=== PATIENT | male | born 1980 | race Hispanic/Latino ===

== ENCOUNTER 2017-08-21 13:56 | Emergency (ER) | payer MEDICARE, OTHER ==
[~2017-08-21] VITALS: Ht 182.9 cm; Wt 156.5 kg
[2017-08-21] MEDS ORDERED: ONDANSETRON HCL INJ 2 MG/ML VIAL IV STA ×2 (14:13→16:08)
[2017-08-21] MEDS ORDERED: SODIUM CHLORIDE FLUSH 10 ML SYR INJ PRN (14:15)
[2017-08-21] MEDS ORDERED: MORPHINE SULFATE 5 MG/ML VIAL IV ONE (14:15)
[2017-08-21] MEDS ORDERED: TRAMADOL HCL 50 MG TAB PO ONE (16:15)
[2017-08-21] MEDS ORDERED: MORPHINE SULFATE 4 MG/ML SYR IV ONE (16:15)
[2017-08-21] MEDS ORDERED: MORPHINE SULFATE 2 MG/ML SYR IV SCH (16:15)
[2017-08-21 16:23] VITALS: BP 119/55
[2017-08-21] MEDS ORDERED: IOPAMIDOL 370 MG/ML 50ML INFUS..BTL INJ ONE (16:45)
== END 2017-08-21 16:29 | disposition home or self-care (01) ==
LOC: FSED 13:56
DX: R07.89 Other chest pain (principal); R09.1 Pleurisy; R05 Cough; R11.0 Nausea; J20.9 Acute bronchitis, unspecified; K21.9 Gastro-esophageal reflux disease without esophagitis; K70.30 Alcoholic cirrhosis of liver without ascites; E66.01 Morbid (severe) obesity due to excess calories
CPT/HCPCS: 71275; 80053; 80076; 81003; 82553; 84484; 85025; 85379; 85610; 93005; 99284; J2270; J2405; Q9967

== ENCOUNTER 2018-03-04 05:37 | Inpatient (IN) | payer MEDICARE, OTHER ==
[~2018-03-04] VITALS: Ht 180.3 cm; Wt 146.1 kg
--- OUTSIDE RECORDS SUMMARY | 2018-03-04 05:43 | XMS REPORT | Summary of Care ---
Author Author [facility] Organization [facility] Address Unknown Phone Unavailable Encounter ATUL Gomez(JULITO) [phone] Date(s): 03/01/16 - 03/01/16 [facility] [address] [facility] [phone] [facility] [phone] Discharge Disposition: Home or Self Care Attending Physician: Ari Petit MD Referring Physician: Ari Petit MD Vital Signs Most recent to 1 oldest [Reference Range]: Height 182.88 cm (03/01/16 12:45 PM) Temperature Oral 99.3 DegF [96.4-99.1 DegF] *HI* (03/01/16 12:45 PM) Blood Pressure 155/70 mmHg [90-140/60-90 mmHg] *HI* (03/01/16 12:45 PM) Peripheral Pulse 82 bpm Rate [60-100 bpm] (03/01/16 12:45 PM) Weight 158.239 kg (03/01/16 12:45 PM) Body Mass Index 47.31 m2 (03/01/16 12:45 PM) Problem List Condition Effective Dates Status Health Status Informant 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) Morbid Active obesity(Confirmed) Allergies, Adverse Reactions, Alerts Substance Reaction Severity Status NKDA Active Medications gabapentin 300 mg oral capsule 300 mg=1 cap, PO, TID, 0 Refill(s) Start Date: 03/01/16 Status: Ordered ICaps Plus oral tablet 1 tab, PO, Daily, 0 Refill(s) Start Date: 03/01/16 Status: Ordered lactulose 10 g/15 mL oral syrup 10 gm=15 mL, PO, BID, X 30 day, # 900 mL, 6 Refill(s), Pharmacy: [id number] Start Date: 03/01/16 Stop Date: 09/27/16 Status: Ordered non-formulary Refill(s) 0 Start Date: 03/01/16 Status: Ordered non-formulary Refill(s) 0 Start Date: 03/01/16 Status: Ordered pantoprazole 40 mg oral granule =1 Pack, PO, Daily, # 30 ea, 0 Refill(s) Start Date: 03/01/16 Status: Ordered Ultracet oral tablet 1 tab, PO, Q4H, 0 Refill(s) Start Date: 03/01/16 Status: Ordered Results No data available for this section Immunizations No data available for this section Procedures Procedure Date Related Diagnosis Body Site Back care Social History Social History Type Response Smoking Status Never smoker; Exposure to Tobacco Smoke None; Cigarette Smoking Last 365 Days No; Reg Smoking Cessation Counseling No Assessment and Plan No data available for this section
--- OUTSIDE RECORDS SUMMARY | 2018-03-04 05:43 | XMS REPORT | Summary of Care ---
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
--- OUTSIDE RECORDS SUMMARY | 2018-03-04 05:43 | XMS REPORT | Continuity of Care Document ---
Author Author Dave alford Organization Interface Address Unknown Phone Unavailable Problems Problem Status Onset Date Classification Date Reported Comments Source LAB WORK ONLY Active 01/12/2018 [facility] Encounter for follow-up examination after completed treatment for conditions other than malignant neoplasm 05/29/2017 08/29/2017 [facility] F/U Active 05/23/2017 [facility] Unspecified cirrhosis of liver 05/04/2017 08/06/2017 [facility] C22.0 - LIVER CELL CARCINOMA Active 05/02/2017 LORENE Alford ESLD Active 02/13/2017 [facility] GI BLEED Active 02/11/2017 [facility] RECTAL BLEEDING Active 02/11/2017 [facility] K76.6 - PORTAL HYPERTENSION C22.0 - LIVE Active 12/27/2016 LORENE Alford OUTPATIENT/IMAGE GUIDED ANGIOGRAM Active 12/26/2016 [facility] FOLLOW UP Active 10/23/2016 [facility] NEW PRE LIVER TRANSPLANT EVAL CLINIC VIS Active 04/30/2016 [facility] NEW PRE LIVER TRANSPLANT EVAL LABS AND E Active 03/23/2016 [facility] DSU-Z00.00 ENCOUNTER FOR GENERAL ADULT M Active 03/06/2016 [facility] CONSULT Active 02/06/2016 [facility] K74.60 - UNSPECIFIED CIRRHOSIS OF LIVER Active 01/16/2016 LORENE Perry Acanthosis nigricans Active Problem [facility]/28[facility] Alcohol abuse Resolved [facility]/28[facility] Alcoholic cirrhosis of liver Active Problem [facility]/28[facility] Autosomal Recessive Retinitis Pigmentosa Active Problem [facility]/28[facility] Morbid obesity with BMI of 45.0-49.9, adult<sup>1</sup> Active Problem 10/28/2017 [facility]- 45.4 [facility] EV (<span ID="[id number]">Confirmed</span>) Active Problem 10/28/2017 LORENE Alford,[facility] Hepatic encephalopathy Active Problem 10/28/2017 LORENE Alford,[facility] Depression Resolved Problem 10/28/2017 LORENE Alford,[facility] Thrombocytopenia Active Problem [facility]/28[facility] HCC (<span ID="[id number]">Confirmed</span>) Active Problem 02/16/2017 LORENE Alford,[facility] 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 Active Problem 03/30/2016 LORENE Alford,[facility] Morbid obesity Active Problem 03/30/2016 LORENE Alford,[facility] Portal hypertension Active Problem 10/28/2017 [facility], LORENE Alford Secondary esophageal varices without bleeding 08/06/2017 [facility] Fluid overload, unspecified 08/06/2017 [facility] Anxiety Resolved Problem 10/28/2017 [facility], LORENE Alford Lesion of liver Active Problem 10/28/2017 [facility], LORENE Alford Bloating Active Problem 10/28/2017 [facility], LORENE Alford Body mass index 40.0-44.9, adult 08/29/2017 [facility] FOR GENERAL ADULT MEDICAL EXAM W/ Active [facility] GASTROINTESTINAL HEMORRHAGE, UNSPECIFIED Active [facility] Medications Medication Details Route Status Patient Instructions Ordering Provider Order Date Source pantoprazole 40 mg oral enteric coated tablet 40 mg=1 tab, PO, Daily, # 30 tab, 11 Refill(s), Pharmacy: [facility]/pharmacy #[id number] Active 05/23/2017 [facility] propranolol 10 mg oral tablet 10 mg=1 tab, PO, BID, # 60 tab, 5 Refill(s), Pharmacy: [facility]/pharmacy #[id number] Active 05/23/2017 [facility] propranolol 10 mg oral tablet 10 mg=1 tab, PO, BID, 0 Refill(s) Active 04/01/2017 [facility] pantoprazole 40 mg, 1 tab, Route: PO, Drug form: ECTAB, Daily, Dosing Weight 147.727, kg, Start date: 02/14/17 9:00:00 CDT, Duration: 30 day, Stop date: 03/15/17 9:00:00 CSTNotes: Tablet should not be chewed or c rushed. (Same as: Protonix) No Longer Active 02/14/2017 [facility] Anusol-HC 25 mg rectal suppository 25 mg, 1 supp, Route: WA, BID, Drug form: SUPP, Start date: 02/13/17 17:00:00 CDT, Duration: 7 day, Stop date: 02/20/17 9:00:00 CSTNotes: (Same as: Anusol-HC, Hemorrhoidal HC) Inactive 02/13/2017 [facility] ciprofloxacin 500 mg oral tablet 500 mg, PO, [id number], X 5 day, # 10 tab, 0 Refill(s) Active 02/13/2017 [facility] ciprofloxacin 500 mg, 1 tab, Route: PO, Drug form: TAB, [id number], Dosing Weight 147.727, kg, Start date: 02/13/17 15:00:00 CDT, Duration: 7 day, Stop date: 02/20/17 3:00:00 MANAGER FRENCH, ABX Indication: Intra- abdominal InfectionNotes: May interfere w/enteral feedings - Take 1 hr before or 2 hrs after antacids, dairy pdt & minerals. On empty stomach. Inactive 02/13/2017 [facility] Anusol-HC 25 mg rectal suppository 25 mg=1 supp, WA, BID, X 7 day, # 14 supp, 0 Refill(s) Active 02/13/2017 [facility] tramadol 50 mg, 1 tab, Route: PO, Drug form: TAB, Q8H, Dosing Weight 147.727, kg, PRN Pain Score 1-3, Start date: 02/13/17 11:49:00 CDT, Duration: 30 day, Stop date: 03/15/17 11:48:00 CSTNotes: Not to exceed 400mg/day. (Same As: Ultram) Inactive 02/13/2017 [facility] lactulose 10 g/15 mL oral syrup 20 gm, 30 ml, Route: PO, Drug form: SYRP, TID, Dosing Weight 147.727, kg, Start date: 02/13/17 9:00:00 CDT, Duration: 30 day, Stop date: 03/14/17 17:00:00 CSTNotes: (Same as:Chronulac) Inactive 02/13/2017 [facility] riFAXimin 550 mg, Route: PO, Drug form: TAB, Q12H, Dosing Weight 147.727, kg, Start date: 02/13/17 9:00:00 CDT, Duration: 30 day, Stop date: 03/14/17 21:00:00 MANAGER FRENCH Inactive 02/13/2017 [facility] Rocephin 1 gm, Route: IVPB, Drug form: PDR/INJ, [id number], Dosing Weight 145.455, kg, Start date: 02/12/17 22:00:00 CDT, Duration: 7 day, Stop date: 02/18/17 22:00:00 MANAGER FRENCH, ABX Indication: Intra-abdominal Infection Notes: (Same As: Rocephin). MEDICATION WASTE Product Size: 1000 mg Product Wasted: ___ mg No Longer Active 02/13/2017 [facility] Omnipaque 350mg/ml 100 mL, Route: IVP, Drug Form: SOLN, Dosing Weight 147.727, kg, ONCALL, STAT, Start date: 02/12/17 14:56:00 CDT, Duration: 1 doses or times, Stop date: 02/13/17 0:00:00 CDT, Dose=2.2ml/kg, Max [id number] -- "To be infused by Radiology Staff ONLY"Notes: (same as:Omnipaque 350). WASTE: F/P - Black; E - Municipal Trash Bin Inactive 02/12/2017 [facility] GoLYTELY 4,000 ml, Route: PO, Drug Form: PDR/REC, Dosing Weight 147.727, kg, ONCE, Start date: 02/12/17 11:20:00 CDT, Duration: 1 doses or times, Stop date: 02/12/17 11:20:00 CDTNotes: (polyethylene glycol elect rolyte solution 4 Liter bottle) (Same as: Nigel Colyte) Inactive 02/12/2017 [facility] propranolol 10 mg, 1 tab, Route: PO, Drug form: TAB, BID, Dosing Weight 147.727, kg, Start date: 02/12/17 9:00:00 CDT, Duration: 30 day, Stop date: 03/13/17 17:00:00 CSTNotes: Give with food. (Same as: Inderal) No Longer Active 02/12/2017 [facility] calcium-vitamin D 500 mg-400 intl units oral tablet, chewable 1 tab, Route: PO, Drug Form: CHEWTAB, Dosing Weight 147.727, kg, Daily, Start date: 02/12/17 9:00:00 CDT, Duration: 30 day, Stop date: 03/13/17 9:00:00 CSTNotes: (calcium carbonate-vit D 500mg-400unit chew TAB) Same as: Oscal 500+D Inactive 02/12/2017 [facility] gabapentin 300 mg oral capsule 300 mg, 1 cap, Route: PO, Drug form: CAP, BID, Dosing Weight 147.727, kg, Start date: 02/12/17 9:00:00 CDT, Duration: 30 day, Stop date: 03/13/17 17:00:00 CSTNotes: (Same as: Neurontin) No Longer Active 02/12/2017 [facility] calcium gluconate + sodium chloride 0.9% INJ 80 mL 2,000 mg, 20 mL, Route: IVPB, ONCE, Dosing Weight 147.727, kg, Priority: STAT, Start date: 02/12/17 1:37:00 CDT, Stop date: 02/12/17 1:37:00 CDTNotes: WASTE: F/P - Sink; E - Municipal Trash Bin Inactive 02/12/2017 [facility] albumin human 25% intravenous solution 25 gm, 100 mL, Route: IVPB, Drug form: INJ, Q6H, Dosing Weight 145.455, kg, Start date: 02/12/17 0:00:00 CDT, Duration: 6 doses or times, Stop date: 02/13/17 6:00:00 CDT Inactive 02/12/2017 [facility] octreotide 1,250 microgram + sodium chloride 0.9% INJ 250 mL 250 mL, Rate: 50 microgram/hr, Route: IV, Dosing Weight 145.455 kg, Total Volume: 252.5, Priority: STAT, Start date: 02/11/17 23:41:00 CDT, Duration: 30 day, Stop date: 03/13/17 23:40:00 MANAGER FRENCH No Longer Active 02/12/2017 [facility] Sodium Chloride 0.9% IV 100 mL + pantoprazole 80 mg 100 mL, Rate: 10 ml/hr, Infuse over: 10 hr, Route: IVPB, Dosing Weight 145.455 kg, Total Volume: 100, Infuse at 8 mg / hr for 72 hours for GI bleeding, Priority: STAT, Start date: 02/11/17 23:41:00 CDT, Duration: 72 hr, Stop date: 02/14/17 23:40:00 CDT Inactive 02/12/2017 [facility] pantoprazole 80 mg + sodium chloride 0.9% INJ 100 mL 100 mL, Rate: 10 ml/hr, Infuse over: 10 hr, Route: IVPB, Dosing Weight 145.455 kg, Total Volume: 100, Infuse at 8 mg / hr for 72 hours for GI bleeding, Start date: 02/11/17 22:14:00 CDT, Duration: 72 hr, Stop date: 02/14/17 22:13:00 CDT No Longer Active 02/12/2017 [facility] Rocephin 1 gm, Route: IVPB, Drug form: PDR/INJ, ONCE, Dosing Weight 145.455, kg, Priority: STAT, Start date: 02/11/17 22:13:00 CDT, Duration: 1 doses or times, Stop date: 02/11/17 22:13:00 CDT, ABX Indication: O ther (specify in Comments)Notes: (Same As: Rocephin). MEDICATION WASTE Product Size: 1000 mg Product Wasted: ___ mg Inactive 02/12/2017 [facility] Octreotide (bolus) 50 microgram, 1 mL, Route: IV, Drug form: INJ, ONCE, Dosing Weight 145.455, kg, Start date: 02/11/17 22:12:00 CDT, Stop date: 02/11/17 22:12:00 CDTNotes: (Same As: SandoSTATIN). Refrigerate MEDICATION WASTE Product Size: 50 microgram Product Wasted: ___ microgram No Longer Active 02/12/2017 [facility] Protonix 80 mg, Route: IVP, Drug form: INJ, ONCE, Dosing Weight 145.455, kg, Priority: STAT, Start date: 02/11/17 22:12:00 CDT, Stop date: 02/11/17 22:12:00 CDTNotes: For IV push reconstitute with 10 ml 0.9% sod ium chloride and push over 2 minutes. (Same as: Protonix) Inactive 02/12/2017 [facility] multivitamin with minerals 1 tab, Route: PO, Drug Form: TAB, Dosing Weight 145.455, kg, Daily, Start date: 01/17/17 9:00:00 CDT, Duration: 30 day, Stop date: 02/15/17 9:00:00 CDTNotes: (Same as:Thera-M, Theragran-M) WASTE: F/P - Black; E - Municipal Trash Bin Give with food. Inactive 01/17/2017 [facility] Docusate 100 mg, 1 cap, Route: PO, Drug form: CAP, BID, Dosing Weight 145.455, kg, Start date: 01/17/17 9:00:00 CDT, Duration: 30 day, Stop date: 02/15/17 17:00:00 CDTNotes: (Same as: Colace) (Do Not Crush) Inactive 01/17/2017 [facility] gabapentin 300 MG Oral Capsule 300 mg, 1 cap, Route: PO, Drug form: CAP, BID, Dosing Weight 145.455, kg, Start date: 01/17/17 9:00:00 CDT, Duration: 30 day, Stop date: 02/15/17 17:00:00 CDTNotes: (Same as: Neurontin) Inactive 01/17/2017 [facility] Calcium Carbonate 1500 MG / Cholecalciferol 400 UNT Oral Tablet 1 tab, Route: PO, Drug Form: CHEWTAB, Dosing Weight 145.455, kg, Daily, Start date: 01/17/17 9:00:00 CDT, Duration: 30 day, Stop date: 02/15/17 9:00:00 CDTNotes: (calcium carbonate-vit D 500mg-400unit chew TAB) Same as: Oscal 500+D Inactive 01/17/2017 [facility] Propranolol 10 mg, 1 tab, Route: PO, Drug form: TAB, BID, Dosing Weight 145.455, kg, Start date: 01/17/17 9:00:00 CDT, Duration: 30 day, Stop date: 02/15/17 17:00:00 CDTNotes: Give with food. (Same as: Inderal) Inactive 01/17/2017 [facility] pantoprazole 40 mg, 1 tab, Route: PO, Drug form: ECTAB, Before Breakfast, Dosing Weight 145.455, kg, Start date: 01/17/17 7:30:00 CDT, Duration: 30 day, Stop date: 02/15/17 7:30:00 CDTNotes: Tablet should not be chewed or crushed. (Same as: Protonix) Inactive 01/17/2017 [facility] Lactulose 667 MG/ML Oral Solution 10 gm, 15 mL, Route: PO, Drug form: SYRP, Daily, Dosing Weight 145.455, kg, PRN Constipation, Start date: 01/16/17 22:47:00 CDT, Duration: 30 day, Stop date: 02/15/17 22:46:00 CDTNotes: (Same as:Chronulac) No Longer Active 01/17/2017 [facility] Lactulose 667 MG/ML Oral Solution 10 gm=15 mL, PO, Daily, PRN as needed for constipation, # 480 mL, 0 Refill(s) Active 01/17/2017 [facility] pantoprazole 40 MG Enteric Coated Tablet [Protonix] 40 mg=1 tab, PO, Daily, # 30 tab, 0 Refill(s) Active 01/17/2017 [facility] tramadol hydrochloride 50 MG Oral Tablet 50 mg, 1 tab, Route: PO, Drug form: TAB, Q6H, Dosing Weight 145.455, kg, PRN Pain Score 4-6, Start date: 01/16/17 22:45:00 CDT, Duration: 30 day, Stop date: 02/15/17 22:44:00 CDTNotes: Not to exceed 400mg/day. (Same As: Ultram) No Longer Active 01/17/2017 [facility] Ondansetron 4 mg, 2 mL, Route: IVP, Drug form: INJ, Q6H, Dosing Weight 145.455, kg, PRN Nausea & Vomiting, Start date: 01/16/17 21:44:00 CDT, Duration: 30 day, Stop date: 02/15/17 21:43:00 CDTNotes: (Same as: Vinay) MEDICATION WASTE Product Size: 4 mg Product Wasted: ___ mg No Longer Active 01/17/2017 [facility] Hydromorphone 1 mg, 0.5 mL, Route: IVP, Drug form: INJ, Q4H, Dosing Weight 145.455, kg, PRN Pain Score 7-10, Start date: 01/16/17 12:59:00 CDT, Duration: 1 day, Stop date: 01/17/17 12:58:00 CDTNotes: Same as: Dilaudid No Longer Active 01/16/2017 [facility] Acetaminophen 325 MG / Hydrocodone Bitartrate 10 MG Oral Tablet 1 tab, Route: PO, Drug Form: TAB, Dosing Weight 145.455, kg, Q4H, PRN Pain Score 4-6, Start date: 01/16/17 12:59:00 CDT, Duration: 1 day, Stop date: 01/17/17 12:58:00 CDTNotes: Do not exceed 4gm/day of acetaminophen. (Same as: Melvin 325/10) No Longer Active 01/16/2017 [facility] Fentanyl 50 microgram, Route: IV, ONCE, Dosing Weight 145.455, kg, Start date: 01/16/17 12:13:00 CDT, Stop date: 01/16/17 12:13:00 CDT, Inactive 01/16/2017 [facility] Midazolam 1 mg, Route: IV, ONCE, Dosing Weight 145.455, kg, Start date: 01/16/17 12:13:00 CDT, Stop date: 01/16/17 12:13:00 CDT Inactive 01/16/2017 [facility] Midazolam 1 mg, Route: IV, ONCE, Dosing Weight 145.455, kg, Start date: 01/16/17 11:22:00 CDT, Stop date: 01/16/17 11:22:00 CDT Inactive 01/16/2017 [facility] Fentanyl 50 microgram, Route: IV, ONCE, Dosing Weight 145.455, kg, Start date: 01/16/17 11:22:00 CDT, Stop date: 01/16/17 11:22:00 CDT, Inactive 01/16/2017 [facility] Midazolam 1 mg, Route: IV, ONCE, Dosing Weight 145.455, kg, Start date: 01/16/17 10:15:00 CDT, Stop date: 01/16/17 10:15:00 CDT Inactive 01/16/2017 [facility] Fentanyl 50 microgram, Route: IV, ONCE, Dosing Weight 145.455, kg, Start date: 01/16/17 10:15:00 CDT, Stop date: 01/16/17 10:15:00 CDT, Inactive 01/16/2017 [facility] Ancef 1 gm, Route: IV, ONCE, Dosing Weight 145.455, kg, Start date: 01/16/17 9:57:00 CDT, Stop date: 01/16/17 9:57:00 CDT, ABX Indication: Surgical Prophylaxis Inactive 01/16/2017 [facility] Flagyl 500 mg, Route: IV, ONCE, Dosing Weight 145.455, kg, Start date: 01/16/17 8:44:00 CDT, Stop date: 01/16/17 8:44:00 CDT, ABX Indication: Surgical Prophylaxis Inactive 01/16/2017 [facility] ondansetron 16 mg, 50 mL, Route: IVPB, Drug form: SOLN, On Adm, Start date: 01/16/17 8:00:00 CDT, Duration: 1 doses or times, Stop date: 01/16/17 23:00:00 CDTNotes: Same as: Zofran Inactive 01/16/2017 [facility] Sodium Chloride 0.9% IV IV, 100 ml/hr, On Adm, Start date: 01/16/17 8:00:00 CDT, Duration: 1, 1,000 ml Inactive 01/16/2017 [facility] DOXOrubicin 100 mg + sterile water 4 mL + empty container 1 ea Route: INTRAARTERIAL, On Adm, Start date: 01/16/17 8:00:00 CDT, Duration: 1 doses or times, Stop date: 01/16/17 23:00:00 CDTNotes: (Same as: Adriamycin) CHEMOTHERAPY; Infuse entire contents for full dose WASTE: F/P - Black; E - Yellow MEDICATION WASTE Product Size: 50 mg Product Wasted: _0__ mg Inactive 01/16/2017 [facility] dexamethasone + sodium chloride 0.9% INJ 50 mL 10 mg, 1 mL, Route: IVPB, On Adm, Start date: 01/16/17 8:00:00 CDT, Duration: 1 doses or times, Stop date: 01/16/17 23:00:00 CDT Inactive 01/16/2017 [facility] clarithromycin 500 mg oral tablet 500 mg=1 tab, PO, Q12H, # 28 tab, 0 Refill(s) Active 04/30/2016 [facility] ICaps MV oral tablet 1 tab, PO, Daily, # 30 tab, 0 Refill(s) Active 04/30/2016 [facility] Calcium Carbonate 1500 MG / Cholecalciferol 400 UNT Oral Tablet 1 tab, PO, Daily, # 60 tab, 0 Refill(s) Active 04/30/2016 [facility] Vitamin K1 100 mcg oral tablet 100 microgram=1 tab, PO, Daily, 0 Refill(s) Inactive 04/30/2016 [facility] propranolol 10 mg oral tablet 10 mg=1 tab, PO, BID, # 60 tab, 6 Refill(s), Pharmacy: [facility]/pharmacy #[id number] Active 03/28/2016 [facility] Propranolol 10 mg=1 tab, PO, QID, # 100 tab, 0 Refill(s) Active 03/27/2016 [facility] tramadol hydrochloride 50 MG Oral Tablet 50 mg=1 tab, PO, Q6H, PRN Pain, # 40 tab, 0 Refill(s) Active 03/23/2016 [facility] lactulose 10 g oral powder 10 gm=1 ea, PO, BID, # 20 ea, 0 Refill(s) No Longer Active 03/23/2016 [facility] Lactulose 667 MG/ML Oral Solution 10 gm=15 mL, PO, BID, X 30 day, # 900 mL, 6 Refill(s), Pharmacy: [facility]/pharmacy #[id number] Active 03/01/2016 [facility] non-formulary Refill(s) 0 Active 03/01/2016 [facility] Acetaminophen 325 MG / tramadol hydrochloride 37.5 MG Oral Tablet [Ultracet] 1 tab, PO, Q4H, 0 Refill(s) Active 03/01/2016 [facility] pantoprazole 40 mg oral granule =1 Pack, PO, Daily, # 30 ea, 0 Refill(s) Active 03/01/2016 [facility] ICaps Plus oral tablet 1 tab, PO, Daily, 0 Refill(s) Active 03/01/2016 [facility] gabapentin 300 MG Oral Capsule 300 mg=1 cap, PO, TID, 0 Refill(s) Active 03/01/2016 [facility] Allergies, Adverse Reactions, Alerts Substance Category Reaction Severity Reaction type Status Date Reported Comments Source Immunizations Immunization Date Given Site Status Last Updated Comments Source Results Order Name Results Value Reference Range Date Interpretation Comments Source Abd Liver Protocol w/wo IV contrast CT Abd Liver Protocol w/wo IV contrast CT EXAM: CT ABDOMEN WITH AND WITHOUT CONTRAST DATE: 10/25/2017 11:53 AM CDT INDICATION: - K70.30 Alcoholic cirrhosis of liver without ascites COMPARISON: 05/10/2017 TECHNIQUE: Volumetric CT acquisition of the abdomen both prior to and following intravenous contrast, in precontrast, arterial, portal venous and delayed phases of enhancement, per the dynamic liver protocol. Axial, sagittal and coronal reconstructions. IV contrast: 1 50 mL of Omnipaque 350 Oral contrast: None. DLP: 3997 mGy*cm FINDINGS: Lower thorax: Small left pleural effusion. Liver Craniocaudal length: 11.1 cm. Shrunken. Density: Heterogeneous attenuation secondary to underlying fibrosis and the previously described 1.7 x 1.3 cm lesion at the hepatic dome medially, faintly appreciated and measures 1.5 x 1.1 cm (4, 23) and is a pseudolesion secondary to underlying cirrhosis. No definite arterial hyperenhancement or washout noted. Surface nodularity: Nodular. Enhancing hepatic masses > 2cm: None. Enhancing hepatic masses < 2cm: None. Non-enhancing/cystic hepatic lesions: None. Hepatic vessels: Hepatic arterial anatomy: Conventional. Arterial stenoses: None. Portal vein: Patent. Caliber: 16 mm. Portosystemic collaterals: Extensive periesophageal collaterals in the perigastric collaterals and perisplenic collaterals noted. Hepatic, splenic and superior mesenteric veins, and IVC: Patent. Regional lymph nodes: Reactive dinora hepatis and celiac axis lymph nodes are noted for example a celiac axis lymph node measures 14 mm in short axis (5, 58). Biliary tree: No intra- or extrahepatic biliary ductal dilation. Gallbladder: Contracted and and contains multiple stones. Pancreas: Normal. Spleen: Enlarged measuring 21.7 cm in craniocaudal axis. Adrenals: Normal. Kidneys: Normal. Gastrointestinal tract: Normal caliber. Peritoneum and retroperitoneum: Small volume abdominal ascites noted. Subcentimeter retroperitoneal lymph nodes, likely reactive and not enlarged by CT criteria. Vasculature: Normal. Bones: Degenerative disc disease involving the lower lumbar spine. Soft tissues: Normal. IMPRESSION: 1. Morphological changes of liver cirrhosis, massive splenomegaly and portal hypertension. 2. No discrete hypervascular liver lesion seen. 3. The previously described subtle enhancing focus is faintly appreciated and measures 1.5 x 1.1 cm and is likely a pseudolesion secondary to underlying cirrhosis (? LR-3). RECOMMENDATIONS: Follow-up imaging recommended with liver magnetic resonance imaging. 10/25/2017 - - Read by: Leonidas Berry MD Dictated Date/time: 10/25/17 13:46 Electronically Signed by: Leonidas Berry MD 10/25/17 13:55 FINAL REPORT MH OPID Prashanth Chest wo contrast CT Chest wo contrast CT EXAM: CT CHEST WITHOUT CONTRAST DATE: 05/10/2017 5:18 PM MANAGER FRENCH INDICATION: - C22.0 Liver cell carcinoma TECHNIQUE: Volumetric CT acquisition of the chest was obtained without contrast. Sagittal, coronal and axial MIP reformatted images were reconstructed and obtained at the workstation. COMPARISON: Comparison is made with the prior chest CT dated 10/22/2016. FINDINGS: The cardiothoracic ratio measures 14.4/28.2 cm. The ascending aorta and pulmonary trunk do not measure enlarged. Mild distal right coronary artery calcification. There are no pleural effusions. No pericardial effusion. No enlarged mediastinal lymph nodes. Evaluation of the octaviano for lymph nodes is limited by the absence of intravenous contrast. No axillary, internal mammary, paracardiac or anterior diaphragmatic adenopathy. There is abundant soft tissue density surrounding the lower half of the intrathoracic esophagus extending from the subcarinal region down to the GE junction. This presumably represents the patient's known esophageal varices. It would be difficult to exclude underlying esophageal abnormality, mass or adenopathy. The appearance is similar to 10/22/2016. Again noted is a prominent subcutaneous cyst in the presternal chest wall anterior to the upper sternum measuring 49 x 36 mm. For a description of findings below the diaphragm, please reference the concomitant abdomen and pelvis CT report from the same day. There is dependent atelectasis in the bilateral lower lobes, mostly on the right. A 3 mm nodule in the right upper lobe on axial image 73 has not significantly changed dating back to 04/24/2016. No suspicious new pulmonary nodules or masses identified. Mild scattered degenerative changes of the thoracic spine with osteophytes noted. Sclerotic foci within both glenoids and left 3rd rib laterally have not significantly changed. IMPRESSION: No significant change when compared to 10/22/2016. 1. Tiny 3 mm nodule right upper lobe image 73, unchanged dating back to 04/24/2016. 2. Mild dependent atelectasis in the lower lobes, mostly on the left. 3. Abundant soft tissue density surrounding the lower half of the esophagus from the subcarinal region down to the GE junction. This presumably represents esophageal varices, not well evaluated in the absence of intravenous contrast. 4. Mild right coronary artery calcification. 05/10/2017 - - Read by: Roseline Mac MD Dictated Date/time: 05/11/17 12:13 Electronically Signed by: Roseline Mac MD 05/11/17 12:24 FINAL REPORT [facility] Abd/Pelvis Liver Protocol w IV/Abd wo CT Abd/Pelvis Liver Protocol w IV/Abd wo CT EXAM: CT ABDOMEN AND PELVIS WITHOUT AND WITH CONTRAST DATE: 05/10/2017 5:18 PM MANAGER [place] INDICATION: - C22.0 Liver cell carcinoma ADDITIONAL INFORMATION: None. COMPARISON: 02/12/2017; 03/14/2016. TECHNIQUE: Volumetric CT acquisition of the abdomen both prior to and following intravenous contrast, in precontrast, arterial, portal venous and delayed phases of enhancement, per the dynamic liver protocol. Venous and delayed phase imaging of the pelvis. Axial, sagittal and coronal reconstructions. IV contrast: 150 cc Omnipaque 350 Enteric contrast: None. DLP: 5240.66 mGy-cm FINDINGS: Lines, tubes and hardware: None. Lower thorax: Clear. Liver: The liver is cirrhotic in morphology. No suspicious hepatic mass is seen. There is a subtle enhancing focus at the hepatic dome measuring 1.7 x 1.3 cm best seen on arterial phase image 21, series 7 with no evidence of washout. This area has been intermittently visualized on prior examinations and appears to be smaller in size since 2016 exam and appeared less conspicuous on 01/2017 exam. It is uncertain if this region has been treated. Otherwise no suspicious arterial enhancing lesions with washout are identified. Hepatic vessels: Hepatic arterial anatomy: Conventional. Arterial stenoses: None. Portal vein: Patent. Portosystemic collaterals: Reidentified extensive marked periesophageal, perigastric and left perisplenic portosystemic collaterals. Hepatic, splenic and superior mesenteric veins, and IVC: Patent. Biliary tree: No intra- or extrahepatic biliary ductal dilation. Gallbladder: Stable appearance of the contracted gallbladder containing multiple stones within the gallbladder lumen and cystic duct. Changes compatible with sequelae of chronic cholecystitis. Pancreas: Normal. Spleen: Normal. Adrenals: Normal. Kidneys and ureters: Normal. Bladder: Normal. Gastrointestinal tract: Stomach: Normal. Small bowel: Normal. Colon: Normal. Appendix: Normal. Peritoneum, mesentery and retroperitoneum: There is mild mesenteric fluid and stranding likely related to liver disease. Lymph nodes: Multiple, stable subcentimeter short axis retroperitoneal and mesenteric lymph nodes are seen likely related to chronic liver disease. Vasculature: Aorta is normal in size and caliber. Bones: No acute abnormality. Multilevel degenerative changes are present in the visualized spine. Soft tissues: Normal. IMPRESSION: 1. A 1.7 x 1.3 cm subtle enhancing focus on arterial phase at the hepatic dome with no evidence of washout (image 21, series 7). This region has been intermittently visualized on prior examinations (previously described as LR-4) and appears smaller since 2016 CT exam. It is uncertain if this region has been treated in the past. (LR-3 versus questionable LR-treated). Interval follow-up is recommended in 3 months to document interval changes/stability. 2. No new suspicious arterial enhancing hepatic mass evident. 3. Cirrhosis with sequelae of portal hypertension including massive paraesophageal varices. 05/10/2017 - - Read by: Angelica Briceno MD Dictated Date/time: 05/12/17 14:12 Electronically Signed by: Angelica Briceno MD 05/13/17 15:32 FINAL REPORT [facility] CHEM PANEL Magnesium Lvl 1.9 mg/dL 1.8 - 2.4 02/13/2017 [facility] CHEM PANEL Bili Indirect 2.6 mg/dL 0.0 - 1.0 02/13/2017 [facility] CHEM PANEL Globulin 3.1 g/dL 2.7 - 4.2 02/13/2017 [facility] CHEM PANEL A/G Ratio 0.8 0.7 - 1.6 02/13/2017 [facility] CHEM PANEL Total Protein 5.6 g/dL 6.4 - 8.4 02/13/2017 [facility] CHEM PANEL Bili Total 3.9 mg/dL 0.2 - 1.3 02/13/2017 [facility] CHEM PANEL Alk Phos 99 unit/L 39 - 136 02/13/2017 [facility] CHEM PANEL Bili Direct 1.3 mg/dL 0.0 - 0.3 02/13/2017 [facility] CHEM PANEL Albumin Lvl 2.5 g/dL 3.5 - 5.0 02/13/2017 [facility] CHEM PANEL AST 45 unit/L 0 - 37 02/13/2017 [facility] CHEM PANEL ALT 28 unit/L 0 - 65 02/13/2017 [facility] CHEM PANEL Phosphorus 4.0 mg/dL 2.5 - 4.5 02/13/2017 [facility] ELECTROLYTES AGAP 11.8 meq/L 10.0 - 20.0 02/13/2017 [facility] ELECTROLYTES eGFR 113 mL/min/1.73m2 02/13/2017 Result Comment: The eGFR is calculated using the CKD-EPI formula. In most young, healthy individuals the eGFR will be >90 mL/min/1.73m2. The eGFR declines with age. An eGFR of 60-89 may be normal in some populations, particularly the elderly, for whom the CKD-EPI formula has not been extensively validated. Use of the eGFR is not recommended in the following populations: Individuals with unstable creatinine concentrations, including patients and those with serious co-morbid conditions. Patients with extremes in muscle mass or diet. The data above are obtained from the National Kidney Disease Education Program (NKDEP) which additionally recommends that when the eGFR is used in patients with extremes of body mass index for purposes of drug dosing, the eGFR should be multiplied by the estimated BMI. [facility] ELECTROLYTES Calcium Lvl 7.8 mg/dL 8.5 - 10.5 02/13/2017 [facility] ELECTROLYTES BUN 11 mg/dL 7 - 22 02/13/2017 [facility] ELECTROLYTES Glucose Lvl 105 mg/dL 70 - 99 02/13/2017 [facility] ELECTROLYTES Creatinine Lvl 0.82 mg/dL 0.50 - 1.40 02/13/2017 [facility] ELECTROLYTES Sodium Lvl 140 meq/L 135 - 145 02/13/2017 [facility] ELECTROLYTES Chloride Lvl 106 meq/L 95 - 109 02/13/2017 [facility] ELECTROLYTES CO2 26 meq/L 24 - 32 02/13/2017 [facility] ELECTROLYTES Potassium Lvl 3.8 meq/L 3.5 - 5.1 02/13/2017 [facility] HEMATOLOGY Eosinophils # 0.1 K/CMM 0.0 - 0.5 02/13/2017 [facility] HEMATOLOGY Segs 50.1 % 45.0 - 75.0 02/13/2017 [facility] HEMATOLOGY Monocytes # 0.2 K/CMM 0.0 - 0.8 02/13/2017 [facility] HEMATOLOGY Segs-Bands # 0.9 K/CMM 1.5 - 8.1 02/13/2017 [facility] HEMATOLOGY Lymphocytes # 0.5 K/CMM 1.0 - 5.5 02/13/2017 [facility] HEMATOLOGY Eosinophils 6.1 % 0.0 - 4.0 02/13/2017 [facility] HEMATOLOGY Basophils 1.0 % 0.0 - 1.0 02/13/2017 [facility] HEMATOLOGY Lymphocytes 30.9 % 20.0 - 40.0 02/13/2017 [facility] HEMATOLOGY Monocytes 11.9 % 2.0 - 12.0 02/13/2017 [facility] HEMATOLOGY WBC 1.7 K/CMM 3.7 - 10.4 02/13/2017 [facility] HEMATOLOGY RBC 3.46 M/CMM 4.70 - 6.10 02/13/2017 [facility] HEMATOLOGY MPV 9.4 fL 7.4 - 10.4 02/13/2017 [facility] HEMATOLOGY RDW 16.7 % 11.5 - 14.5 02/13/2017 [facility] HEMATOLOGY Platelet 32 K/CMM 133 - 450 02/13/2017 [facility] HEMATOLOGY MCHC 35.2 g/dL 32.0 - 36.0 02/13/2017 [facility] HEMATOLOGY Hct 32.1 % 42.0 - 54.0 02/13/2017 [facility] HEMATOLOGY MCV 92.8 fL 80.0 - 94.0 02/13/2017 [facility] HEMATOLOGY Hgb 11.3 g/dL 14.0 - 18.0 02/13/2017 [facility] HEMATOLOGY MCH 32.7 pg 27.0 - 31.0 02/13/2017 [facility] HEMATOLOGY PT 21.0 s 12.0 - 14.7 02/13/2017 [facility] HEMATOLOGY INR 1.80 0.85 - 1.17 02/13/2017 [facility] HEMATOLOGY PTT 46.5 s 22.9 - 35.8 02/13/2017 [facility] HEMATOLOGY Hct 36.1 % 42.0 - 54.0 02/13/2017 [facility] HEMATOLOGY Hgb 12.4 g/dL 14.0 - 18.0 02/13/2017 [facility] Abd/Pelvis Liver Protocol w IV/Abd wo CT Abd/Pelvis Liver Protocol w IV/Abd wo CT EXAM: CT ABDOMEN AND PELVIS WITHOUT AND WITH CONTRAST DATE: 02/12/2017 11:20 AM CDT INDICATION: - liver protocol, rule out GI bleed ADDITIONAL INFORMATION: None. COMPARISON: CT abdomen liver 11/22/2016 TECHNIQUE: Volumetric CT acquisition of the abdomen both prior to and following intravenous contrast, in precontrast, arterial, portal venous and delayed phases of enhancement, per the dynamic liver protocol. Noncontrast, late arterial, venous, and three-minute delayed phase imaging of the pelvis. Axial, sagittal and coronal reconstructions. IV contrast: 150 mL Omnipaque 350 Enteric contrast: None. DLP: 5178 mGy-cm FINDINGS: Lines, tubes and hardware: None. Lower thorax: Trace left pleural effusion. Liver: Craniocaudal length: 7.9 cm. Density: Normal. Surface: Nodular. Hepatic masses: Suboptimal late arterial contrast timing limits evaluation for hepatic masses. Known segment 8 dome of mass is not clearly identified. Non-enhancing/cystic hepatic lesions: None. Hepatic vessels: Hepatic arterial anatomy: Conventional. Arterial stenoses: None. Portal vein: Patent. Caliber: 1.8 cm. Portosystemic collaterals: None. Hepatic, splenic and superior mesenteric veins, and IVC: Patent. Massively dilated portal-caval collateral esophageal vein with confluent esophageal varices appears unchanged. Large splenic varices remain present. Regional lymph nodes: Normal. Biliary tree: No intra- or extrahepatic biliary ductal dilation. Gallbladder: Contracted. Large gallstone within the body of the gallbladder is unchanged. Multiple stones are seen within the cystic duct. Pancreas: Normal. Spleen: Normal. Adrenals: Normal. Kidneys and ureters: Normal. Bladder: Normal. Reproductive organs: Normal. Gastrointestinal tract: Stomach: Normal. Small bowel: Normal. Colon: Collapsed. Normal wall thickness. Appendix: Normal. (Series 11 image 94) Peritoneum, mesentery and retroperitoneum: No free air, ascites or loculated fluid. Distant lymph nodes: Scattered mesenteric and retroperitoneal lymph nodes appear unchanged from 11/22/2016. No lymphadenopathy. Vasculature: Large splenic varices are present. Bones: No acute abnormality. Severe canal stenosis at L3-L4 is caused by posterior disc osteophyte complex and facet hypertrophy. Moderate degenerative changes are also seen at L4-5 and L5-S1, with possible neural foraminal stenosis. Soft tissues: Normal. IMPRESSION: 1. Cholelithiasis with calculi in the cystic duct.. Gallbladder is contracted around stones. Findings are consistent with chronic cholecystitis, without acute changes. These findings are stable compared to CT from 03/14/2016. 2. Cirrhotic liver morphology and sequelae, including unchanged esophageal varices. 3. Trace left pleural effusion. 4. Moderate to severe degenerative changes of the lower lumbar spine, including canal stenosis at L3-L4. 02/12/2017 - - This report was dictated by a [employer] Sales Counter Manager/Fellow. I have personally reviewed the images as well as the Resident's interpretation and agree with the findings. Read by: Sony Black MD Resident: Sony Black MD Dictated Date/time: 02/13/17 08:00 Electronically Signed by: Gabriel Nixon MD 02/13/17 13:52 FINAL REPORT [facility] Liver w Liver vessels Doppler US Liver w Liver vessels Doppler US EXAM: US ABDOMEN WITH DOPPLER DATE: 02/11/2017 1:40 PM CDT INDICATION: RUQ pain, s/p TACE, HCC, GI Bleed - RUQ pain ADDITIONAL INFORMATION: None. COMPARISON: Abdominal ultrasound 01/18/2016 and MRI abdomen 01/02/[address] abdomen 11/22/2016. TECHNIQUE: Multiplanar grayscale, color Doppler and spectral Doppler ultrasound of the abdomen. FINDINGS: Liver: Craniocaudal length: 15.0 cm. Echogenicity: Course. Surface: Nodular. Mass (size and location): No discrete hepatic lesions identified. Previous hepatic dome lesion described on CT of 11/2016, not well seen in current study. Hepatic and portal vasculature: Hepatic artery: Patent with antegrade pulsatile flow. Resistive index: 0.84. Portal veins: Patent with normal hepatopetal monophasic flow. MPV caliber: 1.1 cm. Hepatic veins: Patent with hepatofugal flow. Splenic artery: Patent with antegrade pulsatile flow. Splenic vein: Patent with normal flow. Collateral: Extensive gastroesophageal varices not well seen in the current study. Abdominal aorta: Visible portions are normal. Inferior vena cava: Visible portions are normal. Bile ducts: Common bile duct diameter: 0.42 cm. Intrahepatic ducts: Normal. Gallbladder: Contracted. Gallstones: Mobile gallstones are identified. Gallbladder sludge: None. Gallbladder wall: 0.29 cm. Pericholecystic fluid: None. Sonographic Saleem sign: Absent. Pancreas: The pancreas is not visualized due to overlying bowel gas. Spleen: Size: 26.1 x 6.6 x 7.5 cm which corresponds to splenic volume of 678.8 mL and is enlarged. Mass or focal lesion (size and location): None. Right kidney: Hydronephrosis: None. Echogenicity: Normal. Calculi: None. Cysts/Masses: None. Free fluid: None. Other: None. IMPRESSION: 1. Technically limited study due to patient body habitus and tender abdomen. 2. Cirrhotic liver with no focal lesions identified on this limited sonographic evaluation. Previous hepatic dome lesion seen on prior CT exam of 11/2016 are well seen. Consider CT/MR liver mass protocol for more sensitive evaluation. 3. Patent hepatic vasculature. Portosystemic collaterals better seen on prior cross- sectional imaging studies. 4. Splenomegaly, suggestive of portal hypertension. 5. Cholelithiasis without cholecystitis. 02/12/2017 - - This report was dictated by a [employer] Sales Counter Manager/Fellow. I have personally reviewed the images as well as the Resident's interpretation and agree with the findings. Read by: Joe Galeano MD Resident: Joe Galeano MD Dictated Date/time: 02/12/17 15:24 Electronically Signed by: Deven Alcazar MD 02/12/17 18:26 FINAL REPORT [facility] HEMATOLOGY Hct 33.8 % 42.0 - 54.0 02/12/2017 [facility] HEMATOLOGY Hgb 11.8 g/dL 14.0 - 18.0 02/12/2017 [facility] BACTERIAL - SEROLOGY MRSA by PCR Negative (02/12/17 12:08 AM) 02/12/2017 [facility] BLOOD BANK RESULTS Antibody Scrn Negative (02/12/17 12:08 AM) 02/12/2017 [facility] BLOOD BANK RESULTS ABO/Rh O POS 02/12/2017 [facility] CHEM PANEL Lactic Acid Lvl 1.1 mMol/L 0.5 - 2.2 02/12/2017 [facility] CHEM PANEL Phosphorus 3.5 mg/dL 2.5 - 4.5 02/12/2017 [facility] CHEM PANEL Ammonia 121.0 umol/L <=45.0 uMol/L 02/12/2017 [facility] CHEM PANEL Lipase Lvl 234 unit/L 73 - 393 02/12/2017 [facility] CHEM PANEL A/G Ratio 0.7 0.7 - 1.6 02/12/2017 [facility] CHEM PANEL Bili Indirect 1.7 mg/dL 0.0 - 1.0 02/12/2017 [facility] CHEM PANEL Globulin 3.5 g/dL 2.7 - 4.2 02/12/2017 [facility] CHEM PANEL Alk Phos 124 unit/L 39 - 136 02/12/2017 [facility] CHEM PANEL Bili Direct 1.2 mg/dL 0.0 - 0.3 02/12/2017 [facility] CHEM PANEL Bili Total 2.9 mg/dL 0.2 - 1.3 02/12/2017 [facility] CHEM PANEL ALT 32 unit/L 0 - 65 02/12/2017 [facility] CHEM PANEL AST 50 unit/L 0 - 37 02/12/2017 [facility] CHEM PANEL Total Protein 6.0 g/dL 6.4 - 8.4 02/12/2017 [facility] CHEM PANEL Albumin Lvl 2.5 g/dL 3.5 - 5.0 02/12/2017 [facility] CHEM PANEL Amylase Lvl 41 unit/L 25 - 115 02/12/2017 [facility] CHEM PANEL Magnesium Lvl 1.8 mg/dL 1.8 - 2.4 02/12/2017 [facility] ELECTROLYTES AGAP 10.3 meq/L 10.0 - 20.0 02/12/2017 [facility] ELECTROLYTES eGFR 118 mL/min/1.73m2 02/12/2017 Result Comment: The eGFR is calculated using the CKD-EPI formula. In most young, healthy individuals the eGFR will be >90 mL/min/1.73m2. The eGFR declines with age. An eGFR of 60-89 may be normal in some populations, particularly the elderly, for whom the CKD-EPI formula has not been extensively validated. Use of the eGFR is not recommended in the following populations: Individuals with unstable creatinine concentrations, including patients and those with serious co-morbid conditions. Patients with extremes in muscle mass or diet. The data above are obtained from the National Kidney Disease Education Program (NKDEP) which additionally recommends that when the eGFR is used in patients with extremes of body mass index for purposes of drug dosing, the eGFR should be multiplied by the estimated BMI. [facility] ELECTROLYTES Calcium Lvl 8.1 mg/dL 8.5 - 10.5 02/12/2017 [facility] ELECTROLYTES Glucose Lvl 83 mg/dL 70 - 99 02/12/2017 [facility] ELECTROLYTES BUN 10 mg/dL 7 - 22 02/12/2017 [facility] ELECTROLYTES Sodium Lvl 141 meq/L 135 - 145 02/12/2017 [facility] ELECTROLYTES Creatinine Lvl 0.74 mg/dL 0.50 - 1.40 02/12/2017 [facility] ELECTROLYTES Potassium Lvl 4.3 meq/L 3.5 - 5.1 02/12/2017 [facility] ELECTROLYTES Chloride Lvl 108 meq/L 95 - 109 02/12/2017 [facility] ELECTROLYTES CO2 27 meq/L 24 - 32 02/12/2017 [facility] HEMATOLOGY Monocytes 12.3 % 2.0 - 12.0 02/12/2017 [facility] HEMATOLOGY Eosinophils 5.5 % 0.0 - 4.0 02/12/2017 [facility] HEMATOLOGY Basophils 1.0 % 0.0 - 1.0 02/12/2017 [facility] HEMATOLOGY Segs 53.9 % 45.0 - 75.0 02/12/2017 [facility] HEMATOLOGY Lymphocytes 27.3 % 20.0 - 40.0 02/12/2017 [facility] HEMATOLOGY Eosinophils # 0.1 K/CMM 0.0 - 0.5 02/12/2017 [facility] HEMATOLOGY Anisocyte 1+ *ABN* (02/12/17 12:08 AM) None Seen 02/12/2017 [facility] HEMATOLOGY Segs-Bands # 1.4 K/CMM 1.5 - 8.1 02/12/2017 [facility] HEMATOLOGY Monocytes # 0.3 K/CMM 0.0 - 0.8 02/12/2017 [facility] HEMATOLOGY Lymphocytes # 0.7 K/CMM 1.0 - 5.5 02/12/2017 [facility] HEMATOLOGY RDW 16.7 % 11.5 - 14.5 02/12/2017 [facility] HEMATOLOGY Platelet 34 K/CMM 133 - 450 02/12/2017 [facility] HEMATOLOGY MPV 9.6 fL 7.4 - 10.4 02/12/2017 [facility] HEMATOLOGY MCHC 33.7 g/dL 32.0 - 36.0 02/12/2017 [facility] HEMATOLOGY WBC 2.6 K/CMM 3.7 - 10.4 02/12/2017 [facility] HEMATOLOGY MCH 31.7 pg 27.0 - 31.0 02/12/2017 [facility] HEMATOLOGY RBC 3.72 M/CMM 4.70 - 6.10 02/12/2017 [facility] HEMATOLOGY MCV 94.2 fL 80.0 - 94.0 02/12/2017 [facility] HEMATOLOGY INR 1.68 0.85 - 1.17 02/12/2017 [facility] HEMATOLOGY PT 19.9 s 12.0 - 14.7 02/12/2017 [facility] HEMATOLOGY PTT 43.0 s 22.9 - 35.8 02/12/2017 [facility] PARATHYROID PROFILE Ca Norm WB 1.06 mMol/L 1.05 - 1.25 02/12/2017 [facility] PARATHYROID PROFILE Ca Ion WB 1.04 mMol/L 1.05 - 1.25 02/12/2017 [facility] CHEM PANEL Lipase Lvl 238 unit/L 73 - 393 02/12/2017 [facility] CHEM PANEL Globulin 3.7 g/dL 2.7 - 4.2 02/12/2017 [facility] CHEM PANEL A/G Ratio 0.7 0.7 - 1.6 02/12/2017 [facility] CHEM PANEL Bili Indirect 2.0 mg/dL 0.0 - 1.0 02/12/2017 [facility] CHEM PANEL AST 41 unit/L 0 - 37 02/12/2017 [facility] CHEM PANEL Alk Phos 123 unit/L 39 - 136 02/12/2017 [facility] CHEM PANEL ALT 27 unit/L 0 - 65 02/12/2017 [facility] CHEM PANEL Bili Total 3.2 mg/dL 0.2 - 1.3 02/12/2017 [facility] CHEM PANEL Bili Direct 1.2 mg/dL 0.0 - 0.3 02/12/2017 [facility] CHEM PANEL Total Protein 6.3 g/dL 6.4 - 8.4 02/12/2017 [facility] CHEM PANEL Albumin Lvl 2.6 g/dL 3.5 - 5.0 02/12/2017 [facility] HEMATOLOGY PT 18.3 s 12.0 - 14.7 02/12/2017 [facility] HEMATOLOGY INR 1.51 0.85 - 1.17 02/12/2017 [facility] HEMATOLOGY PTT 44.8 s 22.9 - 35.8 02/12/2017 [facility] CHEM PANEL eGFR 103 mL/min/1.73m2 02/11/2017 Result Comment: The eGFR is calculated using the CKD-EPI formula. In most young, healthy individuals the eGFR will be >90 mL/min/1.73m2. The eGFR declines with age. An eGFR of 60-89 may be normal in some populations, particularly the elderly, for whom the CKD-EPI formula has not been extensively validated. Use of the eGFR is not recommended in the following populations: Individuals with unstable creatinine concentrations, including patients and those with serious co-morbid conditions. Patients with extremes in muscle mass or diet. The data above are obtained from the National Kidney Disease Education Program (NKDEP) which additionally recommends that when the eGFR is used in patients with extremes of body mass index for purposes of drug dosing, the eGFR should be multiplied by the estimated BMI. [facility] CHEM PANEL Chloride Lvl 111 meq/L 95 - 109 02/11/2017 [facility] CHEM PANEL Calcium Lvl 8.2 mg/dL 8.5 - 10.5 02/11/2017 [facility] CHEM PANEL CO2 28 meq/L 24 - 32 02/11/2017 [facility] CHEM PANEL BUN 9 mg/dL 7 - 22 02/11/2017 [facility] CHEM PANEL Creatinine Lvl 0.94 mg/dL 0.50 - 1.40 02/11/2017 [facility] CHEM PANEL Potassium Lvl 4.9 meq/L 3.5 - 5.1 02/11/2017 [facility] CHEM PANEL Sodium Lvl 144 meq/L 135 - 145 02/11/2017 [facility] CHEM PANEL Glucose Lvl 93 mg/dL 70 - 99 02/11/2017 [facility] CHEM PANEL AGAP 9.9 meq/L 10.0 - 20.0 02/11/2017 [facility] HEMATOLOGY Platelet 40 K/CMM 133 - 450 02/11/2017 [facility] HEMATOLOGY MPV 9.0 fL 7.4 - 10.4 02/11/2017 [facility] HEMATOLOGY MCHC 33.3 g/dL 32.0 - 36.0 02/11/2017 [facility] HEMATOLOGY RDW 16.7 % 11.5 - 14.5 02/11/2017 [facility] HEMATOLOGY MCH 31.0 pg 27.0 - 31.0 02/11/2017 [facility] HEMATOLOGY MCV 93.0 fL 80.0 - 94.0 02/11/2017 [facility] HEMATOLOGY RBC 3.95 M/CMM 4.70 - 6.10 02/11/2017 [facility] HEMATOLOGY WBC 3.2 K/CMM 3.7 - 10.4 02/11/2017 [facility] CHEM PANEL Bili Indirect 3.0 mg/dL 0.0 - 1.0 01/17/2017 [facility] CHEM PANEL A/G Ratio 0.6 0.7 - 1.6 01/17/2017 [facility] CHEM PANEL Globulin 4.1 g/dL 2.7 - 4.2 01/17/2017 [facility] CHEM PANEL Alk Phos 120 unit/L 39 - 136 01/17/2017 [facility] CHEM PANEL Bili Total 4.3 mg/dL 0.2 - 1.3 01/17/2017 [facility] CHEM PANEL Bili Direct 1.3 mg/dL 0.0 - 0.3 01/17/2017 [facility] CHEM PANEL Albumin Lvl 2.4 g/dL 3.5 - 5.0 01/17/2017 [facility] CHEM PANEL Total Protein 6.5 g/dL 6.4 - 8.4 01/17/2017 [facility] CHEM PANEL ALT 35 unit/L 0 - 65 01/17/2017 [facility] CHEM PANEL AST 45 unit/L 0 - 37 01/17/2017 [facility] HEMATOLOGY MPV 10.6 fL 7.4 - 10.4 01/17/2017 [facility] HEMATOLOGY MCHC 34.3 g/dL 32.0 - 36.0 01/17/2017 [facility] HEMATOLOGY Platelet 52 K/CMM 133 - 450 01/17/2017 [facility] HEMATOLOGY RDW 15.5 % 11.5 - 14.5 01/17/2017 [facility] HEMATOLOGY Hct 36.7 % 42.0 - 54.0 01/17/2017 [facility] HEMATOLOGY MCH 31.9 pg 27.0 - 31.0 01/17/2017 [facility] HEMATOLOGY MCV 93.0 fL 80.0 - 94.0 01/17/2017 [facility] HEMATOLOGY RBC 3.95 M/CMM 4.70 - 6.10 01/17/2017 [facility] HEMATOLOGY Hgb 12.6 g/dL 14.0 - 18.0 01/17/2017 [facility] HEMATOLOGY WBC 4.7 K/CMM 3.7 - 10.4 01/17/2017 [facility] HEMATOLOGY Monocytes # 0.4 K/CMM 0.0 - 0.8 01/17/2017 [facility] HEMATOLOGY Eosinophils 0.1 % 0.0 - 4.0 01/17/2017 [facility] HEMATOLOGY Monocytes 7.5 % 2.0 - 12.0 01/17/2017 [facility] HEMATOLOGY Lymphocytes 8.6 % 20.0 - 40.0 01/17/2017 [facility] HEMATOLOGY Segs 83.7 % 45.0 - 75.0 01/17/2017 [facility] HEMATOLOGY Lymphocytes # 0.4 K/CMM 1.0 - 5.5 01/17/2017 [facility] HEMATOLOGY Basophils 0.1 % 0.0 - 1.0 01/17/2017 [facility] HEMATOLOGY Segs-Bands # 3.9 K/CMM 1.5 - 8.1 01/17/2017 [facility] BLOOD BANK RESULTS Platelet product Product available (01/16/17 8:50 AM) 01/16/2017 [facility] CHEM PANEL Total Protein 6.6 g/dL 6.4 - 8.4 01/16/2017 [facility] CHEM PANEL Alk Phos 112 unit/L 39 - 136 01/16/2017 [facility] CHEM PANEL Bili Direct 1.7 mg/dL 0.0 - 0.3 01/16/2017 [facility] CHEM PANEL Bili Total 5.0 mg/dL 0.2 - 1.3 01/16/2017 [facility] CHEM PANEL ALT 35 unit/L 0 - 65 01/16/2017 [facility] CHEM PANEL Albumin Lvl 2.8 g/dL 3.5 - 5.0 01/16/2017 [facility] CHEM PANEL AST 64 unit/L 0 - 37 01/16/2017 [facility] CHEM PANEL A/G Ratio 0.7 0.7 - 1.6 01/16/2017 [facility] CHEM PANEL Globulin 3.8 g/dL 2.7 - 4.2 01/16/2017 [facility] CHEM PANEL Bili Indirect 3.3 mg/dL 0.0 - 1.0 01/16/2017 [facility] HEMATOLOGY MCV 92.8 fL 80.0 - 94.0 01/16/2017 [facility] HEMATOLOGY Hct 38.3 % 42.0 - 54.0 01/16/2017 [facility] HEMATOLOGY Platelet 37 K/CMM 133 - 450 01/16/2017 [facility] HEMATOLOGY RDW 16.2 % 11.5 - 14.5 01/16/2017 [facility] HEMATOLOGY MPV 9.5 fL 7.4 - 10.4 01/16/2017 [facility] HEMATOLOGY MCH 32.2 pg 27.0 - 31.0 01/16/2017 [facility] HEMATOLOGY MCHC 34.7 g/dL 32.0 - 36.0 01/16/2017 [facility] HEMATOLOGY Hgb 13.3 g/dL 14.0 - 18.0 01/16/2017 [facility] HEMATOLOGY WBC 3.6 K/CMM 3.7 - 10.4 01/16/2017 [facility] HEMATOLOGY RBC 4.13 M/CMM 4.70 - 6.10 01/16/2017 [facility] HEMATOLOGY PT 19.5 s 12.0 - 14.7 01/16/2017 [facility] HEMATOLOGY INR 1.62 0.85 - 1.17 01/16/2017 [facility] HEMATOLOGY Anisocyte 1+ *ABN* (01/16/17 8:03 AM) None Seen 01/16/2017 [facility] HEMATOLOGY Eosinophils # 0.2 K/CMM 0.0 - 0.5 01/16/2017 [facility] HEMATOLOGY Lymphocytes 28.0 % 20.0 - 40.0 01/16/2017 [facility] HEMATOLOGY Eosinophils 5.0 % 0.0 - 4.0 01/16/2017 [facility] HEMATOLOGY Basophils 1.0 % 0.0 - 1.0 01/16/2017 [facility] HEMATOLOGY Lymphocytes # 1.0 K/CMM 1.0 - 5.5 01/16/2017 [facility] HEMATOLOGY Segs-Bands # 1.9 K/CMM 1.5 - 8.1 01/16/2017 [facility] HEMATOLOGY Monocytes # 0.4 K/CMM 0.0 - 0.8 01/16/2017 [facility] HEMATOLOGY Monocytes 12.3 % 2.0 - 12.0 01/16/2017 [facility] HEMATOLOGY Segs 53.7 % 45.0 - 75.0 01/16/2017 [facility] BLOOD BANK RESULTS Antibody Scrn Negative (01/16/17 7:55 AM) 01/16/2017 [facility] BLOOD BANK RESULTS ABO/Rh O POS 01/16/2017 [facility] Angiogram visceral artery initial VR Angiogram visceral artery initial VR EXAM: VIR TRANS- ARTERIAL CHEMO EMBOLIZATION (TACE) OF THE right HEPATIC MASS. DATE: 01/16/2017 7:48 AM CDT PROCEDURE(S) PERFORMED: INDICATION: 36 years old Male with liver cirrhosis and hepatocellular carcinoma. FACULTY: Jarred Cai RESIDENT/FELLOW/VOICE AND DATA TECHNICIAN: Alberto Dahl; Alberto Zamora SUPERVISION: Level 1 Direct supervision: The supervising provider is physically present with the patient during the procedure. ANESTHESIA/SEDATION: Moderate sedation PHYSICIAN SUPERVISED ANESTHESIA TIME: 30 min SPECIMEN: None DRAINS: None ESTIMATED BLOOD LOSS: Less than 10 cc COMPLICATIONS: None immediate FLUOROSCOPY TIME: 16.9 min RADIATION DOSE: 4096 mGy PROCEDURE: After the risks, benefits, and alternatives of the procedure were explained to the patient, verbal and written consent was obtained and a copy was placed on the chart. Patient was brought to the angiography suite and a time-out was performed. IV Versed and Fentanyl were titrated for moderate sedation by a trained observer. A micropuncture set was used to access into the right common femoral artery. A 5 Maltese sheath was placed. A Omni flush catheter was advanced into the aorta, and an aortogram was performed, showing no extrahepatic circulation and type I celiac anatomy. The celiac axis was then selected with a Sos catheter and an angiogram was performed which showed no tumoral blush. The Sos catheter was exchanged for a 5-Maltese C2 that was advanced into the proper hepatic artery and an angiogram was performed, again showing no tumoral blush at the expected topography. A microcatheter system was used to selectively catheterize the vessels going to the known tumor topography and several angiograms were performed. This allowed for identification of a small area of increased enhancement, corresponding to the known hepatocellular carcinoma. 2 vials of drug eluting beads (LC beads) loaded with 100 mg doxorubicin were were diluted with 16 cc of contrast. Total 8 cc of LC beads with Doxorubicin mixture was infused via the microcatheter with distal tip lying within the subsegmental right hepatic artery. A total of 50 ml of chemoembolic agent was administered. Postembolization angiogram was performed to document continued antegrade f low in the hepatic arterial system. All catheters were removed. A Mynx closure device was used to achieve hemostasis at the access site. The patient tolerated the procedure without immediate complications and was transferred to the recovery room is stable condition. FINDINGS: Superior mesenteric artery angiogram with delayed portal venous images demonstrate a patent portal vein. Expected tumor blush noted in the right lobe, successfully treated with drug eluting beads Patient is to be admitted overnight for observation and pain management. IMPRESSION: 1. Successful chemoembolization of a supraselective right hepatic branch supply to right lobe dome lesion. Dr. Jarred Cai was present for the procedure. 01/16/2017 - - This report was dictated by a [employer] Sales Counter Manager/Fellow. I have personally reviewed the images as well as the Resident's interpretation and agree with the findings. Read by: Delfino Messina Resident: Delfino Messina Dictated Date/time: 01/16/17 17:02 Electronically Signed by: Jarred Cai MD 01/17/17 08:37 FINAL REPORT [facility] Abdomen/Pelvis w/wo contrast MRI Abdomen/Pelvis w/wo contrast MRI EXAM: MR ABDOMEN WITH AND WITHOUT CONTRAST DATE: 01/02/2017 5:18 PM CDT INDICATION: - HCC portal hypertension, pre TACE ADDITIONAL INFORMATION: None. COMPARISON: CT abdomen and pelvis dated 11/22/2016; magnetic resonance imaging abdomen dated 10/22/2016. TECHNIQUE: Multiplanar, multisequence acquisition of the abdomen both prior to and following intravenous contrast, in precontrast, arterial, portal venous and delayed phases of enhancement, per the dynamic liver protocol. Multiplanar, multisequence acquisition through the pelvis were additionally obtained. IV contrast: 20 cc multihance Enteric contrast: None. FINDINGS: Examination is limited due to patient motion artifact which degrades quality of the images. Lines, tubes and hardware: None. Lower thorax: Clear. Liver: The liver is cirrhotic in morphology and nodular in contour. Hepatic masses: The previously described 2.2 x 1.3 cm arterial enhancing lesion in the hepatic dome is not visualized on any of the sequences on this exam. Unchanged 1.5 cm arterial enhancing, mildly restricting lesion in posterior right hepatic lobe (series 2401, image 78) with no definite washout. Numerous intrinsic T1 hyperintense, nonenhancing nodules are seen throughout the liver compatible with regenerative nodules. Non-enhancing/cystic hepatic lesions: None. Hepatic vessels: Hepatic arterial anatomy: Conventional. Arterial stenoses: None. Portal vein: Patent. Caliber: 1.7 cm Portosystemic collaterals: Paraesophageal, perisplenic and perigastric varices are noted, with severe collaterals identified in the paraesophageal region. Hepatic, splenic and superior mesenteric veins, and IVC: Patent. Regional lymph nodes: Normal. Biliary tree: No intra- or extrahepatic biliary ductal dilation. Gallbladder: Decompressed containing multiple gallstones. Pancreas: Normal. Spleen: Enlarged spleen measuring up to 22 cm. Adrenals: Normal. Kidneys and ureters: Normal. Gastrointestinal tract: Stomach: Normal. Small bowel: Normal. Colon: Normal. Peritoneum, mesentery and retroperitoneum: No free air, ascites or loculated fluid. Distant lymph nodes: Normal. Vasculature: The aorta is normal in size and caliber. See hepatic vessels section. Bones: There are L4-L5 and L5-S1 disc bulges. No acute osseous abnormalities. Soft tissues: Normal. IMPRESSION: Significantly limited exam secondary to breathing artifact. 1. Previously described LI-RADS 5 lesion in the hepatic dome is not visualized on this exam. Recommend continued interval surveillance in 3-6 months. 2. A 1.5 cm arterial enhancing lesion with no washout in the posterior right hepatic lobe (series 2401, image 78) compatible with a dysplastic nodule (LI-RADS 3). 3. Cirrhosis with sequelae of portal hypertension including severe periesophageal varices. 01/02/2017 - - This report was dictated by a [employer] Sales Counter Manager/Fellow. I have personally reviewed the images as well as the Resident's interpretation and agree with the findings. Read by: Angelica Briceno (fellow) Resident: Angelica Briceno (fellow) Dictated Date/time: 01/03/17 07:35 Electronically Signed by: Gabriel Nixon MD 01/03/17 21:03 FINAL REPORT [facility] Abd/Pelvis Liver Protocol w IV/Abd wo CT Abd/Pelvis Liver Protocol w IV/Abd wo CT Please note that the arterial enhancing lesion in the hepatic dome measures approximately 2.3 cm (series 4, image 15) with no definite washout on this CT exam. However, in retrospect, the comparison MR performed on 10/22/2016 demonstrates this lesion to have notable washout on delayed images (series 2301, axial image 101 and series 2201, axial image 100), which makes this lesion a LI-RADS 5 category. These updated findings were communicated to the physicians involved with the patient's care at [facility] on 11/28/2016 at 4:30 pm. EXAM: CT ABDOMEN AND PELVIS WITH AND WITHOUT CONTRAST DATE: 11/22/2016 3:55 PM CDT INDICATION: - C22.0 Liver cell carcinoma COMPARISON: 08/08/2016 TECHNIQUE: Volumetric CT acquisition of the abdomen both prior to and following intravenous contrast, in precontrast, arterial, portal venous and delayed phases of enhancement, per the dynamic liver protocol. Venous and delayed phase imaging of the pelvis. Axial, sagittal and coronal reconstructions. IV contrast: 1 50 mL of Omnipaque 350 Oral contrast: None. DLP: 4093 mGy-cm FINDINGS: Limitations: The arterial phase is compromised by delayed scanning secondary to the placement of the SINDY tracker 4 bolus tracking in the esophageal varices than in the aorta. Lower thorax: Dependent atelectasis in the lung bases. Liver Craniocaudal length: 13 cm. Normal. Density: Heterogeneous Surface nodularity: Nodular. Enhancing hepatic masses > 2cm: 1 Again seen 2.3 x 1.6 cm enhancing focus in the hepatic dome (4, 15) with no washout in the portal venous and delayed phase and is isointense. Enhancing hepatic masses < 2cm: None. Non-enhancing/cystic hepatic lesions: None. Hepatic vessels: Hepatic arterial anatomy: Conventional. Arterial stenoses: None. Portal vein: Patent. Caliber: 1.4 Portosystemic collaterals: Again seen massive periesophageal and perigastric, massively dilated coronary vein and extensive perisplenic collaterals unchanged. Hepatic, splenic and superior mesenteric veins, and IVC: Patent. Regional lymph nodes: Shotty reactive dinora hepatis and gastrohepatic ligament lymph nodes are seen. Biliary tree: No intra- or extrahepatic biliary ductal dilation. Gallbladder: Cholelithiasis without acute cholecystitis. Pancreas: Normal. Spleen: Enlarged measuring 22.5 cm in craniocaudal axis. Adrenals: Normal. Kidneys and ureters: Normal. Gastrointestinal tract: Normal caliber. Appendix: Unremarkable. Peritoneum and retroperitoneum: Subcentimeter retroperitoneal not enlarged by CT criteria. No abdominal ascites.. Vasculature: Normal. Bones: Lower lumbar spine degenerative changes. Soft tissues: Normal. IMPRESSION: 1. Unchanged LIRADS 4, 2.3 cm enhancing lesion at the hepatic dome with no washout. 2. Morphological changes of cirrhosis with portal hypertension and splenomegaly. No abdominal ascites. RECOMMENDATIONS: None. 11/22/2016 - - This report was dictated by a [employer] Sales Counter Manager/Fellow. I have personally reviewed the images as well as the Resident's interpretation and agree with the findings. Read by: Angelica Briceno (fellow) Resident: Angelica Briceno (fellow) Dictated Date/time: 11/29/16 08:29 Electronically Signed by: Gabriel Nixon MD 12/04/16 13:39 FINAL REPORT - - Read by: Leonidas Berry MD Dictated Date/time: 11/22/16 16:29 Electronically Signed by: Leonidas Berry MD 11/22/16 16:36 FINAL REPORT [facility] Abdomen w/wo contrast MRI Abdomen w/wo contrast MRI EXAM: MR ABDOMEN WITH AND WITHOUT CONTRAST DATE: 10/22/2016 10:44 AM CDT INDICATION: ADDITIONAL INFORMATION: None. COMPARISON: CT abdomen 08/08/2016 and MRI abdomen 07/18/2016. TECHNIQUE: Multiplanar, multisequence acquisition of the abdomen both prior to and following intravenous contrast, in precontrast, arterial, portal venous and delayed phases of enhancement, per the dynamic liver protocol. IV contrast: 20 mL Multihance Enteric contrast: None. FINDINGS: Lines, tubes and hardware: None. Lower thorax: Clear. Liver: Craniocaudal length: 11.6 cm. Density: Normal. Surface: Diffuse nodular surface consistent with cirrhosis. As in the previous MRI, this study is suboptimal due to breathing artifacts and suboptimal bolus timing. Hence good late arterial phase is absent. Previously detected arterially enhancing masses in the hepatic dome are not appreciated on the arterial phase, however the larger lesion measuring 1.7cm washes out more than the background on delayed images(series 2201, image 101). Non-enhancing/cystic hepatic lesions: None. Hepatic vessels: Hepatic arterial anatomy: Conventional. Arterial stenoses: None. Portal vein: Patent. Caliber: 1.6 cm Portosystemic collaterals: Large collaterals noted in the spleen ovary measures penicillin V, and para-articular lesion extending retrocrurally into the periesophageal region. Hepatic, splenic and superior mesenteric veins, and IVC: Patent. Regional lymph nodes: Normal. Biliary tree: No intra- or extrahepatic biliary ductal dilation. Gallbladder: Contracted with calculi in the lumen. Pancreas: Normal. Spleen: Enlarged, measuring 21.6 cm craniocaudally. Adrenals: Normal. Kidneys and ureters: Normal. Gastrointestinal tract: Stomach: Normal. Small bowel: Normal. Colon: Normal. Peritoneum, mesentery and retroperitoneum: No free air, ascites or loculated fluid. Distant lymph nodes: Normal. Vasculature: Normal. Bones: Normal. Soft tissues: Normal. IMPRESSION: 1. Right hepatic dome lesions detected on previous CT scan are suboptimally evaluated due to lack of optimal arterial phase images and breathing motion artifacts. The larger lesion measuring 1.7cm is seen only on delayed images. Therefore the previously seen lesions in the right hepatic dome can be categorized as LI-RADS NC category lesions. 2. Cirrhosis, splenomegaly, portal hypertension with extensive portosystemic collaterals. 3. Cholelithiasis. RECOMMENDATIONS: Liver protocol CT would be better than MRI for this patient for follow up. 10/22/2016 - - This report was dictated by a [employer] Sales Counter Manager/Fellow. I have personally reviewed the images as well as the Resident's interpretation and agree with the findings. Read by: Panchito Eid MD Resident: Panchito Eid MD Dictated Date/time: 10/22/16 15:08 Electronically Signed by: Leonidas Berry MD 10/23/16 14:08 FINAL REPORT [facility] Chest wo contrast CT Chest wo contrast CT EXAM: CT CHEST WITHOUT CONTRAST DATE: 10/22/2016 10:26 AM CDT INDICATION: 36-year-old man with history of cirrhosis, esophageal varices and history of liver mass. TECHNIQUE: Volumetric CT acquisition of the chest was obtained without contrast. Sagittal, coronal and axial MIP reformatted images were reconstructed and obtained at the workstation. COMPARISON: Comparison is made to the prior chest CT dated 07/18/2016. FINDINGS: The cardiothoracic ratio measures 14.5/28 cm. No pericardial effusion is present. The ascending aorta and pulmonary trunk do not measure enlarged. There is abundant soft tissue density surrounding the lower half of the intrathoracic esophagus down to the GE junction. This presumably represents the patient's known esophageal varices. It would be difficult to exclude underlying esophageal abnormality. Since the subcarinal region is obscured, subcarinal adenopathy cannot be excluded. Otherwise, no other mediastinal adenopathy is identified. Evaluation of the octaviano for lymph nodes is limited on this noncontrast exam. There is a prominent subcutaneous or sebaceous cyst in the presternal chest wall measuring 44 x 35 mm. For a description of findings below the diaphragm, please reference the concomitant abdominal MR report from the same day October 22. Limited imaging through the upper abdomen shows cirrhosis, splenomegaly, varices and collateral vessels. Again seen is cholelithiasis. The adrenal glands are unremarkable. There are mild groundglass opacities in the lungs with a dependent and lower lobe predilection. No pleural effusions are identified. There are degenerative changes of the thoracic spine with osteophytes. Sclerotic foci within both glenoids and the left 3rd rib laterally are stable. IMPRESSION: 1. Mild groundglass opacities in the lungs with a dependent and lower lobe predilection may be due to mild dependent edema or atelectasis. 2. Abundant soft tissue density surrounding the lower half of the intrathoracic esophagus down to the GE junction presumably represents the patient's known large esophageal varices. They are not well evaluated in the absence of intravenous contrast administration. 3. Cirrhosis, splenomegaly, collateral vessels, varices. 4. Cholelithiasis. 10/22/2016 - - Read by: Roseline Mac MD Dictated Date/time: 10/22/16 11:36 Electronically Signed by: Roseline Mac MD 10/22/16 11:49 FINAL REPORT [facility] Abd Liver Protocol w/wo IV contrast CT Abd Liver Protocol w/wo IV contrast CT EXAM: CT ABDOMEN WITH AND WITHOUT CONTRAST DATE: 08/08/2016 7:17 AM CDT INDICATION: C22.0 Liver cell carcinoma ADDITIONAL INFORMATION: None. COMPARISON: MRI from 07/18/[address] from 04/24/2016 TECHNIQUE: Volumetric CT acquisition of the abdomen both prior to and following intravenous contrast, in precontrast, arterial, portal venous and delayed phases of enhancement, per the dynamic liver protocol. Axial, sagittal and coronal reconstructions. IV contrast: 150 mL of Omnipaque 350 Oral contrast: None. DLP: 3708.57 mGy FINDINGS: Lines and tubes: None Lower thorax: Clear Liver: The right lobe is 12.9 cm in span. The liver has a disorderly nodular configuration. The density is normal. Enhancing hepatic masses > 2cm: 1 A 2.2 x 1 cm focus of arterial enhancement is present in the dome of the liver on image 20 of series 4. This may be slightly larger than the most recent comparison study. This lesion becomes isointense on the portal venous and delayed phase images. Enhancing hepatic masses < 2cm: None Non-enhancing/cystic hepatic lesions: None Hepatic vessels: Hepatic arterial anatomy: Conventional Portal vein: Patent. Caliber: 15.4 mm Portosystemic collaterals are there are extensive collateral vessels around the spleen and splenic vein. Extensive collateral vessels extend superiorly in the retrocrural region and into the periesophageal region. These appear grossly unchanged. Hepatic, splenic and superior mesenteric veins, and IVC: Patent. Regional lymph nodes: Scattered normal sized lymph nodes are present in the dinora hepatis and retroperitoneal region. No lymphadenopathy is present. Biliary tree: No intra- or extrahepatic biliary ductal dilation. Gallbladder: The gallbladder is contracted around a large stone or multiple stones completely filling its lumen. Pancreas: Normal. Spleen: Splenomegaly with span of 20.9 cm. No focal splenic lesion is present. Adrenals: Normal. Kidneys: No focal renal lesions. Normal excretion. The proximal ureters are normal. Gastrointestinal tract: The stomach, duodenal C-loop and visualized loops of large and small bowel are unremarkable except for scattered diverticula. The appendix is normal. Peritoneum and retroperitoneum: No ascites or free air. Vasculature: Normal. Bones: Moderate degenerative changes are present at L4-L5 and L5-S1. These are stable. No suspicious lytic or blastic lesions are present. Soft tissues: Normal. IMPRESSION: 1. No significant change in a LI RADS category 4 2. Cirrhosis. 3. Unchanged appearance of portal venous hypertension with splenomegaly and extensive portosystemic collateral vessels. 4. Cholelithiasis. 08/08/2016 - - Read by: Mohan Dobson MD Dictated Date/time: 08/08/16 08:48 Electronically Signed by: Mohan Dobson MD 08/08/16 09:30 [facility] wo contrast CT Chest wo contrast CT EXAM: CT CHEST WITHOUT CONTRAST DATE: 07/18/2016 2:16 PM CDT INDICATION: E66.01 Morbid (severe) obesity due to excess calories TECHNIQUE: Volumetric CT acquisition of the chest without contrast. Axial, sagittal and coronal reconstructions. IV contrast: None. DLP: 708.15 mGy-cm COMPARISON: Chest CT dated 05/04/2016. MR abdomen dated 07/18/2016. DISCUSSION: Lines and Tubes: None. Lower Neck: The visible portions or the lower neck and thyroid are unremarkable. Heart and Great Vessels: Heart size is normal. No pericardial effusion. Prominent azygos vessels. Mediastinum: Numerous large varices are seen in the lower mediastinum. Lymph Nodes: No hilar, mediastinal, axillary or internal mammary lymphadenopathy. Lungs: A couple of subcentimeter pulmonary nodules, axial images 50, 61, 65, 113 are unchanged since 04/24/2016. No new pulmonary nodules. No new consolidation. Pleura: No pleural effusion or pneumothorax. Upper abdomen: Moderate-sized hiatal hernia. Markedly nodular cirrhotic liver. Cholelithiasis without cholecystitis. Splenomegaly with varices extending into the hiatal region. Please refer to MR abdomen for further detail. Bones and Soft Tissues: No acute osseous findings. Presumed epidermal inclusion cyst 3.1 x 4.1 x 4.6 cm anterior subcutaneous tissues. Correlation with physical exam is suggested. Gynecomastia. IMPRESSION: 1. Stable subcentimeter pulmonary nodules since 04/24/2016 without new pulmonary nodules. 2. Large varices in the lower chest, upper abdomen, splenomegaly, which are considered sequela of portal hypertension. 3. Cirrhosis. 4. Cholelithiasis without CT evidence of cholecystitis. 07/18/2016 - - Read by: Patrick Wells MD Dictated Date/time: 07/18/16 22:38 Electronically Signed by: Patrick Wells MD 07/18/16 23:00 FINAL REPORT SHAD LORENE Bowman Abdomen w/wo contrast MRI Abdomen w/wo contrast MRI EXAM: MR ABDOMEN WITH AND WITHOUT CONTRAST DATE: 07/18/2016 at 1439 hours INDICATION: K76.89 Other specified diseases of liver ADDITIONAL INFORMATION: Cirrhosis, preliver transplant workup, ESLD, liver mass followed by CT. COMPARISON: CT abdomen liver protocol 04/24/[address] 03/14/2016 TECHNIQUE: Multiplanar, multisequence acquisition of the abdomen both prior to and following intravenous contrast, in precontrast, arterial, portal venous and delayed phases of enhancement, per the dynamic liver protocol. IV contrast: 15 mL MultiHance Oral contrast: None. FINDINGS: Lines and tubes: None. Lower thorax: Clear. Liver Craniocaudal length: 14.0 cm. Normal. Parenchyma: Normal. Surface nodularity: Severe.. Of note, this study is limited by breathing artifacts and suboptimal bolus timing, resulting in no true late arterial phase series. Previously identified right hepatic dome lesions could not be visualized, likely secondary to suboptimal bolus timing and therefore lack of late arterial phase imaging and also breathing related motion artifacts. Hepatic vessels: Hepatic arterial anatomy: Conventional. Arterial stenoses: None. Portal vein: Patent. Caliber: Portosystemic collaterals are seen in the perisplenic, perigastric, and periesophageal regions. Hepatic, splenic and superior mesenteric veins, and IVC: Patent. Regional lymph nodes: Normal. Biliary tree: No intra- or extrahepatic biliary ductal dilation. Gallbladder: Layering gallstones are seen. Pancreas: Normal. Spleen: The spleen measures 21.5 cm in craniocaudal dimension, enlarged. Adrenals: Normal. Kidneys: Normal. Gastrointestinal tract: Normal caliber. Peritoneum and retroperitoneum: No ascites or free air. No other fluid collection. Distant lymph nodes: Pericaval lymph nodes are seen, the largest measures 1.0 cm (series 7 image 33). Vasculature: Normal apart from varices as described above. Bones: Normal. Soft tissues: Normal. IMPRESSION: 1. Previously identified right hepatic dome lesions could not be visualized, likely secondary to suboptimal bolus timing and therefore lack of late arterial phase imaging and also breathing related motion artifacts. Therefore the previously seen lesions in the right hepatic dome can be categorized as LI-RADS X category lesions. Short-term follow-up imaging in one month or immediate repeat imaging w ith CT can be considered. 2. Changes of end-stage liver disease including cirrhosis, splenomegaly, and varices at multiple locations. 3. Cholelithiasis without cholecystitis. 07/18/2016 - - This report was dictated by a [employer] Sales Counter Manager/Fellow. I have personally reviewed the images as well as the Resident's interpretation and agree with the findings. Read by: Ousmane Gaona MD Resident: Ousmane Gaona MD Dictated Date/time: 07/18/16 16:56 Electronically Signed by: Pedro Pablo Lara 07/18/16 17:50 FINAL REPORT LORENE Cooperann Chest wo contrast CT Chest wo contrast CT EXAM: CT CHEST WITHOUT CONTRAST DATE: 04/24/2016 10:40 AM MANAGER [facility] INDICATION: PRE-LIVER TRANSPLANT WORK-UP; ESLD; LIVER MASS; ETOH CIRRHOSIS; ANDREW COMPARISON: None TECHNIQUE: Volumetric CT acquisition of the chest was performed without intravenous contrast. Axial, sagittal and coronal reconstructions. Reformatted MIP images were performed. IV Contrast: None. DLP: 779 mGy-cm FINDINGS: Lines and Tubes: None. Heart and Great Vessels: The aorta and main pulmonary artery measure 3.2 and 2.8 cm. respectively. The cardiothoracic radio measures 14/27. No pericardial effusion is present. Trace vascular calcifications only noted in the left anterior descending. Normal aortic branching pattern present. Lymph Nodes: Within limitations of nonenhanced exam, no significant mediastinal or hilar adenopathy identified. Lungs: No significant pleural effusion is present. Trachea and central bronchi are unremarkable. There is no pneumothorax. 2 mm nodule left lower lobe axial image 57 and sagittal image 165. 2 mm nodule left upper lobe axial image 46. 2mm nodule right upper lobe axial image 59. 2mm nodule right lower lobe axial image 119. Minimal dependent opacities in the lung bases have the appearance of atelectasis. Upper abdomen: Please see CT of the abdomen and pelvis performed concurrently for findings below the diaphragm. Bones and Soft Tissues: Mild bilateral gynecomastia. There is a 3.9 cm simple appearing cyst in the subcutaneous tissues of the central anterior chest at the level of the upper sternum. Mild to moderate degenerative changes in the spine with several scattered small Schmorl's nodes. IMPRESSION: 1. Scattered bilateral 2 mm pulmonary nodules. No comparisons are available. One- year CT follow-up recommended. 2. 3.9 cm simple cyst subcutaneous tissues of the upper central chest wall statistically represents a large sebaceous cyst. Correlation recommended, however. 3. Please see concomitant CT abdomen. 04/24/2016 - - Read by: Leobardo Spencer MD Dictated Date/time: 04/24/16 11:31 Electronically Signed by: Leobardo Spencer MD 04/24/16 11:41 FINAL REPORT [facility] Abdomen w/wo IV contrast CT Abdomen w/wo IV contrast CT EXAM: CT ABDOMEN WITH AND WITHOUT CONTRAST DATE: 04/24/2016 at 1059 hours INDICATION: PRE-LIVER TRANSPLANT WORK-UP; ESLD; LIVER MASS; ETOH CIRRHOSIS; ANDREW COMPARISON: CT abdomen on 03/14/2016. TECHNIQUE: Volumetric CT acquisition of the abdomen both prior to and following intravenous contrast, in precontrast, arterial, portal venous and delayed phases of enhancement, per the dynamic liver protocol. Axial, sagittal and coronal reconstructions. IV contrast: 145 mL of Visipaque 320 Enteric contrast: None. DLP: 5651 mGy-cm for CT chest and abdomen FINDINGS: Lines, tubes and hardware: None. Lower thorax: Please see concurrent CT chest for details above the diaphragm. Liver: Craniocaudal length: 10.1 cm along the midclavicular line Density: Decreased, likely representing fatty infiltration of the liver. Surface nodularity: Significant nodularity of the surface contour is again seen. Hepatic masses: A 2.4 x 1.8 x 0.9 cm arterially enhancing focus (previously 2.8 x 1.8 x 1.4 cm) within the dome of the liver (series 12, image 19) is smaller compared to the prior exam. This becomes isodense to the liver parenchyma on portal venous and delayed phase. The previously seen 1.0 cm arterially enhancing focus within the dome of the liver is not well-visualized on this exam. Non-enhancing/cystic hepatic lesions: None. Hepatic vessels: Hepatic arterial anatomy: Conventional. Arterial stenoses: None. Portal vein: Patent. Caliber: 1.8 cm (previously 1.9 cm) Portosystemic collaterals are None. Hepatic, splenic and superior mesenteric veins, and IVC: Extensive perisplenic varices are again seen. Regional lymph nodes: The previously seen 1.6 cm mesenteric lymph node now measures 1.3 cm. Subcentimeter mesenteric and portal lymph nodes are present. Biliary tree: No intra- or extrahepatic biliary ductal dilation. Gallbladder: Multiple radiopaque gallstones within a minimally distended gallbladder are again seen. The gallbladder wall measures 4 mm in thickness, previously 5 mm. Pancreas: Normal. Spleen: Splenomegaly is again seen, with a span of 21.3 cm. The previously seen 9 mm focus of arterial enhancement in the upper portion of the spleen now measures 7 x 6 x 5 mm. This becomes isodense on portal venous and delayed images. A separate punctate hyperdensity in the upper portion of the spleen is present on portal venous phase. Adrenals: Normal. Kidneys and ureters: Normal. Gastrointestinal tract: Paraesophageal varices are again seen. The small and large bowel are normal in caliber. No bowel wall thickening or mesenteric fat stranding is seen. Peritoneum, mesentery and retroperitoneum: Normal. No free air, ascites or loculated fluid. Distant lymph nodes: No enlarged extra-abdominal lymph nodes are seen. Vasculature: Extensive varices as described above. Bones: Degenerative changes in the thoracic and lumbar spine are again present, with anterior osteophyte formation and intervertebral disc space vacuum phenomena. No suspicious osseous lesions are identified. Soft tissues: Normal. IMPRESSION: 1. Slight decrease in size of the hepatic dome arterially hyperenhancing lesion, now measuring up to 2.4 cm (previously up to 2.8 cm), with portal venous and delayed phase isoattenuation (LI-RADS category 4B). 2. Previously seen 1.0 cm arterially enhancing focus in the hepatic dome is not visualized. 3. Stable prominent mesenteric lymph node measuring up to 1.3 cm in short axis (previously 1.6 cm) with several other prominent dinora hepatis and mesenteric lymph nodes. 4. Unchanged appearance of the subcentimeter arterially hyperenhancing lesion in the upper pole of the spleen is nonspecific, likely a tiny hemangioma. 5. Sequelae of portal hypertension, including perisplenic and paraesophageal varices and splenomegaly. 6. Unchanged cholelithiasis. RECOMMENDATIONS: None. 04/24/2016 - - This report was dictated by a [employer] Sales Counter Manager/Fellow. I have personally reviewed the images as well as the Resident's interpretation and agree with the findings. Read by: Gomez Lu MD Resident: Gomez Lu MD Dictated Date/time: 04/24/16 13:25 Electronically Signed by: Leonidas Berry MD 04/24/16 15:22 FINAL REPORT [facility] ELECTROLYTES AGAP 11.3 meq/L 10.0 - 20.0 03/23/2016 [facility] ELECTROLYTES Chloride Lvl 109 meq/L 95 - 109 03/23/2016 [facility] ELECTROLYTES Calcium Lvl 8.3 mg/dL 8.5 - 10.5 03/23/2016 [facility] ELECTROLYTES CO2 28 meq/L 24 - 32 03/23/2016 [facility] ELECTROLYTES Potassium Lvl 4.3 meq/L 3.5 - 5.1 03/23/2016 [facility] ELECTROLYTES Sodium Lvl 144 meq/L 135 - 145 03/23/2016 [facility] ELECTROLYTES Creatinine Lvl 0.78 mg/dL 0.50 - 1.40 03/23/2016 [facility] ELECTROLYTES BUN 11 mg/dL 7 - 22 03/23/2016 [facility] ELECTROLYTES Glucose Lvl 73 mg/dL 70 - 99 03/23/2016 [facility] ELECTROLYTES eGFR 116 mL/min/1.73m2 03/23/2016 Result Comment: The eGFR is calculated using the CKD-EPI formula. In most young, healthy individuals the eGFR will be >90 mL/min/1.73m2. The eGFR declines with age. An eGFR of 60-89 may be normal in some populations, particularly the elderly, for whom the CKD-EPI formula has not been extensively validated. Use of the eGFR is not recommended in the following populations: Individuals with unstable creatinine concentrations, including patients and those with serious co-morbid conditions. Patients with extremes in muscle mass or diet. The data above are obtained from the National Kidney Disease Education Program (NKDEP) which additionally recommends that when the eGFR is used in patients with extremes of body mass index for purposes of drug dosing, the eGFR should be multiplied by the estimated BMI. [facility] HEMATOLOGY Segs-Bands # 1.3 K/CMM 1.5 - 8.1 03/23/2016 [facility] HEMATOLOGY Lymphocytes # 0.7 K/CMM 1.0 - 5.5 03/23/2016 [facility] HEMATOLOGY Basophils 0.8 % 0.0 - 1.0 03/23/2016 [facility] HEMATOLOGY Eosinophils 3.3 % 0.0 - 4.0 03/23/2016 [facility] HEMATOLOGY Eosinophils # 0.1 K/CMM 0.0 - 0.5 03/23/2016 [facility] HEMATOLOGY Monocytes # 0.2 K/CMM 0.0 - 0.8 03/23/2016 [facility] HEMATOLOGY Monocytes 9.4 % 2.0 - 12.0 03/23/2016 [facility] HEMATOLOGY Lymphocytes 29.4 % 20.0 - 40.0 03/23/2016 [facility] HEMATOLOGY Segs 57.1 % 45.0 - 75.0 03/23/2016 [facility] HEMATOLOGY MPV 9.6 fL 7.4 - 10.4 03/23/2016 [facility] HEMATOLOGY Platelet 41 K/CMM 133 - 450 03/23/2016 [facility] HEMATOLOGY MCV 92.9 fL 80.0 - 94.0 03/23/2016 [facility] HEMATOLOGY Hct 38.4 % 42.0 - 54.0 03/23/2016 [facility] HEMATOLOGY Hgb 12.9 g/dL 14.0 - 18.0 03/23/2016 [facility] HEMATOLOGY RDW 15.5 % 11.5 - 14.5 03/23/2016 [facility] HEMATOLOGY MCHC 33.6 g/dL 32.0 - 36.0 03/23/2016 [facility] HEMATOLOGY RBC 4.14 M/CMM 4.70 - 6.10 03/23/2016 [facility] HEMATOLOGY WBC 2.3 K/CMM 3.7 - 10.4 03/23/2016 [facility] HEMATOLOGY MCH 31.3 pg 27.0 - 31.0 03/23/2016 [facility] Abd Liver Protocol w/wo IV contrast CT Abd Liver Protocol w/wo IV contrast CT EXAM: CT ABDOMEN WITH AND WITHOUT CONTRAST DATE: 03/14/2016 11:14 AM MANAGER [facility] INDICATION: K70.30 Alcoholic cirrhosis of liver without ascites ADDITIONAL INFORMATION: None. COMPARISON: None. TECHNIQUE: Volumetric CT acquisition of the abdomen both prior to and following intravenous contrast, in precontrast, arterial, portal venous and delayed phases of enhancement, per the dynamic liver protocol. Axial, sagittal and coronal reconstructions. IV contrast: 150 mL Omnipaque 300 Oral contrast: 450 mL of Volumen DLP: 2487 mGy FINDINGS: Lines and tubes: None. Lower thorax: Clear. Liver: The liver is 15.6 cm in span. The liver has normal density relative to the spleen. It has an extremely nodular contour with mild heterogeneity on the noncontrast sequence. Enhancing hepatic masses > 2cm: A 2.8 cm focus of arterially enhancing parenchyma is present in the dome of the liver on segment 8 on image 19 of series 4. This becomes isointense on the later phases of enhancement. Enhancing hepatic masses < 2cm: A 10.1 mm focus of arterial enhancement is present in the dome of the liver in segment 8 on image 17 of series 4. This becomes isodense on the remaining images. Non-enhancing/cystic hepatic lesions: None. Hepatic vessels: Hepatic arterial anatomy: Conventional. Portal vein: Patent. Caliber: 19.3 mm. Portosystemic collaterals are There are extensive perisplenic collateral veins. At least some collaterals extending to the left renal vein. There are huge paraesophageal varices.. Hepatic, splenic and superior mesenteric veins, and IVC: Patent. Regional lymph nodes: A 3.9 x 1.6 cm lymph node is present adjacent to the proximal segment of the common hepatic artery on image 62 of series 4. Multiple portal lymph nodes are present with short axis dimensions of at least 1 cm and are located between the portal vein and the IVC. Biliary tree: No intra- or extrahepatic biliary ductal dilation. Gallbladder: Multiple gallstones fill the gallbladder lumen. The gallbladder is only minimally distended, and the wall is at least at the upper limits of normal. Pancreas: Normal. Spleen: Splenomegaly with span of 23.4 cm. A 9 mm focus of arterial enhancement (image 48 of series 601) is present in the upper portion of the spleen. This becomes isodense on the remaining images. Adrenals: Normal. Kidneys: Normal. Gastrointestinal tract: Normal caliber. Peritoneum and retroperitoneum: No ascites or free air. Vasculature: Normal. Bones: Degenerative changes are present at L4-L5. No suspicious lytic or blastic lesions. Soft tissues: Normal. IMPRESSION: 1. A LI-RADS category 4 lesion is present in the dome of the liver. 2.A LI-RADS category 3 lesion is present in the dome of the liver. 3. There is extensive portal venous hypertension with extensive perisplenic and periesophageal varices. There is massive splenomegaly. 4. There is prominent lymphadenopathy in the retroperitoneum around the dinora hepatis and the celiac axis 5. An arterially enhancing lesion is present in the upper pole of the spleen. This becomes isointense on later sequences and is of uncertain significance. 6. Cholelithiasis 03/14/2016 - - Read by: Mohan Dobson MD Dictated Date/time: 03/14/16 14:38 Electronically Signed by: Mohan Dobson MD 03/14/16 15:05 FINAL REPORT LOR[facility] Alford Abdomen complete US Abdomen complete US Exam: Abdominal Ultrasound Reason for Exam: K74.60 Unspecified cirrhosis of liver Comparison Exam: Ultrasound 03/17/2009 Discussion: Multiple axial and sagittal images were obtained of the abdomen. The liver is unremarkable in size and echogenicity. No focal hepatic masses identified. The contour of the liver is nodular, suggestive of cirrhotic changes. No intrahepatic or extrahepatic biliary duct dilation, with the common bile duct measuring 0.4 cm. Cholelithiasis is noted. No gallbladder wall thickening or pericholecystic fluid. Sonographic Saleem's sign is negative. The visualized portions of the pancreatic head and proximal body are within normal limits. Spleen is enlarged measuring 21.2 cm in length. The visualized portions of the upper abdominal aorta and IVC are unremarkable. No evidence seen for ascites. The right and left kidneys measure 12.6 cm and 15.6 cm respectively. They are of normal echogenicity without focal masses, hydronephrosis, or shadowing renal calculi. Impression: 1. Findings suggestive of cirrhotic changes involving the liver, associated with splenomegaly. 2. Cholelithiasis without sonographic evidence to suggest cholecystitis. 01/18/2016 - - Read by: Raudel Payan MD Dictated Date/time: 01/18/16 09:17 Electronically Signed by: Raudel Payan MD 01/18/16 09:20 FINAL REPORT SHAD [facility] Vital Signs Vital Sign Value Date Comments Source Height 180.34 cm 08/29/2017 [facility] BMI Calculated 47.66 08/29/2017 [facility] Weight 155 08/29/2017 [facility] Systolic (mm Hg) 114 08/29/2017 [facility] Diastolic (mm Hg) 62 08/29/2017 [facility] Respitory Rate 16 08/29/2017 [facility] Heart Rate 53 08/29/2017 [facility] Height 182.88 cm 05/23/2017 [facility] Weight 149.727 05/23/2017 [facility] BMI Calculated 44.77 05/23/2017 [facility] Heart Rate 68 05/23/2017 [facility] Respitory Rate 20 05/23/2017 [facility] Systolic (mm Hg) 116 05/23/2017 [facility] Diastolic (mm Hg) 63 05/23/2017 [facility] Systolic (mm Hg) 135 04/01/2017 [facility] Diastolic (mm Hg) 75 04/01/2017 [facility] Heart Rate 72 04/01/2017 [facility] Weight 153.955 04/01/2017 [facility] BMI Calculated 46.03 04/01/2017 [facility] Height 182.88 cm 04/01/2017 [facility] Systolic (mm Hg) 124 02/13/2017 [facility] Diastolic (mm Hg) 70 02/13/2017 [facility] Respitory Rate 18 02/13/2017 [facility] Respitory Rate 17 02/13/2017 [facility] Respitory Rate 22 02/13/2017 [facility] Systolic (mm Hg) 108 02/13/2017 [facility] Diastolic (mm Hg) 57 02/13/2017 [facility] Systolic (mm Hg) 109 02/13/2017 [facility] Diastolic (mm Hg) 56 02/13/2017 [facility] BMI Calculated 44.17 02/12/2017 [facility] Height 182.88 cm 02/12/2017 [facility] Weight 147.727 02/12/2017 [facility] Heart Rate 70 02/12/2017 [facility] Temperature Oral (F) 98.7 F 02/12/2017 [facility] Heart Rate 66 02/12/2017 [facility] Temperature Oral (F) 97.7 F 02/12/2017 [facility] Weight 145.455 02/11/2017 [facility] BMI Calculated 43.49 02/11/2017 [facility] Height 182.88 cm 02/11/2017 [facility] Temperature Oral (F) 98.9 F 02/11/2017 [facility] Heart Rate 62 02/11/2017 [facility] Systolic (mm Hg) 152 01/17/2017 [facility] Diastolic (mm Hg) 75 01/17/2017 [facility] Temperature Oral (F) 98 F 01/17/2017 [facility] Heart Rate 74 01/17/2017 [facility] Respitory Rate 18 01/17/2017 [facility] Respitory Rate 18 01/17/2017 [facility] Systolic (mm Hg) 132 01/17/2017 [facility] Diastolic (mm Hg) 70 01/17/2017 [facility] Temperature Oral (F) 97.8 F 01/17/2017 [facility] Heart Rate 71 01/17/2017 [facility] Heart Rate 81 01/17/2017 [facility] Temperature Oral (F) 98.7 F 01/17/2017 [facility] Respitory Rate 20 01/17/2017 [facility] Systolic (mm Hg) 148 01/17/2017 [facility] Diastolic (mm Hg) 70 01/17/2017 [facility] Weight 145.455 01/16/2017 [facility] BMI Calculated 43.49 01/16/2017 [facility] Height 182.88 cm 01/16/2017 [facility] Height 182.88 cm 10/29/2016 [facility] BMI Calculated 43.74 10/29/2016 [facility] Weight 146.273 10/29/2016 [facility] Systolic (mm Hg) 131 10/29/2016 [facility] Diastolic (mm Hg) 71 10/29/2016 [facility] Weight 147.682 08/06/2016 [facility] BMI Calculated 44.16 08/06/2016 [facility] Height 182.88 cm 08/06/2016 [facility] Center Systolic (mm Hg) 114 08/06/2016 [facility] Center Diastolic (mm Hg) 63 08/06/2016 [facility] Center Systolic (mm Hg) 121 06/06/2016 [facility] Center Diastolic (mm Hg) 69 06/06/2016 [facility] Weight 143.045 06/06/2016 [facility] BMI Calculated 42.76 06/06/2016 [facility] Height 182.9 cm 06/06/2016 [facility] BMI Calculated 44.4 04/30/2016 [facility] Height 182.88 cm 04/30/2016 [facility] Weight 148.5 04/30/2016 [facility] Center Systolic (mm Hg) 115 04/30/2016 [facility] Center Diastolic (mm Hg) 68 04/30/2016 [facility] Height 182.88 cm 04/24/2016 [facility] Weight 150.455 04/24/2016 [facility] BMI Calculated 44.99 04/24/2016 [facility] Respitory Rate 18 03/27/2016 [facility] Systolic (mm Hg) 116 03/27/2016 [facility] Center Diastolic (mm Hg) 56 03/27/2016 [facility] Heart Rate 75 03/27/2016 [facility] Center Respitory Rate 12 03/27/2016 [facility] Systolic (mm Hg) 105 03/27/2016 [facility] Center Diastolic (mm Hg) 53 03/27/2016 [facility] Respitory Rate 14 03/27/2016 [facility] Systolic (mm Hg) 107 03/27/2016 [facility] Diastolic (mm Hg) 54 03/27/2016 [facility] [facility] Heart Rate 81 03/27/2016 [facility] Weight 152.273 03/23/2016 [facility] Height 182.88 cm 03/23/2016 [facility] BMI Calculated 45.53 03/23/2016 [facility] Systolic (mm Hg) 155 03/01/2016 [facility] Diastolic (mm Hg) 70 03/01/2016 [facility] Temperature Oral (F) 99.3 F 03/01/2016 [facility] Heart Rate 82 03/01/2016 [facility] Height 182.88 cm 03/01/2016 [facility] BMI Calculated 47.31 03/01/2016 [facility] Weight 158.239 03/01/2016 [facility] Encounters Location Location Details Encounter Type Encounter Number Reason For Visit Attending Provider ADM Date DC Date Status Source [facility] [place] Out[facility] Diag Services [id number] Gm Rivera 01/18/2016 01/19/[address] [facility] Outpatient [id number] Ari Ryees 03/01/2016 03/02/2016 [facility] [place] [facility] [id number] [facility] Reyes 03/14/2016 03/15/2016 [facility] Day Surgery [id number] [facility] Reyes 03/27/2016 03/28/2016 [facility] OP Transplant Clinic - Pre [id number] Susan Luevano 04/23/2016 05/23/2016 [facility] OP Transplant Clinic - Pre [id number] Hu Medina 04/30/2016 05/30/2016 [facility] Transplant [facility] OP Transplant Clinic - Pre [id number] Hu Medina 06/06/2016 07/06/2016 [facility] Outpatient [facility] Out[facility] Diag Services [id number] Ari Nevfreddy Reyes 07/18/2016 07/19/2016 [facility] Transplant [facility] OP Transplant Clinic - Pre [id number] Hu Medina 08/06/2016 09/05/2016 [facility] Outpatient [facility] Outpt Diag Services [id number] Ari Nevfreddy Reyes 08/08/2016 08/09/2016 [facility] Outpatient [facility] [place] [facility] [id number] Ari Nevfreddy Reyes 10/22/2016 10/23/2016 [facility] Transplant [facility] OP Transplant Clinic - Pre [id number] Hu Medina 10/29/2016 11/28/2016 [facility] Outpatient [facility] Outpt Diag Services [id number] Ari Nevah Reyes 11/22/2016 11/23/2016 [facility] Outpatient Imaging [facility] Institution Patient [id number] Ari Nevfreddy Reyes 01/02/2017 01/03/2017 [facility] Outpatient [id number] Ari Nevah Reyes 01/16/2017 01/17/2017 [facility] Inpatient [id number] Navneet Cardenas 02/11/2017 02/13/2017 [facility] Transplant Ctr OP Transplant Clinic - Pre [id number] Hu Medina 04/01/2017 05/01/2017 [facility] [place] [facility] Patient [id number] Ari Reyes 05/10/2017 [facility]/11/[facility] Outpatient [id number] Ari Reyes 05/23/2017 05/24/2017 [facility] Outpatient [id number] Ari Reyes 08/29/2017 08/30/2017 [facility] Outpatient [facility] [place] [facility] [id number] Ari Reyes 10/25/2017 10/26/2017 LORENE [place] Procedures Procedure Code Date Perfomer Comments Source Vascular embolization or occlusion, inclusive of all radiological supervision and interpretation, intraprocedural roadmapping, and imaging guidance necessary to complete the intervention; for tumors, organ ischemia, or infarction [id number] 01/16/2017 [facility] Back care [id number] [facility] Elbow joint operations [id number] [facility] Hernia repair<sup>1</sup> [id number] X'3 [facility] Back care [id number] [facility] Elbow joint operations [id number] [facility] Hernia repair<sup>1</sup> [id number] X'3 [facility] Chemoembolization of liver metastases [id number] [facility] Chemoembolization of liver metastases [id number] [facility]
--- OUTSIDE RECORDS SUMMARY | 2018-03-04 05:43 | XMS REPORT | Summary of Care ---
Author Author [facility] [place] Organization [facility] [place] Address Unknown Phone Unavailable Encounter HQ Encntr_alias(FIN) [id number] Date(s): 01/18/16 - 01/18/16 [facility] Outpatient [facility] - [place] [address] [place] [phone] Discharge Disposition: Home or Self Care Attending Physician: Gm Rivera MD Vital Signs No data available for this section Problem List No data available for this section Allergies, Adverse Reactions, Alerts Substance Reaction Severity Status NKDA Active Medications No data available for this section Results No data available for this section Immunizations No data available for this section Procedures No data available for this section Social History No data available for this section Assessment and Plan No data available for this section
--- OUTSIDE RECORDS SUMMARY | 2018-03-04 05:44 | XMS REPORT | Summary of Care ---
Author Author [facility] Outpatient Imaging [place] Organization [facility] Outpatient Imaging [place] Address Unknown Phone Unavailable Encounter HQ Patricia(FIN) [id number] Date(s): 11/22/16 - 11/22/16 [facility] Outpatient Imaging [place] [address] [place] [phone] Discharge Disposition: Home or Self Care Attending Physician: Ari Petit MD Vital Signs No data available for this section Problem List Condition Effective Dates Status Health Status Informant Acanthosis Active nigricans(Confirmed) Alcohol Resolved abuse(Confirmed) Alcoholic cirrhosis Active of liver(Confirmed) Autosomal Recessive Active Retinitis Pigmentosa(Confirmed ) Morbid obesity with Active BMI of 45.0-49.9, adult(Confirmed)1 EV (esophageal Active varices)(Confirmed) Hepatic Active encephalopathy(Confi rmed) HCC (hepatocellular Active carcinoma)(Confirmed ) Depression(Confirmed Resolved ) Portal Active hypertension(Confirm ed) Thrombocytopenia(Con Active firmed) 1BMI- 45.4 Allergies, Adverse Reactions, Alerts Substance Reaction Severity Status NKDA Active Medications No data available for this section Results No data available for this section Immunizations No data available for this section Procedures Procedure Date Related Diagnosis Body Site Back care Elbow joint operations Hernia repair1 1X'3 Social History Social History Type Response Sexual Sexually active: No. Partner with STD? No. Uses condoms: No. Change in Libido: No. Testicular Self Exam No. Menstrual Period Started: No. Exercise Self assessment: Fair condition. Employment/School Status: Unemployed. Alcohol Past Smoking Status Type: Cigarettes; Exposure to Tobacco Smoke None; Other Tobacco Frequency quit 5 years ago; Cigarette Smoking Last 365 Days No; Reg Smoking Cessation Counseling No; Former smoker Assessment and Plan No data available for this section
--- OUTSIDE RECORDS SUMMARY | 2018-03-04 05:44 | XMS REPORT | Summary of Care ---
Author Author [facility] Organization [facility] Address Unknown Phone Unavailable Encounter ATUL Gomez(JULITO) [id number] Date(s): 04/23/16 - 05/22/16 [place] [address]- Discharge Disposition: Home or Self Care Attending Physician: Susan Luevano MD Referring Physician: Hu Medina MD Vital Signs Most recent to 1 oldest [Reference Range]: Height 182.88 cm (04/24/16 8:42 AM) Weight 150.455 kg (04/24/16 8:42 AM) Body Mass Index 44.99 m2 (04/24/16 8:42 AM) Problem List Condition Effective Dates Status Health Status Informant Acanthosis Active nigricans(Confirmed) Alcohol Resolved abuse(Confirmed) Alcoholic cirrhosis Active of liver(Confirmed) Autosomal Recessive Active Retinitis Pigmentosa(Confirmed ) Morbid obesity with Active BMI of 45.0-49.9, adult(Confirmed)1 EV (esophageal Active varices)(Confirmed) Hepatic Active encephalopathy(Confi rmed) HCC (hepatocellular Active carcinoma)(Confirmed ) Depression(Confirmed Resolved ) Thrombocytopenia(Con Active firmed) 1BMI- 45.4 Allergies, Adverse Reactions, Alerts Substance Reaction Severity Status NKDA Active Medications lactulose 10 g oral powder 10 gm=1 ea, PO, BID, # 20 ea, 0 Refill(s) Start Date: 03/23/16 Stop Date: 04/30/16 Status: Completed propranolol 10 mg oral tablet 10 mg=1 tab, PO, BID, # 60 tab, 6 Refill(s), Pharmacy: [facility]/pharmacy #[id number] Start Date: 03/28/16 Status: Ordered tramadol 50 mg oral tablet 50 mg=1 tab, PO, Q6H, PRN Pain, # 40 tab, 0 Refill(s) Start Date: 03/23/16 Stop Date: 04/02/16 Status: Ordered Results No data available for this section Immunizations No data available for this section Procedures Procedure Date Related Diagnosis Body Site Back care Elbow joint operations Hernia repair1 1X'3 Social History Social History Type Response Alcohol Past Smoking Status Former smoker; Type: Cigarettes; Exposure to Tobacco Smoke None; Other Tobacco Frequency quit 5 years ago; Cigarette Smoking Last 365 Days No; Reg Smoking Cessation Counseling No Assessment and Plan No data available for this section
--- OUTSIDE RECORDS SUMMARY | 2018-03-04 05:44 | XMS REPORT | Summary of Care ---
Author Author [facility] Organization [facility] Address Unknown Phone Unavailable Encounter ATUL Gomez(JULITO) [id number] Date(s): 06/06/16 - 07/05/16 [facility] [address] [facility] [address] [place] [address] Discharge Disposition: Home or Self Care Attending Physician: Hu Medina MD Referring Physician: Hu Medina MD Vital Signs Most recent to 1 oldest [Reference Range]: Height 182.9 cm (06/06/16 2:22 PM) Blood Pressure 121/69 mmHg [90-140/60-90 mmHg] (06/06/16 2:22 PM) Weight 143.045 kg (06/06/16 2:22 PM) Body Mass Index 42.76 m2 (06/06/16 2:22 PM) Problem List Condition Effective Dates Status [...] Reaction Severity Status NKDA Active Medications No Known Medications Results No data available for this section [...]
--- OUTSIDE RECORDS SUMMARY | 2018-03-04 05:44 | XMS REPORT | Summary of Care ---
Author Author [facility] Organization [facility] Address Unknown Phone Unavailable Encounter ATUL Gomez(JULITO) [id number] Date(s): 04/01/17 - 04/30/17 [facility] [address] [facility] [address] [phone] Encounter Diagnosis Unspecified cirrhosis of liver (Final) - 05/03/17 Secondary esophageal varices without bleeding (Final) - Fluid overload, unspecified (Final) - Discharge Disposition: Home or Self Care Attending Physician: Hu Medina MD Referring Physician: Hu Medina MD Vital Signs Most recent to 1 oldest [Reference Range]: Height 182.88 cm (04/01/17 2:54 PM) Blood Pressure 135/75 mmHg [90-140/60-90 mmHg] (04/01/17 2:54 PM) Peripheral Pulse 72 bpm Rate [60-100 bpm] (04/01/17 2:54 PM) Weight 153.955 kg (04/01/17 2:54 PM) Body Mass Index 46.03 m2 (04/01/17 2:54 PM) Problem List Condition Effective Dates Status Health Status Informant Acanthosis Active nigricans(Confirmed) Alcohol Resolved abuse(Confirmed) Alcoholic cirrhosis Active of liver(Confirmed) Anxiety(Confirmed) Resolved Autosomal Recessive Active Retinitis Pigmentosa(Confirmed ) Morbid obesity with Active BMI of 45.0-49.9, adult(Confirmed)1 EV (esophageal Active varices)(Confirmed) Hepatic Active encephalopathy(Confi rmed) Lesion of Active liver(Confirmed) Depression(Confirmed Resolved ) Portal Active hypertension(Confirm ed) Thrombocytopenia(Con Active firmed) 1BMI- 45.4 Allergies, Adverse Reactions, Alerts Substance Reaction Severity Status NKDA Active Medications propranolol 10 mg oral tablet 10 mg=1 tab, PO, BID, 0 Refill(s) Start Date: 04/01/17 Status: Ordered Results No data available for this section Immunizations No data available for this section Procedures Procedure Date Related Diagnosis Body Site Status Back care Completed Chemoembolization of liver metastases Completed Elbow joint operations Completed Hernia repair1 Completed 1X'3 Social History Social History Type Response Substance Abuse Use: Past. Type: Marijuana. Stopped age 32 Years. Sexual Sexually active: No. Partner with STD? No. Uses condoms: No. Change in Libido: No. Testicular Self Exam No. Menstrual Period Started: No. Exercise Self assessment: Fair condition. Employment/School Status: Unemployed. Alcohol Past, Last use: Over 2-years ago. Started age 15 Years. Stopped age 34 Years.1 Smoking Status Former smoker; Type: Cigarettes; Exposure to Tobacco Smoke None; Cigarette Smoking Last 365 Days No; Reg Smoking Cessation Counseling No; Other Tobacco Frequency quit 5 years ago; entered on: 05/23/17 1patient states they are former alcoholic Assessment and Plan Extracted from: Title: Clinical Document Author: Roselia Grier Date: 02/14/17 Admission Date: 02/11/2017 Discharge to Home: 02/14/2017 Admitting Diagnosis: - Hematochezia - RUQ Pain - R hepatic dome mass concerning for HCC, s/p TACE 01/16 - ETOH/ANDREW Cirrhosis - Autosomal Recessive Retinitis Pigmentosa - EV - h/o HE - Morbidly Obese - Depression Discharge Diagnosis: - LGIB 2/2 s/p endoscopy/colonoscopy 02/13 revealing internal hemorrhoids and external hemorrhoids - RUQ pain 2/2 chronic cholecystitis - decompensated etoh/ANDREW cirrhosis - R hepatic dome mass concerning for HCC, s/p TACE 01/16 - portal hypertnsion - pancytopenia - possible depression/anxiety - morbid obesity Discharge Condition: well [facility] Procedure: endoscopy 02/13 HPI: Mr. Bill is a 36 yo male with pmhx of decompensated etoh/ANDREW cirrhosis with portal hypertension, questionable HCC (s/p TACE 01/16/17), depression, and anxiety who presents to [facility] 02/11 for hematochezia x 4 days. Patient reports previous rectal bleeding at home in the past which would resolve without intervention. He underwent EGD/colonoscopy in 03/2016 revealing esophageal varices, sessile polyps, and internal hemorrhoids which were not bleeding at the time. Since admission, hgb remains stable however continues to have BRBPR. This morning patient underwent EGD and colonoscopy with hepatology this morning revealing nonbleed esophageal varix and internal/external hemorrhoids with concern for recent bleed. Patient continued to have RUQ pain and CT A/P reveals choledocholithiasis and cholelithiasis suggesting chronic cholecystitis. Patient to follow up outpatient with transplant surgery in 2 weeks for evaluation and possible ERCP. Patient being discharged on ciprofloxacin 500mg po x7 day and Anusol suppositories x 7 days. Medications: Resume home medications, see med reconciliation list Activity: As tolerated
--- OUTSIDE RECORDS SUMMARY | 2018-03-04 05:44 | XMS REPORT | Summary of Care ---
Author Author [facility] Outpatient [facility] Organization [facility] Outpatient Imaging [place] Address Unknown Phone Unavailable Encounter HQ Patricia(FIN) [id number] Date(s): 10/22/16 - 10/22/16 [facility]patient [facility] [place] [address] [place] [phone] Discharge Disposition: Home or Self Care Attending [...] Employment/School Status: Unemployed. Alcohol Past Smoking Status Former smoker; Type: Cigarettes; Exposure to Tobacco Smoke None; Other Tobacco Frequency quit 5 years ago; Cigarette Smoking Last 365 Days No; Reg Smoking Cessation Counseling No Assessment and Plan No data available for this section
--- OUTSIDE RECORDS SUMMARY | 2018-03-04 05:44 | XMS REPORT | Summary of Care ---
Author Author [facility] Organization [facility] Address Unknown Phone Unavailable Encounter ATUL Gomez(JULITO) [id number] Date(s): 04/30/16 - 05/29/16 [facility] [address] [place] [address] [place] [address] [phone] Discharge Disposition: Home or Self Care Attending Physician: Hu Medina MD Referring Physician: Hu Medina MD Vital Signs Most recent to 1 oldest [Reference Range]: Height 182.88 cm (04/30/16 1:27 PM) Blood Pressure 115/68 mmHg [90-140/60-90 mmHg] (04/30/16 1:27 PM) Weight 148.5 kg (04/30/16 1:27 PM) Body Mass Index 44.4 m2 (04/30/16 1:27 PM) Problem List Condition Effective Dates Status [...] Substance Reaction Severity Status NKDA Active Medications calcium-vitamin D 600 mg-400 intl units oral tablet 1 tab, PO, Daily, # 60 tab, 0 Refill(s) Start Date: 04/30/16 Status: Ordered clarithromycin 500 mg oral tablet 500 mg=1 tab, PO, Q12H, # 28 tab, 0 Refill(s) Start Date: 04/30/16 Stop Date: 05/14/16 Status: Ordered ICaps MV oral tablet 1 tab, PO, Daily, # 30 tab, 0 Refill(s) Start Date: 04/30/16 Status: Ordered Vitamin K1 100 mcg oral tablet 100 microgram=1 tab, PO, Daily, 0 Refill(s) Start Date: 04/30/16 Stop Date: 04/30/16 Status: Discontinued Results No data available for this section [...]
--- OUTSIDE RECORDS SUMMARY | 2018-03-04 05:44 | XMS REPORT | Summary of Care ---
Author Author [facility] Organization [facility] Address Unknown Phone Unavailable Encounter ATUL Gomez(JULITO) [id number] Date(s): 01/16/17 - 01/17/17 [facility] [address] Professional Services provided by [facility] [place] [address]- Discharge Disposition: Home or Self Care Attending Physician: Ari Petit MD Referring Physician: Ari Petit MD Vital Signs 1 2 3 Most recent to oldest [Reference Range]: 182.88 cm (01/16/17 7:45 AM) Height 152.682 kg (01/16/17 11:09 PM) Current Weight 98 DegF (01/17/17 11:40 AM) 97.8 DegF (01/17/17 8:01 AM) 98.7 DegF (01/17/17 4:59 AM) Temperature Oral [96.4-99.1 DegF] 152/75 mmHg *HI* (01/17/17 11:40 AM) 132/70 mmHg (01/17/17 8:01 AM) 148/70 mmHg *HI* (01/17/17 4:59 AM) Blood Pressure [90-140/60-90 mmHg] 18 BRMIN (01/17/17 11:40 AM) 18 BRMIN (01/17/17 8:01 AM) 20 BRMIN (01/17/17 4:59 AM) Respiratory Rate [14-20 BRMIN] 74 bpm (01/17/17 11:40 AM) 71 bpm (01/17/17 8:01 AM) 81 bpm (01/17/17 4:59 AM) Peripheral Pulse Rate [60-100 bpm] 145.455 kg (01/16/17 7:45 AM) Weight 43.49 m2 (01/16/17 7:45 AM) Body Mass Index Problem List Condition Effective Dates Status Health [...] Substance Reaction Severity Status NKDA Active Medications acetaminophen-hydrocodone 325 mg-10 mg oral tablet 1 tab, Route: PO, Drug Form: TAB, Dosing Weight 145.455, kg, Q4H, PRN Pain Score 4-6, Start date: 01/16/17 12:59:00 CDT, Duration: 1 day, Stop date: 01/17/17 12 :58:00 CDT Notes: Do not exceed 4gm/day of acetaminophen. (Same as: [place] 325/10) Start Date: 01/16/17 Stop Date: 01/17/17 Status: Completed Ancef 1 gm, Route: IV, ONCE, Dosing Weight 145.455, kg, Start date: 01/16/17 9:57:00 C DT, Stop date: 01/16/17 9:57:00 CDT, ABX Indication: Surgical Prophylaxis Start Date: 01/16/17 Stop Date: 01/16/17 Status: Completed calcium-vitamin D 600 mg-400 intl units oral tablet 1 tab, Route: PO, Drug Form: CHEWTAB, Dosing Weight 145.455, kg, Daily, Start da te: 01/17/17 9:00:00 CDT, Duration: 30 day, Stop date: 02/15/17 9:00:00 CDT Notes: (calcium carbonate-vit D 500mg-400unit chew TAB) Same as: Oscal 500+D Start Date: 01/17/17 Stop Date: 01/17/17 Status: Discontinued dexamethasone + sodium chloride 0.9% INJ 50 mL 10 mg, 1 mL, Route: IVPB, On Adm, Start date: 01/16/17 8:00:00 CDT, Duration: 1 doses or times, Stop date: 01/16/17 23:00:00 CDT Start Date: 01/16/17 Stop Date: 01/16/17 Status: Completed docusate 100 mg, 1 cap, Route: PO, Drug form: CAP, BID, Dosing Weight 145.455, kg, Start date: 01/17/17 9:00:00 CDT, Duration: 30 day, Stop date: 02/15/17 17:00:00 CDT Notes: (Same as: Colace) (Do Not Crush) Start Date: 01/17/17 Stop Date: 01/17/17 Status: Discontinued DOXOrubicin 100 mg + sterile water 4 mL + empty container 1 ea Route: INTRAARTERIAL, On Adm, Start date: 01/16/17 8:00:00 CDT, Duration: 1 dose s or times, Stop date: 01/16/17 23:00:00 CDT Notes: (Same as: Adriamycin)CHEMOTHERAPY; Infuse entire contents for full doseWA IZAIAH: F/P - Black; E - Yellow MEDICATION WASTE Product Size: 50 mgProduc t Wasted: _0__ mg Start Date: 01/16/17 Stop Date: 01/16/17 Status: Completed fentaNYL 50 microgram, Route: IV, ONCE, Dosing Weight 145.455, kg, Start date: 01/16/17 1 0:15:00 CDT, Stop date: 01/16/17 10:15:00 CDT, Start Date: 01/16/17 Stop Date: 01/16/17 Status: Completed fentaNYL 50 microgram, Route: IV, ONCE, Dosing Weight 145.455, kg, Start date: 01/16/17 1 1:22:00 CDT, Stop date: 01/16/17 11:22:00 CDT, Start Date: 01/16/17 Stop Date: 01/16/17 Status: Completed fentaNYL 50 microgram, Route: IV, ONCE, Dosing Weight 145.455, kg, Start date: 01/16/17 1 2:13:00 CDT, Stop date: 01/16/17 12:13:00 CDT, Start Date: 01/16/17 Stop Date: 01/16/17 Status: Completed Flagyl 500 mg, Route: IV, ONCE, Dosing Weight 145.455, kg, Start date: 01/16/17 8:44:00 CDT, Stop date: 01/16/17 8:44:00 CDT, ABX Indication: Surgical Prophylaxis Start Date: 01/16/17 Stop Date: 01/16/17 Status: Completed gabapentin 300 mg oral capsule 300 mg, 1 cap, Route: PO, Drug form: CAP, BID, Dosing Weight 145.455, kg, Start date: 01/17/17 9:00:00 CDT, Duration: 30 day, Stop date: 02/15/17 17:00:00 CDT Notes: (Same as: Neurontin) Start Date: 01/17/17 Stop Date: 01/17/17 Status: Discontinued hydromorphone 1 mg, 0.5 mL, Route: IVP, Drug form: INJ, Q4H, Dosing Weight 145.455, kg, PRN Pa in Score 7-10, Start date: 01/16/17 12:59:00 CDT, Duration: 1 day, Stop date: 12:58:00 CDT Notes: Same as: Dilaudid Start Date: 01/16/17 Stop Date: 01/17/17 Status: Completed lactulose 10 g/15 mL oral syrup 10 gm, 15 mL, Route: PO, Drug form: SYRP, Daily, Dosing Weight 145.455, kg, PRN Constipation, Start date: 01/16/17 22:47:00 CDT, Duration: 30 day, Stop date: 22:46:00 CDT Notes: (Same as:Chronulac) Start Date: 01/16/17 Stop Date: 01/17/17 Status: Discontinued lactulose 10 g/15 mL oral syrup 10 gm=15 mL, PO, Daily, PRN as needed for constipation, # 480 mL, 0 Refill(s) Start Date: 01/16/17 Stop Date: 02/17/17 Status: Ordered midazolam 1 mg, Route: IV, ONCE, Dosing Weight 145.455, kg, Start date: 01/16/17 10:15:00 CDT, Stop date: 01/16/17 10:15:00 CDT Start Date: 01/16/17 Stop Date: 01/16/17 Status: Completed midazolam 1 mg, Route: IV, ONCE, Dosing Weight 145.455, kg, Start date: 01/16/17 11:22:00 CDT, Stop date: 01/16/17 11:22:00 CDT Start Date: 01/16/17 Stop Date: 01/16/17 Status: Completed midazolam 1 mg, Route: IV, ONCE, Dosing Weight 145.455, kg, Start date: 01/16/17 12:13:00 CDT, Stop date: 01/16/17 12:13:00 CDT Start Date: 01/16/17 Stop Date: 01/16/17 Status: Completed multivitamin with minerals 1 tab, Route: PO, Drug Form: TAB, Dosing Weight 145.455, kg, Daily, Start date: 01/17/17 9:00:00 CDT, Duration: 30 day, Stop date: 02/15/17 9:00:00 CDT Notes: (Same as:Christi-Ronda Zavaleta-Waqar)WASTE: F/P - Black; E - Municipal Trash Bin Give with food. Start Date: 01/17/17 Stop Date: 01/17/17 Status: Discontinued ondansetron 16 mg, 50 mL, Route: IVPB, Drug form: SOLN, On Adm, Start date: 01/16/17 8:00:00 CDT, Duration: 1 doses or times, Stop date: 01/16/17 23:00:00 CDT Notes: Same as: Zofran Start Date: 01/16/17 Stop Date: 01/16/17 Status: Completed ondansetron 4 mg, 2 mL, Route: IVP, Drug form: INJ, Q6H, Dosing Weight 145.455, kg, PRN Naus ea & Vomiting, Start date: 01/16/17 21:44:00 CDT, Duration: 30 day, Stop date: 02/15/17 21:43:00 CDT Notes: (Same as: Zofran) MEDICATION WASTE Product Size: 4 mgProduct Was claus: ___ mg Start Date: 01/16/17 Stop Date: 01/17/17 Status: Discontinued pantoprazole 40 mg, 1 tab, Route: PO, Drug form: ECTAB, Before Breakfast, Dosing Weight 145.4 55, kg, Start date: 01/17/17 7:30:00 CDT, Duration: 30 day, Stop date: 02/15/17 7:30:00 CDT Notes: Tablet should not be chewed or crushed.(Same as: Protonix) Start Date: 01/17/17 Stop Date: 01/17/17 Status: Discontinued propranolol 10 mg, 1 tab, Route: PO, Drug form: TAB, BID, Dosing Weight 145.455, kg, Start d ate: 01/17/17 9:00:00 CDT, Duration: 30 day, Stop date: 02/15/17 17:00:00 CDT Notes: Give with food.(Same as: Inderal) Start Date: 01/17/17 Stop Date: 01/17/17 Status: Discontinued Protonix 40 mg oral enteric coated tablet 40 mg=1 tab, PO, Daily, # 30 tab, 0 Refill(s) Start Date: 01/16/17 Status: Ordered Sodium Chloride 0.9% IV IV, 100 ml/hr, On Adm, Start date: 01/16/17 8:00:00 CDT, Duration: 1, 1,000 ml Start Date: 01/16/17 Stop Date: 01/16/17 Status: Completed tramadol 50 mg oral tablet 50 mg, 1 tab, Route: PO, Drug form: TAB, Q6H, Dosing Weight 145.455, kg, PRN Arik n Score 4-6, Start date: 01/16/17 22:45:00 CDT, Duration: 30 day, Stop date: 06/29 22:44:00 CDT Notes: Not to exceed 400mg/day. (Same As: Ultram) Start Date: 01/16/17 Stop Date: 01/17/17 Status: Discontinued Results BLOOD BANK RESULTS Most recent to 1 2 oldest [Reference Range]: ABO/Rh O POS *Unknown* (01/16/17 7:55 AM) Antibody Scrn Negative (01/16/17 7:55 AM) Platelet product Product available (01/16/17 8:50 AM) CHEM PANEL Most recent to 1 2 oldest [Reference Range]: Total Protein 6.5 g/dL 6.6 g/dL [6.4-8.4 g/dL] (01/17/17 2:33 AM) (01/16/17 8:03 AM) Albumin Lvl [3.5-5.0 2.4 g/dL 2.8 g/dL g/dL] *LOW* *LOW* (01/17/17 2:33 AM) (01/16/17 8:03 AM) Globulin [2.7-4.2 4.1 g/dL 3.8 g/dL g/dL] (01/17/17 2:33 AM) (01/16/17 8:03 AM) A/G Ratio [0.7-1.6] 0.6 0.7 *LOW* (01/16/17 8:03 AM) (01/17/17 2:33 AM) ALT [0-65 unit/L] 35 unit/L 35 unit/L (01/17/17 2:33 AM) (01/16/17 8:03 AM) AST [0-37 unit/L] 45 unit/L 64 unit/L *HI* *HI* (01/17/17 2:33 AM) (01/16/17 8:03 AM) Alk Phos [39-136 120 unit/L 112 unit/L unit/L] (01/17/17 2:33 AM) (01/16/17 8:03 AM) Bili Total [0.2-1.3 4.3 mg/dL 5.0 mg/dL mg/dL] *HI* *HI* (01/17/17 2:33 AM) (01/16/17 8:03 AM) Bili Direct [0.0-0.3 1.3 mg/dL 1.7 mg/dL mg/dL] *HI* *HI* (01/17/17 2:33 AM) (01/16/17 8:03 AM) Bili Indirect 3.0 mg/dL 3.3 mg/dL [0.0-1.0 mg/dL] *HI* *HI* (01/17/17 2:33 AM) (01/16/17 8:03 AM) HEMATOLOGY Most recent to 1 2 oldest [Reference Range]: WBC [3.7-10.4 K/CMM] 4.7 K/CMM 3.6 K/CMM (01/17/17 2:33 AM) *LOW* (01/16/17 8:03 AM) RBC [4.70-6.10 3.95 M/CMM 4.13 M/CMM M/CMM] *LOW* *LOW* (01/17/17 2:33 AM) (01/16/17 8:03 AM) Hgb [14.0-18.0 g/dL] 12.6 g/dL 13.3 g/dL *LOW* *LOW* (01/17/17 2:33 AM) (01/16/17 8:03 AM) Hct [42.0-54.0 %] 36.7 % 38.3 % *LOW* *LOW* (01/17/17 2:33 AM) (01/16/17 8:03 AM) MCV [80.0-94.0 fL] 93.0 fL 92.8 fL (01/17/17 2:33 AM) (01/16/17 8:03 AM) MCH [27.0-31.0 pg] 31.9 pg 32.2 pg *HI* *HI* (01/17/17 2:33 AM) (01/16/17 8:03 AM) MCHC [32.0-36.0 34.3 g/dL 34.7 g/dL g/dL] (01/17/17 2:33 AM) (01/16/17 8:03 AM) RDW [11.5-14.5 %] 15.5 % 16.2 % *HI* *HI* (01/17/17 2:33 AM) (01/16/17 8:03 AM) Platelet [133-450 52 K/CMM 37 K/CMM K/CMM] *LOW* *LOW* (01/17/17 2:33 AM) (01/16/17 8:03 AM) MPV [7.4-10.4 fL] 10.6 fL 9.5 fL *HI* (01/16/17 8:03 AM) (01/17/17 2:33 AM) Segs [45.0-75.0 %] 83.7 % 53.7 % *HI* (01/16/17 8:03 AM) (01/17/17 2:33 AM) Lymphocytes 8.6 % 28.0 % [20.0-40.0 %] *LOW* (01/16/17 8:03 AM) (01/17/17 2:33 AM) Monocytes [2.0-12.0 7.5 % 12.3 % %] (01/17/17 2:33 AM) *HI* (01/16/17 8:03 AM) Eosinophils [0.0-4.0 0.1 % 5.0 % %] (01/17/17 2:33 AM) *HI* (01/16/17 8:03 AM) Basophils [0.0-1.0 0.1 % 1.0 % %] (01/17/17 2:33 AM) (01/16/17 8:03 AM) Segs-Bands # 3.9 K/CMM 1.9 K/CMM [1.5-8.1 K/CMM] (01/17/17 2:33 AM) (01/16/17 8:03 AM) Lymphocytes # 0.4 K/CMM 1.0 K/CMM [1.0-5.5 K/CMM] *LOW* (01/16/17 8:03 AM) (01/17/17 2:33 AM) Monocytes # [0.0-0.8 0.4 K/CMM 0.4 K/CMM K/CMM] (01/17/17 2:33 AM) (01/16/17 8:03 AM) Eosinophils # 0.2 K/CMM [0.0-0.5 K/CMM] (01/16/17 8:03 AM) Anisocyte [None 1+ Seen] *ABN* (01/16/17 8:03 AM) PT [12.0-14.7 19.5 seconds seconds] *HI* (01/16/17 8:03 AM) INR [0.85-1.17] 1.62 *HI* (01/16/17 8:03 AM) Immunizations No data available for this section Procedures Procedure Date Related Diagnosis Body Site Vascular embolization or occlusion, inclusive 01/16/17 of all radiological supervision and interpretation, intraprocedural roadmapping, and imaging guidance necessary to complete the intervention; for tumors, organ ischemia, or infarction Back care Elbow joint operations Hernia repair1 [...] Smoking Cessation Counseling No Assessment and Plan Extracted from: Title: Clinical Document Author: Delfino Messina Date: 01/17/17 Magno KHANNA Mr. Aguilera is feeling well this morning. No pain, no overnight events. Arteriotomy site is soft and nontender, dressing is CDI. From IR standpoint, ok to discharge home. We will see Mr. Aguilera in clinic in 30 days. Extracted from: Title: History and Physical Author: Delilah Tyler DO Date: 01/16/17 Assessment/Plan 1.Carcinoma of liver, hepatocellular s/p TACE by IR today, will monitor overnight Ordered: Admit/Condition, 01/16/17 18:00:00 CDT, Status: Bedded Outpatient, Acute, Location: [address] [place] [address], Expected LOS: 1 Midnight, Earlene Farrar MD, Admit Review/Approve Yes, Isolation: No Isolation Admit/Condition, 01/16/17 21:44:00 CDT, Status: Bedded Outpatient, Acute, Expected LOS: 1 Midnight, Earlene Farrar MD, Admit MD Review/Approve Yes, Isolation: No Isolation 2.Cirrhosis due to ANDREW and history of ETOH with portal hypertension resulting in esophageal varices also complicated by hepatic encephalopathy continue propranolol, lactulose PRN, protonix 3.Thrombocytopenia chronic suspect due to cirrhosis, will monitor transfuse if < 20 4.Hyperbilirubinemia suspect due to HCC, as pt underwent TACE today will need to follow up on LFTs in am, if stable or downtrending will plan to dx home to follow up withGI in clinic 5.Autosomal Recessive Retinitis Pigmentosa continue multivitamin with minerals Prophylaxis ambulation, no chemical DVT ppx in the setting of thrombocytopenia Disposition expect 1 MN.
--- OUTSIDE RECORDS SUMMARY | 2018-03-04 05:44 | XMS REPORT | Summary of Care ---
Author Author [facility] Organization [facility] Address Unknown Phone Unavailable Encounter ATUL Gomez(JULITO) [id number] Date(s): 10/29/16 - 11/27/16 [facility] [address] [facility] [address] [place] [address] Discharge Disposition: Home or Self Care Attending Physician: Hu Medina MD Referring Physician: Hu Medina MD Vital Signs Most recent to 1 oldest [Reference Range]: Height 182.88 cm (10/29/16 1:17 PM) Blood Pressure 131/71 mmHg [90-140/60-90 mmHg] (10/29/16 1:17 PM) Weight 146.273 kg (10/29/16 1:17 PM) Body Mass Index 43.74 m2 (10/29/16 1:17 PM) Problem List Condition Effective Dates Status [...]
--- OUTSIDE RECORDS SUMMARY | 2018-03-04 05:44 | XMS REPORT | Summary of Care ---
Author Author [facility] Organization [facility] [place] Address Unknown Phone Unavailable Encounter ATUL Gomez(JULITO) [id number] Date(s): 05/10/17 - 05/10/17 [facility] [place] [address] [place] [phone] Discharge Disposition: Home or Self Care Attending [...] they are former alcoholic Assessment and Plan No data available for this section
--- OUTSIDE RECORDS SUMMARY | 2018-03-04 05:44 | XMS REPORT | Summary of Care ---
Author Author [facility] Organization [facility] Address Unknown Phone Unavailable Encounter ATUL Gomez(JULITO) [id number] Date(s): 02/11/17 - 02/13/17 [facility] [address] [facility] provided by [employer] [facility] [employer] [place] [address]- Discharge Disposition: Home or Self Care Attending Physician: Treasure Ellington MD Admitting Physician: Navneet Cardenas MD Vital Signs 1 2 3 Most recent to oldest [Reference Range]: 182.88 cm (02/12/17 12:21 AM) 182.88 cm (02/11/17 4:34 PM) Height 147.002 kg (02/13/17 7:06 AM) 147.002 kg (02/13/17 7:06 AM) Current Weight 98.7 DegF (02/11/17 10:29 PM) 97.7 DegF (02/11/17 9:02 PM) 98.9 DegF (02/11/17 4:34 PM) Temperature Oral [96.4-99.1 DegF] 124/70 mmHg (02/13/17 3:00 PM) 108/57 mmHg (02/13/17 8:30 AM) 109/56 mmHg (02/13/17 8:15 AM) Blood Pressure [90-140/60-90 mmHg] 18 BRMIN (02/13/17 3:00 PM) 17 BRMIN (02/13/17 12:00 PM) 22 BRMIN *HI* (02/13/17 9:00 AM) Respiratory Rate [14-20 BRMIN] 70 bpm (02/11/17 10:29 PM) 66 bpm (02/11/17 9:02 PM) 62 bpm (02/11/17 4:34 PM) Peripheral Pulse Rate [60-100 bpm] 147.727 kg (02/12/17 12:21 AM) 145.455 kg (02/11/17 4:34 PM) Weight 44.17 m2 (02/12/17 12:21 AM) 43.49 m2 (02/11/17 4:34 PM) Body Mass Index Problem List Condition Effective [...] Substance Reaction Severity Status NKDA Active Medications albumin human 25% intravenous solution 25 gm, 100 mL, Route: IVPB, Drug form: INJ, Q6H, Dosing Weight 145.455, kg, Star t date: 02/12/17 0:00:00 CDT, Duration: 6 doses or times, Stop date: 02/13/17 6: 00:00 CDT Start Date: 02/12/17 Stop Date: 02/12/17 Status: Discontinued Anusol-HC 25 mg rectal suppository 25 mg, 1 supp, Route: IL, BID, Drug form: SUPP, Start date: 02/13/17 17:00:00 CD T, Duration: 7 day, Stop date: 02/20/17 9:00:00 CORRUGATED FASTENER DRIVER Notes: (Same as: Anusol-HC, Hemorrhoidal HC) Start Date: 02/13/17 Stop Date: 02/13/17 Status: Canceled Anusol-HC 25 mg rectal suppository 25 mg=1 supp, IL, BID, X 7 day, # 14 supp, 0 Refill(s) Start Date: 02/13/17 Stop Date: 02/20/17 Status: Ordered calcium gluconate + sodium chloride 0.9% INJ 80 mL 2,000 mg, 20 mL, Route: IVPB, ONCE, Dosing Weight 147.727, kg, Priority: STAT, S tart date: 02/12/17 1:37:00 CDT, Stop date: 02/12/17 1:37:00 CDT Notes: WASTE: F/P - Sink; E - Municipal Trash Bin Start Date: 02/12/17 Stop Date: 02/12/17 Status: Completed calcium-vitamin D 500 mg-400 intl units oral tablet, chewable 1 tab, Route: PO, Drug Form: CHEWTAB, Dosing Weight 147.727, kg, Daily, Start da te: 02/12/17 9:00:00 CDT, Duration: 30 day, Stop date: 03/13/17 9:00:00 CORRUGATED FASTENER DRIVER Notes: (calcium carbonate-vit D 500mg-400unit chew TAB) Same as: Oscal 500+D Start Date: 02/12/17 Stop Date: 02/12/17 Status: Canceled ciprofloxacin 500 mg, 1 tab, Route: PO, Drug form: TAB, [id number], Dosing Weight 147.727, kg, St art date: 02/13/17 15:00:00 CDT, Duration: 7 day, Stop date: 02/20/17 3:00:00 CS T, ABX Indication: Intra-abdominal Infection Notes: May interfere w/enteral feedings - Take 1 hr before or 2 hrs after anta cids, dairy pdt & minerals. On empty stomach. Start Date: 02/13/17 Stop Date: 02/13/17 Status: Discontinued ciprofloxacin 500 mg oral tablet 500 mg, PO, [id number], X 5 day, # 10 tab, 0 Refill(s) Start Date: 02/13/17 Stop Date: 02/18/17 Status: Ordered gabapentin 300 mg oral capsule 300 mg, 1 cap, Route: PO, Drug form: CAP, BID, Dosing Weight 147.727, kg, Start date: 02/12/17 9:00:00 CDT, Duration: 30 day, Stop date: 03/13/17 17:00:00 CORRUGATED FASTENER DRIVER Notes: (Same as: Neurontin) Start Date: 02/12/17 Stop Date: 02/13/17 Status: Discontinued GoLYTELY 4,000 ml, Route: PO, Drug Form: PDR/REC, Dosing Weight 147.727, kg, ONCE, Start date: 02/12/17 11:20:00 CDT, Duration: 1 doses or times, Stop date: 02/12/17 11: 20:00 CDT Notes: (polyethylene glycol electrolyte solution 4 Liter bottle) (Same as: Clyde bashir, Colyte) Start Date: 02/12/17 Stop Date: 02/12/17 Status: Discontinued lactulose 10 g/15 mL oral syrup 20 gm, 30 ml, Route: PO, Drug form: SYRP, TID, Dosing Weight 147.727, kg, Start date: 02/13/17 9:00:00 CDT, Duration: 30 day, Stop date: 03/14/17 17:00:00 CORRUGATED FASTENER DRIVER Notes: (Same as:Chronulac) Start Date: 02/13/17 Stop Date: 02/13/17 Status: Discontinued Octreotide (bolus) 50 microgram, 1 mL, Route: IV, Drug form: INJ, ONCE, Dosing Weight 145.455, kg, Start date: 02/11/17 22:12:00 CDT, Stop date: 02/11/17 22:12:00 CDT Notes: (Same As: SandoSTATIN). Refrigerate MEDICATION WASTE Product Si ze: 50 microgram Product Wasted: ___ microgram Start Date: 02/11/17 Stop Date: 02/12/17 Status: Completed octreotide 1,250 microgram + sodium chloride 0.9% INJ 250 mL 250 mL, Rate: 50 microgram/hr, Route: IV, Dosing Weight 145.455 kg, Total Volume : 252.5, Priority: STAT, Start date: 02/11/17 23:41:00 CDT, Duration: 30 day, St op date: 03/13/17 23:40:00 CORRUGATED FASTENER DRIVER Start Date: 02/11/17 Stop Date: 02/13/17 Status: Discontinued Omnipaque 350mg/ml 100 mL, Route: IVP, Drug Form: SOLN, Dosing Weight 147.727, kg, ONCALL, STAT, St art date: 02/12/17 14:56:00 CDT, Duration: 1 doses or times, Stop date: 02/13/17 0:00:00 CDT, Dose=2.2ml/kg, Max cmbl=953uo -- "To be infused by Radiology Staff ONLY" Notes: (same as:Omnipaque 350).WASTE: F/P - Black; E - Municipal Trash Bin Start Date: 02/12/17 Stop Date: 02/12/17 Status: Completed pantoprazole 40 mg, 1 tab, Route: PO, Drug form: ECTAB, Daily, Dosing Weight 147.727, kg, Sta rt date: 02/14/17 9:00:00 CDT, Duration: 30 day, Stop date: 03/15/17 9:00:00 CORRUGATED FASTENER DRIVER Notes: Tablet should not be chewed or crushed.(Same as: Protonix) Start Date: 02/14/17 Stop Date: 02/13/17 Status: Canceled pantoprazole 80 mg + sodium chloride 0.9% INJ 100 mL 100 mL, Rate: 10 ml/hr, Infuse over: 10 hr, Route: IVPB, Dosing Weight 145.455 k g, Total Volume: 100, Infuse at 8 mg / hr for 72 hours for GI bleeding, Start da te: 02/11/17 22:14:00 CDT, Duration: 72 hr, Stop date: 02/14/17 22:13:00 CDT Start Date: 02/11/17 Stop Date: 02/13/17 Status: Discontinued propranolol 10 mg, 1 tab, Route: PO, Drug form: TAB, BID, Dosing Weight 147.727, kg, Start d ate: 02/12/17 9:00:00 CDT, Duration: 30 day, Stop date: 03/13/17 17:00:00 CORRUGATED FASTENER DRIVER Notes: Give with food.(Same as: Inderal) Start Date: 02/12/17 Stop Date: 02/13/17 Status: Discontinued Protonix 80 mg, Route: IVP, Drug form: INJ, ONCE, Dosing Weight 145.455, kg, Priority: ST AT, Start date: 02/11/17 22:12:00 CDT, Stop date: 02/11/17 22:12:00 CDT Notes: For IV push reconstitute with 10 ml 0.9% sodium chloride and push over 2 minutes. (Same as: Protonix) Start Date: 02/11/17 Stop Date: 02/11/17 Status: Completed riFAXimin 550 mg, Route: PO, Drug form: TAB, Q12H, Dosing Weight 147.727, kg, Start date: 02/13/17 9:00:00 CDT, Duration: 30 day, Stop date: 03/14/17 21:00:00 CORRUGATED FASTENER DRIVER Start Date: 02/13/17 Stop Date: 02/13/17 Status: Canceled Rocephin 1 gm, Route: IVPB, Drug form: PDR/INJ, [id number], Dosing Weight 145.455, kg, Start date: 02/12/17 22:00:00 CDT, Duration: 7 day, Stop date: 02/18/17 22:00:00 CORRUGATED FASTENER DRIVER, ABX Indication: Intra-abdominal Infection Notes: (Same As: Rocephin). MEDICATION WASTE Product Size: 1000 mgProduct Wasted: ___ mg Start Date: 02/12/17 Stop Date: 02/13/17 Status: Discontinued Rocephin 1 gm, Route: IVPB, Drug form: PDR/INJ, ONCE, Dosing Weight 145.455, kg, Priority : STAT, Start date: 02/11/17 22:13:00 CDT, Duration: 1 doses or times, Stop date : 02/11/17 22:13:00 CDT, ABX Indication: Other (specify in Comments) Notes: (Same As: Rocephin). MEDICATION WASTE Product Size: 1000 mgProduct Wasted: ___ mg Start Date: 02/11/17 Stop Date: 02/11/17 Status: Completed Sodium Chloride 0.9% IV 100 mL + pantoprazole 80 mg 100 mL, Rate: 10 ml/hr, Infuse over: 10 hr, Route: IVPB, Dosing Weight 145.455 k g, Total Volume: 100, Infuse at 8 mg / hr for 72 hours for GI bleeding, Priority : STAT, Start date: 02/11/17 23:41:00 CDT, Duration: 72 hr, Stop date: 02/14/17 23:40:00 CDT Start Date: 02/11/17 Stop Date: 02/11/17 Status: Deleted tramadol 50 mg, 1 tab, Route: PO, Drug form: TAB, Q8H, Dosing Weight 147.727, kg, PRN Arik n Score 1-3, Start date: 02/13/17 11:49:00 CDT, Duration: 30 day, Stop date: 05/01 11:48:00 CORRUGATED FASTENER DRIVER Notes: Not to exceed 400mg/day. (Same As: Ultram) Start Date: 02/13/17 Stop Date: 02/13/17 Status: Discontinued Results BLOOD BANK RESULTS 1 2 3 Most recent to oldest [Reference Range]: O POS *Unknown* (02/12/17 12:08 AM) ABO/Rh Negative (02/12/17 12:08 AM) Antibody Scrn ELECTROLYTES 1 2 3 Most recent to oldest [Reference Range]: 140 mEq/L (02/13/17 3:12 AM) 141 mEq/L (02/12/17 12:08 AM) 144 mEq/L (02/11/17 4:42 PM) Sodium Lvl [135-145 mEq/L] 3.8 mEq/L (02/13/17 3:12 AM) 4.3 mEq/L (02/12/17 12:08 AM) 4.9 mEq/L (02/11/17 4:42 PM) Potassium Lvl [3.5-5.1 mEq/L] 106 mEq/L (02/13/17 3:12 AM) 108 mEq/L (02/12/17 12:08 AM) 111 mEq/L *HI* (02/11/17 4:42 PM) Chloride Lvl [95-109 mEq/L] 26 mEq/L (02/13/17 3:12 AM) 27 mEq/L (02/12/17 12:08 AM) 28 mEq/L (02/11/17 4:42 PM) CO2 [24-32 mEq/L] 11.8 mEq/L (02/13/17 3:12 AM) 10.3 mEq/L (02/12/17 12:08 AM) 9.9 mEq/L *LOW* (02/11/17 4:42 PM) AGAP [10.0-20.0 mEq/L] CHEM PANEL 1 2 3 Most recent to oldest [Reference Range]: 0.82 mg/dL (02/13/17 3:12 AM) 0.74 mg/dL (02/12/17 12:08 AM) 0.94 mg/dL (02/11/17 4:42 PM) Creatinine Lvl [0.50-1.40 mg/dL] 113 mL/min/1.73m2 1 *NA* (02/13/17 3:12 AM) 118 mL/min/1.73m2 2 *NA* (02/12/17 12:08 AM) 103 mL/min/1.73m2 3 *NA* (02/11/17 4:42 PM) eGFR 11 mg/dL (02/13/17 3:12 AM) 10 mg/dL (02/12/17 12:08 AM) 9 mg/dL (02/11/17 4:42 PM) BUN [7-22 mg/dL] 105 mg/dL *HI* (02/13/17 3:12 AM) 83 mg/dL (02/12/17 12:08 AM) 93 mg/dL (02/11/17 4:42 PM) Glucose Lvl [70-99 mg/dL] 5.6 g/dL *LOW* (02/13/17 3:12 AM) 6.0 g/dL *LOW* (02/12/17 12:08 AM) 6.3 g/dL *LOW* (02/11/17 9:50 PM) Total Protein [6.4-8.4 g/dL] 2.5 g/dL *LOW* (02/13/17 3:12 AM) 2.5 g/dL *LOW* (02/12/17 12:08 AM) 2.6 g/dL *LOW* (02/11/17 9:50 PM) Albumin Lvl [3.5-5.0 g/dL] 3.1 g/dL (02/13/17 3:12 AM) 3.5 g/dL (02/12/17 12:08 AM) 3.7 g/dL (02/11/17 9:50 PM) Globulin [2.7-4.2 g/dL] 0.8 (02/13/17 3:12 AM) 0.7 (02/12/17 12:08 AM) 0.7 (02/11/17 9:50 PM) A/G Ratio [0.7-1.6] 7.8 mg/dL *LOW* (02/13/17 3:12 AM) 8.1 mg/dL *LOW* (02/12/17 12:08 AM) 8.2 mg/dL *LOW* (02/11/17 4:42 PM) Calcium Lvl [8.5-10.5 mg/dL] 4.0 mg/dL (02/13/17 3:12 AM) 3.5 mg/dL (02/12/17 12:08 AM) Phosphorus [2.5-4.5 mg/dL] 1.9 mg/dL (02/13/17 3:12 AM) 1.8 mg/dL (02/12/17 12:08 AM) Magnesium Lvl [1.8-2.4 mg/dL] 28 unit/L (02/13/17 3:12 AM) 32 unit/L (02/12/17 12:08 AM) 27 unit/L (02/11/17 9:50 PM) ALT [0-65 unit/L] 45 unit/L *HI* (02/13/17 3:12 AM) 50 unit/L *HI* (02/12/17 12:08 AM) 41 unit/L *HI* (02/11/17 9:50 PM) AST [0-37 unit/L] 99 unit/L (02/13/17 3:12 AM) 124 unit/L (02/12/17 12:08 AM) 123 unit/L (02/11/17 9:50 PM) Alk Phos [39-136 unit/L] 3.9 mg/dL *HI* (02/13/17 3:12 AM) 2.9 mg/dL *HI* (02/12/17 12:08 AM) 3.2 mg/dL *HI* (02/11/17 9:50 PM) Bili Total [0.2-1.3 mg/dL] 1.3 mg/dL *HI* (02/13/17 3:12 AM) 1.2 mg/dL *HI* (02/12/17 12:08 AM) 1.2 mg/dL *HI* (02/11/17 9:50 PM) Bili Direct [0.0-0.3 mg/dL] 2.6 mg/dL *HI* (02/13/17 3:12 AM) 1.7 mg/dL *HI* (02/12/17 12:08 AM) 2.0 mg/dL *HI* (02/11/17 9:50 PM) Bili Indirect [0.0-1.0 mg/dL] 41 unit/L (02/12/17 12:08 AM) Amylase Lvl [25-115 unit/L] 234 unit/L (02/12/17 12:08 AM) 238 unit/L (02/11/17 9:50 PM) Lipase Lvl [73-393 unit/L] 121.0 uMol/L *HI* (02/12/17 12:08 AM) Ammonia [<=45.0 uMol/L] 1.1 mMol/L (02/12/17 12:08 AM) Lactic Acid Lvl [0.5-2.2 mMol/L] 1Result Comment: The eGFR is calculated using the [...] from the National Kidney Disease Education Program ( NKDEP) which additionally recommends that when the eGFR is used in patients with extremes of body mass index for purposes of drug dosing, the eGFR should be mul tiplied by the estimated BMI. 2Result Comment: The eGFR is calculated using the [...] from the National Kidney Disease Education Program ( NKDEP) which additionally recommends that when the eGFR is used in patients with extremes of body mass index for purposes of drug dosing, the eGFR should be mul tiplied by the estimated BMI. 3Result Comment: The eGFR is calculated using the [...] from the National Kidney Disease Education Program ( NKDEP) which additionally recommends that when the eGFR is used in patients with extremes of body mass index for purposes of drug dosing, the eGFR should be mul tiplied by the estimated BMI. PARATHYROID PROFILE 1 2 3 Most recent to oldest [Reference Range]: 1.04 mMol/L *LOW* (02/12/17 12:08 AM) Ca Ion WB [1.05-1.25 mMol/L] 1.06 mMol/L (02/12/17 12:08 AM) Ca Norm WB [1.05-1.25 mMol/L] HEMATOLOGY 1 2 3 Most recent to oldest [Reference Range]: 1.7 K/CMM *LOW* (02/13/17 3:12 AM) 2.6 K/CMM *LOW* (02/12/17 12:08 AM) 3.2 K/CMM *LOW* (02/11/17 4:42 PM) WBC [3.7-10.4 K/CMM] 3.46 M/CMM *LOW* (02/13/17 3:12 AM) 3.72 M/CMM *LOW* (02/12/17 12:08 AM) 3.95 M/CMM *LOW* (02/11/17 4:42 PM) RBC [4.70-6.10 M/CMM] 11.3 g/dL *LOW* (02/13/17 3:12 AM) 12.4 g/dL *LOW* (02/12/17 7:25 PM) 11.8 g/dL *LOW* (02/12/17 5:49 AM) Hgb [14.0-18.0 g/dL] 32.1 % *LOW* (02/13/17 3:12 AM) 36.1 % *LOW* (02/12/17 7:25 PM) 33.8 % *LOW* (02/12/17 5:49 AM) Hct [42.0-54.0 %] 92.8 fL (02/13/17 3:12 AM) 94.2 fL *HI* (02/12/17 12:08 AM) 93.0 fL (02/11/17 4:42 PM) MCV [80.0-94.0 fL] 32.7 pg *HI* (02/13/17 3:12 AM) 31.7 pg *HI* (02/12/17 12:08 AM) 31.0 pg (02/11/17 4:42 PM) MCH [27.0-31.0 pg] 35.2 g/dL (02/13/17 3:12 AM) 33.7 g/dL (02/12/17 12:08 AM) 33.3 g/dL (02/11/17 4:42 PM) MCHC [32.0-36.0 g/dL] 16.7 % *HI* (02/13/17 3:12 AM) 16.7 % *HI* (02/12/17 12:08 AM) 16.7 % *HI* (02/11/17 4:42 PM) RDW [11.5-14.5 %] 32 K/CMM *LOW* (02/13/17 3:12 AM) 34 K/CMM *LOW* (02/12/17 12:08 AM) 40 K/CMM *LOW* (02/11/17 4:42 PM) Platelet [133-450 K/CMM] 9.4 fL (02/13/17 3:12 AM) 9.6 fL (02/12/17 12:08 AM) 9.0 fL (02/11/17 4:42 PM) MPV [7.4-10.4 fL] 50.1 % (02/13/17 3:12 AM) 53.9 % (02/12/17 12:08 AM) Segs [45.0-75.0 %] 30.9 % (02/13/17 3:12 AM) 27.3 % (02/12/17 12:08 AM) Lymphocytes [20.0-40.0 %] 11.9 % (02/13/17 3:12 AM) 12.3 % *HI* (02/12/17 12:08 AM) Monocytes [2.0-12.0 %] 6.1 % *HI* (02/13/17 3:12 AM) 5.5 % *HI* (02/12/17 12:08 AM) Eosinophils [0.0-4.0 %] 1.0 % (02/13/17 3:12 AM) 1.0 % (02/12/17 12:08 AM) Basophils [0.0-1.0 %] 0.9 K/CMM *LOW* (02/13/17 3:12 AM) 1.4 K/CMM *LOW* (02/12/17 12:08 AM) Segs-Bands # [1.5-8.1 K/CMM] 0.5 K/CMM *LOW* (02/13/17 3:12 AM) 0.7 K/CMM *LOW* (02/12/17 12:08 AM) Lymphocytes # [1.0-5.5 K/CMM] 0.2 K/CMM (02/13/17 3:12 AM) 0.3 K/CMM (02/12/17 12:08 AM) Monocytes # [0.0-0.8 K/CMM] 0.1 K/CMM (02/13/17 3:12 AM) 0.1 K/CMM (02/12/17 12:08 AM) Eosinophils # [0.0-0.5 K/CMM] 1+ *ABN* (02/12/17 12:08 AM) Anisocyte [None Seen] 21.0 seconds *HI* (02/13/17 3:12 AM) 19.9 seconds *HI* (02/12/17 12:08 AM) 18.3 seconds *HI* (02/11/17 9:50 PM) PT [12.0-14.7 seconds] 1.80 *HI* (02/13/17 3:12 AM) 1.68 *HI* (02/12/17 12:08 AM) 1.51 *HI* (02/11/17 9:50 PM) INR [0.85-1.17] 46.5 seconds *HI* (02/13/17 3:12 AM) 43.0 seconds *HI* (02/12/17 12:08 AM) 44.8 seconds *HI* (02/11/17 9:50 PM) PTT [22.9-35.8 seconds] BACTERIAL - SEROLOGY 1 2 3 Most recent to oldest [Reference Range]: Negative (02/12/17 12:08 AM) MRSA by PCR Immunizations No data available for this section Procedures Procedure Date Related Diagnosis Body Site Back care Chemoembolization of liver metastases Elbow joint operations Hernia repair1 1X'3 Social History Social History Type Response Sexual Sexually active: No. Partner with STD? No. Uses condoms: No. Change in Libido: No. Testicular Self Exam No. Menstrual Period Started: No. Exercise Self assessment: Fair condition. Employment/School Status: Unemployed. Alcohol Past1 Smoking Status Former smoker; Type: Cigarettes; Exposure to Tobacco Smoke None; Other Tobacco Frequency quit 5 years ago; Cigarette Smoking Last 365 Days No; Reg Smoking Cessation Counseling No 1patient states they are former alcoholic Assessment and Plan Extracted from: Title: Progress Note * Author: Raul Mota MD Date: 02/13/17 Patient: ERIK MILES Age: 36 years Sex: Male : 1980 Associated Diagnoses: None Author: Raul Moat MD Subjective No acute events overnight, patient reporting bowel movements were no longer bloody early this morning. S/P colonoscopy and EGD. Patient still reporting RUQ abdominal pain. Health Status Problem list: All Problems Acanthosis nigricans / SNOMED CT 8943948358 / Confirmed Alcoholic cirrhosis of liver / SNOMED CT 6106529095 / Confirmed Autosomal Recessive Retinitis Pigmentosa / SNOMED CT 652541128 / Confirmed Morbid obesity with BMI of 45.0-49.9, adult / SNOMED CT 3383618213 / Confirmed BMI- 45.4 EV (esophageal varices) / SNOMED CT 72421316 / Confirmed Hepatic encephalopathy / SNOMED CT 61757088 / Confirmed HCC (hepatocellular carcinoma) / SNOMED CT 710145996 / Confirmed Portal hypertension / SNOMED CT 2278788688 / Confirmed Thrombocytopenia / SNOMED CT 6873573293 / Confirmed Objective VS/Measurements Vital Signs (last 24 hrs) Last Charted Temp Wnffztaj26.8 DegF (FEB 13 04:00) Heart Rate [id number] bpm (FEB 13 12:00) Resp Rate 17 BRMIN (FEB 13 12:) [id number] mmHg (FEB 13 08:30) DBPL 57mmHg (FEB 13 08:30) [id number] % (FEB 13 12:00) General: Alert and oriented, No acute distress. No asterixis. Eye: Pupils are equal, round and reactive to light, Normal conjunctiva. No icterus. HENT: Normocephalic, No pharyngeal erythema. Neck: Supple, Non-tender. Respiratory: Lungs are clear to auscultation, Respirations are non-labored. Cardiovascular: Normal rate, Regular rhythm. Gastrointestinal: Soft, Non-distended, bowel sounds active. No ascites. +tenderness to palpation in RUQ, flank Genitourinary: No costovertebral angle tenderness. Musculoskeletal: Normal strength, No tenderness. Integumentary: No rash. Neurologic: Alert, Oriented. Cognition and Speech: Speech clear and coherent. Review / Management Results review: Labs (Last four charted values) WBC L 1.7(FEB 13)L 2.6(FEB 12)L 3.2(FEB 11) Hgb L 11.3(FEB 13)L 12.4(FEB 12)L 11.8(FEB 12)L 11.8(FEB 12) Hct L 32.1(FEB 13)L 36.1(FEB 12)L 33.8(FEB 12)L 35.1(FEB 12) Plt L 32(FEB 13)L 34(FEB 12)L 40(FEB 11) Na 140(FEB 13)141(FEB 12)144(FEB 11) K 3.8(FEB 13)4.3(FEB 12)4.9(FEB 11) CO2 26(FEB 13)27(FEB 12)28(FEB 11) Cl 106(FEB 13)108(FEB 12)H 111(FEB 11) Cr 0.82(FEB 13)0.74(FEB 12)0.94(FEB 11) BUN 11(FEB 13)10(FEB 12)9(FEB 11) Glucose Random H 105(FEB 13)83(FEB 12)93(FEB 11) Mg 1.9(FEB 13)1.8(FEB 12) Phos 4.0(FEB 13)3.5(FEB 12) Ca L 7.8(FEB 13)L 8.1(FEB 12)L 8.2(FEB 11) PT H 21.0(FEB 13)H 19.9(FEB 12)H 18.3(FEB 11) INR H 1.80(FEB 13)H 1.68(FEB 12)H 1.51(FEB 11) PTT H 46.5(FEB 13)H 43.0(FEB 12)H 44.8(FEB 11). Impression and Plan Patient is a 36 year old man with a PMHx of alcoholic cirrhosis (decompensated by esophageal varices per Mar EGD) and a questionable dx of HCC (s/p TACE in 01/16/17) with a MELD score of 16 who presents to [facility] with a x4 day history of painless hematochezia. Currently patient is hemodynamically stable and CBC shows evidence of only mild anemia. BRB visualized in the toilet bowl. Following EGD and colonoscopy, hematochezia thought to be 2/2 to hemorrhoidal bleeding. Hematochezia EGD 02/13/17: mid esophageal varices (non-bleeding), no banding or interventions undertake; reccomend continuing propranolol 10mg PO BID Flex.Sig. 02/13/17: external and internal hemorrhoids, thought to be source of bleeding; recommend Anusol HC 25mg BID x7 days RUQ Abdominal Pain CT Liver protocol showing chronic evidence of cholelithiasis with stone in cystic duct; following discussion with Radiology, no evidence of stones in CBD or acute abnormalities including acute cholecystisis Recommend outpatient followup with Transplant surgery for elective cholecystectomy Subobtimal contrast timing unable to visualize previous segment 8 liver lesion Cirrhosis Hepatic encephalopathy ppx: Lactulose PO 20g TID SBP ppx: Ciprofloxacin 500mg BID x7days No evidence of ascites at this time Outpatient follow up established with Transplant clinic 02/27/17 at 1:30pm Case was discussed with , Hepatology attending on service. Ok for discharge per Hepatology standpoint. Raul Mota MD MPH [facility] [facility] [employer] [facility] Hepatology Service Addendum I have seen and examined the patient with the resident (Dr. Mota) and the GI fellow (Mary Lou Lewis). The case including lab findings and imaging were reviewed and discussed. I agree Valeri with the findings, assessment and plan documented. S/p colonoscopy this morning with Chelo KHANNA external and internal hemorrhoids with internal hemorrhoids likely source of bleed. on Overall, he remains hemodynamically stable with no significant anemia. Ok to discharge 02/13/2017 with follow up in Pre-transplant clinic. Imaging with cholelithiasis and cystic duct 16:55 stone without evidence of choledochocholelithiasis- will need to follow up with Dr. Baker in Transplant Surgery clinic for elective cholecystectomy. Valeri Jurado MD Transplant Hepatology Attending Extracted from: Title: Initial Hepatology Consult Author: Raul Mota MD Date: 02/12/17 Impression and Plan Patient is a 36 year old man with a PMHx of alcoholic cirrhosis (decompensated by esophageal varices per Mar EGD) and a questionable dx of HCC (s/p TACE in 01/16/17) with a MELD score of 16 who presents to [facility] with a x4 day history of painless hematochezia. Currently patient is hemodynamically stable and CBC shows evidence of only mild anemia. BRB visualized in the toilet bowl. Plan is made for an EGD and flex sigmoidoscopy in the morning 02/13/17 +/- EGD depending on colonoscopy findings. Plan was discussed with patient and consent was received. Hematochezia Clear liquid diet, NPO from midnight Bowel prep and enema tonight, 2 additional enemas in morning 02/13/17 > EGD and Flex. Sigmoidoscopy in the morning 02/13/17 Protonix gtt, octreotide gtt, propranolol 10mg PO BID (ppx for EV bleed) Ensure adequate IV acccess with 2 peripheral lines; consent patient for blood products; transfuse if Hgb <7.[address] Liver protocol to assess for any post-TACE complications and possible lower GI bleed Cirrhosis Hepatic encephalopathy ppx: PEG bowel prep, Rifaximi; please add lactulose tomorrow after completion of bowel prep (titrate to ensure 3-4 BMs/day) SBP ppx: Rocephin IV No evidence of ascites at this time Case was discussed with , Hepatology attending on service. Raul Mota MD MPH [employer] [facility] [employer] [facility] Hepatology Service I have seen and examined the patient with the resident (Dr. Mota) and the GI fellow (Dr. Odell). The case including lab findings and imaging were reviewed and discussed. I agree with the findings, assessment and plan documented. 36M with compensated ARNULFO/ANDREW cirrhosis complicated by portal hypertension with varices and hypersplenism with thrombocytopenia now presents with hematochezia and fatigue. Plan for flex sig/EGD tomorrow. Clear liquid diet, NPO after midnight, enema this evening and tomorrow, continue PPI and octreotide gtt, antibiotics. With recent TACE, recommend CT liver protocol to assess for post- procedural complications. Valeri Jurado MD Transplant Hepatology Attending Extracted from: Title: [facility] H&P Author: Yadi White HEALTH EDUCATOR Date: 02/11/17 History and Physical Patient Name: Erik Miles : 1980 Date of Admission: 02/11/2017 Attending: MD Yulisa Chief Complaint: " Im having bleeding from my bottom" History of Present Illness: Pt is a 36-year-old man with a past medical history of cirrhosis due to steatohepatitis as well as prior alcohol use, HCC, & depression who had a recent TACE on the . He presented to the ER today with c/o 4 days of hematochezia. Upon arrival to ER pt was HDS with Hgb 12.2 Pt is being admitted to [facility] for closer monitoring and possible EGD in am. Pt denies any N/V, but does endorse some RUQ pain. He has a h/o Hemmrhoidal bleeding but states this is a diffrent kind of bleeding than previous. Past Medical History: - Acanthosis nigricans Alcoholic cirrhosis of liver Autosomal Recessive Retinitis Pigmentosa EV (esophageal varices) HCC (hepatocellular carcinoma) Hepatic encephalopathy Morbid obesity with BMI of 45.0-49.9, Portal hypertension Thrombocytopenia Depression Past Surgical History: Back Surgeries x2 Hernia repair Elbow joint operations Family History: Cataract: Father. High blood pressure: Mother and Father. Type 2 diabetes mellitus: Father Social History: - Tobacco: Denies - EtOH: h/o Abuse - Illicit drugs: denies Allergies: NKDA Home Medications: - calcium-vitamin D 600 mg-400 intl units oral tablet, 1 tab, PO, Daily gabapentin 300 mg oral capsule, 300 mg, 1 cap, PO, BID ICaps MV oral tablet, 1 tab, PO, Daily lactulose 10 g/15 mL oral syrup, 10 gm, 15 mL, PO, Daily, PRN propranolol 10 mg oral tablet, 10 mg, 1 tab, PO, BID, 6 refills Protonix 40 mg oral enteric coated tablet, 40 mg, 1 tab, PO, Daily tramadol 50 mg oral tablet, 50 mg, 1 tab, PO, Q6H, PRN Review of Systems: Constit: Denies Fever Wt gain/loss Sick contacts HEENT: Denies GAINES Vision Head trauma Pulm: Denies Wheezing Dyspnea Cough CV: Denies CP Palpitations Orthopnea GI: Denies Abd pain Nausea Vomiting Diarrhea Constipation : Denies Incontinence Dysuria Hematuria MS: Denies Myalgias Arthralgias Back pain Neuro: Denies Ataxia Numbness/Tingling Syncope Skin: Denies Lesions Rashes Bruises Endo: Denies Heat / Cold intol Polydipsia Polyuria Hemo/Lymph: Denies Easy bruising/bleeding Jaundice Swelling Physical Exam: Gen: Obese AAOx3 Calm & Cooperative Neuro: Follows commands soda dispenser grossly intact No focal deficits appreciated HEENT: PERRL EOMI No scleral icterus Conjunct clear MMM CV/Pulses: RRR No M/R/G No JVDs 2+ peripheral pulses Pulm: CTAB No W/R/R GI: BS (+) Soft Disntended and + RUQ pain : Due to void MS: FROM passively/actively Strength intact Tone intact Skin/Ext: No Cyanosis/Edema No rashes/lesions Labs: 24hr Labs 02/11 1642 Glucose Lvl93 BUN9 Creatinine Lvl0.94 Sodium Cmh488 Potassium Lvl4.9 Chloride Jbg235 H CO228 AGAP9.9 L Calcium Lvl8.2 L hOJN835 WBC3.2 L RBC3.95 L Hgb12.2 L Hct36.7 L MCV93.0 MCH31.0 MCHC33.3 RDW16.7 H Fgvqlrpo34 L MPV9.0 Imaging/Studies: - Liver US pending Assessment and Plan: Pt is a 36-year-old man with a past medical history of cirrhosis due to steatohepatitis as well as prior alcohol use, HCC, & depression who had a recent TACE on the . He presented to the ER today with c/o 4 days of hematochezia. Upon arrival to ER pt was HDS with Hgb 12.2 Pt is being admitted to [facility] for closer monitoring and possible EGD in am.Pt denies any N/V, but doesn endorse some RUQ pain. 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 ID: - Rocephin started for prophylaxis Prophylaxis: - DVT ppx: SCD/TEDs - GI ppx: start Protonix Code status: Full Disposition: IMU Status GRACIE Chris- MSO # [id number]
--- OUTSIDE RECORDS SUMMARY | 2018-03-04 05:44 | XMS REPORT | Summary of Care ---
Author Author [facility] Organization [facility] Address Unknown Phone Unavailable Encounter ATUL Gomez(JULITO) [id number] Date(s): 03/27/16 - 03/27/16 [facility] [address] [place] [address] Discharge Disposition: Home or Self Care Attending Physician: Ari Petit MD Referring Physician: Ari Petit MD Vital Signs 1 2 3 Most recent to oldest [Reference Range]: 182.88 cm (03/23/16 3:14 PM) Height 116/56 mmHg (03/27/16 2:12 PM) 105/53 mmHg (03/27/16 1:15 PM) 107/54 mmHg (03/27/16 1:00 PM) Blood Pressure [90-140/60-90 mmHg] 18 BRMIN (03/27/16 2:12 PM) 12 BRMIN *LOW* (03/27/16 1:15 PM) 14 BRMIN (03/27/16 1:00 PM) Respiratory Rate [14-20 BRMIN] 75 bpm (03/27/16 2:12 PM) 81 bpm (03/27/16 10:26 AM) Peripheral Pulse Rate [60-100 bpm] 152.273 kg (03/23/16 3:14 PM) Weight 45.53 m2 (03/23/16 3:14 PM) Body Mass Index Problem List Condition Effective Dates Status Health Status Informant Autosomal Recessive Active Retinitis Pigmentosa(Confirmed ) Morbid obesity with Active BMI of 45.0-49.9, adult(Confirmed)1 Liver cirrhosis Active secondary to ANDREW(Confirmed) EV (esophageal Active varices)(Confirmed) Hepatic Active encephalopathy(Confi rmed) Morbid Active obesity(Confirmed) Thrombocytopenia(Con Active firmed) 1BMI- 45.4 Allergies, Adverse Reactions, Alerts Substance Reaction Severity Status NKDA Active Medications propranolol 10 mg=1 tab, PO, QID, # 100 tab, 0 Refill(s) Start Date: 03/27/16 Status: Ordered Results ELECTROLYTES Most recent to 1 oldest [Reference Range]: Sodium Lvl [135-145 144 mEq/L mEq/L] (03/23/16 4:54 PM) Potassium Lvl 4.3 mEq/L [3.5-5.1 mEq/L] (03/23/16 4:54 PM) Chloride Lvl [95-109 109 mEq/L mEq/L] (03/23/16 4:54 PM) CO2 [24-32 mEq/L] 28 mEq/L (03/23/16 4:54 PM) AGAP [10.0-20.0 11.3 mEq/L mEq/L] (03/23/16 4:54 PM) CHEM PANEL Most recent to 1 oldest [Reference Range]: Creatinine Lvl 0.78 mg/dL [0.50-1.40 mg/dL] (03/23/16 4:54 PM) eGFR 116 mL/min/1.73m2 1 *NA* (03/23/16 4:54 PM) BUN [7-22 mg/dL] 11 mg/dL (03/23/16 4:54 PM) Glucose Lvl [70-99 73 mg/dL mg/dL] (03/23/16 4:54 PM) Calcium Lvl 8.3 mg/dL [8.5-10.5 mg/dL] *LOW* (03/23/16 4:54 PM) 1Result Comment: The eGFR is calculated using [...] be mul tiplied by the estimated BMI. HEMATOLOGY Most recent to 1 oldest [Reference Range]: WBC [3.7-10.4 K/CMM] 2.3 K/CMM *LOW* (03/23/16 4:54 PM) RBC [4.70-6.10 4.14 M/CMM M/CMM] *LOW* (03/23/16 4:54 PM) Hgb [14.0-18.0 g/dL] 12.9 g/dL *LOW* (03/23/16 4:54 PM) Hct [42.0-54.0 %] 38.4 % *LOW* (03/23/16 4:54 PM) MCV [80.0-94.0 fL] 92.9 fL (03/23/16 4:54 PM) MCH [27.0-31.0 pg] 31.3 pg *HI* (03/23/16 4:54 PM) MCHC [32.0-36.0 33.6 g/dL g/dL] (03/23/16 4:54 PM) RDW [11.5-14.5 %] 15.5 % *HI* (03/23/16 4:54 PM) Platelet [133-450 41 K/CMM K/CMM] *LOW* (03/23/16 4:54 PM) MPV [7.4-10.4 fL] 9.6 fL (03/23/16 4:54 PM) Segs [45.0-75.0 %] 57.1 % (03/23/16 4:54 PM) Lymphocytes 29.4 % [20.0-40.0 %] (03/23/16 4:54 PM) Monocytes [2.0-12.0 9.4 % %] (03/23/16 4:54 PM) Eosinophils [0.0-4.0 3.3 % %] (03/23/16 4:54 PM) Basophils [0.0-1.0 0.8 % %] (03/23/16 4:54 PM) Segs-Bands # 1.3 K/CMM [1.5-8.1 K/CMM] *LOW* (03/23/16 4:54 PM) Lymphocytes # 0.7 K/CMM [1.0-5.5 K/CMM] *LOW* (03/23/16 4:54 PM) Monocytes # [0.0-0.8 0.2 K/CMM K/CMM] (03/23/16 4:54 PM) Eosinophils # 0.1 K/CMM [0.0-0.5 K/CMM] (03/23/16 4:54 PM) Immunizations No data available for this section [...]
--- OUTSIDE RECORDS SUMMARY | 2018-03-04 05:44 | XMS REPORT | Summary of Care ---
Author Author [facility] Organization [facility] Address Unknown Phone Unavailable Encounter ATUL Gomez(JULITO) [id number] Date(s): 04/01/17 - 04/30/17 [facility] [address] [facility] [address] [phone] Encounter Diagnosis Unspecified cirrhosis of liver (Final) [...] - morbid obesity Discharge Condition: well Consults: [facility] Hepatology Procedure: endoscopy 02/13 HPI: Mr. Bill is a 36 yo male with pmhx of decompensated etoh/ANDREW cirrhosis with portal hypertension, questionable HCC (s/p TACE 01/16/17), depression, and anxiety who presents to [facility] 02/11 for hematochezia x 4 days. Patient [...]
--- OUTSIDE RECORDS SUMMARY | 2018-03-04 05:44 | XMS REPORT | Summary of Care ---
Author Author [facility] [place] Address Unknown Phone Unavailable Encounter HQ Arnaud_tim(FIN) [id number] Date(s): 07/18/16 - 07/18/16 [facility] [address] [place] [address] [phone] Discharge Disposition: Home or Self Care Attending [...]
--- OUTSIDE RECORDS SUMMARY | 2018-03-04 05:44 | XMS REPORT | Summary of Care ---
Author Author [facility] Organization [facility] Outpatient [facility] [place] Address Unknown Phone Unavailable Encounter HQ Arnaud_tim(FIN) [id number] Date(s): 08/08/16 - 08/08/16 [facility] [place] [address] [place] [phone] Discharge Disposition: Home or Self Care Attending [...]
--- OUTSIDE RECORDS SUMMARY | 2018-03-04 05:44 | XMS REPORT | Summary of Care ---
Author Author [facility] Organization [facility] Address Unknown Phone Unavailable Encounter HQ Patricia(FIN) [id number] Date(s): 05/23/17 - 05/23/17 [facility] [address] [facility] [address] [place] [address]- [facility] [phone] Encounter Diagnosis Encounter for follow-up examination after completed treatment for conditions oth er than malignant neoplasm (Final) - 05/28/17 Body mass index (BMI) 40.0-44.9, adult (Final) - Discharge Disposition: Home or Self Care Attending Physician: Ari Petit MD Referring Physician: Ari Petit MD Vital Signs Most recent to 1 oldest [Reference Range]: Height 182.88 cm (05/23/17 2:46 PM) Blood Pressure 116/63 mmHg [90-140/60-90 mmHg] (05/23/17 2:46 PM) Respiratory Rate 20 BRMIN [14-20 BRMIN] (05/23/17 2:46 PM) Peripheral Pulse 68 bpm Rate [60-100 bpm] (05/23/17 2:46 PM) Weight 149.727 kg (05/23/17 2:46 PM) Body Mass Index 44.77 m2 (05/23/17 2:46 PM) Problem List Condition Effective Dates Status [...] Substance Reaction Severity Status NKDA Active Medications pantoprazole 40 mg oral enteric coated tablet 40 mg=1 tab, PO, Daily, # 30 tab, 11 Refill(s), Pharmacy: [facility]/pharmacy #[id number] Start Date: 05/23/17 Status: Ordered propranolol 10 mg oral tablet 10 mg=1 tab, PO, BID, # 60 tab, 5 Refill(s), [id number] Start Date: 05/23/17 Status: Ordered Results No data available for [...]
--- OUTSIDE RECORDS SUMMARY | 2018-03-04 05:44 | XMS REPORT | Summary of Care ---
Author Author [facility] Organization [facility] Address Unknown Phone Unavailable Encounter ATUL Gomez(JULITO) [id number] Date(s): 08/06/16 - 09/04/16 [facility] [address] [facility] [address] [place] [address] Discharge Disposition: Home or Self Care Attending Physician: Hu Medina MD Referring Physician: Hu Medina MD Vital Signs Most recent to 1 oldest [Reference Range]: Height 182.88 cm (08/06/16 1:46 PM) Blood Pressure 114/63 mmHg [90-140/60-90 mmHg] (08/06/16 1:46 PM) Weight 147.682 kg (08/06/16 1:46 PM) Body Mass Index 44.16 m2 (08/06/16 1:46 PM) Problem List Condition Effective Dates Status [...]
--- OUTSIDE RECORDS SUMMARY | 2018-03-04 05:44 | XMS REPORT | Summary of Care ---
Author Author [facility] Organization [facility] Outpatient [facility] [place] Address Unknown Phone Unavailable Encounter ATUL Gomez(FIN) [id number] Date(s): 01/02/17 - 01/02/17 [facility] Outpatient [facility] [place] [address] [place] [address] [phone] Discharge Disposition: Home or Self Care Attending [...]
--- OUTSIDE RECORDS SUMMARY | 2018-03-04 05:45 | XMS REPORT | Summary of Care ---
Author Author [facility] Organization [facility] Address Unknown Phone Unavailable Encounter ATUL Gomez(JULITO) [id number] Date(s): 08/29/17 - 08/29/17 [facility] [address] [facility] [address] [place] [address]- [facility] [phone] Discharge Disposition: Home or Self Care Attending Physician: Ari Petit MD Referring Physician: Ari Petit MD Vital Signs Most recent to 1 oldest [Reference Range]: Height 180.34 cm (08/29/17 3:06 PM) Blood Pressure 114/62 mmHg [90-140/60-90 mmHg] (08/29/17 3:06 PM) Respiratory Rate 16 BRMIN [14-20 BRMIN] (08/29/17 3:06 PM) Peripheral Pulse 53 bpm Rate [60-100 bpm] *LOW* (08/29/17 3:06 PM) Weight 155 kg (08/29/17 3:06 PM) Body Mass Index 47.66 m2 (08/29/17 3:06 PM) Problem List Condition Effective Dates Status Health Status Informant Bloating(Confirmed) Active Acanthosis Active nigricans(Confirmed) Alcohol Resolved abuse(Confirmed) Alcoholic [...] Frequency quit 5 years ago; entered on: 08/29/17 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
--- OUTSIDE RECORDS SUMMARY | 2018-03-04 05:45 | XMS REPORT | Summary of Care ---
Author Author [facility] Out[facility] Organization [facility] Outpatient [facility] [place] Address Unknown Phone Unavailable Encounter ATUL Gomez(JULITO) [id number] Date(s): 10/25/17 - 10/25/17 [facility] [place] [address] [place] [phone] Discharge Disposition: Home or Self Care Attending [...]
[2018-03-04] MEDS ORDERED: DIPHENHYDRAMINE HCL INJ 50 MG/ML VIAL IV PRN (06:45)
[2018-03-04] MEDS ORDERED: ONDANSETRON HCL INJ 2 MG/ML VIAL IV PRN (06:45)
[2018-03-04] MEDS ORDERED: MORPHINE SULFATE 2 MG/ML SYR IV PRN (06:45)
[2018-03-04] MEDS ORDERED: LACTULOSE SYRUP 20 GM/30 ML UDC PO PRN (06:45)
--- NOTE | 2018-03-04 07:01 | Diagnostic Imaging Report ---
PROCEDURE:HIP 2 VW RT - [facility] COMPARISON:None. INDICATIONS:RIGHT HIP PAIN FINDINGS:There is no fracture or dislocation. Bony mineralization is normal. Soft tissues are intact. The right pelvic calcification appears compatible with a phlebolith. CONCLUSION:No significant abnormality. Naga Thomas D.O. Dictated by: Naga Thomas D.O. on 03/04/2018 at 7:11 Electronically approved by: Naga Thomas D.O. on 03/04/2018 at 7:11
--- NOTE | 2018-03-04 07:03 | Diagnostic Imaging Report ---
PROCEDURE:L SPINE 2-3 [facility] COMPARISON:None. INDICATIONS:LOWER BACK PAIN FINDINGS:There is no fracture or dislocation. Mild degenerative spurring of the spine is present. There is disc space narrowing with vacuum phenomena present at L4-L5 and L5-S1. Facet arthrosis at these levels is also noted. CONCLUSION:Degenerative disc disease as described above. Naga Thomas D.O. Dictated by: Naga Thomas D.O. on 03/04/2018 at 7:13 Electronically approved by: Naga Thomas D.O. on 03/04/2018 at 7:13
[2018-03-04] MEDS ORDERED: LACTATED RINGER'S 1,000 ML IV SCH (07:30)
[2018-03-04] MEDS ORDERED: VANCOMYCIN 1GM/NS 250 ML 250 ML IV SCH ×2 (07:30→14:00)
--- NOTE | 2018-03-04 08:54 | Diagnostic Imaging Report ---
PROCEDURE:CXR 1 [facility] COMPARISON:None. INDICATIONS:DIZZINESS, BLURRED VISION, S/P FALL, HX OF LIVER FAILURE FINDINGS:Heart is prominent but likely secondary to the technique. Pulmonary vascularity is normal. No consolidation or edema. Costophrenic angles are clear. Prominent azygos vein. Regional osseous structures appear unremarkable for acute abnormality. CONCLUSION:No active disease. Naga Thomas D.O. Dictated by: Naga Thomas D.O. on 03/04/2018 at 9:03 Electronically approved by: Naga Thomas D.O. on 03/04/2018 at 9:03
[2018-03-04 11:00] VITALS: BP 123/58
--- NOTE | 2018-03-04 11:19 | Diagnostic Imaging Report ---
Exams: Head and cervical spine CTs without IV contrast History: Fall, dizziness, blurred vision Comparison studies: None Technique: Axial images were obtained from the brain and cervical spine. Coronal and sagittal images reconstructed from the axial data. Dose modulation, iterative reconstruction, and/or weight based adjustment of the mA/kV was utilized to reduce the radiation dose to as low as reasonably achievable. Intravenous contrast: None Findings: Head CT: Limitations: The anterior frontal convexities and temporal lobes and posterior fossa are somewhat limited by streak artifact. Scalp: No abnormalities. Bones: No fractures, blastic or lytic lesions. Extra-axial spaces: No masses. No fluid collections. Brain sulci: Appropriate for age. Ventricles: Normal in size and configuration. No hydrocephalus. Parenchyma: No abnormal densities. No masses, acute hemorrhage, acute or chronic vascular insults. Sellar/suprasellar region: No abnormalities. Craniocervical junction: The foramen magnum is patent. No Chiari one malformation. Cervical spine CT: Limitations: Attenuation artifact due to patient body habitus and overlying shoulders from C6 through the T3 levels somewhat limited evaluation. Fractures: None. Soft tissues: No gross abnormalities. Atlantoaxial articulation: Intact. Alignment: Normal lordosis. No scoliosis. Cervicomedullary junction: No abnormalities. The foramen magnum is patent. Vertebrae: No infection or neoplasm. Degenerative changes: Incidental small anterior C2-C3 disc osteophyte complex. Mildly degenerated T2-T3 disc with small anterior disc osteophyte complex. Incidental findings: Carious impression: Partially imaged circumscribed low-density lesion in the subcutaneous soft tissues superficial to the sternum measures up to 5.3 cm in diameter. IMPRESSION: Head CT: No acute abnormalities. Cervical spine CT: 1. No cervical spine fracture or subluxation. 2. Incidental circumscribed ~5.3 cm subcutaneous nodule or cyst anterior to the sternum. Recommend nonemergent targeted ultrasound to initially further evaluate. Please note, cannot adequately evaluate ligament, spinal cord and or vascular abnormalities on the basis of this examination. Signed by: Dr. Jose Angel Lim M.D. on 03/04/2018 11:15 AM
[2018-03-04 11:54] VITALS: BP 123/58
[2018-03-04] MEDS ORDERED: PIPER-TAZ 3.375 GM 50 ML IV SCH (12:00)
--- NOTE | 2018-03-04 13:05 | History and Physical ---
CLINICAL HISTORY: This is a 37-year-old white man with history of alcoholic cirrhosis, [facility] because of possible urinary tract infection with pancytopenia. This patient apparently is chronically debilitated because of previous back surgery x2. He has a chronic left foot drop. He is unsteady on his feet. Previously he used a walker but most recently he walks with a cane. He fell 2 days ago and fell also yesterday. His mother was concerned and sent him to the emergency room. He apparently came complaining of right hip pain. Apparently x-rays were done in the [facility], including lumbar x-ray showing only degenerative disk disease, hip x-ray showing no significant abnormalities, chest x-ray which was negative, and CT scan of the brain and cervical spine showing no significant fracture that was, however, circumscribed approximately a 5.3 subcutaneous nodule cyst anterior to the sternum. The emergency room physician, Dr. Cleveland, thought that patient may have urinary tract infection, but no urinalysis was available. Urine cultures are pending. Patient was given antibiotics and admitted. PAST MEDICAL HISTORY: Remarkable for the above-mentioned pathology. Additionally, the patient has history of retinitis pigmentosa. Apparently he is not able to see very well. FAMILY HISTORY: Noncontributory. PERSONAL AND SOCIAL HISTORY: He was a heavy alcohol user for approximately 21 years. Apparently he stopped drinking 3 years ago. He is disabled due to his back condition. REVIEW OF SYSTEMS: Noncontributory. PHYSICAL EXAMINATION GENERAL: He is obese, alert, coherent, appears to be comfortable. Eating his breakfast. CARDIOVASCULAR: Jugular veins are not distended. S1, S2 were regular. There were no appreciable murmurs. RESPIRATORY: Clear. ABDOMEN: Soft. Bowel sounds are present. EXTREMITIES: Showed no cyanosis, clubbing or edema. LABORATORY: The results are pending. IMPRESSIONS 1. Frequent falls, instability, apparently chronic, related to his lower back surgery and left foot drop. Patient has fallen twice in the last 3 days, walking with a cane. His instability is also exacerbated by his eyesight. 2. Retinitis pigmentosa with poor vision. 3. Cirrhosis of the liver. 4. Pancytopenia related to cirrhosis of the liver. 5. History of anxiety. 6. Chronic pain medication usage (tramadol). 7. Peripheral neuropathy. 8. Cystic mass 5 cm in the sternal area. RECOMMENDATIONS: Oncology/hematology consultation for the cystic mass as well as for pancytopenia. This patient may benefit from physical therapy and lessons on how to be stable. Recommend he would use a walker for walking. A lot of his conditions appear to be chronic and not able to be solved during this hospitalization. He may require careful outpatient followup. Infectious disease consultation has been obtained with Dr. Alin Whitman. Job#: [id number] TA cc:VINCE WOOD MD, ALIN WHITMAN MD
--- NOTE | 2018-03-04 13:41 | Consultation ---
DATE OF CONSULTATION: March 04, 2018 INFECTIOUS DISEASE CONSULTATION REFERRING PHYSICIAN: Dr. Efren Sequeira. REASON FOR CONSULTATION: Pancytopenia. Thank you, Dr. Sequeira, for asking me to see this patient. HISTORY OF PRESENT ILLNESS: The patient is a 37-year-old man referred for pancytopenia. He presented to the emergency department with right hip and lower back pain. He fell 2 days earlier after the knees gave way and he landed on the knees. The next day, he fell again on the back and right hip after he misjudged the location of his chair while getting out of bed. The patient also reports low-grade fever to 100 degrees Fahrenheit, chills and frequent dark urination. He denies nausea, vomiting, diarrhea, shortness of breath and cough. In the emergency department, he was noted to have temperature of 99.2 degrees Fahrenheit, pulse rate 73, respiratory rate 18, blood pressure 133/69 and oxygen saturation 97% on room air. Initial laboratory studies showed blood leukocyte count of 2600 with 68.7% neutrophils, AST 58, ALT 30, alk phos 89 and total bilirubin 5.8. The chest x-ray showed no acute finding. Hip x-ray also showed no acute finding. PAST MEDICAL HISTORY: Severe obesity, ? obstructive sleep apnea, alcoholic liver cirrhosis on transplant list at [facility], chronic low back pain, dropfoot post neck surgery and chronic blurring of vision. PAST SURGICAL HISTORY: Back surgery twice. ALLERGIES: NO KNOWN DRUG ALLERGIES. MEDICATIONS: See MAR. The current antibiotics are Zosyn 3.375 grams IV piggyback q.6 hours and vancomycin 1 gram IV piggyback q.12 hours. IMMUNIZATION: He received influenza vaccine in December 2017. FAMILY HISTORY: Significant for diabetes mellitus type 2 in the father. SOCIAL HISTORY: The patient quit drinking alcohol several years ago. He used to be a alcohol heavy consumer. He denies tobacco use. REVIEW OF SYSTEMS: As per history of present illness. PHYSICAL EXAMINATION: GENERAL: No acute distress but appears sleepy. VITALS: T-max 99.2 pulse 73, respiratory rate 18, blood pressure 133/69, weight 320 pounds. HEENT: Normocephalic. There is a tinge of icterus but no injection of the conjunctivae. There is no ear or nasal discharge. Moist oral mucosa. No pharyngeal erythema or exudate. NECK: Short but supple. No meningismus. LUNGS: Good air entry bilaterally. HEART: Normal S1 and S2. Regular. ABDOMEN: Soft. EXTREMITIES: There is no edema, clubbing or cyanosis. SKIN: There is no acute erythema. SHANK TURNER: Awake, alert and oriented. Nonfocal. LABORATORY AND DIAGNOSTICS: WBC 2600, hemoglobin 10.2, platelets 24,000, neutrophil 68.7, lymph 22.7. BUN 9, creatinine 0.8. Rapid influenza antigen test negative. Blood and urine cultures were collected and are pending. IMPRESSION: 1. ? Low-grade fever. 2. Pancytopenia, likely due to cirrhosis of the liver. 3. Right hip pain status post fall. 4. Cirrhosis of the liver. 5. ? Obstructive sleep apnea. PLAN: 1. Await serum ammonium level and the culture results. Check abdominal ultrasound looking for ascites. 2. Change antibiotics to cefepime 1 gram IV piggyback q.8 hours. Job#: [id number] EV [id number]
[2018-03-04] MEDS ORDERED: SODIUM CHLORIDE 0.9% 50ML 50 ML ONE (14:25)
[2018-03-04] MEDS: FAMOTIDINE 20 MG/2 ML VIAL IV SCH ×2 (14:35→15:47)
[2018-03-04] MEDS: CEFEPIME HCL 1 GM VIAL IV SCH ×2 (14:35→21:10)
[2018-03-04 15:59] VITALS: BP 118/55
--- NOTE | 2018-03-04 16:09 | Diagnostic Imaging Report ---
Abdominal ultrasound. History: Cirrhosis Comparison: <None available>. Discussion: Transverse and longitudinal images of the abdomen were performed demonstrating an irregular nodular liver measuring 13.6 cm with increased echogenicity. The portal vein is patent with hepatopetal flow and is within normal limits measuring 10 mm in diameter. The biliary tree is within normal limits with the common bile duct measuring 3 mm in diameter. Gallbladder is contracted with stones. Wall measures 3 mm. The sonographic Saleem's sign was negative. The kidneys are normal in size and echogenicity bilaterally without evidence of hydronephrosis, stones or mass. The right kidney measures 11.0 x 7.0 x 5.3 cm and the left kidney measures 14.7 x 7.6 x 5.9 cm. The spleen is enlarged measuring 15.7 x 8.6 x 8.0 cm. Pancreas, aorta and IVC are not well visualized. There is no free fluid. IMPRESSION: 1. Irregular nodular liver compatible with cirrhosis. 2. Contracted gallbladder with stones. 3. Enlarged spleen. Signed by: Dr. Naga Thomas DO on 03/04/2018 4:06 PM
[2018-03-04 20:00] VITALS: BP 136/61
[2018-03-04 20:23] VITALS: BP 136/61
[2018-03-05] VITALS (8 sets, daily range): BP systolic 116–143; BP diastolic 53–61
[2018-03-05] MEDS: LACTATED RINGER'S 1,000 ML IV SCH ×2 (03:24→03:45)
[2018-03-05 04:39] LABS: CLARITY,URINE CLOUDY (CLEAR); COLOR,URINE ORANGE (YELLOW); LEUKOCYTE ESTERASE ,URINE NEGATIVE (NEGATIVE); NITRITE,URINE NEGATIVE (NEGATIVE); PROTEIN,URINE DIPSTICK NEGATIVE (NEGATIVE)
[2018-03-05 04:40] LABS: BILIRUBIN,URINE 1+ (NEGATIVE); KETONES,URINE NEGATIVE (NEGATIVE); URINE UROBILINOGEN 4 mg/dL (0.2 - 1)
[2018-03-05 04:51] LABS: BACTERIA,URINE FEW /HPF; CALCIUM OXALATE CRYSTALS,UR MANY (FEW); EPITHELIAL CELLS,URINE FEW /LPF; RBC,URINE 0-5 /HPF (0-5); WBC,URINE (MAN) 0-5 /HPF (0-5)
[2018-03-05] MEDS: CEFEPIME HCL 1 GM VIAL IV SCH ×3 (05:13→21:19)
[2018-03-05 05:49] LABS: ALANINE AMINOTRANSFERASE 25 IU/L (0-55); ALBUMIN 2.5 g/dL (3.5-5.0); ALBUMIN/GLOBULIN RATIO 0.8 (0.8-2.0); ALKALINE PHOSPHATASE 94 IU/L (40-150); ANION GAP 7.8 mmol/L (8-16); BLOOD UREA NITROGEN 11 mg/dL (7-26); BUN/CREATININE RATIO 14 (6-25); CARBON DIOXIDE 24 mmol/L (22-29); CHLORIDE 106 mmol/L (98-107); CREATININE, SERUM 0.79 mg/dL (0.72-1.25); EST GLOMERULAR FILTRATION RATE > 60 ML/MIN (60-); GLUCOSE 87 mg/dL (74-118); INR 1.82; POTASSIUM 3.8 mmol/L (3.5-5.1); PROTHROMBIN TIME 22.5 seconds (11.9-14.5); SODIUM 134 mmol/L (136-145)
[2018-03-05 05:50] LABS: PARTIAL THROMBOPLASTIN TIME 47.8 seconds (23.8-35.5)
[2018-03-05 06:13] LABS: BASOPHILS % 0.5 % (0.0-1.0); EOSINOPHILS # (AUTO) 0.1 (0.0-0.4); EOSINOPHILS % 5.1 % (0.0-6.0); HEMATOCRIT 28.2 % (38.2-49.6); HEMOGLOBIN 9.2 g/dL (14.0-18.0); LYMPHOCYTES # (AUTO) 0.7 (1.0-3.2); LYMPHOCYTES % 33.2 % (18.0-39.1); MEAN CORPUSCULAR HEMOGLOBIN 28.7 pg (28-32); MEAN CORPUSCULAR HGB CONC 32.6 g/dL (31-35); MEAN CORPUSCULAR VOLUME 87.9 fL (81-99); MONOCYTES # (AUTO) 0.3 (0.2-0.8); MONOCYTES % 16.8 % (4.4-11.3); NEUTROPHILS # (AUTO) 0.9 (2.1-6.9); NEUTROPHILS % 44.4 % (38.7-80.0); RED BLOOD COUNT 3.21 x10e6/uL (4.3-5.7); RED CELL DISTRIBUTION WIDTH 17.2 % (11.7-14.4)
[2018-03-05 06:23] LABS: PLATELET COUNT 25 x10e3/uL (140-360)
[2018-03-05 08:33] LABS: ANISOCYTOSIS SLIGHT; BAND NEUTROPHILS % (MANUAL) 1 %; ELLIPTOCYTE, RBC SLIGHT; EOSINOPHILS % (MANUAL) 1 % (0-7); HYPOCHROMASIA SLIGHT; LYMPHOCYTES % (MANUAL) 26 % (19-48); MONOCYTES % (MANUAL) 12 % (3.4-9.0); NEUTROPHILS % (MANUAL) 57 % (40-74); RBC MORPHOLOGY COMMENT NORMAL
[2018-03-05 08:34] LABS: PLATELET ESTIMATE MARKEDLY DECREASED; PLATELET MORPHOLOGY COMMENT NORMAL
[2018-03-05] MEDS: FAMOTIDINE 20 MG/2 ML VIAL IV SCH ×2 (09:07→17:38)
[2018-03-05] MEDS ORDERED: LACTULOSE SYRUP 20 GM/30 ML UDC PO PRN (10:45)
--- NOTE | 2018-03-05 11:29 | Cardiology Report ---
DATE OF STUDY: March 04, 2018 ECHOCARDIOGRAM M-MODE: Suboptimal study. Normal chamber wall dimensions. Normal contractility. Normal mitral and aortic valves. No pericardial effusion. SECTOR SCAN: Suboptimal study with poor image quality. Normal chamber wall dimensions. Normal contractility. Normal mitral, aortic and tricuspid valves. No pericardial effusion. CARDIAC DOPPLER STUDY WITH COLOR: Trace mitral and tricuspid regurgitation. CONCLUSIONS 1. Left ventricular ejection fraction is approximately 65%. 2. No evidence of intracardiac thrombi or masses. 3. Trace mitral and tricuspid regurgitation. 4. Suboptimal study with poor image quality. Job#: [id number] cc:VINCE WOOD MD
[2018-03-05] MEDS: LACTULOSE SYRUP 20 GM/30 ML UDC PO SCH ×3 (14:20→21:19)
[2018-03-06] VITALS (8 sets, daily range): BP systolic 107–142; BP diastolic 50–76
[2018-03-06] MEDS: LACTULOSE SYRUP 20 GM/30 ML UDC PO SCH ×6 (02:00→21:11)
[2018-03-06] MEDS: CEFEPIME HCL 1 GM VIAL IV SCH ×3 (05:22→21:10)
[2018-03-06 05:34] LABS: BASOPHILS % 0.6 % (0.0-1.0); EOSINOPHILS # (AUTO) 0.1 (0.0-0.4); EOSINOPHILS % 3.8 % (0.0-6.0); HEMATOCRIT 29.3 % (38.2-49.6); HEMOGLOBIN 9.4 g/dL (14.0-18.0); LYMPHOCYTES # (AUTO) 0.5 (1.0-3.2); LYMPHOCYTES % 33.1 % (18.0-39.1); MEAN CORPUSCULAR HEMOGLOBIN 28.9 pg (28-32); MEAN CORPUSCULAR HGB CONC 32.1 g/dL (31-35); MEAN CORPUSCULAR VOLUME 90.2 fL (81-99); MONOCYTES # (AUTO) 0.3 (0.2-0.8); MONOCYTES % 15.9 % (4.4-11.3); NEUTROPHILS # (AUTO) 0.7 (2.1-6.9); NEUTROPHILS % 46.6 % (38.7-80.0); PLATELET COUNT 82 x10e3/uL (140-360); RED BLOOD COUNT 3.25 x10e6/uL (4.3-5.7); RED CELL DISTRIBUTION WIDTH 17.5 % (11.7-14.4)
[2018-03-06 06:42] LABS: ALANINE AMINOTRANSFERASE 29 IU/L (0-55); ALBUMIN 2.4 g/dL (3.5-5.0); ALBUMIN/GLOBULIN RATIO 0.6 (0.8-2.0); ALKALINE PHOSPHATASE 83 IU/L (40-150); ANION GAP 8.5 mmol/L (8-16); BLOOD UREA NITROGEN 12 mg/dL (7-26); BUN/CREATININE RATIO 15 (6-25); CALCIUM 7.7 mg/dL (8.4-10.2); CARBON DIOXIDE 24 mmol/L (22-29); CHLORIDE 110 mmol/L (98-107); CREATININE, SERUM 0.82 mg/dL (0.72-1.25); EST GLOMERULAR FILTRATION RATE > 60 ML/MIN (60-); GLUCOSE 83 mg/dL (74-118); POTASSIUM 4.5 mmol/L (3.5-5.1); SODIUM 138 mmol/L (136-145)
[2018-03-06 07:47] LABS: EOSINOPHILS % (MANUAL) 2 % (0-7); LYMPHOCYTES % (MANUAL) 20 % (19-48); MONOCYTES % (MANUAL) 6 % (3.4-9.0); NEUTROPHILS % (MANUAL) 66 % (40-74); PLATELET ESTIMATE MARKEDLY DECREASED; PLATELET MORPHOLOGY COMMENT NORMAL
[2018-03-06 07:49] LABS: RBC MORPHOLOGY COMMENT ABNORMAL
[2018-03-06 07:51] LABS: ANISOCYTOSIS SLIGHT; HYPOCHROMASIA MODERATE; POIKILOCYTOSIS SLIGHT
[2018-03-06 07:52] LABS: OVALOCYTES FEW
[2018-03-06] MEDS: FAMOTIDINE 20 MG/2 ML VIAL IV SCH ×2 (09:21→17:25)
[2018-03-06] MEDS ORDERED: FILGRASTIM 300 MCG/ML VIAL SC ONE (17:45)
[2018-03-07] VITALS (7 sets, daily range): BP systolic 109–131; BP diastolic 52–69
[2018-03-07] MEDS: LACTULOSE SYRUP 20 GM/30 ML UDC PO SCH ×6 (01:32→22:00)
[2018-03-07 05:20] LABS: BASOPHILS % 0.4 % (0.0-1.0); EOSINOPHILS # (AUTO) 0.1 (0.0-0.4); EOSINOPHILS % 2.4 % (0.0-6.0); HEMATOCRIT 30.1 % (38.2-49.6); HEMOGLOBIN 9.7 g/dL (14.0-18.0); LYMPHOCYTES # (AUTO) 0.6 (1.0-3.2); LYMPHOCYTES % 12.9 % (18.0-39.1); MEAN CORPUSCULAR HEMOGLOBIN 28.9 pg (28-32); MEAN CORPUSCULAR HGB CONC 32.2 g/dL (31-35); MEAN CORPUSCULAR VOLUME 89.6 fL (81-99); MONOCYTES # (AUTO) 0.5 (0.2-0.8); MONOCYTES % 10.5 % (4.4-11.3); NEUTROPHILS # (AUTO) 3.4 (2.1-6.9); NEUTROPHILS % 73.6 % (38.7-80.0); RED BLOOD COUNT 3.36 x10e6/uL (4.3-5.7); RED CELL DISTRIBUTION WIDTH 17.5 % (11.7-14.4)
[2018-03-07] MEDS: CEFEPIME HCL 1 GM VIAL IV SCH ×3 (05:48→22:00)
[2018-03-07 05:50] LABS: PLATELET COUNT 25 x10e3/uL (140-360)
[2018-03-07] MEDS: FAMOTIDINE 20 MG/2 ML VIAL IV SCH ×2 (09:21→17:50)
[2018-03-07 09:47] LABS: EOSINOPHILS % (MANUAL) 1 % (0-7); LYMPHOCYTES % (MANUAL) 15 % (19-48); MONOCYTES % (MANUAL) 5 % (3.4-9.0); NEUTROPHILS % (MANUAL) 79 % (40-74); PLATELET ESTIMATE MODERATELY DECREASED; PLATELET MORPHOLOGY COMMENT NORMAL; RBC MORPHOLOGY COMMENT NORMAL
[2018-03-07] MEDS ORDERED: LACTULOSE20 GM/30 M PO (16:01)
[2018-03-07] MEDS ORDERED: PHYTONADIONE 5 MG TAB PO ONE (20:00)
[2018-03-07] MEDS ORDERED: SODIUM CHLORIDE 0.9% 50ML 50 ML ONE (21:53)
[2018-03-08] VITALS: BP 131/57
[2018-03-08] MEDS: LACTULOSE SYRUP 20 GM/30 ML UDC PO SCH ×3 (02:00→10:00)
[2018-03-08 04:00] VITALS: BP 139/75
[2018-03-08 05:20] LABS: BASOPHILS % 0.2 % (0.0-1.0); EOSINOPHILS # (AUTO) 0.2 (0.0-0.4); EOSINOPHILS % 3.3 % (0.0-6.0); HEMOGLOBIN 9.5 g/dL (14.0-18.0); LYMPHOCYTES # (AUTO) 0.8 (1.0-3.2); LYMPHOCYTES % 15.6 % (18.0-39.1); MEAN CORPUSCULAR HEMOGLOBIN 29.3 pg (28-32); MEAN CORPUSCULAR HGB CONC 32.8 g/dL (31-35); MEAN CORPUSCULAR VOLUME 89.5 fL (81-99); MONOCYTES # (AUTO) 0.4 (0.2-0.8); MONOCYTES % 7.9 % (4.4-11.3); NEUTROPHILS # (AUTO) 3.5 (2.1-6.9); NEUTROPHILS % 72.2 % (38.7-80.0); RED BLOOD COUNT 3.24 x10e6/uL (4.3-5.7); RED CELL DISTRIBUTION WIDTH 18.1 % (11.7-14.4)
[2018-03-08 05:21] LABS: PLATELET COUNT 27 x10e3/uL (140-360)
[2018-03-08] MEDS ORDERED: SODIUM CHLORIDE 0.9% 50ML 50 ML ONE (05:55)
[2018-03-08] MEDS: CEFEPIME HCL 1 GM VIAL IV SCH (06:30)
[2018-03-08 08:00] VITALS: BP 133/60
[2018-03-08] MEDS: FAMOTIDINE 20 MG/2 ML VIAL IV SCH (08:55)
[2018-03-08] MEDS ORDERED: PHYTONADIONE 5 MG TAB PO ONE (09:00)
--- NOTE | 2018-03-08 13:11 | Discharge Summary ---
[id number] HISTORY: This is a 37-year-old man, patient of Dr. Jae Hernandez, admitted via the [facility] emergency room because of alcoholic cirrhosis with pancytopenia and possible urinary tract infection. Please refer to my previous dictation concerning my previous illness, past medical history, personal social history, family history, review of systems, physical examination, and initial laboratory studies. HOSPITAL COURSE: The patient was found to have unsteadiness on his feet falling several times. The family was particularly concerned about this and this was actually the reason that they brought him to the emergency room. Blood test showed hepatic encephalopathy with blood ammonia level of 130s. He was treated with lactulose with some improvement. At the time of discharge, his blood ammonia level was back down to normal and he was ambulating normally. He said he was back to baseline and anxious to be discharged. In the meantime, we did consult infectious disease, Dr. Alin Kelley who treated this patient with antibiotics for presumed urinary tract infection. Hematology consultation was obtained with Dr. Ernesto Lee who followed the patient's white count which eventually dropped to 1900; by the time of discharge, it went up to about 4600. His blood count remained stable. He is therefore discharged on lactulose 30 grams b.i.d. He is instructed to follow carefully with his industrial gas servicer [facility] as well as Dr. Jae Hernandez. He can see Dr. Ernesto Lee as needed for thrombocytopenia. DISCHARGE DIAGNOSES 1. Frequent falls, instability on his feet, probably due to combination of factors including mild hepatic encephalopathy, poor vision, as well as chronic pain with pain medication and lower extremity neuropathy. 2. Mild hepatic encephalopathy with the patient instructed to continue lactulose on a daily basis. 3. Alcoholic cirrhosis of the liver. 4. Severe pancytopenia related to cirrhosis of liver, followed by Dr. Ernesto Lee. 5. Urinary tract infection, treated by Dr. Alin Kelley. 6. History of anxiety. 7. Chronic pain medication usage, tramadol. 8. Peripheral neuropathy. 9. 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 The patient is advised to use a cane or a walker if there is instability with walking in the future FATOU MD ALETHA Job#: [id number] JUSTIN cc:MD ERNESTO FOREMAN MD
== END 2018-03-08 10:53 | disposition home or self-care (01) | DRG 809 ==
LOC: FSED 05:37 → ERHOLD 06:49 → MED/SURG3 11:16
PROVIDERS: ADMIT Internal Medicine Cardiovascular Disease; ATTEND Internal Medicine Cardiovascular Disease
DX: D61.818 Other pancytopenia (principal); N39.0 Urinary tract infection, site not specified; K76.6 Portal hypertension; E72.4 Disorders of ornithine metabolism; K70.30 Alcoholic cirrhosis of liver without ascites; F10.11 Alcohol abuse, in remission; K72.90 Hepatic failure, unspecified without coma; M54.16 Radiculopathy, lumbar region; M21.372 Foot drop, left foot; Z91.81 History of falling; H35.52 Pigmentary retinal dystrophy; F41.9 Anxiety disorder, unspecified; Z79.891 Long term (current) use of opiate analgesic; G62.9 Polyneuropathy, unspecified; G47.33 Obstructive sleep apnea (adult) (pediatric); R50.9 Fever, unspecified; E78.5 Hyperlipidemia, unspecified; D64.9 Anemia, unspecified; D70.9 Neutropenia, unspecified; K80.80 Other cholelithiasis without obstruction; M79.89 Other specified soft tissue disorders
CPT/HCPCS: 36415; 70450; 71045; 72100; 72125; 76700; 80053; 81001; 81003; 82140; 85025; 85610; 85730; 87040; 87086; 87400; 93306; 96361; 97139; 99284; J0692; J1442; J7120

== ENCOUNTER 2018-07-04 12:37 | Inpatient (IN) | payer MEDICARE, OTHER ==
[~2018-07-04] VITALS: Ht 182.9 cm; Wt 151.5 kg
[~2018-07-04 12:37] MED LIST: LACTULOSE20 GM/30 M PO
--- OUTSIDE RECORDS SUMMARY | 2018-07-04 12:40 | XMS REPORT | Clinical Summary ---
Author Author [facility] Organization [facility] Address Unknown Phone Unavailable Care Team Providers Care Gum Remover Name Role Phone PCP Unavailable Allergies No Known Allergies Medications End Date Status Medication Sig Dispensed Refills Start Date Active DOCUSATE SODIUM 100 MG take one cap 0 200 CAP by mouth 4 9 times a day Active HYDROCORTISONE ACETATE 25 insert 1 0 04/13/200 MG RECTAL SUPPOSITORY suppository 9 (25 mg) by rectal route 2 times per day for 2 weeks Active PREDNISONE 5MG TAB 1 tablet 0 twice daily 0 Active HYDROCODONE-ACETAMINOPHEN Take 1 Tab by 0 10-500 mg per tablet mouth every 6 hours as needed. Active traMADol (ULTRAM) 50 mg Take 2 120 tablet 0 tabletIndications: tablets by 4 Neuropathic pain syndrome mouth every 6 (non-herpetic) hours as needed for Pain. Active triamcinolone (TRIDERM) Apply to 80 g 1 0.1 % topical affected area 4 creamIndications: Stasis 2 times dermatitis daily. Active ergocalciferol (VITAMIN Take 1 12 capsule 1 D2) 50,000 unit capsule by 5 capsuleIndications: mouth weekly. Vitamin D deficiency Active mometasone (NASONEX) 50 1 [place] by 17 g 3 mcg/actuation nasal each nostril 5 sprayIndications: Upper route daily. respiratory infection Active loratadine (CLARITIN) 10 Take 1 tablet 90 tablet 1 mg tabletIndications: by mouth 5 Upper respiratory daily. infection Active gabapentin (NEURONTIN) Take 300 mg 0 300 mg capsule by mouth 2 times daily. Active pantoprazole (PROTONIX) Take 40 mg by 0 20 mg delayed release mouth daily. tablet Active lactulose 10 gram/15 mL Take 10 mL by 0 (15 mL) Soln mouth daily as needed. Active Problems Problem Noted Date Internal and external bleeding hemorrhoids 06/06/2018 Alcohol use disorder, severe, in sustained remission, dependence 11/01/2016 Chronic pain syndrome 01/05/2014 Overview: Patient has opioid contract with Sima Schmitt MD, [facility], PMR clinic, see Media section of EPIC Nov 2012 and or Jan 2014 Neurogenic bladder disorder 01/15/2013 Right sided sciatica 01/15/2013 Hip pain 01/15/2013 Foot drop, left 01/15/2013 Neuropathic pain 06/09/2010 Thrombocytopenia, unspecified 05/06/2009 Overview: Seen in hospital 03/23 and noted to have thrombocytopenia that was stable during hospitalization ranging from 60-100s. HIV negative. Hep negative. 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 Pt started on steroids. Currently on Prednisone 5 mg PO BID. Pt on review of labwork has had low plts documented in 2003 104. Abd U/S scheduled 08/04/09 Leg weakness 04/28/2009 SCI (spinal cord injury) 04/28/2009 Encounters Care Team Description Date Type Specialty Anne-Marie Tejeda RN 07/02/2018 Nurse Triage Concepcion Garg MD Internal and external bleeding hemorrhoids 06/06/2018 Hospital Lab Encounter Concepcion Garg MD Thrombocytopenia, unspecified (Primary Dx); Alcohol use disorder, severe, in sustained remission, dependence; Internal and external bleeding hemorrhoids 06/06/2018 Office Visit Colon and Rectal Surgery 06/06/2018 Travel after 07/03/2017 Social History Date Tobacco Use Types Packs/Day Years Used Never Smoker Smokeless Tobacco: Never Used Tobacco Cessation: Counseling Given: No Alcohol Use Drinks/Week oz/Week Comments Yes occasional Sex Assigned at Date Recorded Not on file Industry Job Start Date Occupation Not on file Not on file Not on file Travel End Travel History Travel Start No recent travel history available. Last Filed Vital Signs Time Taken Vital Sign Reading 06/06/2018 8:45 AM [employer]LET[employer] FI[employer] Blood Pressure 110/67 06/06/2018 8:45 AM ATHLET[employer] FIELD CUSTODIAN Pulse 70 06/06/2018 8:45 AM ATHLET[employer] FI[employer] CUSTODIAN Temperature 36.7 C (98 F) 06/06/2018 8:45 AM ATHLETIC FIELD CUSTODIAN Respiratory Rate 18 - Oxygen Saturation - - Inhaled Oxygen - Concentration 06/06/2018 8:45 AM ATHLETIC FIELD CUSTODIAN Weight 139.3 kg (307 lb) 06/06/2018 8:45 AM ATHLETIC FIELD CUSTODIAN Height 182.9 cm (6') 06/06/2018 8:45 AM ATHLETIC FIELD CUSTODIAN Body Mass Index 41.64 Plan of Treatment Care Team Description Date Type Specialty Concepcion Garg MD [address] [facility] [id number] [place] [id number] 07/18/2018 Office Visit Colon and Rectal Surgery Procedures Comments Procedure Name Priority Date/Time Associated Diagnosis LIVER PROFILE Routine 06/06/2018 Internal and external 10:00 AM [employer]LET[employer] FI[employer] CUSTODIAN bleeding hemorrhoids PT/INR/PTT Routine 06/06/2018 Internal and external 10:00 AM ATHLET[employer] FI[employer] CUSTODIAN bleeding hemorrhoids BASIC METABOLIC PANEL Routine 06/06/2018 Internal and external 10:00 AM ATHLET[employer] FIELD CUSTODIAN bleeding hemorrhoids CBC/DIFF Routine 06/06/2018 Internal and external 10:00 AM ATHLET[employer] FIELD CUSTODIAN bleeding hemorrhoids after 07/03/2017 Results * PT/INR/PTT (06/06/2018 10:00 AM ATHLETIC FIELD CUSTODIAN) PT 20.4 (H) 11.8 - 15.0 Seconds [facility] MAIN-STATION 4 INR 1.8 [facility] SUGGESTED THERAPEUTIC RANGES: MAIN-STATION 4 INR 2.0-3.0 for MODERATE INTENSITY ANTICOAGULATION INR 2.5-3.5 for HIGH INTENSITY ANTICOAGULATION PTT 47.3 (H) 23.6 - 36.4 Seconds [facility] MAIN-STATION 4 Specimen Blood Performing Organization Address City/State/Zipcode Phone Number MISYS [facility] MAIN-STATION 4 * LIVER PROFILE (06/06/2018 10:00 AM ATHLETIC FIELD CUSTODIAN) T Protein 5.7 (L) 6.0 - 8.3 g/dL [facility] MAIN-STATION 1 Albumin 2.6 (L) 4.2 - 5.5 g/dL [facility] MAIN-STATION 1 T Bilirubin 3.1 (H) 0.2 - 1.2 mg/dL J MAIN-STATION 1 Alk Phos 110 (H) 34 - 104 U/L [facility] MAIN-STATION 1 AST 48 (H) 13 - 39 U/L [facility] MAIN-STATION 1 ALT 23 7 - 52 U/L [facility] MAIN-STATION 1 D Bilirubin 1.0 (H) 0.0 - 0.2 mg/dL [facility] MAIN-STATION 1 Specimen Blood Performing Organization Address City/State/Zipcode Phone Number MISYS [facility] MAIN-STATION 1 * CBC/DIFF (06/06/2018 10:00 AM ATHLETIC FIELD CUSTODIAN) WBC 2.6 (L) 4.5 - 12.0 K/uL [facility] MAIN-STATION 2 RBC 3.47 (L) 4.60 - 6.20 M/uL [facility] MAIN-STATION 2 Hemoglobin 9.4 (L) 14.0 - 18.0 g/dL [facility] MAIN-STATION 2 Hematocrit 31.3 (L) 40.0 - 54.0 % [facility] MAIN-STATION 2 MCV 90 82 - 92 fL [facility] MAIN-STATION 2 MCH 27.1 27.0 - 31.0 pg [facility] MAIN-STATION 2 MCHC 30.0 (L) 32.0 - 36.0 g/dL [facility] MAIN-STATION 2 RDW 65.0 (H) 35.1 - 43.9 fL [facility] MAIN-STATION 2 Platelet 41 (L) 150 - 400 K/uL [facility] MAIN-STATION 2 Mean Platelet Not measured 9.4 - 12.4 fL [facility] Volume MAIN-STATION 2 Percent NRBC 0.0 [facility] MAIN-STATION 2 Absolute NRBC 0.00 [facility] MAIN-STATION 2 Neutrophil 58.0 34.0 - 67.9 % [facility] MAIN-STATION 2 Lymphocyte 31.0 21.8 - 50.0 % [facility] MAIN-STATION 2 Monocyte 4.0 (L) 5.3 - 12.0 % [facility] MAIN-ST[facility] 2 Eosinophil 4.0 0.8 - 5.0 % [facility] MAIN-ST[facility] 2 Basophil 3.0 (H) 0.2 - 1.2 % [facility] 2 Neutrophil, Abs 1.51 (L) 1.78 - 5.36 K/uL [facility] MAIN-STATION 2 Lymphocyte, Abs 0.81 (L) 1.32 - 3.57 K/uL [facility] MAIN-STATION 2 Monocyte, Abs 0.10 (L) 0.30 - 0.82 K/uL [facility] MAIN-STATION 2 Eosinophil, Abs 0.10 0.04 - 0.54 K/uL [facility] 2 Basophil, Abs 0.08 0.01 - 0.08 K/uL [facility] 2 Ovalocyte 3+ [facility] 2 Schistocyte 1+ [facility] 2 Tear Drop Cell 2+ [facility] MAIN[facility] 2 Specimen Blood Performing Organization Address City/[facility] Phone Number [facility] MAIN-STATION 2 * BASIC METABOLIC PANEL (06/06/2018 10:00 AM ATHLETIC FIELD CUSTODIAN) CO2 29 21 - 31 mmol/L [facility] MAIN-STATION 1 Chloride 109 (H) 98 - 107 mmol/L [facility] MAIN-STATION 1 Potassium 4.4 3.5 - 5.1 mmol/L [facility] MAIN-STATION 1 Sodium 141 136 - 145 mmol/L [facility] MAIN-STATION 1 Glucose 79 70 - 110 mg/dL [facility] MAIN-STATION 1 Urea Nitrogen 11 7 - 25 mg/dL [facility] MA[facility]-STATION 1 Creatinine 0.80 0.7 - 1.3 mg/dL [facility] MAIN-STATION 1 Anion Gap 3 [facility] MAIN-STATION 1 Calcium 8.2 (L) 8.6 - 10.3 mg/dL [facility] MAIN-STATION 1 GFR, Estimated >60 mL/min/1.73 m2 [facility] MAIN-STATION 1 GFR, Estim, >60 mL/min/1.73 m2 [facility] Afr-Am MAIN-STATION 1 Specimen Blood Performing Organization Address City/[facility] Phone Number [facility] MAIN-STATION 1 after 07/03/2017 Insurance Type Payer Benefit Subscriber ID Effective Phone Address Plan / Dates Group [employer] OPT[employer] xxxxxxxxxxxx 2014-P [phone] [facility] [id number] OPT[employer] MMP [address] [address] [place] [address]
--- OUTSIDE RECORDS SUMMARY | 2018-07-04 12:42 | XMS REPORT | Summary of Care ---
Author Author [facility] Organization [facility] Address Unknown Phone Unavailable Encounter ATUL Gomez(JULITO) [id number] Date(s): 05/14/18 - 05/14/18 [facility] [address] [place] [address]- [facility] [phone] Discharge Disposition: Home or Self Care Attending Physician: Nickolas Milian MD Vital Signs Most recent to 1 oldest [Reference Range]: Height 180.34 cm (05/14/18 11:05 AM) Blood Pressure 114/60 mmHg [90-140/60-90 mmHg] (05/14/18 11:05 AM) Respiratory Rate 16 BRMIN [14-20 BRMIN] (05/14/18 11:05 AM) Peripheral Pulse 71 bpm Rate [60-100 bpm] (05/14/18 11:05 AM) Weight 145.909 kg (05/14/18 11:05 AM) Body Mass Index 44.86 m2 (05/14/18 11:05 AM) Problem List Condition Effective Dates Status Health Status Informant Bloating(Confirmed) Active Acanthosis Active nigricans(Confirmed) Alcohol Resolved abuse(Confirmed) Alcoholic cirrhosis Active of liver(Confirmed) Anxiety(Confirmed) 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
--- OUTSIDE RECORDS SUMMARY | 2018-07-04 12:42 | XMS REPORT | Continuity of Care Document ---
Author Author Dave prashanth [facility] Interface Address Unknown Phone Unavailable Problems Problem Status Onset Date Classification Date Reported Comments Source Internal and external bleeding hemorrhoids Active 06/06/2018 07/02/2018 [facility] F/U Active 05/13/2018 [facility] DSU ESOPHAGEAL VARICES Active 04/04/2018 [facility] CIRRHOSIS Active 03/26/2018 [facility] LAB WORK ONLY Active 01/12/2018 [facility] Encounter for follow-up examination after completed treatment for conditions other than malignant neoplasm 05/29/2017 08/29/2017 [facility] Unspecified cirrhosis of liver 05/04/2017 08/06/2017 [facility] C22.0 - LIVER CELL CARCINOMA Active 05/02/2017 [facility] [place] ESLD Active 02/13/2017 [facility] GI BLEED Active 02/11/2017 [facility] RECTAL BLEEDING Active 02/11/2017 [facility] K76.6 - PORTAL HYPERTENSION C22.0 - LIVE Active 12/27/2016 [facility] [place] OUTPATIENT/IMAGE GUIDED ANGIOGRAM Active 12/26/2016 [facility] Alcohol use disorder, severe, in sustained remission, dependence Active 11/01/2016 07/02/2018 [facility] FOLLOW UP Active 10/23/2016 [facility] NEW PRE LIVER TRANSPLANT EVAL CLINIC VIS Active 04/30/2016 [facility] NEW PRE LIVER TRANSPLANT EVAL LABS AND E Active 03/23/2016 [facility] DSU-Z00.00 ENCOUNTER FOR GENERAL ADULT M Active 03/06/2016 [facility] CONSULT Active 02/06/2016 [facility] K74.60 - UNSPECIFIED CIRRHOSIS OF LIVER Active 01/16/2016 [facility] [place] Chronic pain syndrome Active 01/05/2014 07/02/2018 [facility] Neurogenic bladder disorder Active 01/15/2013 07/02/2018 [facility] Right sided sciatica Active 01/15/2013 07/02/2018 [facility] Hip pain Active 01/15/2013 07/02/2018 [facility] Foot drop, left Active 01/15/2013 07/02/2018 [facility] Neuropathic pain Active 06/09/2010 07/02/2018 [facility] Thrombocytopenia, unspecified Active 05/06/2009 07/02/2018 [facility] Leg weakness Active 04/28/2009 07/02/2018 [facility] SCI Active 04/28/2009 07/02/2018 [facility] Autosomal Recessive Retinitis Pigmentosa Active Problem 05/29[facility] 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 Active Problem 03/30/2016 [facility], [facility]ENE Alo[place] Hepatic encephalopathy Active Problem [facility] Morbid obesity Active Problem 03/30/2016 [facility] [place] Acanthosis nigricans Active Problem 05/29/2018 [facility] Alcohol abuse Resolved Problem 05/29/2018 [facility] Alcoholic cirrhosis of liver Active Problem 05/29/2018 [facility] Morbid obesity with BMI of 45.0-49.9, adult<sup>1</sup> Active Problem 05/29/2018 BMI- 45.4 [facility] EV (<span ID="[id number]</span>) Active Problem 05/29/2018 [facility] HCC (<span ID="[id number]">Confirmed</span>) Active Problem 02/16/2017 [facility] Depression Resolved Problem 05/29/2018 [facility] Thrombocytopenia Active Problem 05/29/2018 [facility] Portal hypertension Active Problem 05/29/2018 [facility] Secondary esophageal varices without bleeding 08/06/2017 [facility] Fluid overload, unspecified 08/06/2017 [facility] Anxiety Resolved Problem 05/29/2018 [facility] Lesion of liver Active Problem 05/29/2018 [facility] Body mass index 40.0-44.9, adult 08/29/2017 [facility] Bloating Active Problem 05/29/2018 [facility] Hemoglobin low Active Problem 05/29/2018 [facility] Rectal bleeding Active Problem 05/29/2018 [facility] Pancytopenia, acquired Active Problem 03/08/2018 [facility] ENCNTR FOR GENERAL ADULT MEDICAL EXAM W/ Active [facility] GASTROINTESTINAL HEMORRHAGE, UNSPECIFIED Active [facility] Medications Medication Details Route Status Patient Instructions Ordering Provider Order Date Source Naloxone 0.4 mg, 1 mL, Route: IVP, Drug form: INJ, Q2MIN, Dosing Weight 145.455, kg, PRN Narcotic Reversal, Start date: 05/27/18 12:03:00 COMPUTER [employer]FORMATION SYSTEMS INSTRUCTOR, Duration: 8 doses or times, Stop date: Limited # of timesNotes: Same as Narcan No Longer Active 05/27/2018 [facility] Promethazine 6.25 mg, 0.25 mL, Route: IVPB, Drug form: INJ, ONCE, Dosing Weight 145.455, kg, PRN Nausea & Vomiting, Start date: 05/27/18 12:03:00 CSTNotes: Do not give IV push. (Same as: Phenergan) No Longer Active 05/27/2018 [facility] Labetalol 10 mg, 2 mL, Route: IVP, Drug form: INJ, Q5Min, Dosing Weight 145.455, kg, PRN Elevated BP, Start date: 05/27/18 12:03:00 COMPUTER INFORMATION SYSTEMS INSTRUCTOR, Duration: 5 doses or times, Stop date: Limited # of times No Longer Active 05/27/2018 [facility] Hydralazine 10 mg, 0.5 mL, Route: IVP, Drug form: INJ, Q20Min, Dosing Weight 145.455, kg, PRN Elevated BP, Start date: 05/27/18 12:03:00 COMPUTER INFORMATION SYSTEMS INSTRUCTOR, Duration: 2 doses or times, Stop date: Limited # of timesNotes: (Same as: Apresoline) Push over 5 minutes No Longer Active 05/27/2018 [facility] Flumazenil 0.2 mg, 2 mL, Route: IVP, Drug form: INJ, PRN, Dosing Weight 145.455, kg, PRN Benzodiazepine Reversal, Initial dose, Start date: 05/27/18 12:03:00 COMPUTER INFORMATION SYSTEMS INSTRUCTOR, Duration: 30 day, Stop date: 06/26/18 13:02:00 CDTNotes: (Same as: Romazicon) No Longer Active 05/27/2018 [facility] Hydromorphone 0.2 mg, 0.1 mL, Route: IVP, Drug form: INJ, Q5Min, Dosing Weight 145.455, kg, PRN Pain Score 7-10, Start date: 05/27/18 12:03:00 COMPUTER INFORMATION SYSTEMS INSTRUCTOR, Duration: 4 doses or times, Stop date: Limited # of timesNotes: S horacio as Dilaudid No Longer Active 05/27/2018 [facility] Fentanyl 25 microgram, 0.5 mL, Route: IVP, Drug form: INJ, Q5Min, Dosing Weight 145.455, kg, PRN Pain Score 4-6, Priority: Routine, Start date: 05/27/18 12:03:00 COMPUTER INFORMATION SYSTEMS INSTRUCTOR, Duration: 4 doses or times, Stop date: Limited # of timesNotes: (Same as: Sublimaze) Preservative free. No Longer Active 05/27/2018 [facility] Lactulose 20 Gm/30 Ml Solution Twice A Day Active Hua 03/07/2018 [facility] pantoprazole 40 mg oral enteric coated tablet 40 mg=1 tab, PO, Daily, # 30 tab, 11 Refill(s), Pharmacy: [facility]/pharmacy #[id number] Active 05/23/2017 [facility] propranolol 10 mg oral tablet 10 mg=1 tab, PO, BID, # 60 tab, 5 Refill(s), Pharmacy: [facility]/pharmacy #[id number] Active 05/23/2017 [facility] propranolol 10 mg oral tablet 10 mg=1 tab, PO, BID, 0 Refill(s) Active 04/01/2017 [facility] pantoprazole 40 mg, 1 tab, Route: PO, Drug form: ECTAB, Daily, Dosing Weight 147.727, kg, Start date: 02/14/17 9:00:00 CDT, Duration: 30 day, Stop date: 03/15/17 9:00:00 CSTNotes: Tablet should not be chewed or c rushed. (Same as: Protonix) No Longer Active 02/14/2017 [facility] Anusol-HC 25 mg rectal suppository 25 mg, 1 supp, Route: SC, BID, Drug form: SUPP, Start date: 02/13/17 17:00:00 CDT, Duration: 7 day, Stop date: 02/20/17 9:00:00 CSTNotes: (Same as: Anusol-HC, Hemorrhoidal HC) Inactive 02/13/2017 [facility] ciprofloxacin 500 mg oral tablet 500 mg, PO, [id number], X 5 day, # 10 tab, 0 Refill(s) Active 02/13/2017 [facility] ciprofloxacin 500 mg, 1 tab, Route: PO, Drug form: TAB, [id number], Dosing Weight 147.727, kg, Start date: 02/13/17 15:00:00 CDT, Duration: 7 day, Stop date: 02/20/17 3:00:00 COMPUTER INFORMATION SYSTEMS INSTRUCTOR, ABX Indication: Intra- abdominal InfectionNotes: May interfere w/enteral feedings - Take 1 hr before or 2 hrs after antacids, dairy pdt & minerals. On empty stomach. Inactive 02/13/2017 [facility] Anusol-HC 25 mg rectal suppository 25 mg=1 supp, SC, BID, X 7 day, # 14 supp, 0 Refill(s) Active 02/13/2017 [facility] tramadol 50 mg, 1 tab, Route: PO, Drug form: TAB, Q8H, Dosing Weight 147.727, kg, PRN Pain Score 1-3, Start date: 02/13/17 11:49:00 CDT, Duration: 30 day, Stop date: 03/15/17 11:48:00 CSTNotes: Not to exceed 400mg/day. (Same As: Ultram) Inactive 02/13/2017 [facility] lactulose 10 g/15 mL oral syrup 20 gm, 30 ml, Route: PO, Drug form: SYRP, TID, Dosing Weight 147.727, kg, Start date: 02/13/17 9:00:00 CDT, Duration: 30 day, Stop date: 03/14/17 17:00:00 CSTNotes: (Same as:Chronulac) Inactive 02/13/2017 [facility] riFAXimin 550 mg, Route: PO, Drug form: TAB, Q12H, Dosing Weight 147.727, kg, Start date: 02/13/17 9:00:00 CDT, Duration: 30 day, Stop date: 03/14/17 21:00:00 COMPUTER [employer]FORMATION SYSTEMS INSTRUCTOR Inactive 02/13/2017 [facility] Rocephin 1 gm, Route: IVPB, Drug form: PDR/INJ, [id number], Dosing Weight 145.455, kg, Start date: 02/12/17 22:00:00 CDT, Duration: 7 day, Stop date: 02/18/17 22:00:00 COMPUTER INFORMATION SYSTEMS INSTRUCTOR, ABX Indication: Intra-abdominal Infection Notes: (Same As: Rocephin). MEDICATION WASTE Product Size: 1000 mg Product Wasted: ___ mg No Longer Active 02/13/2017 [facility] Omnipaque 350mg/ml 100 mL, Route: IVP, Drug Form: SOLN, Dosing Weight 147.727, kg, ONCALL, STAT, Start date: 02/12/17 14:56:00 CDT, Duration: 1 doses or times, Stop date: 02/13/17 0:00:00 CDT, Dose=2.2ml/kg, Max [id number] -- "To be infused by Radiology Staff ONLY"Notes: (same as:Omnipaque 350). WASTE: F/P - Black; E - Municipal Trash Bin Inactive 02/12/2017 [facility] GoLYTELY 4,000 ml, Route: PO, Drug Form: PDR/REC, Dosing Weight 147.727, kg, ONCE, Start date: 02/12/17 11:20:00 CDT, Duration: 1 doses or times, Stop date: 02/12/17 11:20:00 CDTNotes: (polyethylene glycol elect rolyte solution 4 Liter bottle) (Same as: Golytely, Colyte) Inactive 02/12/2017 [facility] propranolol 10 mg, 1 tab, Route: PO, Drug form: TAB, BID, Dosing Weight 147.727, kg, Start date: 02/12/17 9:00:00 CDT, Duration: 30 day, Stop date: 03/13/17 17:00:00 CSTNotes: Give with food. (Same as: Inderal) No Longer Active 02/12/2017 [facility] calcium-vitamin D 500 mg-400 intl units oral tablet, chewable 1 tab, Route: PO, Drug Form: CHEWTAB, Dosing Weight 147.727, kg, Daily, Start date: 02/12/17 9:00:00 CDT, Duration: 30 day, Stop date: 03/13/17 9:00:00 CSTNotes: (calcium carbonate-vit D 500mg-400unit chew TAB) Same as: Oscal 500+D Inactive 02/12/2017 [facility] gabapentin 300 mg oral capsule 300 mg, 1 cap, Route: PO, Drug form: CAP, BID, Dosing Weight 147.727, kg, Start date: 02/12/17 9:00:00 CDT, Duration: 30 day, Stop date: 03/13/17 17:00:00 CSTNotes: (Same as: Neurontin) No Longer Active 02/12/2017 [facility] calcium gluconate + sodium chloride 0.9% INJ 80 mL 2,000 mg, 20 mL, Route: IVPB, ONCE, Dosing Weight 147.727, kg, Priority: STAT, Start date: 02/12/17 1:37:00 CDT, Stop date: 02/12/17 1:37:00 CDTNotes: WASTE: F/P - Sink; E - Municipal Trash Bin Inactive 02/12/2017 [facility] albumin human 25% intravenous solution 25 gm, 100 mL, Route: IVPB, Drug form: INJ, Q6H, Dosing Weight 145.455, kg, Start date: 02/12/17 0:00:00 CDT, Duration: 6 doses or times, Stop date: 02/13/17 6:00:00 CDT Inactive 02/12/2017 [facility] octreotide 1,250 microgram + sodium chloride 0.9% INJ 250 mL 250 mL, Rate: 50 microgram/hr, Route: IV, Dosing Weight 145.455 kg, Total Volume: 252.5, Priority: STAT, Start date: 02/11/17 23:41:00 CDT, Duration: 30 day, Stop date: 03/13/17 23:40:00 COMPUTER INFORMATION SYSTEMS INSTRUCTOR No Longer Active 02/12/2017 [facility] Sodium Chloride 0.9% IV 100 mL + pantoprazole 80 mg 100 mL, Rate: 10 ml/hr, Infuse over: 10 hr, Route: IVPB, Dosing Weight 145.455 kg, Total Volume: 100, Infuse at 8 mg / hr for 72 hours for GI bleeding, Priority: STAT, Start date: 02/11/17 23:41:00 CDT, Duration: 72 hr, Stop date: 02/14/17 23:40:00 CDT Inactive 02/12/2017 [facility] pantoprazole 80 mg + sodium chloride 0.9% INJ 100 mL 100 mL, Rate: 10 ml/hr, Infuse over: 10 hr, Route: IVPB, Dosing Weight 145.455 kg, Total Volume: 100, Infuse at 8 mg / hr for 72 hours for GI bleeding, Start date: 02/11/17 22:14:00 CDT, Duration: 72 hr, Stop date: 02/14/17 22:13:00 CDT No Longer Active 02/12/2017 [facility] Rocephin 1 gm, Route: IVPB, Drug form: PDR/INJ, ONCE, Dosing Weight 145.455, kg, Priority: STAT, Start date: 02/11/17 22:13:00 CDT, Duration: 1 doses or times, Stop date: 02/11/17 22:13:00 CDT, ABX Indication: O ther (specify in Comments)Notes: (Same As: Rocephin). MEDICATION WASTE Product Size: 1000 mg Product Wasted: ___ mg Inactive 02/12/2017 [facility] Octreotide (bolus) 50 microgram, 1 mL, Route: IV, Drug form: INJ, ONCE, Dosing Weight 145.455, kg, Start date: 02/11/17 22:12:00 CDT, Stop date: 02/11/17 22:12:00 CDTNotes: (Same As: SandoSTATIN). Refrigerate MEDICATION WASTE Product Size: 50 microgram Product Wasted: ___ microgram No Longer Active 02/12/2017 [facility] Protonix 80 mg, Route: IVP, Drug form: INJ, ONCE, Dosing Weight 145.455, kg, Priority: STAT, Start date: 02/11/17 22:12:00 CDT, Stop date: 02/11/17 22:12:00 CDTNotes: For IV push reconstitute with 10 ml 0.9% sod ium chloride and push over 2 minutes. (Same as: Protonix) Inactive 02/12/2017 [facility] multivitamin with minerals 1 tab, Route: PO, Drug Form: TAB, Dosing Weight 145.455, kg, Daily, Start date: 01/17/17 9:00:00 CDT, Duration: 30 day, Stop date: 02/15/17 9:00:00 CDTNotes: (Same as:Thera-M, Theragran-M) WASTE: F/P - Black; E - Municipal Trash Bin Give with food. Inactive 01/17/2017 [facility] Docusate 100 mg, 1 cap, Route: PO, Drug form: CAP, BID, Dosing Weight 145.455, kg, Start date: 01/17/17 9:00:00 CDT, Duration: 30 day, Stop date: 02/15/17 17:00:00 CDTNotes: (Same as: Colace) (Do Not Crush) Inactive 01/17/2017 [facility] gabapentin 300 MG Oral Capsule 300 mg, 1 cap, Route: PO, Drug form: CAP, BID, Dosing Weight 145.455, kg, Start date: 01/17/17 9:00:00 CDT, Duration: 30 day, Stop date: 02/15/17 17:00:00 CDTNotes: (Same as: Neurontin) Inactive 01/17/2017 [facility] Calcium Carbonate 1500 MG / Cholecalciferol 400 UNT Oral Tablet 1 tab, Route: PO, Drug Form: CHEWTAB, Dosing Weight 145.455, kg, Daily, Start date: 01/17/17 9:00:00 CDT, Duration: 30 day, Stop date: 02/15/17 9:00:00 CDTNotes: (calcium carbonate-vit D 500mg-400unit chew TAB) Same as: Oscal 500+D Inactive 01/17/2017 [facility] Propranolol 10 mg, 1 tab, Route: PO, Drug form: TAB, BID, Dosing Weight 145.455, kg, Start date: 01/17/17 9:00:00 CDT, Duration: 30 day, Stop date: 02/15/17 17:00:00 CDTNotes: Give with food. (Same as: Inderal) Inactive 01/17/2017 [facility] pantoprazole 40 mg, 1 tab, Route: PO, Drug form: ECTAB, Before Breakfast, Dosing Weight 145.455, kg, Start date: 01/17/17 7:30:00 CDT, Duration: 30 day, Stop date: 02/15/17 7:30:00 CDTNotes: Tablet should not be chewed or crushed. (Same as: Protonix) Inactive 01/17/2017 [facility] Lactulose 667 MG/ML Oral Solution 10 gm, 15 mL, Route: PO, Drug form: SYRP, Daily, Dosing Weight 145.455, kg, PRN Constipation, Start date: 01/16/17 22:47:00 CDT, Duration: 30 day, Stop date: 02/15/17 22:46:00 CDTNotes: (Same as:Chronulac) No Longer Active 01/17/2017 [facility] Lactulose 667 MG/ML Oral Solution 10 gm=15 mL, PO, Daily, PRN as needed for constipation, # 480 mL, 0 Refill(s) Active 01/17/2017 [facility] pantoprazole 40 MG Enteric Coated Tablet [Protonix] 40 mg=1 tab, PO, Daily, # 30 tab, 0 Refill(s) Active 01/17/2017 [facility] tramadol hydrochloride 50 MG Oral Tablet 50 mg, 1 tab, Route: PO, Drug form: TAB, Q6H, Dosing Weight 145.455, kg, PRN Pain Score 4-6, Start date: 01/16/17 22:45:00 CDT, Duration: 30 day, Stop date: 02/15/17 22:44:00 CDTNotes: Not to exceed 400mg/day. (Same As: Ultram) No Longer Active 01/17/2017 [facility] Ondansetron 4 mg, 2 mL, Route: IVP, Drug form: INJ, Q6H, Dosing Weight 145.455, kg, PRN Nausea & Vomiting, Start date: 01/16/17 21:44:00 CDT, Duration: 30 day, Stop date: 02/15/17 21:43:00 CDTNotes: (Same as: Zofran) MEDICATION WASTE Product Size: 4 mg Product Wasted: ___ mg No Longer Active 01/17/2017 [facility] Hydromorphone 1 mg, 0.5 mL, Route: IVP, Drug form: INJ, Q4H, Dosing Weight 145.455, kg, PRN Pain Score 7-10, Start date: 01/16/17 12:59:00 CDT, Duration: 1 day, Stop date: 01/17/17 12:58:00 CDTNotes: Same as: Dilaudid No Longer Active 01/16/2017 [facility] Acetaminophen 325 MG / Hydrocodone Bitartrate 10 MG Oral Tablet 1 tab, Route: PO, Drug Form: TAB, Dosing Weight 145.455, kg, Q4H, PRN Pain Score 4-6, Start date: 01/16/17 12:59:00 CDT, Duration: 1 day, Stop date: 01/17/17 12:58:00 CDTNotes: Do not exceed 4gm/day of acetaminophen. (Same as: [place] 325/10) No Longer Active 01/16/2017 [facility] Fentanyl 50 microgram, Route: IV, ONCE, Dosing Weight 145.455, kg, Start date: 01/16/17 12:13:00 CDT, Stop date: 01/16/17 12:13:00 CDT, Inactive 01/16/2017 [facility] Midazolam 1 mg, Route: IV, ONCE, Dosing Weight 145.455, kg, Start date: 01/16/17 12:13:00 CDT, Stop date: 01/16/17 12:13:00 CDT Inactive 01/16/2017 [facility] Midazolam 1 mg, Route: IV, ONCE, Dosing Weight 145.455, kg, Start date: 01/16/17 11:22:00 CDT, Stop date: 01/16/17 11:22:00 CDT Inactive 01/16/2017 [facility] Fentanyl 50 microgram, Route: IV, ONCE, Dosing Weight 145.455, kg, Start date: 01/16/17 11:22:00 CDT, Stop date: 01/16/17 11:22:00 CDT, Inactive 01/16/2017 [facility] Midazolam 1 mg, Route: IV, ONCE, Dosing Weight 145.455, kg, Start date: 01/16/17 10:15:00 CDT, Stop date: 01/16/17 10:15:00 CDT Inactive 01/16/2017 [facility] Fentanyl 50 microgram, Route: IV, ONCE, Dosing Weight 145.455, kg, Start date: 01/16/17 10:15:00 CDT, Stop date: 01/16/17 10:15:00 CDT, Inactive 01/16/2017 [facility] Ancef 1 gm, Route: IV, ONCE, Dosing Weight 145.455, kg, Start date: 01/16/17 9:57:00 CDT, Stop date: 01/16/17 9:57:00 CDT, ABX Indication: Surgical Prophylaxis Inactive 01/16/2017 [facility] Flagyl 500 mg, Route: IV, ONCE, Dosing Weight 145.455, kg, Start date: 01/16/17 8:44:00 CDT, Stop date: 01/16/17 8:44:00 CDT, ABX Indication: Surgical Prophylaxis Inactive 01/16/2017 [facility] ondansetron 16 mg, 50 mL, Route: IVPB, Drug form: SOLN, On Adm, Start date: 01/16/17 8:00:00 CDT, Duration: 1 doses or times, Stop date: 01/16/17 23:00:00 CDTNotes: Same as: Zofran Inactive 01/16/2017 [facility] Sodium Chloride 0.9% IV IV, 100 ml/hr, On Adm, Start date: 01/16/17 8:00:00 CDT, Duration: 1, 1,000 ml Inactive 01/16/2017 [facility] DOXOrubicin 100 mg + sterile water 4 mL + empty container 1 ea Route: INTRAARTERIAL, On Adm, Start date: 01/16/17 8:00:00 CDT, Duration: 1 doses or times, Stop date: 01/16/17 23:00:00 CDTNotes: (Same as: Adriamycin) CHEMOTHERAPY; Infuse entire contents for full dose WASTE: F/P - Black; E - Yellow MEDICATION WASTE Product Size: 50 mg Product Wasted: _0__ mg Inactive 01/16/2017 [facility] dexamethasone + sodium chloride 0.9% INJ 50 mL 10 mg, 1 mL, Route: IVPB, On Adm, Start date: 01/16/17 8:00:00 CDT, Duration: 1 doses or times, Stop date: 01/16/17 23:00:00 CDT Inactive 01/16/2017 [facility] clarithromycin 500 mg oral tablet 500 mg=1 tab, PO, Q12H, # 28 tab, 0 Refill(s) Active 04/30/2016 [facility] ICaps MV oral tablet 1 tab, PO, Daily, # 30 tab, 0 Refill(s) Active 04/30/2016 [facility] Calcium Carbonate 1500 MG / Cholecalciferol 400 UNT Oral Tablet 1 tab, PO, Daily, # 60 tab, 0 Refill(s) Active 04/30/2016 [facility] Vitamin K1 100 mcg oral tablet 100 microgram=1 tab, PO, Daily, 0 Refill(s) Inactive 04/30/2016 [facility] propranolol 10 mg oral tablet 10 mg=1 tab, PO, BID, # 60 tab, 6 Refill(s), Pharmacy: [facility]/pharmacy #[id number] Active 03/28/2016 [facility] Propranolol 10 mg=1 tab, PO, QID, # 100 tab, 0 Refill(s) Active 03/27/2016 [facility] tramadol hydrochloride 50 MG Oral Tablet 50 mg=1 tab, PO, Q6H, PRN Pain, # 40 tab, 0 Refill(s) Active 03/23/2016 [facility] lactulose 10 g oral powder 10 gm=1 ea, PO, BID, # 20 ea, 0 Refill(s) No Longer Active 03/23/2016 [facility] [facility] Lactulose 667 MG/ML Oral Solution 10 gm=15 mL, PO, BID, X 30 day, # 900 mL, 6 Refill(s), Pharmacy: [facility]/pharmacy #[id number] Active 03/01/2016 [facility] non-formulary Refill(s) 0 Active 03/01/2016 [facility] Acetaminophen 325 MG / tramadol hydrochloride 37.5 MG Oral Tablet [Ultracet] 1 tab, PO, Q4H, 0 Refill(s) Active 03/01/2016 [facility] pantoprazole 40 mg oral granule =1 Pack, PO, Daily, # 30 ea, 0 Refill(s) Active 03/01/2016 [facility] ICaps Plus oral tablet 1 tab, PO, Daily, 0 Refill(s) Active 03/01/2016 [facility] gabapentin 300 MG Oral Capsule 300 mg=1 cap, PO, TID, 0 Refill(s) Active 03/01/2016 [facility] mometasone (NASONEX) 50 mcg/actuation nasal spray 1 [place] by each nostril route daily. Active 12/17/2014 [facility] loratadine (CLARITIN) 10 mg tablet Take 1 tablet by mouth daily. Oral Active 12/17/2014 [facility] ergocalciferol (VITAMIN D2) 50,000 unit capsule Take 1 capsule by mouth weekly. Oral Active 11/12/2014 [facility] triamcinolone (TRIDERM) 0.1 % topical cream Apply to affected area 2 times daily. Topical Active 01/26/2014 [facility] traMADol (ULTRAM) 50 mg tablet Take 2 tablets by mouth every 6 hours as needed for Pain. Oral Active 12/31/2013 [facility] PREDNISONE 5MG TAB 1 tablet twice daily Active 09/02/2009 [facility] DOCUSATE SODIUM 100 MG CAP take one cap by mouth 4 times a day Oral Active 04/13/2009 [facility] HYDROCORTISONE ACETATE 25 MG RECTAL SUPPOSITORY insert 1 suppository (25 mg) by rectal route 2 times per day for 2 weeks Rectal Active 04/13/2009 [facility] HYDROCODONE-ACETAMINOPHEN 10-500 mg per tablet Take 1 Tab by mouth every 6 hours as needed. Oral Active [facility] gabapentin (NEURONTIN) 300 mg capsule Take 300 mg by mouth 2 times daily. Oral Active [facility] pantoprazole (PROTONIX) 20 mg delayed release tablet Take 40 mg by mouth daily. Oral Active [facility] lactulose 10 gram/15 mL (15 mL) Soln Take 10 mL by mouth daily as needed. Oral Active [facility] Allergies, Adverse Reactions, Alerts Substance Category Reaction Severity Reaction type Status Date Reported Comments Source Immunizations Immunization Date Given Site Status Last Updated Comments Source Results Order Name Results Value Reference Range Date Interpretation Comments Source CBC/DIFF WBC 2.6 K/uL 4.5 - 12 06/06/2018 [facility] CBC/DIFF RBC 3.47 4.60 - 6.20 06/06/2018 [facility] CBC/DIFF Hemoglobin 9.4 g/dL 14 - 18 06/06/2018 [facility] CBC/DIFF Hematocrit 31.3 % 40 - 54 06/06/2018 [facility] CBC/DIFF MCV 90 fL 82 - 92 06/06/2018 [facility] CBC/DIFF MCH 27.1 pg 27 - 31 06/06/2018 [facility] CBC/DIFF MCHC 30.0 g/dL 32 - 36 06/06/2018 [facility] CBC/DIFF RDW 65.0 fL 35.1 - 43.9 06/06/2018 [facility] CBC/DIFF Platelet 41 K/uL 150 - 400 06/06/2018 [facility] CBC/DIFF Mean Platelet Volume Not measured 9.4 - 12.4 06/06/2018 [facility] CBC/DIFF Percent NRBC 0.0 06/06/2018 [facility] CBC/DIFF Absolute NRBC 0.00 06/06/2018 [facility] CBC/DIFF Neutrophil 58.0 % 34 - 67.9 06/06/2018 [facility] CBC/DIFF Lymphocyte 31.0 % 21.8 - 50 06/06/2018 [facility] CBC/DIFF Monocyte 4.0 % 5.3 - 12 06/06/2018 [facility] CBC/DIFF Eosinophil 4.0 % 0.8 - 5 06/06/2018 [facility] CBC/DIFF Basophil 3.0 % 0.2 - 1.2 06/06/2018 [facility] CBC/DIFF Neutrophil, Abs 1.51 K/uL 1.78 - 5.36 06/06/2018 [facility] CBC/DIFF Lymphocyte, Abs 0.81 K/uL 1.32 - 3.57 06/06/2018 [facility] CBC/DIFF Monocyte, Abs 0.10 K/uL 0.3 - 0.82 06/06/2018 [facility] CBC/DIFF Eosinophil, Abs 0.10 K/uL 0.04 - 0.54 06/06/2018 [facility] CBC/DIFF Basophil, Abs 0.08 K/uL 0.01 - 0.08 06/06/2018 [facility] CBC/DIFF Ovalocyte 3+ 06/06/2018 [facility] CBC/DIFF Schistocyte 1+ 06/06/2018 [facility] CBC/DIFF Tear Drop Cell 2+ 06/06/2018 [facility] CBC/DIFF Lab Interpretation Abnormal 06/06/2018 [facility] BASIC METABOLIC PANEL CO2 29 mmol/L 21 - 31 06/06/2018 [facility] BASIC METABOLIC PANEL Chloride 109 mmol/L 98 - 107 06/06/2018 [facility] BASIC METABOLIC PANEL Potassium 4.4 mmol/L 3.5 - 5.1 06/06/2018 [facility] BASIC METABOLIC PANEL Sodium 141 mmol/L 136 - 145 06/06/2018 [facility] BASIC METABOLIC PANEL Glucose 79 mg/dL 70 - 110 06/06/2018 [facility] BASIC METABOLIC PANEL Urea Nitrogen 11 mg/dL 7 - 25 06/06/2018 [facility] BASIC METABOLIC PANEL Creatinine 0.80 mg/dL 0.7 - 1.3 06/06/2018 [facility] BASIC METABOLIC PANEL Anion Gap 3 06/06/2018 [facility] BASIC METABOLIC PANEL Calcium 8.2 mg/dL 8.6 - 10.3 06/06/2018 [facility] BASIC METABOLIC PANEL GFR, Estimated >60 mL/min/1.73 m2 06/06/2018 [facility] BASIC METABOLIC PANEL GFR, Estim, Afr-Am >60 mL/min/1.73 m2 06/06/2018 [facility] BASIC METABOLIC PANEL Lab Interpretation Abnormal 06/06/2018 [facility] LIVER PROFILE T Protein 5.7 g/dL 6 - 8.3 06/06/2018 [facility] LIVER PROFILE Albumin 2.6 g/dL 4.2 - 5.5 06/06/2018 [facility] LIVER PROFILE T Bilirubin 3.1 mg/dL 0.2 - 1.2 06/06/2018 [facility] LIVER PROFILE Alk Phos 110 U/L 34 - 104 06/06/2018 [facility] LIVER PROFILE AST 48 U/L 13 - 39 06/06/2018 [facility] LIVER PROFILE ALT 23 U/L 7 - 52 06/06/2018 [facility] LIVER PROFILE D Bilirubin 1.0 mg/dL 0 - 0.2 06/06/2018 [facility] LIVER PROFILE Lab Interpretation Abnormal 06/06/2018 [facility] PT/INR/PTT PT 20.4 11.8 - 15.0 06/06/2018 [facility] PT/INR/PTT INR 1.8 SUGGESTED THERAPEUTIC RANGES: INR 2.0-3.0 for MODERATE INTENSITY ANTICOAGULATION INR 2.5-3.5 for HIGH INTENSITY ANTICOAGULATION 06/06/2018 [facility] PT/INR/PTT PTT 47.3 23.6 - 36.4 06/06/2018 [facility] PT/INR/PTT Lab Interpretation Abnormal 06/06/2018 [facility] HEMATOLOGY PTT 46.9 s 22.9 - 35.8 05/27/2018 [facility] HEMATOLOGY INR 1.95 0.85 - 1.17 05/27/2018 [facility] HEMATOLOGY PT 21.8 s 12.0 - 14.7 05/27/2018 [facility] BLOOD BANK RESULTS Antibody Scrn Negative (05/27/18 12:50 PM) 05/27/2018 [facility] BLOOD BANK RESULTS ABO/Rh O POS 05/27/2018 [facility] CHEM PANEL Globulin 3.7 g/dL 2.7 - 4.2 05/27/2018 [facility] CHEM PANEL B/C Ratio 15 6 - 25 05/27/2018 [facility] CHEM PANEL A/G Ratio 0.6 0.7 - 1.6 05/27/2018 [facility] CHEM PANEL AGAP 8.0 meq/L 10.0 - 20.0 05/27/2018 [facility] CHEM PANEL eGFR 114 mL/min/1.73m2 05/27/2018 Result Comment: The eGFR is calculated using [...] should be multiplied by the estimated BMI. [facility] CHEM PANEL Potassium Lvl 4.0 meq/L 3.5 - 5.1 05/27/2018 [facility] CHEM PANEL CO2 27 meq/L 24 - 32 05/27/2018 [facility] CHEM PANEL Chloride Lvl 114 meq/L 95 - 109 05/27/2018 [facility] CHEM PANEL Calcium Lvl 7.7 mg/dL 8.5 - 10.5 05/27/2018 [facility] CHEM PANEL Total Protein 6.1 g/dL 6.4 - 8.4 05/27/2018 [facility] CHEM PANEL Glucose Lvl 79 mg/dL 70 - 99 05/27/2018 [facility] CHEM PANEL Sodium Lvl 145 meq/L 135 - 145 05/27/2018 [facility] CHEM PANEL BUN 12 mg/dL 7 - 22 05/27/2018 [facility] CHEM PANEL Creatinine Lvl 0.79 mg/dL 0.50 - 1.40 05/27/2018 [facility] CHEM PANEL Alk Phos 126 unit/L 39 - 136 05/27/2018 [facility] CHEM PANEL AST 52 unit/L 0 - 37 05/27/2018 [facility] CHEM PANEL Bili Total 2.8 mg/dL 0.2 - 1.3 05/27/2018 [facility] CHEM PANEL ALT 30 unit/L 0 - 65 05/27/2018 [facility] CHEM PANEL Albumin Lvl 2.4 g/dL 3.5 - 5.0 05/27/2018 [facility] HEMATOLOGY Lymphocytes # 0.7 K/CMM 1.0 - 5.5 05/27/2018 [facility] HEMATOLOGY Neutrophils # 1.3 K/CMM 1.5 - 8.1 05/27/2018 [facility] HEMATOLOGY Basophils 1.1 % 0.0 - 1.0 05/27/2018 [facility] HEMATOLOGY Eosinophils # 0.1 K/CMM 0.0 - 0.5 05/27/2018 [facility] HEMATOLOGY Monocytes # 0.3 K/CMM 0.0 - 0.8 05/27/2018 [facility] HEMATOLOGY Segs 54.7 % 45.0 - 75.0 05/27/2018 [facility] HEMATOLOGY Monocytes 11.1 % 2.0 - 12.0 05/27/2018 [facility] HEMATOLOGY Eosinophils 4.5 % 0.0 - 4.0 05/27/2018 [facility] HEMATOLOGY Lymphocytes 28.6 % 20.0 - 40.0 05/27/2018 [facility] HEMATOLOGY RDW 20.1 % 11.5 - 14.5 05/27/2018 [facility] HEMATOLOGY MCHC 32.1 g/dL 32.0 - 36.0 05/27/2018 [facility] HEMATOLOGY MPV 10.5 fL 7.4 - 10.4 05/27/2018 [facility] HEMATOLOGY Platelet 73 K/CMM 133 - 450 05/27/2018 [facility] HEMATOLOGY MCH 27.8 pg 27.0 - 31.0 05/27/2018 [facility] HEMATOLOGY WBC 2.4 K/CMM 3.7 - 10.4 05/27/2018 [facility] HEMATOLOGY MCV 86.4 fL 80.0 - 94.0 05/27/2018 [facility] HEMATOLOGY RBC 3.42 M/CMM 4.70 - 6.10 05/27/2018 [facility] HEMATOLOGY Hct 29.5 % 42.0 - 54.0 05/27/2018 [facility] HEMATOLOGY Hgb 9.5 g/dL 14.0 - 18.0 05/27/2018 [facility] Abd Liver Protocol w/wo IV contrast CT Abd Liver Protocol w/wo IV contrast CT EXAM: CT ABDOMEN WITH AND WITHOUT CONTRAST DATE: 04/18/2018 11:11 COMPUTER INFORMATION SYSTEMS INSTRUCTOR INDICATION: - R94.5 Abnormal results of liver function studies ADDITIONAL INFORMATION: None. COMPARISON: None. TECHNIQUE: Volumetric CT acquisition of the abdomen both prior to and following intravenous contrast, in precontrast, arterial, portal venous and delayed phases of enhancement, per the dynamic liver protocol. Axial, sagittal and coronal reconstructions. IV contrast: 150 mL of Omnipaque 350 Oral contrast: None. DLP: 3644.9 mGy*cm FINDINGS: Lines and tubes: None. Lower thorax: Small left pleural effusion seen. Severe very large esophageal varices seen. Liver Craniocaudal length: 12.8 cm. Normal. Density: Normal. Surface nodularity: Moderately nodular consistent with hepatic cirrhosis.. Enhancing hepatic masses > 2cm: None. Enhancing hepatic masses < 2cm: A 1.5 cm arterially hyperenhancing focus seen in the right lobe of liver at the dome in hepatic segment 8, image 17 series 4. No washout seen on delayed imaging. Non-enhancing/cystic hepatic lesions: None. Hepatic vessels: Hepatic arterial anatomy: Conventional. Arterial stenoses: None. Portal vein: Patent. Caliber: Dilated. Portosystemic collaterals are seen with very large esophageal varices, dilated splenic vein with splenic hilar and also gastric varices. Perisplenic portosystemic collaterals also seen in the anterior mesentery. There is small recanalized left umbilical vein. Hepatic, splenic and superior mesenteric veins, and IVC: Patent. Regional lymph nodes: Few nonspecific periportal lymph nodes seen. Biliary tree: No intra- or extrahepatic biliary ductal dilation. Gallbladder: Gallbladder is contracted and filled with gallstones. Calculi also seen in the cystic duct. Pancreas: Normal. No pancreatic ductal dilation. No obvious focal lesions. Spleen: Moderate splenomegaly seen. Adrenals: Normal. No adrenal nodules. Kidneys and ureters: Normal. No obvious focal lesions. No nephrolithiasis. No hydronephrosis. No ureteral dilations to the extent imaged. Both kidneys are normally enhancing with prompt excretion. Stomach: Stomach is relatively decompressed. Duodenum: Duodenum is unremarkable without wall thickening. No duodenal diverticula seen. Small bowel: No small bowel dilation to the extent imaged. No small bowel wall thickening to the extent imaged. Colon: Colon to the extent imaged is nondilated. Peritoneum: Small amount of abdominal ascites seen. No fluid collections. Lymph nodes: No enlarged retroperitoneal or pelvic or mesenteric lymph nodes by CT size criteria. Abdominal aorta: Abdominal aorta is patent without aneurysmal dilation. IVC: IVC is patent. Bones: L4-L5 and L5-S1 disc degenerative changes seen. No suspicious lytic or blastic lesions seen in the bones. Abdominal wall: No obvious ventral hernias. Soft tissues: No obvious focal masses or fluid collections. IMPRESSION: 1. A 1.5 cm arterially enhancing focus without washout in the hepatic segment 8 at the dome seen again. LR3. 2. Cirrhotic liver with extensive dinora systemic collaterals and portal hypertension seen again. 3. Small amount of abdominal ascites and small left pleural effusion seen again. 04/18/2018 - - Read by: Pedro Pablo Lara Dictated Date/time: 04/18/18 12:09 Electronically Signed by: Pedro Pablo Lara 04/18/18 12:17 FINAL REPORT LORENE Prashanth Blood leukocytes automated count (number/volume) 4.81 4.8 - 10.8 03/08/2018 [facility] Blood erythrocytes automated count (number/volume) 3.24 4.3 - 5.7 03/08/2018 [facility] Blood hemoglobin measurement (moles/volume) 9.5 14.0 - 18.0 03/08/2018 [facility] Automated blood hematocrit (volume fraction) 29.0 38.2 - 49.6 03/08/2018 [facility] Automated erythrocyte mean corpuscular volume 89.5 81 - 99 03/08/2018 [facility] Automated erythrocyte mean corpuscular hemoglobin (mass per erythrocyte) 29.3 28 - 32 03/08/2018 [facility] Automated erythrocyte mean corpuscular hemoglobin concentration measurement (mass/volume) 32.8 31 - 35 03/08/2018 [facility] RDW BldCo-Rto 18.1 11.7 - 14.4 03/08/2018 [facility] Automated blood platelet count (count/volume) 27 140 - 360 03/08/2018 [facility] Automated blood segmented neutrophil count as percentage of total leukocytes 72.2 38.7 - 80.0 03/08/2018 [facility] Automated blood lymphocyte count as percentage ot total leukocytes 15.6 18.0 - 39.1 03/08/2018 [facility] Automated blood monocyte count as percentage of total leukocytes 7.9 4.4 - 11.3 03/08/2018 [facility] Automated blood eosinophil count as percentage of total leukocytes 3.3 0.0 - 6.0 03/08/2018 [facility] Automated blood basophil count as percentage of total leukocytes 0.2 0.0 - 1.0 03/08/2018 [facility] IM GRANULOCYTES % 0.8 0.0 - 1.0 03/08/2018 [facility] Automated blood neutrophil count 3.5 2.1 - 6.9 03/08/2018 [facility] Blood lymphocytes count (number/volume) 0.8 1.0 - 3.2 03/08/2018 [facility] Blood monocytes automated count (number/volume) 0.4 0.2 - 0.8 03/08/2018 [facility] Automated blood eosinophil count 0.2 0.0 - 0.4 03/08/2018 [facility] Automated blood basophil count (count/volume) 0.0 0.0 - 0.1 03/08/2018 [facility] Absolute Immature Granulocyte (auto 0.04 0 - 0.1 03/08/2018 [facility] Ammonia Ser-mCnc 113 31 - 123 03/08/2018 [facility] Differential Total Cells Counted 100 03/07/2018 [facility] Manual blood neutrophils/100 leukocytes 79 40 - 74 03/07/2018 [facility] Manual blood lymphocytes/100 leukocytes 15 19 - 48 03/07/2018 [facility] Manual blood monocytes/100 leukocytes 5 3.4 - 9.0 03/07/2018 [facility] Manual blood eosinophil count as percentage of total leukocytes 1 0 - 7 03/07/2018 [facility] Blood platelets count by estimate (number/volume) MODERATELY DECREASED 03/07/2018 [facility] Platelet morphology NORMAL 03/07/2018 [facility] RBC morphology NORMAL 03/07/2018 [facility] Serum or plasma sodium measurement (moles/volume) 138 136 - 145 03/06/2018 [facility] Serum or plasma potassium measurement (moles/volume) 4.5 3.5 - 5.1 03/06/2018 [facility] Serum or plasma chloride measurement (moles/volume) 110 98 - 107 03/06/2018 [facility] Serum or plasma carbon dioxide, total measurement (moles/volume) 24 22 - 29 03/06/2018 [facility] Serum or plasma anion gap 8.5 8 - 16 03/06/2018 [facility] Serum or plasma urea nitrogen measurement (mass/volume) 12 7 - 26 03/06/2018 [facility] Serum or plasma creatinine measurement (mass/volume) 0.82 0.72 - 1.25 03/06/2018 [facility] Serum or plasma urea nitrogen/creatinine mass ratio 15 6 - 25 03/06/2018 [facility] Estimated glomerular filtration rate (GFR) determination > 60 60 03/06/2018 [facility] Glucose measurement 83 74 - 118 03/06/2018 [facility] Serum or plasma calcium measurement (mass/volume) 7.7 8.4 - 10.2 03/06/2018 [facility] Serum or plasma total bilirubin measurement (mass/volume) 4.1 0.2 - 1.2 03/06/2018 [facility] Aspartate Amino Transf (AST/SGOT) 88 5 - 34 03/06/2018 [facility] Serum or plasma alanine aminotransferase measurement (enzymatic activity/volume) 29 0 - 55 03/06/2018 [facility] Serum or plasma protein measurement (mass/volume) 6.1 6.5 - 8.1 03/06/2018 [facility] Serum or plasma albumin measurement (mass/volume) 2.4 3.5 - 5.0 03/06/2018 [facility] Plasma globulin measurement (mass/volume) 3.7 2.3 - 3.5 03/06/2018 [facility] Serum or plasma albumin/globulin mass ratio 0.6 0.8 - 2.0 03/06/2018 [facility] Serum or plasma alkaline phosphatase measurement (enzymatic activity/volume) 83 40 - 150 03/06/2018 [facility] Blood lymphocytes variant count (number/volume) 6 03/06/2018 [facility] Blood hypochromia detection by light microscopy MODERATE 03/06/2018 [facility] Blood poikilocytosis detection by light microscopy SLIGHT 03/06/2018 [facility] Blood anisocytosis detection by light microscopy SLIGHT 03/06/2018 [facility] Blood ovalocytes detection by light microscopy FEW 03/06/2018 [facility] Manual blood band neutrophils form/100 leukocytes 1 03/05/2018 [facility] Manual basophil percentage 1 0 - 1.5 03/05/2018 [facility] Elliptocyte detection SLIGHT 03/05/2018 [facility] Prothrombin time (PT) in platelet poor plasma by coagulation assay 22.5 11.9 - 14.5 03/05/2018 [facility] INR in Platelet poor plasma by Coagulation assay 1.82 03/05/2018 [facility] Activated partial thromboplastin time (aPTT) in platelet poor plasma bycoagulation assay 47.8 23.8 - 35.5 03/05/2018 [facility] Urine color determination ORANGE YELLOW 03/05/2018 [facility] Urine clarity CLOUDY CLEAR 03/05/2018 [facility] Specific gravity of Urine by Test strip 1.025 1.010 - 1.025 03/05/2018 [facility] Urine pH measurement by automated test strip 6 5 - 7 03/05/2018 [facility] Urine leukocyte esterase detection by dipstick NEGATIVE NEGATIVE 03/05/2018 [facility] Urine nitrite detection NEGATIVE NEGATIVE 03/05/2018 [facility] Urine protein measurement by test strip (mass/volume) NEGATIVE NEGATIVE 03/05/2018 [facility] Urine glucose detection NEGATIVE NEGATIVE 03/05/2018 [facility] Urine ketones detection by automated test strip NEGATIVE NEGATIVE 03/05/2018 [facility] Urine urobilinogen measurement by test strip (mass/volume) 4 0.2 - 1 03/05/2018 [facility] Urine total bilirubin measurement (mass/volume) 1+ NEGATIVE 03/05/2018 [facility] Urine erythrocytes detection NEGATIVE NEGATIVE 03/05/2018 [facility] Automated urine sediment leukocyte count by microscopy (number/high power field) 0-5 0 - 5 03/05/2018 [facility] Erythrocytes detection in urine sediment by light microscopy 0-5 0 - 5 03/05/2018 [facility] Bacteria detection in urine sediment by light microscopy FEW NONE 03/05/2018 [facility] Epithelial cells detection in urine sediment by light microscopy FEW NONE 03/05/2018 [facility] Calcium oxalate crystals detection in urine sediment by light microscopy MANY FEW 03/05/2018 [facility] Blood culture NO GROWTH AFTER 72 HOURS 03/04/2018 [facility] Abd Liver Protocol w/wo IV contrast CT [facility] Liver Protocol w/wo IV contrast CT EXAM: [...] Leonidas Berry MD 10/25/17 13:55 FINAL REPORT LORENE Alford Abd/Pelvis Liver Protocol w IV/Abd wo CT Abd/Pelvis Liver Protocol w IV/Abd wo CT EXAM: CT ABDOMEN AND PELVIS WITHOUT AND WITH CONTRAST DATE: 05/10/2017 5:18 PM COMPUTER INFORMATION SYSTEMS INSTRUCTOR INDICATION: - C22.0 Liver cell carcinoma ADDITIONAL [...] Briceno MD 05/13/17 15:32 FINAL REPORT LORENE Cooperann Chest wo contrast CT Chest wo contrast CT EXAM: CT CHEST WITHOUT CONTRAST DATE: 05/10/2017 5:18 PM COMPUTER INFORMATION SYSTEMS INSTRUCTOR INDICATION: - C22.0 Liver cell carcinoma TECHNIQUE: [...] Mac MD 05/11/17 12:24 FINAL REPORT LORENE Alford CHEM PANEL Magnesium Lvl 1.9 mg/dL 1.8 - 2.4 02/13/2017 [facility] CHEM PANEL Bili Indirect 2.6 mg/dL 0.0 - 1.0 02/13/2017 [facility] CHEM PANEL Globulin 3.1 g/dL 2.7 - 4.2 02/13/2017 [facility] CHEM PANEL A/G Ratio 0.8 0.7 - 1.6 02/13/2017 [facility] CHEM PANEL Total Protein 5.6 g/dL 6.4 - 8.4 02/13/2017 [facility] CHEM PANEL Bili Total 3.9 mg/dL 0.2 - 1.3 02/13/2017 [facility] CHEM PANEL Alk Phos 99 unit/L 39 - 136 02/13/2017 [facility] CHEM PANEL Bili Direct 1.3 mg/dL 0.0 - 0.3 02/13/2017 [facility] CHEM PANEL Albumin Lvl 2.5 g/dL 3.5 - 5.0 02/13/2017 [facility] CHEM PANEL AST 45 unit/L 0 - 37 02/13/2017 [facility] CHEM PANEL ALT 28 unit/L 0 - 65 02/13/2017 [facility] CHEM PANEL Phosphorus 4.0 mg/dL 2.5 - 4.5 02/13/2017 [facility] ELECTROLYTES AGAP 11.8 meq/L 10.0 - 20.0 02/13/2017 [facility] ELECTROLYTES eGFR 113 mL/min/1.73m2 02/13/2017 Result Comment: [...] should be multiplied by the estimated BMI. [facility] [facility] ELECTROLYTES Calcium Lvl 7.8 mg/dL 8.5 - 10.5 02/13/2017 [facility] ELECTROLYTES BUN 11 mg/dL 7 - 22 02/13/2017 [facility] ELECTROLYTES Glucose Lvl 105 mg/dL 70 - 99 02/13/2017 [facility] ELECTROLYTES Creatinine Lvl 0.82 mg/dL 0.50 - 1.40 02/13/2017 [facility] ELECTROLYTES Sodium Lvl 140 meq/L 135 - 145 02/13/2017 [facility] ELECTROLYTES Chloride Lvl 106 meq/L 95 - 109 02/13/2017 [facility] ELECTROLYTES CO2 26 meq/L 24 - 32 02/13/2017 [facility] ELECTROLYTES Potassium Lvl 3.8 meq/L 3.5 - 5.1 02/13/2017 [facility] HEMATOLOGY Eosinophils # 0.1 K/CMM 0.0 - 0.5 02/13/2017 [facility] HEMATOLOGY Segs 50.1 % 45.0 - 75.0 02/13/2017 [facility] HEMATOLOGY Monocytes # 0.2 K/CMM 0.0 - 0.8 02/13/2017 [facility] HEMATOLOGY Segs-Bands # 0.9 K/CMM 1.5 - 8.1 02/13/2017 [facility] HEMATOLOGY Lymphocytes # 0.5 K/CMM 1.0 - 5.5 02/13/2017 [facility] HEMATOLOGY Eosinophils 6.1 % 0.0 - 4.0 02/13/2017 [facility] HEMATOLOGY Basophils 1.0 % 0.0 - 1.0 02/13/2017 [facility] HEMATOLOGY Lymphocytes 30.9 % 20.0 - 40.0 02/13/2017 [facility] HEMATOLOGY Monocytes 11.9 % 2.0 - 12.0 02/13/2017 [facility] HEMATOLOGY WBC 1.7 K/CMM 3.7 - 10.4 02/13/2017 [facility] HEMATOLOGY RBC 3.46 M/CMM 4.70 - 6.10 02/13/2017 [facility] HEMATOLOGY MPV 9.4 fL 7.4 - 10.4 02/13/2017 [facility] HEMATOLOGY RDW 16.7 % 11.5 - 14.5 02/13/2017 [facility] HEMATOLOGY Platelet 32 K/CMM 133 - 450 02/13/2017 [facility] HEMATOLOGY MCHC 35.2 g/dL 32.0 - 36.0 02/13/2017 [facility] HEMATOLOGY Hct 32.1 % 42.0 - 54.0 02/13/2017 [facility] HEMATOLOGY MCV 92.8 fL 80.0 - 94.0 02/13/2017 [facility] HEMATOLOGY Hgb 11.3 g/dL 14.0 - 18.0 02/13/2017 [facility] HEMATOLOGY MCH 32.7 pg 27.0 - 31.0 02/13/2017 [facility] HEMATOLOGY PT 21.0 s 12.0 - 14.7 02/13/2017 [facility] HEMATOLOGY INR 1.80 0.85 - 1.17 02/13/2017 [facility] HEMATOLOGY PTT 46.5 s 22.9 - 35.8 02/13/2017 [facility] HEMATOLOGY Hct 36.1 % 42.0 - 54.0 02/13/2017 [facility] HEMATOLOGY Hgb 12.4 g/dL 14.0 - 18.0 02/13/2017 [facility] Abd/Pelvis Liver Protocol w IV/Abd wo CT [...] - This report was dictated by a Corporate Manager/Fellow. I have personally reviewed the images as well as the Resident's interpretation and agree with the findings. Read by: Sony Black MD Resident: Sony Black MD Dictated Date/time: 02/13/17 08:00 Electronically Signed by: Gabriel Nixon MD 02/13/17 13:52 FINAL REPORT [facility] Liver w Liver vessels Doppler US Liver [...] - This report was dictated by a Corporate Manager/Fellow. I have personally reviewed the images as well as the Resident's interpretation and agree with the findings. Read by: Joe Galeano MD Resident: Joe Galeano MD Dictated Date/time: 02/12/17 15:24 Electronically Signed by: Deven Alcazar MD 02/12/17 18:26 FINAL REPORT [facility] HEMATOLOGY Hct 33.8 % 42.0 - 54.0 02/12/2017 [facility] HEMATOLOGY Hgb 11.8 g/dL 14.0 - 18.0 02/12/2017 [facility] BACTERIAL - SEROLOGY MRSA by PCR Negative (02/12/17 12:08 AM) 02/12/2017 [facility] BLOOD BANK RESULTS Antibody Scrn Negative (02/12/17 12:08 AM) 02/12/2017 [facility] BLOOD BANK RESULTS ABO/Rh O POS 02/12/2017 [facility] CHEM PANEL Lactic Acid Lvl 1.1 mMol/L 0.5 - 2.2 02/12/2017 [facility] CHEM PANEL Phosphorus 3.5 mg/dL 2.5 - 4.5 02/12/2017 [facility] CHEM PANEL Ammonia 121.0 umol/L <=45.0 uMol/L 02/12/2017 [facility] CHEM PANEL Lipase Lvl 234 unit/L 73 - 393 02/12/2017 [facility] CHEM PANEL A/G Ratio 0.7 0.7 - 1.6 02/12/2017 [facility] CHEM PANEL Bili Indirect 1.7 mg/dL 0.0 - 1.0 02/12/2017 [facility] CHEM PANEL Globulin 3.5 g/dL 2.7 - 4.2 02/12/2017 [facility] CHEM PANEL Alk Phos 124 unit/L 39 - 136 02/12/2017 [facility] CHEM PANEL Bili Direct 1.2 mg/dL 0.0 - 0.3 02/12/2017 [facility] CHEM PANEL Bili Total 2.9 mg/dL 0.2 - 1.3 02/12/2017 [facility] CHEM PANEL ALT 32 unit/L 0 - 65 02/12/2017 [facility] CHEM PANEL AST 50 unit/L 0 - 37 02/12/2017 [facility] CHEM PANEL Total Protein 6.0 g/dL 6.4 - 8.4 02/12/2017 [facility] CHEM PANEL Albumin Lvl 2.5 g/dL 3.5 - 5.0 02/12/2017 [facility] CHEM PANEL Amylase Lvl 41 unit/L 25 - 115 02/12/2017 [facility] CHEM PANEL Magnesium Lvl 1.8 mg/dL 1.8 - 2.4 02/12/2017 [facility] ELECTROLYTES AGAP 10.3 meq/L 10.0 - 20.0 02/12/2017 [facility] ELECTROLYTES eGFR 118 mL/min/1.73m2 02/12/2017 Result Comment: [...] should be multiplied by the estimated BMI. [facility] ELECTROLYTES Calcium Lvl 8.1 mg/dL 8.5 - 10.5 02/12/2017 [facility] ELECTROLYTES Glucose Lvl 83 mg/dL 70 - 99 02/12/2017 [facility] ELECTROLYTES BUN 10 mg/dL 7 - 22 02/12/2017 [facility] ELECTROLYTES Sodium Lvl 141 meq/L 135 - 145 02/12/2017 [facility] ELECTROLYTES Creatinine Lvl 0.74 mg/dL 0.50 - 1.40 02/12/2017 [facility] ELECTROLYTES Potassium Lvl 4.3 meq/L 3.5 - 5.1 02/12/2017 [facility] ELECTROLYTES Chloride Lvl 108 meq/L 95 - 109 02/12/2017 [facility] ELECTROLYTES CO2 27 meq/L 24 - 32 02/12/2017 [facility] HEMATOLOGY Monocytes 12.3 % 2.0 - 12.0 02/12/2017 [facility] HEMATOLOGY Eosinophils 5.5 % 0.0 - 4.0 02/12/2017 [facility] HEMATOLOGY Basophils 1.0 % 0.0 - 1.0 02/12/2017 [facility] HEMATOLOGY Segs 53.9 % 45.0 - 75.0 02/12/2017 [facility] HEMATOLOGY Lymphocytes 27.3 % 20.0 - 40.0 02/12/2017 [facility] HEMATOLOGY Eosinophils # 0.1 K/CMM 0.0 - 0.5 02/12/2017 [facility] HEMATOLOGY Anisocyte 1+ *ABN* (02/12/17 12:08 AM) None Seen 02/12/2017 [facility] HEMATOLOGY Segs-Bands # 1.4 K/CMM 1.5 - 8.1 02/12/2017 [facility] HEMATOLOGY Monocytes # 0.3 K/CMM 0.0 - 0.8 02/12/2017 [facility] HEMATOLOGY Lymphocytes # 0.7 K/CMM 1.0 - 5.5 02/12/2017 [facility] HEMATOLOGY RDW 16.7 % 11.5 - 14.5 02/12/2017 [facility] HEMATOLOGY Platelet 34 K/CMM 133 - 450 02/12/2017 [facility] HEMATOLOGY MPV 9.6 fL 7.4 - 10.4 02/12/2017 [facility] HEMATOLOGY MCHC 33.7 g/dL 32.0 - 36.0 02/12/2017 [facility] HEMATOLOGY WBC 2.6 K/CMM 3.7 - 10.4 02/12/2017 [facility] HEMATOLOGY MCH 31.7 pg 27.0 - 31.0 02/12/2017 [facility] HEMATOLOGY RBC 3.72 M/CMM 4.70 - 6.10 02/12/2017 [facility] HEMATOLOGY MCV 94.2 fL 80.0 - 94.0 02/12/2017 [facility] HEMATOLOGY INR 1.68 0.85 - 1.17 02/12/2017 [facility] HEMATOLOGY PT 19.9 s 12.0 - 14.7 02/12/2017 [facility] HEMATOLOGY PTT 43.0 s 22.9 - 35.8 02/12/2017 [facility] PARATHYROID PROFILE Ca Norm WB 1.06 mMol/L 1.05 - 1.25 02/12/2017 [facility] PARATHYROID PROFILE Ca Ion WB 1.04 mMol/L 1.05 - 1.25 02/12/2017 [facility] CHEM PANEL Lipase Lvl 238 unit/L 73 - 393 02/12/2017 [facility] CHEM PANEL Globulin 3.7 g/dL 2.7 - 4.2 02/12/2017 [facility] CHEM PANEL A/G Ratio 0.7 0.7 - 1.6 02/12/2017 [facility] CHEM PANEL Bili Indirect 2.0 mg/dL 0.0 - 1.0 02/12/2017 [facility] CHEM PANEL AST 41 unit/L 0 - 37 02/12/2017 [facility] CHEM PANEL Alk Phos 123 unit/L 39 - 136 02/12/2017 [facility] CHEM PANEL ALT 27 unit/L 0 - 65 02/12/2017 [facility] CHEM PANEL Bili Total 3.2 mg/dL 0.2 - 1.3 02/12/2017 [facility] CHEM PANEL Bili Direct 1.2 mg/dL 0.0 - 0.3 02/12/2017 [facility] CHEM PANEL Total Protein 6.3 g/dL 6.4 - 8.4 02/12/2017 [facility] CHEM PANEL Albumin Lvl 2.6 g/dL 3.5 - 5.0 02/12/2017 [facility] HEMATOLOGY PT 18.3 s 12.0 - 14.7 02/12/2017 [facility] HEMATOLOGY INR 1.51 0.85 - 1.17 02/12/2017 [facility] HEMATOLOGY PTT 44.8 s 22.9 - 35.8 02/12/2017 [facility] CHEM PANEL eGFR 103 mL/min/1.73m2 02/11/2017 Result [...] should be multiplied by the estimated BMI. [facility] CHEM PANEL Chloride Lvl 111 meq/L 95 - 109 02/11/2017 [facility] CHEM PANEL Calcium Lvl 8.2 mg/dL 8.5 - 10.5 02/11/2017 [facility] CHEM PANEL CO2 28 meq/L 24 - 32 02/11/2017 [facility] CHEM PANEL BUN 9 mg/dL 7 - 22 02/11/2017 [facility] CHEM PANEL Creatinine Lvl 0.94 mg/dL 0.50 - 1.40 02/11/2017 [facility] CHEM PANEL Potassium Lvl 4.9 meq/L 3.5 - 5.1 02/11/2017 [facility] CHEM PANEL Sodium Lvl 144 meq/L 135 - 145 02/11/2017 [facility] CHEM PANEL Glucose Lvl 93 mg/dL 70 - 99 02/11/2017 [facility] CHEM PANEL AGAP 9.9 meq/L 10.0 - 20.0 02/11/2017 [facility] HEMATOLOGY Platelet 40 K/CMM 133 - 450 02/11/2017 [facility] HEMATOLOGY MPV 9.0 fL 7.4 - 10.4 02/11/2017 [facility] HEMATOLOGY MCHC 33.3 g/dL 32.0 - 36.0 02/11/2017 [facility] HEMATOLOGY RDW 16.7 % 11.5 - 14.5 02/11/2017 [facility] HEMATOLOGY MCH 31.0 pg 27.0 - 31.0 02/11/2017 [facility] HEMATOLOGY MCV 93.0 fL 80.0 - 94.0 02/11/2017 [facility] HEMATOLOGY RBC 3.95 M/CMM 4.70 - 6.10 02/11/2017 [facility] HEMATOLOGY WBC 3.2 K/CMM 3.7 - 10.4 02/11/2017 [facility] CHEM PANEL Bili Indirect 3.0 mg/dL 0.0 - 1.0 01/17/2017 [facility] CHEM PANEL A/G Ratio 0.6 0.7 - 1.6 01/17/2017 [facility] CHEM PANEL Globulin 4.1 g/dL 2.7 - 4.2 01/17/2017 [facility] CHEM PANEL Alk Phos 120 unit/L 39 - 136 01/17/2017 [facility] CHEM PANEL Bili Total 4.3 mg/dL 0.2 - 1.3 01/17/2017 [facility] CHEM PANEL Bili Direct 1.3 mg/dL 0.0 - 0.3 01/17/2017 [facility] CHEM PANEL Albumin Lvl 2.4 g/dL 3.5 - 5.0 01/17/2017 [facility] CHEM PANEL Total Protein 6.5 g/dL 6.4 - 8.4 01/17/2017 [facility] CHEM PANEL ALT 35 unit/L 0 - 65 01/17/2017 [facility] CHEM PANEL AST 45 unit/L 0 - 37 01/17/2017 [facility] HEMATOLOGY MPV 10.6 fL 7.4 - 10.4 01/17/2017 [facility] HEMATOLOGY MCHC 34.3 g/dL 32.0 - 36.0 01/17/2017 [facility] HEMATOLOGY Platelet 52 K/CMM 133 - 450 01/17/2017 [facility] HEMATOLOGY RDW 15.5 % 11.5 - 14.5 01/17/2017 [facility] HEMATOLOGY Hct 36.7 % 42.0 - 54.0 01/17/2017 [facility] HEMATOLOGY MCH 31.9 pg 27.0 - 31.0 01/17/2017 [facility] HEMATOLOGY MCV 93.0 fL 80.0 - 94.0 01/17/2017 [facility] HEMATOLOGY RBC 3.95 M/CMM 4.70 - 6.10 01/17/2017 [facility] HEMATOLOGY Hgb 12.6 g/dL 14.0 - 18.0 01/17/2017 [facility] HEMATOLOGY WBC 4.7 K/CMM 3.7 - 10.4 01/17/2017 [facility] HEMATOLOGY Monocytes # 0.4 K/CMM 0.0 - 0.8 01/17/2017 [facility] HEMATOLOGY Eosinophils 0.1 % 0.0 - 4.0 01/17/2017 [facility] HEMATOLOGY Monocytes 7.5 % 2.0 - 12.0 01/17/2017 [facility] HEMATOLOGY Lymphocytes 8.6 % 20.0 - 40.0 01/17/2017 [facility] HEMATOLOGY Segs 83.7 % 45.0 - 75.0 01/17/2017 [facility] HEMATOLOGY Lymphocytes # 0.4 K/CMM 1.0 - 5.5 01/17/2017 [facility] HEMATOLOGY Basophils 0.1 % 0.0 - 1.0 01/17/2017 [facility] HEMATOLOGY Segs-Bands # 3.9 K/CMM 1.5 - 8.1 01/17/2017 [facility] BLOOD BANK RESULTS Platelet product Product available (01/16/17 8:50 AM) 01/16/2017 [facility] CHEM PANEL Total Protein 6.6 g/dL 6.4 - 8.4 01/16/2017 [facility] CHEM PANEL Alk Phos 112 unit/L 39 - 136 01/16/2017 [facility] CHEM PANEL Bili Direct 1.7 mg/dL 0.0 - 0.3 01/16/2017 [facility] CHEM PANEL Bili Total 5.0 mg/dL 0.2 - 1.3 01/16/2017 [facility] CHEM PANEL ALT 35 unit/L 0 - 65 01/16/2017 [facility] CHEM PANEL Albumin Lvl 2.8 g/dL 3.5 - 5.0 01/16/2017 [facility] CHEM PANEL AST 64 unit/L 0 - 37 01/16/2017 [facility] CHEM PANEL A/G Ratio 0.7 0.7 - 1.6 01/16/2017 [facility] CHEM PANEL Globulin 3.8 g/dL 2.7 - 4.2 01/16/2017 [facility] CHEM PANEL Bili Indirect 3.3 mg/dL 0.0 - 1.0 01/16/2017 [facility] HEMATOLOGY MCV 92.8 fL 80.0 - 94.0 01/16/2017 [facility] HEMATOLOGY Hct 38.3 % 42.0 - 54.0 01/16/2017 [facility] HEMATOLOGY Platelet 37 K/CMM 133 - 450 01/16/2017 [facility] HEMATOLOGY RDW 16.2 % 11.5 - 14.5 01/16/2017 [facility] HEMATOLOGY MPV 9.5 fL 7.4 - 10.4 01/16/2017 [facility] HEMATOLOGY MCH 32.2 pg 27.0 - 31.0 01/16/2017 [facility] HEMATOLOGY MCHC 34.7 g/dL 32.0 - 36.0 01/16/2017 [facility] HEMATOLOGY Hgb 13.3 g/dL 14.0 - 18.0 01/16/2017 [facility] HEMATOLOGY WBC 3.6 K/CMM 3.7 - 10.4 01/16/2017 [facility] HEMATOLOGY RBC 4.13 M/CMM 4.70 - 6.10 01/16/2017 [facility] HEMATOLOGY PT 19.5 s 12.0 - 14.7 01/16/2017 [facility] HEMATOLOGY INR 1.62 0.85 - 1.17 01/16/2017 [facility] HEMATOLOGY Anisocyte 1+ *ABN* (01/16/17 8:03 AM) None Seen 01/16/2017 [facility] HEMATOLOGY Eosinophils # 0.2 K/CMM 0.0 - 0.5 01/16/2017 [facility] HEMATOLOGY Lymphocytes 28.0 % 20.0 - 40.0 01/16/2017 [facility] HEMATOLOGY Eosinophils 5.0 % 0.0 - 4.0 01/16/2017 [facility] HEMATOLOGY Basophils 1.0 % 0.0 - 1.0 01/16/2017 [facility] HEMATOLOGY Lymphocytes # 1.0 K/CMM 1.0 - 5.5 01/16/2017 [facility] HEMATOLOGY Segs-Bands # 1.9 K/CMM 1.5 - 8.1 01/16/2017 [facility] HEMATOLOGY Monocytes # 0.4 K/CMM 0.0 - 0.8 01/16/2017 [facility] HEMATOLOGY Monocytes 12.3 % 2.0 - 12.0 01/16/2017 [facility] HEMATOLOGY Segs 53.7 % 45.0 - 75.0 01/16/2017 [facility] BLOOD BANK RESULTS Antibody Scrn Negative (01/16/17 7:55 AM) 01/16/2017 [facility] BLOOD BANK RESULTS ABO/Rh O POS 01/16/2017 [facility] Angiogram visceral artery initial VR Angiogram visceral artery initial VR EXAM: VIR TRANS- ARTERIAL CHEMO EMBOLIZATION (TACE) OF THE right HEPATIC MASS. DATE: 01/16/2017 7:48 AM CDT PROCEDURE(S) PERFORMED: INDICATION: 36 years old Male with liver cirrhosis and hepatocellular carcinoma. FACULTY: Jarred Cai RESIDENT/FELLOW/CANAL EQUIPMENT MECHANIC: Alberto Dahl; Alberto Zamora SUPERVISION: Level 1 [...] the right common femoral artery. A 5 Icelandic sheath was placed. A Omni flush catheter was advanced into the aorta, and an aortogram was performed, showing no extrahepatic circulation and type I celiac anatomy. The celiac axis was then selected with a Sos catheter and an angiogram was performed which showed no tumoral blush. The Sos catheter was exchanged for a 5-Icelandic C2 that was advanced into the proper [...] - This report was dictated by a Corporate Manager/Fellow. I have personally reviewed the images as well as the Resident's interpretation and agree with the findings. Read by: Delfino Messina Resident: Delfino Messina Dictated Date/time: 01/16/17 17:02 Electronically Signed by: Jarred Cai MD 01/17/17 08:37 FINAL REPORT [facility] Abdomen/Pelvis w/wo contrast MRI Abdomen/Pelvis w/wo contrast [...] - This report was dictated by a Corporate Manager/Fellow. I have personally reviewed the images [...] - This report was dictated by a Corporate Manager/Fellow. I have personally reviewed the images as well as the Resident's interpretation and agree with the findings. Read by: Angelica Briceno (fellow) Resident: Angelica Briceno (fellow) Dictated Date/time: 11/29/16 08:29 Electronically Signed by: Gabriel Nixon MD 12/04/16 13:39 FINAL REPORT - - Read by: Leonidas Berry MD Dictated Date/time: 11/22/16 16:29 Electronically Signed by: Leonidas Berry MD 11/22/16 16:36 FINAL REPORT LORENE Cooperann Abdomen w/wo contrast MRI Abdomen w/wo contrast [...] - This report was dictated by a Corporate Manager/Fellow. I have personally reviewed the images as well as the Resident's interpretation and agree with the findings. Read by: Panchito Eid MD Resident: Panchito Eid MD Dictated Date/time: 10/22/16 15:08 Electronically Signed by: Leonidas Berry MD 10/23/16 14:08 FINAL REPORT LOR[facility] Alford Chest wo contrast CT Chest wo contrast [...] Mac MD 10/22/16 11:49 FINAL REPORT LORENE Alford [facility] Liver Protocol w/wo IV contrast CT Abd [...] Mohan Dobson MD 08/08/16 09:30 FINAL REPORT LORENE Alford Chest wo contrast CT Chest wo contrast [...] Patrick Wells MD 07/18/16 23:00 FINAL REPORT [facility] Alford Abdomen w/wo contrast [...] - This report was dictated by a Corporate Manager/Fellow. I have personally reviewed the images as well as the Resident's interpretation and agree with the findings. Read by: Ousmane Gaona MD Resident: Ousmane Gaona MD Dictated Date/time: 07/18/16 16:56 Electronically Signed by: Pedro Pablo Lara 07/18/16 17:50 FINAL REPORT L[facility]ENE Alford Abdomen w/wo IV contrast CT Abdomen w/wo [...] - This report was dictated by a Corporate Manager/Fellow. I have personally reviewed the images as well as the Resident's interpretation and agree with the findings. Read by: Gomez Lu MD Resident: Gomez Lu MD Dictated Date/time: 04/24/16 13:25 Electronically Signed by: Leonidas Berry MD 04/24/16 15:22 FINAL REPORT [facility] Chest wo contrast CT Chest wo contrast CT EXAM: CT CHEST WITHOUT CONTRAST DATE: 04/24/2016 10:40 AM COMPUTER INFORMATION SYSTEMS INSTRUCTOR INDICATION: PRE-LIVER TRANSPLANT WORK-UP; ESLD; LIVER MASS; [...] Leobardo Spencer MD 04/24/16 11:41 FINAL REPORT [facility] ELECTROLYTES AGAP 11.3 meq/L 10.0 - 20.0 03/23/2016 [facility] ELECTROLYTES Chloride Lvl 109 meq/L 95 - 109 03/23/2016 [facility] ELECTROLYTES Calcium Lvl 8.3 mg/dL 8.5 - 10.5 03/23/2016 [facility] ELECTROLYTES CO2 28 meq/L 24 - 32 03/23/2016 [facility] ELECTROLYTES Potassium Lvl 4.3 meq/L 3.5 - 5.1 03/23/2016 [facility] ELECTROLYTES Sodium Lvl 144 meq/L 135 - 145 03/23/2016 [facility] ELECTROLYTES Creatinine Lvl 0.78 mg/dL 0.50 - 1.40 03/23/2016 [facility] ELECTROLYTES BUN 11 mg/dL 7 - 22 03/23/2016 [facility] ELECTROLYTES Glucose Lvl 73 mg/dL 70 - 99 03/23/2016 [facility] ELECTROLYTES eGFR 116 mL/min/1.73m2 03/23/2016 Result Comment: [...] should be multiplied by the estimated BMI. [facility] HEMATOLOGY Segs-Bands # 1.3 K/CMM 1.5 - 8.1 03/23/2016 [facility] HEMATOLOGY Lymphocytes # 0.7 K/CMM 1.0 - 5.5 03/23/2016 [facility] HEMATOLOGY Basophils 0.8 % 0.0 - 1.0 03/23/2016 [facility] HEMATOLOGY Eosinophils 3.3 % 0.0 - 4.0 03/23/2016 [facility] HEMATOLOGY Eosinophils # 0.1 K/CMM 0.0 - 0.5 03/23/2016 [facility] HEMATOLOGY Monocytes # 0.2 K/CMM 0.0 - 0.8 03/23/2016 [facility] HEMATOLOGY Monocytes 9.4 % 2.0 - 12.0 03/23/2016 [facility] HEMATOLOGY Lymphocytes 29.4 % 20.0 - 40.0 03/23/2016 [facility] HEMATOLOGY Segs 57.1 % 45.0 - 75.0 03/23/2016 [facility] HEMATOLOGY MPV 9.6 fL 7.4 - 10.4 03/23/2016 [facility] HEMATOLOGY Platelet 41 K/CMM 133 - 450 03/23/2016 [facility] HEMATOLOGY MCV 92.9 fL 80.0 - 94.0 03/23/2016 [facility] HEMATOLOGY Hct 38.4 % 42.0 - 54.0 03/23/2016 [facility] HEMATOLOGY Hgb 12.9 g/dL 14.0 - 18.0 03/23/2016 [facility] HEMATOLOGY RDW 15.5 % 11.5 - 14.5 03/23/2016 [facility] HEMATOLOGY MCHC 33.6 g/dL 32.0 - 36.0 03/23/2016 [facility] HEMATOLOGY RBC 4.14 M/CMM 4.70 - 6.10 03/23/2016 [facility] HEMATOLOGY WBC 2.3 K/CMM 3.7 - 10.4 03/23/2016 [facility] HEMATOLOGY MCH 31.3 pg 27.0 - 31.0 03/23/2016 [facility] Abd Liver Protocol w/wo IV contrast CT Abd Liver Protocol w/wo IV contrast CT EXAM: CT ABDOMEN WITH AND WITHOUT CONTRAST DATE: 03/14/2016 11:14 AM COMPUTER INFORMATION SYSTEMS INSTRUCTOR INDICATION: K70.30 Alcoholic cirrhosis of liver without [...] Mohan Dobson MD 03/14/16 15:05 [facility] Abdom[facility] complete US Abdomen complete US Exam: [...] Raudel Payan MD 01/18/16 09:20 FINAL REPORT LORENE Martínez Vital Signs Vital Sign Value Date Comments Source Systolic (mm Hg) 110 06/06/2018 [facility] Diastolic (mm Hg) 67 06/06/2018 [facility] Heart Rate 70 06/06/2018 [facility] Temperature Oral (F) 36.67 Kimberly 06/06/2018 [facility] Respitory Rate 18 06/06/2018 [facility] Height 182.9 cm 06/06/2018 [facility] Weight 139.254 06/06/2018 [facility] Systolic (mm Hg) 113 05/27/2018 [facility] Diastolic (mm Hg) 58 05/27/2018 [facility] Respitory Rate 20 05/27/2018 [facility] Systolic (mm Hg) 115 05/27/2018 [facility] Diastolic (mm Hg) 52 05/27/2018 [facility] Respitory Rate 22 05/27/2018 [facility] Respitory Rate 22 05/27/2018 [facility] Heart Rate 68 05/27/2018 [facility] BMI Calculated 43.49 05/26/2018 [facility] Weight 145.455 05/26/2018 [facility] Height 182.88 cm 05/26/2018 [facility] BMI Calculated 44.86 05/14/2018 [facility] Height 180.34 cm 05/14/2018 [facility] Weight 145.909 05/14/2018 [facility] Heart Rate 71 05/14/2018 [facility] Respitory Rate 16 05/14/2018 [facility] Systolic (mm Hg) 114 05/14/2018 [facility] Diastolic (mm Hg) 60 05/14/2018 [facility] Height 180.34 cm 08/29/2017 [facility] BMI Calculated 47.66 08/29/2017 [facility] Weight 155 08/29/2017 [facility] Systolic (mm Hg) 114 08/29/2017 [facility] Diastolic (mm Hg) 62 08/29/2017 [facility] Respitory Rate 16 08/29/2017 [facility] Heart Rate 53 08/29/2017 [facility] Height 182.88 cm 05/23/2017 [facility] Weight 149.727 05/23/2017 [facility] BMI Calculated 44.77 05/23/2017 [facility] Heart Rate 68 05/23/2017 [facility] Respitory Rate 20 05/23/2017 [facility] Systolic (mm Hg) 116 05/23/2017 [facility] Diastolic (mm Hg) 63 05/23/2017 [facility] Systolic (mm Hg) 135 04/01/2017 [facility] Diastolic (mm Hg) 75 04/01/2017 [facility] Heart Rate 72 04/01/2017 [facility] Weight 153.955 04/01/2017 [facility] BMI Calculated 46.03 04/01/2017 [facility] Height 182.88 cm 04/01/2017 [facility] Systolic (mm Hg) 124 02/13/2017 [facility] Diastolic (mm Hg) 70 02/13/2017 [facility] Respitory Rate 18 02/13/2017 [facility] Respitory Rate 17 02/13/2017 [facility] Respitory Rate 22 02/13/2017 [facility] Systolic (mm Hg) 108 02/13/2017 [facility] Diastolic (mm Hg) 57 02/13/2017 [facility] Systolic (mm Hg) 109 02/13/2017 [facility] Diastolic (mm Hg) 56 02/13/2017 [facility] BMI Calculated 44.17 02/12/2017 [facility] Height 182.88 cm 02/12/2017 [facility] Weight 147.727 02/12/2017 [facility] Heart Rate 70 02/12/2017 [facility] Temperature Oral (F) 98.7 F 02/12/2017 [facility] Heart Rate 66 02/12/2017 [facility] Temperature Oral (F) 97.7 F 02/12/2017 [facility] Weight 145.455 02/11/2017 [facility] BMI Calculated 43.49 02/11/2017 [facility] Height 182.88 cm 02/11/2017 [facility] Temperature Oral (F) 98.9 F 02/11/2017 [facility] Heart Rate 62 02/11/2017 [facility] Systolic (mm Hg) 152 01/17/2017 [facility] Diastolic (mm Hg) 75 01/17/2017 [facility] Temperature Oral (F) 98 F 01/17/2017 [facility] Heart Rate 74 01/17/2017 [facility] Respitory Rate 18 01/17/2017 [facility] Respitory Rate 18 01/17/2017 [facility] Systolic (mm Hg) 132 01/17/2017 [facility] Diastolic (mm Hg) 70 01/17/2017 [facility] Temperature Oral (F) 97.8 F 01/17/2017 [facility] Heart Rate 71 01/17/2017 [facility] Heart Rate 81 01/17/2017 [facility] Temperature Oral (F) 98.7 F 01/17/2017 [facility] Respitory Rate 20 01/17/2017 [facility] Systolic (mm Hg) 148 01/17/2017 [facility] Diastolic (mm Hg) 70 01/17/2017 [facility] Weight 145.455 01/16/2017 [facility] BMI Calculated 43.49 01/16/2017 [facility] Height 182.88 cm 01/16/2017 [facility] Height 182.88 cm 10/29/2016 [facility] BMI Calculated 43.74 10/29/2016 [facility] Weight 146.273 10/29/2016 [facility] Systolic (mm Hg) 131 10/29/2016 [facility] Diastolic (mm Hg) 71 10/29/2016 [facility] Weight 147.682 08/06/2016 [facility] BMI Calculated 44.16 08/06/2016 [facility] Height 182.88 cm 08/06/2016 [facility] Systolic (mm Hg) 114 08/06/2016 [facility] Diastolic (mm Hg) 63 08/06/2016 [facility] Systolic (mm Hg) 121 06/06/2016 [facility] Diastolic (mm Hg) 69 06/06/2016 [facility] Weight 143.045 06/06/2016 [facility] BMI Calculated 42.76 06/06/2016 [facility] Height 182.9 cm 06/06/2016 [facility] BMI Calculated 44.4 04/30/2016 [facility] Height 182.88 cm 04/30/2016 [facility] Weight 148.5 04/30/2016 [facility] Systolic (mm Hg) 115 04/30/2016 [facility] Diastolic (mm Hg) 68 04/30/2016 [facility] Height 182.88 cm 04/24/2016 [facility] Weight 150.455 04/24/2016 [facility] BMI Calculated 44.99 04/24/2016 [facility] Respitory Rate 18 03/27/2016 [facility] Systolic (mm Hg) 116 03/27/2016 [facility] Diastolic (mm Hg) 56 03/27/2016 [facility] Heart Rate 75 03/27/2016 [facility] Respitory Rate 12 03/27/2016 [facility] Systolic (mm Hg) 105 03/27/2016 [facility] Diastolic (mm Hg) 53 03/27/2016 [facility] Respitory Rate 14 03/27/2016 [facility] Systolic (mm Hg) 107 03/27/2016 [facility] Diastolic (mm Hg) 54 03/27/2016 [facility] Heart Rate 81 03/27/2016 [facility] Weight 152.273 03/23/2016 [facility] Height 182.88 cm 03/23/2016 [facility] BMI Calculated 45.53 03/23/2016 [facility] Systolic (mm Hg) 155 03/01/2016 [facility] Diastolic (mm Hg) 70 03/01/2016 [facility] Temperature Oral (F) 99.3 F 03/01/2016 [facility] Heart Rate 82 03/01/2016 [facility] Height 182.88 cm 03/01/2016 [facility] BMI Calculated 47.31 03/01/2016 [facility] Weight 158.239 03/01/2016 [facility] Encounters Location Location Details Encounter Type Encounter Number Reason For Visit Attending Provider ADM Date DC Date Status Source [facility] [place] [facility] [id number] Gm Rivera 01/18/2016 01/19/2016 [facility] Outpatient [id number] [address] Reyes 03/01/2016 03/02/2016 [facility] Outpatient Imaging Prash[facility] Outpt Diag Services [id number] Ari Mela Reyes 03/14/2016 03/15/2016 [facility] Day Surgery [id number] [address] Reyes 03/27/2016 03/28/2016 [facility] OP Transplant Clinic - Pre [id number] Susan Luevano 04/23/2016 05/23/2016 [facility] Transplant Ctr OP Transplant Clinic - Pre [id number] Hu Medina 04/30/2016 05/30/2016 [facility] Transplant Ctr OP Transplant Clinic - Pre [id number] Hu Medina 06/06/2016 07/06/2016 [facility] Outpatient Imaging [facility] Outpt Diag Services [id number] Ari Mela Reyes 07/18/2016 07/19/2016 [facility] Transplant Ctr OP Transplant Clinic - Pre [id number] Hu Medina 08/06/2016 09/05/2016 [facility] Outpatient [facility] [place] [facility] [id number] Ari Mela Reyes 08/08/2016 08/09/[address] [facility] Outpatient [facility] [place] [facility] [id number] Ari Mela Reyes 10/22/2016 10/23/2016 [facility] Transplant Ctr OP Transplant Clinic - Pre [id number] Hu Medina 10/29/2016 11/28/2016 [facility] Outpatient Imaging [facility] Outpt Diag Services [id number] [address] [facility] Reyes 11/22/2016 11/23/2016 [facility] Patient [id number] Ari Plaza Reyes 01/02/2017 01/03/2017 [facility] Bedded Outpatient [id number] [address] Reyes 01/16/2017 01/17/2017 [facility] Inpatient [id number] Navneet Cardenas 02/11/2017 02/13/2017 [facility] Transplant Ctr OP Transplant Clinic - Pre [id number] Hu Adam 04/01/2017 05/01/2017 [facility] Outpatient Imaging [facility] Patient [id number] Ari [facility] Reyes 05/10/2017 05/11/2017 [facility] Outpatient [id number] Ari Plaza Reyes 05/23/2017 05/24/2017 [facility] Departed Emergency Room [id number] CRISPIN HERNANDEZ MD 08/21/2017 08/21/2017 [facility] Outpatient [id number] Ari Plaza Eric 08/29/2017 08/30/2017 [facility] Outpatient Imaging [place] [facility] [id number] Ari Plaza Reyes 10/25/2017 10/26/2017 [facility] [id number] FATOU POMPA MD 03/04/2018 03/08/2018 [facility] Outpatient [id number] Nickolas Milian 05/14/2018 05/15/2018 [facility] Day Surgery [id number] Ari Mela Reyes 05/27/2018 05/28/2018 [facility] Travel [id number] 06/06/2018 [facility] Colon Rectal Surgery [place] Office Visit [id number] Concepcion Garg MD 06/06/2018 06/06/2018 [facility] LABORATORY [facility] Hospital Encounter [id number] Concepcion Garg MD 06/06/2018 06/07/2018 [facility] ASK YOUR NURSE PROGRAM Nurse Triage [id number] Anne-Marie Tejeda RN 07/02/2018 [facility] Procedures Procedure Code Date Perfomer Comments Source CBC/DIFF 34222 06/06/2018 [facility] BASIC METABOLIC PANEL 20158 06/06/2018 [facility] PT/INR/PTT 40461 06/06/2018 [facility] LIVER PROFILE [id number] 06/06/2018 [facility] PT/INR/PTT 43897 06/06/2018 [facility] US abdomen complete [id number] 03/04/2018 [facility] Vascular embolization or occlusion, inclusive of all radiological supervision and interpretation, intraprocedural roadmapping, and imaging guidance necessary to complete the intervention; for tumors, organ ischemia, or infarction [id number] 01/16/2017 [facility] Back care [id number] [facility] Elbow joint operations [id number] [facility] Hernia repair<sup>1</sup> [id number] X'3 [facility] Back care [id number] [facility] Elbow joint operations [id number] [facility] Hernia repair<sup>1</sup> [id number] X'3 [facility] Chemoembolization of liver metastases [id number] [facility] Chemoembolization of liver metastases [id number] [facility]
--- OUTSIDE RECORDS SUMMARY | 2018-07-04 12:43 | XMS REPORT ---
Author Author [facility] Address Unknown Phone Unavailable Care Team Providers Care Color Stripper Name Role Phone Yani POMPA Unavailable Unavailable Problems This patient has no known problems. Allergies, Adverse Reactions, Alerts This patient has no known allergies or adverse reactions. Medications This patient has no known medications. Encounters Start Date/Time End Date/Time Encounter Type Admission Type Attending [facility] Care Department Encounter ID 2018-07-18 00:00:00 2018-07-18 00:00:00 Outpatient [facility] [id number] 2018-06-06 10:03:24 2018-06-06 10:03:24 Outpatient [facility] [id number] 2018-06-06 08:45:19 2018-06-06 08:45:19 Outpatient [facility] [id number] Results Test Description Test Time Test Comments Text Results Atomic Results Result Comments ECHO COMPLETE (ECHOCARDIOGRAM) 2018-03-05 11:05:00 [place] [address] Patient Name : MOHAN MILES MR #: [id number] : 1980 Age/Sex: 37/M Adm Physician : FATOU POMPA MD Admit Date : 03/04/18 Location : MED/SURG3 Room/Bed : [facility] REPORT: Cardiology Report DATE OF STUDY: March 04, 2018 ECHOCARDIOGRAM M-MODE: Suboptimal study. Normal chamber wall dimensions. Normal contractility. Normal mitral and aortic valves. No pericardial effusion. SECTOR SCAN: Suboptimal study with poor image quality. Normal chamber wall dimensions. Normal contractility. Normal mitral, aortic and tricuspid valves. No pericardial effusion. CARDIAC DOPPLER STUDY WITH COLOR: Trace mitral and tricuspid regurgitation. CONCLUSIONS 1. Left ventricular ejection fraction is approximately 65%. 2. No evidence of intracardiac thrombi or masses. 3. T race mitral and tricuspid regurgitation. 4. Suboptimal study with poor image quality. Job#: [id number] cc: VINCE WOOD MD Signature Date Dictated By: FATOU POMPA MD Transcribed By: [employer] on 03/05/18 <Electronically signed by FATOU POMPA MD><<Signature on File>>04/24/18 7999 COPY TO: US ABDOMEN COMPLETE 2018-03-04 15:59:00 [place] [address] Patient Name: MOHAN MILES MR #: [id number] : 1980 Age/Sex: 37/M Req #: [id number] Adm Physician: FATOU POMPA MD Ordered by: ANGELA WHITMAN MD Report #: [id number] Location: MED/SURG3 Room/Bed: [facility] Procedure: [id number] US/US ABDOMEN COMPLETE Exam Date: 03/04/18 Exam Time: 1403 REPORT STATUS: Signed Abdominal ultrasound. History: Cirrhosis Comparison: <None available>. Discussion: Transverse and longitudinal images of the abdomen were performed demonstrating an irregular nodular liver measuring 13.6 cm with increased echogenicity. The portal vein is patent with hepatopetal flow and is within normal limits measuring 10 mm in diameter. The biliary tree is within normal limits with the common bile duct measuring 3 mm in diameter. Gallbladder is contracted with stones. Wall measures 3 mm. The sonographic Saleem's sign was negative. The kidneys are normal in size and echogenicity bilaterally without evidence of hydronephrosis, stones or mass. The right kidney measures 11.0 x 7.0 x 5.3 cm and the left kidney measures 14.7 x 7.6 x 5.9 cm. The spleen is enlarged measuring 15.7 x 8.6 x 8.0 cm. Pancreas, aorta and IVC are not well visualized. There is no free fluid. IMPRESSION: 1. Irregular nodular liver compatible with cirrhosis. 2. Contracted gallbladder with stones. 3. Enlarged spleen. Signed by: Dr. Ayah Thomas DO on 03/04/2018 4:06 PM Dictated By: AYAH THOMAS DO 160 Transcribed By: CARLA on 03/04/18 160 COPY TO: ANGELA WHITMAN MD CT C-SPINE W/O - HOPD 2018-03-04 11:15:00 [place] [address] Patient Name: MOHAN MILES MR #: [id number] : 1980 Age/Sex: 37/M Req #: [id number] Adm Physician: FATOU POMPA MD Ordered by: SARINA CALLOWAY MD Report #: [id number] Location: [facility] Room/Bed: [facility] Procedure: [id number] HOPD/CT C-SPINE W/O - HOPD Exam Date: Exam Time: REPORT STATUS: Signed Exams: Head and cervical spine CTs without IV contrast History: Fall, dizziness, blurred vision Comparison studies: None Technique: Axial images were obtained from the brain and cervical spine. Coronal and sagittal images reconstructed from the axial data. Dose modulation, iterative reconstruction, and/or weight based adjustment of the mA/kV was utilized to reduce the radiation dose to as low as reasonably achievable. Intravenous contrast: None Findings: Head CT: Limitations: The anterior frontal convexities and temporal lobes and posterior fossa are somewhat limited by streak artifact. Scalp: No abnormalities. Bones: No fractures, blastic or lytic lesions. Extra-axial spaces: No masses. No fluid collections. Brain sulci: Appropriate for age. Ventricles: Normal in size and configuration. No hydrocephalus. Parenchyma: No abnormal densities. No masses, acute hemorrhage, acute or chronic vascular insults. Sellar/suprasellar region: No abnormalities. Craniocervical junction: The foramen magnum is patent. No Chiari one malformation. Cervical spine CT: Limitations: Attenuation artifact due to patient body habitus and overlying shoulders from C6 through the T3 levels somewhat limited evaluation. Fractures: None. Soft tissues: No gross abnormalities. Atlantoaxial articulation: Intact. Alignment: Normal lordosis. No scoliosis. Cervicomedul megan junction: No abnormalities. The foramen magnum is patent. Vertebrae: No infection or neoplasm. Degenerative changes: Incidental small anterior C2-C3 disc osteophyte complex. Mildly degenerated T2-T3 disc with small anterior disc osteophyte complex. Incidental findings: Carious impression: Partially imaged circumscribed low-density lesion in the subcutaneous soft tissues superficial to the sternum measures up to 5.3 cm in diameter. IMPRESSION: Head CT: No acute abnormalities. Cervical spine CT: 1. No cervical spine fracture or subluxation. 2. Incidental circumscribed 5.3 cm subcutaneous nodule or cyst anterior to the sternum. Recommend nonemergent targeted ultrasound to initially further evaluate. Please note, cannot adequately evaluate ligament, spinal cord and or vascular abnormalities on the basis of this examination. Signed by: Dr. Ag Lim M.D. on 03/04/2018 11:15 AM Dictated By: AG LIM MD 1114 Transcribed By: CARLA on 03/04/181 COPY TO: SARINA CALLOWAY MD CXR 1 [facility] 2018-03-04 09:03:00 [place] [address] Patient Name: MOHAN MILES MR #: [id number] : 1980 Age/Sex: 37/M Req #: [id number] Adm Physician: FATOU POMPA MD Ordered by: SARINA CALLOWAY MD Report #: [id number] Location: [facility] Room/Bed: [place] [address] Procedure: [id number] HOPD/CXR 1 VEW - HOPD Exam Date: Exam Time: REPORT STATUS: Signed PROCEDURE: CXR 1 VEW - HOPD COMPARISON: None. INDICATIONS: DIZZINESS, BLURRED VISION, S/P FALL, HX OF LIVER FAILURE FINDINGS: Heart is prominent but likely secondary to the technique. Pulmonary vascularity is normal. No consolidation or edema. Costophrenic angles are clear. Prominent azygos vein. Regional osseous structures appear unremarkable for acute abnormality. CONCLUSION: No active disease. Ayah Thomas D.O. Dictated by: Ayah Thomas D.O. on 03/04/2018 at 9:03 Electronically approved by: Ayah Thomas D.O. on 03/04/2018 at 9:03 Dictated By: AYAH THOMAS DO 2 Transcribed By: CARLITOS on 03/04/18902 COPY TO: SARINA CALLOWAY MD CT BRAIN WO-HOPD 2018-03-04 08:59:00 [place] [address] Patient Name: MOHAN MILES MR #: [id number] : 1980 [facility]/Sex: 37/M [id number] Req #: [id number] Adm Physician: FATOU POMPA MD Ordered by: SARINA CALLOWAY MD Report #: [id number] Location: [facility] Room/Bed: [place] [address] Procedure: [id number] HOPD/CT BRAIN WO-HOPD Exam Date: Exam Time: REPORT STATUS: Signed Exams: Head and cervical spine CTs without IV contrast History: Fall, dizziness, blurred vision Comparison studies: None Technique: Axial images were obtained from the brain and cervical spine. Coronal and sagittal images reconstructed from the axial data. Dose modulation, iterative reconstruction, and/or weight based adjustment of the mA/kV was utilized to reduce the radiation dose to as low as reasonably achievable. Intravenous contrast: None Findings: Head CT: Limitations: The anterior frontal convexities and temporal lobes and posterior fossa are somewhat limited by streak artifact. Scalp: No abnormalities. Bones: No fractures, blastic or lytic lesions. Extra-axial spaces: No masses. No fluid collections. Brain sulci: Appropriate for age. Ventricles: Normal in size and configuration. No hydrocephalus. Parenchyma: No abnormal densities. No masses, acute hemorrhage, acute or chronic vascular insults. Sellar/suprasellar region: No abnormalities. Craniocervical junction: The foramen magnum is patent. No Chiari one malformation. Cervical spine CT: Limitations: Attenuation artifact due to patient body habitus and overlying shoulders from C6 through the T3 levels somewhat limited evaluation. Fractures: None. Soft tissues: No gross abnormalities. Atlantoaxial articulation: Intact. Alignment: Normal lordosis. No scoliosis. Cervicomedullary junction: No abnormalities. The foramen magnum is patent. Vertebrae: No infection or neoplasm. Degenerative changes: Incidental small anterior C2-C3 disc osteophyte complex. Mildly degenerated T2-T3 disc with small anterior disc osteophyte complex. Incidental findings: Carious impression: Partially imaged circumscribed low-density lesion in the subcutaneous soft tissues superficial to the sternum measures up to 5.3 cm in diameter. IMPRESSION: Head CT: No acute abnormalities. Cervical spine CT: 1. No cervical spine fracture or subluxation. 2. Incidental circumscribed 5.3 cm subcutaneous nodule or cyst anterior to the sternum. Recommend nonemergent targeted ultrasound to initially further evaluate. Please note, cannot adequately evaluate ligament, spinal cord and or vascular abnormalities on the basis of this examination. Signed by: Dr. Ag Lim M.D. on 03/04/2018 9:11 AM Dictated By: AG LIM MD 0 Transcribed By: CARLA on 03/04/18910 COPY TO: SARINA CALLOWAY MD L SPINE 2-[facility] 2018-03-04 07:13:00 [place] [address] Patient Name: MOHAN MILES MR #: [id number] : 1980 Age/Sex: 37/M Req #: [id number] [facility] Physician: FATOU POMPA MD Ordered by: WILLIAN ORTEGA MD Report #: [id number] Location: [facility] Room/Bed: [place] [address] Procedure: [id number] HOPD/L SPINE 2-3 VEWS - HOPD Exam Date: 03/04/18 Exam Time: 0645 REPORT STATUS: Signed PROCEDURE: L SPINE 2-3 WS - HOP COMPARISON: None. INDICATIONS: LOWER BACK PAIN FINDINGS: There is no fracture or dislocation. Mild degenerative spurring of the spine is present. There is disc space narrowing with vacuum phenomena present at L4-L5 and L5- S1. Facet arthrosis at these levels is also noted. CONCLUSION: Degenerative disc disease as described above. Ayah Thomas D.O. Dic tated by: Ayah Thomas D.O. on 03/04/2018 at 7:13 Electronically approved by: Ayah Thomas D.O. on 03/04/2018 at 7:13 Dictated By: AYAH THOMAS DO 2 Transcribed By: CARLITOS on 03/04/18712 COPY TO: WILLIAN ORTEGA MD HIP 2 VW RT - HOPD 2018-03-04 07:11:00 [place] [address] Patient Name: MOHAN MILES MR #: [id number] : 1980 Age/Sex: 37/M Req #: [id number] [facility] Physician: FATOU POMPA MD Ordered by: WILLIAN ORTEGA MD Report #: [id number] Location: [facility] Room/Bed: [place] [address] Procedure: [id number] HOPD/HIP 2 VW RT - HOPD Exam Date: 03/04/18 Exam Time: 0645 REPORT STATUS: Signed PROCEDURE: HIP 2 VW RT - HOPD COMPARISON: None. INDICATIONS: RIGHT HIP PAIN FINDINGS: There is no fracture or dislocation. Bony mineralization is normal. Soft tissues are intact. The right pelvic calcification appears compatible with a phlebolith. CONCLUSION: No significant abnormality. Ayah Thomas D.O. Dictated by: Ayah Thomas D.O. on 03/04/2018 at 7:11 Electronically approved by: Ayah Thomas D.O. on 03/04/2018 at 7:11 Dictated By: AYAH THOMAS DO 0 Transcribed By: CARLITOS on 03/04/18710 COPY TO: WILLIAN ORTEGA MD
--- OUTSIDE RECORDS SUMMARY | 2018-07-04 12:43 | XMS REPORT | Summary of Care ---
Author Author [facility] Organization [facility] Address Unknown Phone Unavailable Encounter HQ Patricia(JULITO) [id number] Date(s): 05/27/18 - 05/27/18 [facility] [address] Discharge Disposition: Home or Self Care Attending Physician: Ari Petit MD Referring Physician: Ari Petit MD Vital Signs 1 2 3 Most recent to oldest [Reference Range]: 182.88 cm (05/26/18 10:43 AM) Height 113/58 mmHg (05/27/18 4:30 PM) 115/52 mmHg (05/27/18 4:05 PM) 110/55 mmHg (05/27/18 4:05 PM) Blood Pressure [90-140/60-90 mmHg] 20 BRMIN (05/27/18 4:30 PM) 22 BRMIN *HI* (05/27/18 4:05 PM) 22 BRMIN *HI* (05/27/18 4:00 PM) Respiratory Rate [14-20 BRMIN] 68 bpm (05/27/18 12:56 PM) Peripheral Pulse Rate [60-100 bpm] 145.455 kg (05/26/18 10:43 AM) Weight 43.49 m2 (05/26/18 10:43 AM) Body Mass Index Problem List Condition [...] Substance Reaction Severity Status NKDA Active Medications ANES fentaNYL 25 microgram, 0.5 mL, Route: IVP, Drug form: INJ, Q5Min, Dosing Weight 145.455, kg, PRN Pain Score 4-6, Priority: Routine, Start date: 05/27/18 12:03:00 [employer]OLDER MACHINE ADJUSTER, Du ration: 4 doses or times, Stop date: Limited # of times Notes: (Same as: Sublimaze) Preservative free. Start Date: 05/27/18 Stop Date: 05/28/18 Status: Discontinued ANES flumazenil 0.2 mg, 2 mL, Route: IVP, Drug form: INJ, PRN, Dosing Weight 145.455, kg, PRN Be nzodiazepine Reversal, Initial dose, Start date: 05/27/18 12:03:00 [employer]DER MACHINE ADJUSTER, Duration : 30 day, Stop date: 06/26/18 13:02:00 CDT Notes: (Same as: Romazicon) Start Date: 05/27/18 Stop Date: 05/28/18 Status: Discontinued ANES hydrALAZINE 10 mg, 0.5 mL, Route: IVP, Drug form: INJ, Q20Min, Dosing Weight 145.455, kg, [place] N Elevated BP, Start date: 05/27/18 12:03:00 FOLDER MACHINE ADJUSTER, Duration: 2 doses or times, St op date: Limited # of times Notes: (Same as: Apresoline)Push over 5 minutes Start Date: 05/27/18 Stop Date: 05/28/18 Status: Discontinued ANES HYDROmorphone 0.2 mg, 0.1 mL, Route: IVP, Drug form: INJ, Q5Min, Dosing Weight 145.455, kg, [place] N Pain Score 7-10, Start date: 05/27/18 12:03:00 FOLDER MACHINE ADJUSTER, Duration: 4 doses or times , Stop date: Limited # of times Notes: Same as Dilaudid Start Date: 05/27/18 Stop Date: 05/28/18 Status: Discontinued ANES labetalol 10 mg, 2 mL, Route: IVP, Drug form: INJ, Q5Min, Dosing Weight 145.455, kg, PRN E levated BP, Start date: 05/27/18 12:03:00 FOLDER MACHINE ADJUSTER, Duration: 5 doses or times, Stop date: Limited # of times Start Date: 05/27/18 Stop Date: 05/28/18 Status: Discontinued ANES naloxone 0.4 mg, 1 mL, Route: IVP, Drug form: INJ, Q2MIN, Dosing Weight 145.455, kg, PRN Narcotic Reversal, Start date: 05/27/18 12:03:00 FOLDER MACHINE ADJUSTER, Duration: 8 doses or times , Stop date: Limited # of times Notes: Same as Narcan Start Date: 05/27/18 Stop Date: 05/28/18 Status: Discontinued ANES promethazine 6.25 mg, 0.25 mL, Route: IVPB, Drug form: INJ, ONCE, Dosing Weight 145.455, kg, PRN Nausea & Vomiting, Start date: 05/27/18 12:03:00 FOLDER MACHINE ADJUSTER Notes: Do not give IV push. (Same as: Phenergan) Start Date: 05/27/18 Stop Date: 05/28/18 Status: Discontinued Results BLOOD BANK RESULTS Most recent to 1 oldest [Reference Range]: ABO/Rh O POS *Unknown* (05/27/18 12:50 PM) Antibody Scrn Negative (05/27/18 12:50 PM) ELECTROLYTES Most recent to 1 oldest [Reference Range]: Sodium Lvl [135-145 145 mEq/L mEq/L] (05/27/18 12:50 PM) Potassium Lvl 4.0 mEq/L [3.5-5.1 mEq/L] (05/27/18 12:50 PM) Chloride Lvl [95-109 114 mEq/L mEq/L] *HI* (05/27/18 12:50 PM) CO2 [24-32 mEq/L] 27 mEq/L (05/27/18 12:50 PM) AGAP [10.0-20.0 8.0 mEq/L mEq/L] *LOW* (05/27/18 12:50 PM) CHEM PANEL Most recent to 1 oldest [Reference Range]: Creatinine Lvl 0.79 mg/dL [0.50-1.40 mg/dL] (05/27/18 12:50 PM) eGFR 114 mL/min/1.73m2 1 *NA* (05/27/18 12:50 PM) BUN [7-22 mg/dL] 12 mg/dL (05/27/18 12:50 PM) B/C Ratio [6-25] 15 (05/27/18 12:50 PM) Glucose Lvl [70-99 79 mg/dL mg/dL] (05/27/18 12:50 PM) Total Protein 6.1 g/dL [6.4-8.4 g/dL] *LOW* (05/27/18 12:50 PM) Albumin Lvl [3.5-5.0 2.4 g/dL g/dL] *LOW* (05/27/18:50 PM) Globulin [2.7-4.2 3.7 g/dL g/dL] (05/27/18 12:50 PM) A/G Ratio [0.7-1.6] 0.6 *LOW* (05/27/18:50 PM) Calcium Lvl 7.7 mg/dL [8.5-10.5 mg/dL] *LOW* (05/27/18 12:50 PM) ALT [0-65 unit/L] 30 unit/L (05/27/18 12:50 PM) AST [0-37 unit/L] 52 unit/L *HI* (05/27/18 12:50 PM) Alk Phos [39-136 126 unit/L unit/L] (05/27/18 12:50 PM) Bili Total [0.2-1.3 2.8 mg/dL mg/dL] *HI* (05/27/18 12:50 PM) 1Result Comment: The eGFR is calculated [...] 1 oldest [Reference Range]: WBC [3.7-10.4 K/CMM] 2.4 K/CMM *LOW* (05/27/18 12:50 PM) RBC [4.70-6.10 3.42 M/CMM M/CMM] *LOW* (05/27/18 12:50 PM) Hgb [14.0-18.0 g/dL] 9.5 g/dL *LOW* (05/27/18 12:50 PM) Hct [42.0-54.0 %] 29.5 % *LOW* (05/27/18 12:50 PM) MCV [80.0-94.0 fL] 86.4 fL (05/27/18 12:50 PM) MCH [27.0-31.0 pg] 27.8 pg (05/27/18 12:50 PM) MCHC [32.0-36.0 32.1 g/dL g/dL] (05/27/18 12:50 PM) RDW [11.5-14.5 %] 20.1 % *HI* (05/27/18 12:50 PM) MPV [7.4-10.4 fL] 10.5 fL *HI* (05/27/18 12:50 PM) Platelet [133-450 73 K/CMM K/CMM] *LOW* (05/27/18 12:50 PM) Segs [45.0-75.0 %] 54.7 % (05/27/18 12:50 PM) Lymphocytes 28.6 % [20.0-40.0 %] (05/27/18 12:50 PM) Monocytes [2.0-12.0 11.1 % %] (05/27/18 12:50 PM) Eosinophils [0.0-4.0 4.5 % %] *HI* (05/27/18 12:50 PM) Basophils [0.0-1.0 1.1 % %] *HI* (05/27/18 12:50 PM) Neutrophils # 1.3 K/CMM [1.5-8.1 K/CMM] *LOW* (05/27/18 12:50 PM) Lymphocytes # 0.7 K/CMM [1.0-5.5 K/CMM] *LOW* (05/27/18 12:50 PM) Monocytes # [0.0-0.8 0.3 K/CMM K/CMM] (05/27/18 12:50 PM) Eosinophils # 0.1 K/CMM [0.0-0.5 K/CMM] (05/27/18 12:50 PM) PT [12.0-14.7 21.8 seconds seconds] *HI* (05/27/18 1:58 PM) INR [0.85-1.17] 1.95 *HI* (05/27/18 1:58 PM) PTT [22.9-35.8 46.9 seconds seconds] *HI* (05/27/18 1:58 PM) Immunizations No data available for this [...] Frequency quit 5 years ago; entered on: 05/27/18 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
--- OUTSIDE RECORDS SUMMARY | 2018-07-04 12:43 | XMS REPORT | Clinical Summary ---
Author Author [facility] Organization [facility] Address Unknown Phone Unavailable Care Team Providers Care Ladle Repairer Name Role Phone PCP Unavailable Allergies No [...] D deficiency Active mometasone (NASONEX) 50 1 [place] by 17 g 3 mcg/actuation nasal each [...] contract with Sima Schmitt MD, [facility], PMR clinic, see Media section of EPIC Nov 2012 and or Jan 2014 Neurogenic bladder disorder 01/15/2013 Right sided sciatica 01/15/2013 Hip pain 01/15/2013 Foot drop, left 01/15/2013 Neuropathic pain 06/09/2010 Thrombocytopenia, unspecified 05/06/2009 Overview: Seen in hospital 03/23 and noted to have thrombocytopenia that was stable during hospitalization ranging from 60-100s. HIV negative. Hep negative. 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 Pt started on steroids. Currently on Prednisone 5 mg PO BID. Pt on review of labwork has had low plts documented in 2003 104. Abd U/S scheduled 08/04/09 Leg weakness 04/28/2009 SCI (spinal cord injury) 04/28/2009 Encounters Care Team Description Date Type Specialty Concepcion Garg MD Internal and external bleeding hemorrhoids 06/06/2018 Hospital Lab Encounter Concepcion Garg MD Thrombocytopenia, unspecified (Primary Dx); Alcohol use disorder, severe, in sustained remission, dependence; Internal and external bleeding hemorrhoids 06/06/2018 Office Visit Colon and Rectal Surgery 06/06/2018 Travel after 06/05/2017 Social History Date Tobacco Use Types Packs/Day [...] Taken Vital Sign Reading 06/06/2018 8:45 AM SALES REPRESENTATIVE PUBLICATIONS Blood Pressure 110/67 06/06/2018 8:45 AM SALES REPRESENTATIVE PUBLICATIONS Pulse 70 06/06/2018 8:45 AM SALES REPRESENTATIVE PUBLICATIONS Temperature 36.7 C (98 F) 06/06/2018 8:45 AM SALES REPRESENTATIVE PUBLICATIONS Respiratory Rate 18 - Oxygen Saturation - - Inhaled Oxygen - Concentration 06/06/2018 8:45 AM SALES REPRESENTATIVE PUBLICATIONS Weight 139.3 kg (307 lb) 06/06/2018 8:45 AM SALES REPRESENTATIVE PUBLICATIONS Height 182.9 cm (6') 06/06/2018 8:45 AM SALES REPRESENTATIVE PUBLICATIONS Body Mass Index 41.64 Plan of Treatment Care Team Description Date Type Specialty Concepcion Garg MD [id number] [place] [phone] 07/18/2018 Office Visit Colon and Rectal Surgery Procedures Comments Procedure Name Priority Date/Time Associated Diagnosis LIVER PROFILE Routine 06/06/2018 Internal and external 10:00 AM SALES REPRESENTATIVE PUBLICATIONS bleeding hemorrhoids PT/INR/PTT Routine 06/06/2018 Internal and external 10:00 AM SALES REPRESENTATIVE PUBLICATIONS bleeding hemorrhoids BASIC METABOLIC PANEL Routine 06/06/2018 Internal and external 10:00 AM SALES REPRESENTATIVE PUBLICATIONS bleeding hemorrhoids CBC/DIFF Routine 06/06/2018 Internal and external 10:00 AM SALES REPRESENTATIVE PUBLICATIONS bleeding hemorrhoids after 06/05/2017 Results * PT/INR/PTT (06/06/2018 10:00 AM SALES REPRESENTATIVE PUBLICATIONS) PT 20.4 (H) 11.8 - 15.0 Seconds [facility] MAIN-STATION 4 INR 1.8 [facility] SUGGESTED THERAPEUTIC RANGES: MAIN-STATION 4 INR 2.0-3.0 for MODERATE INTENSITY ANTICOAGULATION INR 2.5-3.5 for HIGH INTENSITY ANTICOAGULATION PTT 47.3 (H) 23.6 - 36.4 Seconds [facility] MAIN-STATION 4 Specimen Blood Performing Organization Address City/State/Zipcode Phone Number MISYS [facility] MAIN-STATION 4 * LIVER PROFILE (06/06/2018 10:00 AM SALES REPRESENTATIVE PUBLICATIONS) T Protein 5.7 (L) 6.0 - 8.3 g/dL [facility] MAIN-STATION 1 Albumin 2.6 (L) 4.2 - 5.5 g/dL [facility] MAIN-STATION 1 T Bilirubin 3.1 (H) 0.2 - 1.2 mg/dL [facility] MAIN-STATION 1 Alk Phos 110 (H) 34 - 104 U/L [facility] MAIN-STATION 1 AST 48 (H) 13 - 39 U/L [facility] MAIN-STATION 1 ALT 23 7 - 52 U/L [facility] MAIN-STATION 1 D Bilirubin 1.0 (H) 0.0 - 0.2 mg/dL [facility] MAIN-STATION 1 Specimen Blood Performing Organization Address City/State/Zipcode Phone Number MISYS [facility] MAIN-STATION 1 * CBC/DIFF (06/06/2018 10:00 AM SALES REPRESENTATIVE PUBLICATIONS) WBC 2.6 (L) 4.5 - 12.0 K/uL [facility] MAIN-STATION 2 RBC 3.47 (L) 4.60 - 6.20 M/uL [facility] MAIN-STATION 2 Hemoglobin 9.4 (L) 14.0 - 18.0 g/dL [facility] MAIN-STATION 2 Hematocrit 31.3 (L) 40.0 - 54.0 % [facility] MAIN-STATION 2 MCV 90 82 - 92 fL [facility] MAIN-STATION 2 MCH 27.1 27.0 - 31.0 pg [facility] MAIN-STATION 2 MCHC 30.0 (L) 32.0 - 36.0 g/dL [facility] MAIN-STATION 2 RDW 65.0 (H) 35.1 - 43.9 fL [facility] MAIN-STATION 2 Platelet 41 (L) 150 - 400 K/uL [facility] MAIN-STATION 2 Mean Platelet Not measured 9.4 - 12.4 fL [facility] Volume MAIN-STATION 2 Percent NRBC 0.0 [facility] MAIN-STATION 2 Absolute NRBC 0.00 [facility] MAIN-STATION 2 Neutrophil 58.0 34.0 - 67.9 % [facility] MAIN-STATION 2 Lymphocyte 31.0 21.8 - 50.0 % [facility] MAIN-STATION 2 Monocyte 4.0 (L) 5.3 - 12.0 % [facility] MAIN-STATION 2 Eosinophil 4.0 0.8 - 5.0 % [facility] MAIN-STATION 2 Basophil 3.0 (H) 0.2 - 1.2 % [facility] MAIN-STATION 2 Neutrophil, Abs 1.51 (L) 1.78 - 5.36 K/uL [facility] MAIN-STATION 2 Lymphocyte, Abs 0.81 (L) 1.32 - 3.57 K/uL [facility] MAIN-STATION 2 Monocyte, Abs 0.10 (L) 0.30 - 0.82 K/uL [facility] MAIN-STATION 2 Eosinophil, Abs 0.10 0.04 - 0.54 K/uL [facility] MAIN-STATION 2 Basophil, Abs 0.08 0.01 - 0.08 K/uL [facility] MAIN-STATION 2 Ovalocyte 3+ [facility] MAIN-STATION 2 Schistocyte 1+ [facility] MAIN-STATION 2 Tear Drop Cell 2+ [facility] MAIN-STATION 2 Specimen Blood Performing Organization Address City/[facility] Phone Number [facility]YS [facility] MAIN-STATION 2 * BASIC METABOLIC PANEL (06/06/2018 10:00 AM SALES REPRESENTATIVE PUBLICATIONS) CO2 29 21 - 31 mmol/L [facility] MAIN-STATION 1 Chloride 109 (H) 98 - 107 mmol/L [facility] MAIN-STATION 1 Potassium 4.4 3.5 - 5.1 mmol/L [facility] MAIN-STATION 1 Sodium 141 136 - 145 mmol/L [facility] MAIN-STATION 1 Glucose 79 70 - 110 mg/dL [facility] MAIN-STATION 1 Urea Nitrogen 11 7 - 25 mg/dL [facility] MAIN-STATION 1 Creatinine 0.80 0.7 - 1.3 mg/dL [facility] MAIN-STATION 1 Anion Gap 3 [facility] MAIN-STATION 1 Calcium 8.2 (L) 8.6 - 10.3 mg/dL [facility] MAIN-STATION 1 GFR, Estimated >60 mL/min/1.73 m2 [facility] MAIN-STATION 1 GFR, Estim, >60 mL/min/1.73 m2 [facility] Afr-Am MAIN-STATION 1 Specimen Blood Performing Organization Address City/[facility] Phone Number MISYS [facility] MAIN-STATION 1 after 06/05/2017 Insurance Type Payer Benefit Subscriber ID Effective Phone Address Plan / Dates Group [employer] OPTIONS CAB[employer] xxxxxxxxxxxx 2014-P [phone] [facility] DUAL resent [id number] [facility] [address] [address] [place] [address]
--- OUTSIDE RECORDS SUMMARY | 2018-07-04 12:43 | XMS REPORT | Clinical Summary ---
Author Author [facility] Organization [facility] Address Unknown Phone Unavailable Care Team Providers Care Supply Chain Specialist Name Role Phone PCP Unavailable Allergies No [...] D deficiency Active mometasone (NASONEX) 50 1 [place] by 17 g 3 mcg/actuation nasal each [...] has opioid contract with Sima Schmitt MD, [facility], PMR clinic, see Media section of EPIC Nov 2012 and or Jan 2014 Neurogenic bladder disorder 01/15/2013 Right sided sciatica 01/15/2013 Hip pain 01/15/2013 Foot drop, left 01/15/2013 Neuropathic pain 06/09/2010 Thrombocytopenia, unspecified 05/06/2009 Overview: Seen in hospital 03/23 and noted to have thrombocytopenia that was stable during hospitalization ranging from 60-100s. HIV negative. Hep negative. 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 Pt started on steroids. [...] Colon and Rectal Surgery 06/06/2018 Travel after 07/01/2017 Social History Date Tobacco Use Types Packs/Day [...] Taken Vital Sign Reading 06/06/2018 8:45 AM DOCTOR OF NURSING PRACTICE Blood Pressure 110/67 06/06/2018 8:45 AM DOCTOR OF NURSING PRACTICE Pulse 70 06/06/2018 8:45 AM DOCTOR OF NURSING PRACTICE Temperature 36.7 C (98 F) 06/06/2018 8:45 AM DOCTOR OF NURSING PRACTICE Respiratory Rate 18 - Oxygen Saturation - - Inhaled Oxygen - Concentration 06/06/2018 8:45 AM DOCTOR OF NURSING PRACTICE Weight 139.3 kg (307 lb) 06/06/2018 8:45 AM DOCTOR OF NURSING PRACTICE Height 182.9 cm (6') 06/06/2018 8:45 AM DOCTOR OF NURSING PRACTICE Body Mass Index 41.64 Plan of Treatment Care Team Description Date Type Specialty Concepcion Garg MD [address] [facility] [id number] [place] [phone] 07/18/2018 Office Visit Colon and Rectal Surgery Procedures Comments Procedure Name Priority Date/Time Associated Diagnosis LIVER PROFILE Routine 06/06/2018 Internal and external 10:00 AM DOCTOR OF NURSING PRACTICE bleeding hemorrhoids PT/INR/PTT Routine 06/06/2018 Internal and external 10:00 AM DOCTOR OF NURSING PRACTICE bleeding hemorrhoids BASIC METABOLIC PANEL Routine 06/06/2018 Internal and external 10:00 AM DOCTOR OF NURSING PRACTICE bleeding hemorrhoids CBC/DIFF Routine 06/06/2018 Internal and external 10:00 AM DOCTOR OF NURSING PRACTICE bleeding hemorrhoids after 07/01/2017 Results * PT/INR/PTT (06/06/2018 10:00 AM DOCTOR OF NURSING PRACTICE) PT 20.4 (H) 11.8 - 15.0 Seconds [facility] MAIN-STATION 4 INR 1.8 [facility] SUGGESTED THERAPEUTIC RANGES: MAIN-STATION 4 INR 2.0-3.0 for MODERATE INTENSITY ANTICOAGULATION INR 2.5-3.5 for HIGH INTENSITY ANTICOAGULATION PTT 47.3 (H) 23.6 - 36.4 Seconds [facility] MAIN-STATION 4 Specimen Blood Performing Organization Address City/State/Zipcode Phone Number MISYS [facility] MAIN-STATION 4 * LIVER PROFILE (06/06/2018 10:00 AM DOCTOR OF NURSING PRACTICE) T Protein 5.7 (L) 6.0 - 8.3 g/dL [facility] MAIN-STATION 1 Albumin 2.6 (L) 4.2 - 5.5 g/dL [facility] MAIN-STATION 1 T Bilirubin 3.1 (H) 0.2 - 1.2 mg/dL J MAIN-STATION 1 Alk Phos 110 (H) 34 - 104 U/L [facility] MAIN-STATION 1 AST 48 (H) 13 - 39 U/L [facility] MAIN-STATION 1 ALT 23 7 - 52 U/L [facility] MAIN-STATION 1 D Bilirubin 1.0 (H) 0.0 - 0.2 mg/dL [facility] MAIN-STATION 1 Specimen Blood Performing Organization Address City/State/Zipcode Phone Number MISYS [facility] MAIN-STATION 1 * CBC/DIFF (06/06/2018 10:00 AM DOCTOR OF NURSING PRACTICE) WBC 2.6 (L) 4.5 - 12.0 K/uL [facility] MAIN-STATION 2 RBC 3.47 (L) 4.60 - 6.20 M/uL [facility] MAIN-STATION 2 Hemoglobin 9.4 (L) 14.0 - 18.0 g/dL [facility] MAIN-STATION 2 Hematocrit 31.3 (L) 40.0 - 54.0 % [facility] MAIN-STATION 2 MCV 90 82 - 92 fL [facility] MAIN-STATION 2 MCH 27.1 27.0 - 31.0 pg [facility] MAIN-STATION 2 MCHC 30.0 (L) 32.0 - 36.0 g/dL [facility] MAIN-STATION 2 RDW 65.0 (H) 35.1 - 43.9 fL [facility] MAIN-STATION 2 Platelet 41 (L) 150 - 400 K/uL [facility] MAIN-STATION 2 Mean Platelet Not measured 9.4 - 12.4 fL [facility] Volume MAIN-STATION 2 Percent NRBC 0.0 [facility] MAIN-STATION 2 Absolute NRBC 0.00 [facility] MAIN-STATION 2 Neutrophil 58.0 34.0 - [...] MAIN-STATION 2 Specimen Blood Performing Organization Address City/[facility] Centercode Phone Number MISYS [facility] MAIN-STATION 2 * BASIC METABOLIC PANEL (06/06/2018 10:00 AM DOCTOR OF NURSING PRACTICE) CO2 29 21 - 31 mmol/L [facility] MAIN-STATION 1 Chloride 109 (H) 98 - 107 mmol/L [facility] MAIN-STATION 1 Potassium 4.4 3.5 - 5.1 mmol/L [facility] MAIN-STATION 1 Sodium 141 136 - 145 mmol/L [facility] MAIN-STATION 1 Glucose 79 70 - 110 mg/dL [facility] MAIN-STATION 1 Urea Nitrogen 11 7 - 25 mg/dL [facility] MAIN-STATION 1 Creatinine 0.80 0.7 - 1.3 mg/dL [facility] MAIN-STATION 1 Anion Gap 3 [facility] MAIN-STATION 1 Calcium 8.2 (L) 8.6 - 10.3 mg/dL [facility] MAIN-STATION 1 GFR, Estimated >60 mL/min/1.73 m2 [facility] MAIN-STATION 1 GFR, Estim, >60 mL/min/1.73 m2 [facility] Afr-Am MAIN-STATION 1 Specimen Blood Performing Organization Address City/[facility] Centercode Phone Number MISYS [facility] MAIN-STATION 1 after 07/01/2017 Insurance Type Payer Benefit Subscriber ID Effective Phone Address Plan / Dates Group [employer] MED[employer] OPTIONS [employer] xxxxxxxxxxxx 2014-P [phone] [facility] [id number] [employer] [address] [address] [place] [address]
[2018-07-04] MEDS ORDERED: SODIUM CHLORIDE 0.9% 500ML 500 ML IV STA (13:08)
[2018-07-04] MEDS ORDERED: PIPER-TAZ 3.375 GM 50 ML IV ONE (13:15)
[2018-07-04] MEDS ORDERED: PROPRANOLOL HCL10 MG PO (13:29)
[2018-07-04] MEDS ORDERED: ULTRAM50 MG PO (13:29)
[2018-07-04] MEDS ORDERED: OYSTER SHELL C1 EACH (13:29)
[2018-07-04] MEDS ORDERED: PANTOPRAZOLE SO40 MG PO (13:29)
[2018-07-04] MEDS ORDERED: GABAPENTIN300 MG PO (13:29)
[2018-07-04] MEDS ORDERED: ICAPS MV TABLE1 EACH (13:29)
--- NOTE | 2018-07-04 13:44 | Diagnostic Imaging Report ---
EXAMINATION: CXR 2 VIEW - HOPD INDICATION: Fever, malaise. COMPARISON: None FINDINGS: TUBES and LINES: None. LUNGS: Lungs are not well inflated. There is no evidence of lobar pneumonia or pulmonary edema. There is mild bronchial wall thickening with interstitial opacities. PLEURA: No pleural effusion or pneumothorax. HEART AND MEDIASTINUM: The cardiomediastinal silhouette is unremarkable. BONES AND SOFT TISSUES: No acute osseous abnormality. UPPER ABDOMEN: No free air under the diaphragm. IMPRESSION: Mild bronchial wall thickening with interstitial opacities, which may reflect reactive airways disease or atypical infection. No evidence of lobar pneumonia. Signed by: Dr. Gumaro Resendez MD on 07/04/2018 1:40 PM
[2018-07-04] MEDS ORDERED: VANCOMYCIN HCL 1GM/NS 250 ML BAG IV SCH (14:30)
[2018-07-04] MEDS ORDERED: DIPHENHYDRAMINE HCL INJ 50 MG/ML VIAL IV PRN (14:30)
[2018-07-04] MEDS ORDERED: SODIUM CHLORIDE FLUSH 10 ML SYR INJ PRN ×2 (14:30)
--- OUTSIDE RECORDS SUMMARY | 2018-07-04 14:59 | XMS REPORT | Clinical Summary ---
Author Author [facility] Organization [facility] Address Unknown Phone Unavailable Care Team Providers Care Range Mounter Name Role Phone PCP Unavailable Allergies No [...] D deficiency Active mometasone (NASONEX) 50 1 [place] by 17 g 3 mcg/actuation nasal each [...] has opioid contract with Sima Schmitt MD, [facility], PMR clinic, see Media section of EPIC Nov 2012 and or Jan 2014 Neurogenic bladder disorder 01/15/2013 Right sided sciatica 01/15/2013 Hip pain 01/15/2013 Foot drop, left 01/15/2013 Neuropathic pain 06/09/2010 Thrombocytopenia, unspecified 05/06/2009 Overview: Seen in hospital 03/23 and noted to have thrombocytopenia that was stable during hospitalization ranging from 60-100s. HIV negative. Hep negative. 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 Pt started on steroids. [...] Taken Vital Sign Reading 06/06/2018 8:45 AM INTERNET SYSTEMS ADMINISTRATOR Blood Pressure 110/67 06/06/2018 8:45 AM INTERNET SYSTEMS ADMINISTRATOR Pulse 70 06/06/2018 8:45 AM INTERNET SYSTEMS ADMINISTRATOR Temperature 36.7 C (98 F) 06/06/2018 8:45 AM INTERNET SYSTEMS ADMINISTRATOR Respiratory Rate 18 - Oxygen Saturation - - Inhaled Oxygen - Concentration 06/06/2018 8:45 AM INTERNET SYSTEMS ADMINISTRATOR Weight 139.3 kg (307 lb) 06/06/2018 8:45 AM INTERNET SYSTEMS ADMINISTRATOR Height 182.9 cm (6') 06/06/2018 8:45 AM INTERNET SYSTEMS ADMINISTRATOR Body Mass Index 41.64 Plan of Treatment Care Team Description Date Type Specialty Concepcion Garg MD [address] [facility] [id number] [place] [phone] 07/18/2018 Office Visit Colon and Rectal Surgery Procedures Comments Procedure Name Priority Date/Time Associated Diagnosis LIVER PROFILE Routine 06/06/2018 Internal and external 10:00 AM INTERNET SYSTEMS ADMINISTRATOR bleeding hemorrhoids PT/INR/PTT Routine 06/06/2018 Internal and external 10:00 AM INTERNET SYSTEMS ADMINISTRATOR bleeding hemorrhoids BASIC METABOLIC PANEL Routine 06/06/2018 Internal and external 10:00 AM INTERNET SYSTEMS ADMINISTRATOR bleeding hemorrhoids CBC/DIFF Routine 06/06/2018 Internal and external 10:00 AM INTERNET SYSTEMS ADMINISTRATOR bleeding hemorrhoids after 07/03/2017 Results * PT/INR/PTT (06/06/2018 10:00 AM INTERNET SYSTEMS ADMINISTRATOR) PT 20.4 (H) 11.8 - 15.[address] [facility] MAIN-STATION [address] [facility] SUGGESTED THERAPEUTIC RANGES: MAIN-STATION 4 INR 2.0-3.0 for MODERATE INTENSITY ANTICOAGULATION INR 2.5-3.5 for HIGH INTENSITY ANTICOAGULATION PTT 47.3 (H) 23.6 - 36.[address] [facility] MAIN-STATION 4 Specimen Blood Performing Organization Address City/State/Zipcode Phone Number MISYS [facility] MAIN-STATION 4 * LIVER PROFILE (06/06/2018 10:00 AM INTERNET SYSTEMS ADMINISTRATOR) T Protein 5.7 (L) 6.0 - 8.3 g/dL [facility] MAIN-STATION 1 Albumin 2.6 (L) 4.2 - 5.5 g/dL [facility] MAIN-STATION 1 T Bilirubin 3.1 (H) 0.2 - 1.2 mg/dL J MAIN-STATION 1 Alk Phos 110 (H) 34 - 104 U/L [facility] MAIN-STATION 1 AST 48 (H) 13 - 39 U/L [facility] MAIN-STATION 1 ALT 23 7 - 52 U/L [facility] MAIN-STATION 1 D Bilirubin 1.0 (H) 0.0 - 0.2 mg/dL [facility] MAIN-STATION 1 Specimen Blood Performing Organization Address City/State/Zipcode Phone Number MISYS [facility] MAIN-STATION 1 * CBC/DIFF (06/06/2018 10:00 AM INTERNET SYSTEMS ADMINISTRATOR) WBC 2.6 (L) 4.5 - 12.0 K/uL [facility] MAIN-STATION 2 RBC 3.47 (L) 4.60 - 6.20 M/uL [facility] MAIN-STATION 2 Hemoglobin 9.4 (L) 14.0 - 18.0 g/dL [facility] MAIN-STATION 2 Hematocrit 31.3 (L) 40.0 - 54.0 % [facility] MAIN-STATION [address] MCV 90 82 - [address] [facility] MAIN-STATION 2 MCH 27.1 27.0 - 31.[address] [facility] MAIN-STATION 2 MCHC 30.0 (L) 32.0 - 36.0 g/dL [facility] MAIN-STATION 2 RDW 65.0 (H) 35.1 - 43.[address] [facility] MAIN-STATION 2 Platelet 41 (L) 150 - 400 K/uL [facility] MAIN-STATION 2 Mean Platelet Not measured 9.4 - 12.4 fL [facility] Volume MAIN-STATION [address] [facility] MAIN-STATION [address] [facility] MAIN-STATION 2 Neutrophil 58.0 34.0 - [...] MAIN-STATION 2 Specimen Blood Performing Organization Address City/[facility] Services[facility] Phone Number MISYS [facility] MAIN-STATION 2 * BASIC METABOLIC PANEL (06/06/2018 10:00 AM INTERNET SYSTEMS ADMINISTRATOR) CO2 29 21 - 31 mmol/L [facility] MAIN-STATION 1 Chloride 109 (H) 98 - 107 mmol/L [facility] MAIN-STATION 1 Potassium 4.4 3.5 - 5.1 mmol/L [facility] MAIN-STATION 1 Sodium 141 136 - 145 mmol/L [facility] MAIN-STATION 1 Glucose 79 70 - 110 mg/dL [facility] MAIN-STATION 1 Urea Nitrogen 11 7 - 25 mg/dL [facility] MAIN-STATION 1 Creatinine 0.80 0.7 - 1.3 mg/dL [facility] MAIN-STATION 1 Anion Gap [address] [facility] MAIN-STATION 1 Calcium 8.2 (L) 8.6 - 10.3 mg/dL [facility] MAIN-STATION 1 GFR, Estimated >60 mL/min/1.[address] [facility] MAIN-STATION 1 GFR, Estim, >60 mL/min/1.[address] [facility] Afr-Am MAIN-STATION 1 Specimen Blood Performing Organization Address City/[facility] Servicescode Phone Number MISYS [facility] MAIN-STATION 1 after 07/03/2017 Insurance Type Payer Benefit Subscriber ID Effective Phone Address Plan / Dates Group [employer] MED[employer] OPTIONS [employer] xxxxxxxxxxxx 2014-P [phone] [facility] [id number] [employer] [address] [address] [place] [address]
[2018-07-04] MEDS ORDERED: VANCOMYCIN 1GM/NS 250 ML 250 ML IV SCH ×2 (15:00→18:00)
--- NOTE | 2018-07-04 16:13 | NUR ---
room assignment provided, pt. going to room #200. Called, report given to VENUS Almaraz
--- NOTE | 2018-07-04 16:20 | NUR ---
[facility] called to transport pt. to [facility]
--- NOTE | 2018-07-04 17:00 | NUR ---
BED SIDE REPORT GIVEN TO ONCOMING NURSE SHE AWARE ABOUT THE THE ADMISSION ASSESSMENT HAVE TO BE DONE
--- NOTE | 2018-07-04 17:39 | NUR ---
[facility] arrived at 172, departed with pt. at [phone]
--- NOTE | 2018-07-04 17:50 | NUR ---
RCD PT BY STRETCHER PT IS ALERT AND ORIENTED VITALS CHECKED PT RESTING ON BED FAMILY AT BED SIDE BED LOW AND LOCKED CALL LIGHT IN REACH
[2018-07-04] MEDS ORDERED: PIPER-TAZ 3.375 GM 50 ML IV SCH ×2 (18:00→19:00)
[2018-07-04] MEDS ORDERED: SODIUM CHLORIDE 0.9% 250ML 250 ML ONE (18:10)
[2018-07-04 18:18] VITALS: BP 158/79
--- NOTE | 2018-07-04 18:39 | NUR ---
PT RESTING ON BED BED SIDE REPORT GIVEN TO ONCOMING NURSE
--- NOTE | 2018-07-04 19:58 | NUR ---
PAGED DR. NEWELL FOR CONSULT
[2018-07-04 20:00] VITALS: BP 137/79
--- NOTE | 2018-07-04 20:15 | NUR ---
Patient is having a fever of 101.9 F. rechecked after. Rechecked after 30 mins. Patient still running a fever of 101.9. Patient stated concerned about taking medication for fever due to his liver problem and blood thinners. Paged Dr. Munoz waiting for response.
[2018-07-04 20:18] VITALS: BP 137/79
[2018-07-04 20:25] VITALS: BP 137/79
[2018-07-04] MEDS: PIPER-TAZ 3.375 GM 50 ML IV SCH (20:25)
--- NOTE | 2018-07-04 21:00 | NUR ---
No call back received from dr. Munoz. Jojre the primary operator made aware and will be paging Dr. Munoz again.
--- NOTE | 2018-07-04 21:19 | Consultation ---
DATE OF CONSULTATION: 07/04/2018 REASON FOR CONSULTATION: Fever and chills, concerned about sepsis. HISTORY OF PRESENT ILLNESS: This patient who is a 38-year-old [place] male comes into the Emergency Room with fever and chills and feeling sensation of not doing well. The patient apparently has been sick for last 3 days. This patient who is a 38-year-old [place] male with history of alcoholism and history of liver cirrhosis. The patient upon arrival to the Emergency Room had a temperature of 101.7, he looked jaundiced, bilirubin was 3.7, alert and oriented, had generalized edema. The patient is being admitted. The patient is currently lying in bed comfortably, mainly complaining of fever and chills. As mentioned above, no specific complaints. No nausea. No vomiting. No diarrhea. No headache. No urgency. No frequency. No skin rash. The patient in the Emergency Room had chest x-ray, which showed reactive airway disease, no evidence of pneumonia. He had a white count of 4.8, hemoglobin 9.5, hematocrit 29, and his platelet were 27. He had a sodium of 138, potassium 4.5, creatinine 0.82, protein of 6.1. MEDICATIONS: He was given vancomycin and Zosyn. PAST MEDICAL HISTORY: Liver cirrhosis, alcoholism. The patient was recently in the hospital in May. The patient has a history of portal hypertension, hypersplenism, anemia of chronic disease, and thrombocytopenia. PAST SURGICAL HISTORY: Denies. ALLERGIES: NKA. SOCIAL HISTORY: There is no smoking, drug abuse, or alcohol abuse currently. FAMILY HISTORY: Noncontributory. REVIEW OF SYSTEMS: HEENT: There is no headache, visual change, or hearing changes. GI: There is no nausea, no vomiting, no diarrhea. CARDIAC: There is no arrhythmia. NEUROLOGIC: No seizure activity. SKIN: There are no other rashes. JOINTS: No erythema, but he is icteric as mentioned above. PHYSICAL EXAMINATION: GENERAL: Alert and oriented, does not seem to be in acute distress. VITAL SIGNS: Stable. Temperature 101.6. HEENT: He is not pale, but he is icteric. Normocephalic. NECK: Supple. No JVD. No lymphadenopathy. No thyromegaly. CHEST: Clear bilateral. HEART: S1, S2. No S3, S4, or murmur. ABDOMEN: Soft. Bowel sounds present. No tenderness. EXTREMITIES: No edema. IMPRESSION AND PLAN: Fever and chills. The patient with liver cirrhosis, alcoholism. Agree with blood cultures, urine cultures. Obtain ultrasound of the abdomen. I will recommend to put him on Rocephin 2 g IV piggyback q.24 hours. Recheck CBC, recheck chemistry panel. Agree with supportive care. Further recommendations to follow. MD SU Parisi/HÉCTOR /[id number]
--- NOTE | 2018-07-04 21:30 | NUR ---
Call Back received from Dr. Munoz new orders received for another blood culturex2. is aware that patient had previous blood culture. Orders to renew home medications.
[2018-07-04] MEDS ORDERED: TRAMADOL HCL 50 MG TAB PO PRN (21:45)
[2018-07-04] MEDS ORDERED: ACETAMINOPHEN 325 MG TAB PO PRN (21:45)
--- NOTE | 2018-07-04 21:50 | NUR ---
Patient refused PRN Tylenol.
[2018-07-05] VITALS (8 sets, daily range): BP systolic 117–143; BP diastolic 46–73
[2018-07-05] MEDS: PIPER-TAZ 3.375 GM 50 ML IV SCH ×2 (02:05→08:17)
[2018-07-05 05:07] LABS: BASOPHILS % 0.5 % (0.0-1.0); EOSINOPHILS # (AUTO) 0.1 (0.0-0.4); EOSINOPHILS % 3.8 % (0.0-6.0); HEMATOCRIT 25.1 % (38.2-49.6); HEMOGLOBIN 7.8 g/dL (14.0-18.0); LYMPHOCYTES # (AUTO) 0.5 (1.0-3.2); LYMPHOCYTES % 26.1 % (18.0-39.1); MEAN CORPUSCULAR HEMOGLOBIN 27.5 pg (28-32); MEAN CORPUSCULAR HGB CONC 31.1 g/dL (31-35); MEAN CORPUSCULAR VOLUME 88.4 fL (81-99); MONOCYTES # (AUTO) 0.4 (0.2-0.8); MONOCYTES % 20.1 % (4.4-11.3); NEUTROPHILS # (AUTO) 0.9 (2.1-6.9); RED BLOOD COUNT 2.84 x10e6/uL (4.3-5.7); RED CELL DISTRIBUTION WIDTH 18.5 % (11.7-14.4)
[2018-07-05 05:25] LABS: PLATELET COUNT 30 x10e3/uL (140-360)
[2018-07-05 05:28] LABS: ANION GAP 9.1 mmol/L (8-16); BLOOD UREA NITROGEN 10 mg/dL (7-26); BUN/CREATININE RATIO 12 (6-25); CALCIUM 7.7 mg/dL (8.4-10.2); CARBON DIOXIDE 24 mmol/L (22-29); CHLORIDE 109 mmol/L (98-107); CREATININE, SERUM 0.86 mg/dL (0.72-1.25); EST GLOMERULAR FILTRATION RATE > 60 ML/MIN (60-); GLUCOSE 88 mg/dL (74-118); POTASSIUM 4.1 mmol/L (3.5-5.1); SODIUM 138 mmol/L (136-145)
--- NOTE | 2018-07-05 06:15 | NUR ---
PAGED DR. NEWELL FOR CRITICAL LABS, WAITING FOR RESPONSE.
[2018-07-05] MEDS: PANTOPRAZOLE SOD 40 MG TABEC PO SCH (08:18)
[2018-07-05] MEDS: MULTIVITAMINS/MINERALS TAB PO SCH (08:18)
[2018-07-05] MEDS: PROPRANOLOL HCL 10 MG TAB PO SCH ×2 (08:18→18:00)
[2018-07-05] MEDS: GABAPENTIN 300 MG CAP PO SCH ×2 (08:18→18:00)
[2018-07-05 08:49] LABS: BAND NEUTROPHILS % (MANUAL) 1 %; EOSINOPHILS % (MANUAL) 3 % (0-7); LYMPHOCYTES % (MANUAL) 15 % (19-48); MONOCYTES % (MANUAL) 8 % (3.4-9.0); NEUTROPHILS % (MANUAL) 73 % (40-74)
[2018-07-05 08:50] LABS: ANISOCYTOSIS SLIGHT; ELLIPTOCYTE, RBC MODERATE; PLATELET ESTIMATE ADEQUATE; PLATELET MORPHOLOGY COMMENT NORMAL; POIKILOCYTOSIS SLIGHT; RBC MORPHOLOGY COMMENT ABNORMAL; TOXIC GRANULATION SLIGHT
[2018-07-05] MEDS: AZITHROMYCIN 500MG/NS 250 ML 250 ML IV SCH (11:57)
[2018-07-05 12:11] LABS: HIV 1&2 AB SCREEN NON-REACTIVE (NONREACTIVE)
[2018-07-05] MEDS: CEFTRIAXONE SOD 2 GM/NS 100 ML 100 ML IV SCH (13:25)
[2018-07-05] MEDS ORDERED: FERROUS SULFAT325 MG PO (17:57)
--- NOTE | 2018-07-05 19:29 | History and Physical ---
CHIEF COMPLAINT: Mr. Erik Aguilera is an unfortunate 38-year-old man with known alcoholic cirrhosis and ascites, who presented to the emergency room with complaint of fever. HISTORY OF PRESENT ILLNESS: The patient is a very poor historian without good understanding of his underlying problems. He tells me his liver problems were taken care by informatics application analyst at [facility], but could not tell me anything further about treatments. He denies any yunior abdominal pain, but does say that he had "gas" earlier in the week. PAST MEDICAL HISTORY: Significant for alcoholic cirrhosis with ascites. He has chronic back pain for which he takes gabapentin. He tells me he has not needed to take lactulose lately as he is having bowel movements. MEDICATIONS: Include pantoprazole, propranolol 10 mg b.i.d., gabapentin 300 mg b.i.d., and tramadol 50 mg q.12 p.r.n. PERSONAL AND SOCIAL HISTORY: The patient evidently was alcohol drinker for about 21 years, but stopped about three years or so ago. PHYSICAL EXAMINATION: GENERAL: At this time shows a large obese man, who is about 6 feet tall, weighing 331 pounds. HEAD, EYES, EARS, NOSE, AND THROAT: Unremarkable. He is afebrile today. NECK: Thick. THORAX: Heart sounds S1, S2 equal. No murmurs. LUNGS: Clear. ABDOMEN: Markedly protuberant, rather tense, nontender to palpation. EXTREMITIES: No significant cyanosis, clubbing, or edema. LABORATORY DATA: Hemoglobin is 7.8, white count 1.84, and platelets 30,000. Serum ammonia is 176 was normal being less than 123. Blood cultures are pending. ASSESSMENT: 1. Fever, etiology not entirely clear. 2. Cirrhosis. 3. Ascites. 4. Pancytopenia. 5. Retinitis pigmentosa. PLAN: We will continue his home medications and he has been given broad-spectrum antibiotics. We will await blood cultures and further management based on clinical course. MD DAVI Pedroza/KWASIL /[id number] cc: MD Jae Parisi MD
[2018-07-06] VITALS (8 sets, daily range): BP systolic 111–150; BP diastolic 50–65
[2018-07-06 07:02] LABS: BASOPHILS % 0.7 % (0.0-1.0); EOSINOPHILS # (AUTO) 0.1 (0.0-0.4); EOSINOPHILS % 7.9 % (0.0-6.0); HEMATOCRIT 27.1 % (38.2-49.6); HEMOGLOBIN 8.3 g/dL (14.0-18.0); LYMPHOCYTES # (AUTO) 0.5 (1.0-3.2); LYMPHOCYTES % 38.8 % (18.0-39.1); MEAN CORPUSCULAR HEMOGLOBIN 27.1 pg (28-32); MEAN CORPUSCULAR HGB CONC 30.6 g/dL (31-35); MEAN CORPUSCULAR VOLUME 88.6 fL (81-99); MONOCYTES # (AUTO) 0.3 (0.2-0.8); NEUTROPHILS # (AUTO) 0.4 (2.1-6.9); NEUTROPHILS % 28.9 % (38.7-80.0); RED BLOOD COUNT 3.06 x10e6/uL (4.3-5.7); RED CELL DISTRIBUTION WIDTH 18.2 % (11.7-14.4)
[2018-07-06 07:11] LABS: PLATELET COUNT 32 x10e3/uL (140-360)
[2018-07-06 07:39] LABS: ALANINE AMINOTRANSFERASE 22 IU/L (0-55); ALBUMIN 2.1 g/dL (3.5-5.0); ALBUMIN/GLOBULIN RATIO 0.7 (0.8-2.0); ALKALINE PHOSPHATASE 84 IU/L (40-150); BLOOD UREA NITROGEN 9 mg/dL (7-26); BUN/CREATININE RATIO 12 (6-25); CALCIUM 7.4 mg/dL (8.4-10.2); CARBON DIOXIDE 25 mmol/L (22-29); CHLORIDE 109 mmol/L (98-107); CREATININE, SERUM 0.75 mg/dL (0.72-1.25); EST GLOMERULAR FILTRATION RATE > 60 ML/MIN (60-); GLUCOSE 83 mg/dL (74-118); POTASSIUM 3.6 mmol/L (3.5-5.1); SODIUM 136 mmol/L (136-145)
[2018-07-06 08:18] LABS: ANION GAP 5.6 mmol/L (8-16)
[2018-07-06] MEDS: MULTIVITAMINS/MINERALS TAB PO SCH (09:00)
[2018-07-06] MEDS: PROPRANOLOL HCL 10 MG TAB PO SCH ×2 (09:23→17:21)
[2018-07-06] MEDS: GABAPENTIN 300 MG CAP PO SCH ×2 (09:23→17:21)
[2018-07-06] MEDS: PANTOPRAZOLE SOD 40 MG TABEC PO SCH (09:23)
[2018-07-06] MEDS: CEFTRIAXONE SOD 2 GM/NS 100 ML 100 ML IV SCH (11:09)
[2018-07-06] MEDS: AZITHROMYCIN 500MG/NS 250 ML 250 ML IV SCH (12:24)
[2018-07-06 13:08] LABS: EOSINOPHILS % (MANUAL) 8 % (0-7); LYMPHOCYTES % (MANUAL) 39 % (19-48); MONOCYTES % (MANUAL) 21 % (3.4-9.0)
[2018-07-06 13:09] LABS: NEUTROPHILS % (MANUAL) 31 % (40-74)
[2018-07-06 13:10] LABS: LARGE PLATELETS FEW; PLATELET ESTIMATE MARKEDLY DECREASED; PLATELET MORPHOLOGY COMMENT NORMAL
[2018-07-06 13:11] LABS: RBC MORPHOLOGY COMMENT ABNORMAL; SCHISTOCYTES FEW
[2018-07-07] VITALS (8 sets, daily range): BP systolic 111–138; BP diastolic 50–76
--- NOTE | 2018-07-07 07:05 | NUR ---
Received patient mid fowlers position, side rails upx2, call light within reach, father at bedside. Resting with eyes closed. Arousable to verbal stimuli.. Respirations even and unlabored. Will continue to monitor.
--- NOTE | 2018-07-07 08:53 | NUR ---
IMM letter delivered and explained to pt and his dad Arturo at bedside. Pt verbalized understanding. Pt asked his dad to sign for him. Signed copy placed in chart. Copy to pt's dad.
[2018-07-07] MEDS: MULTIVITAMINS/MINERALS TAB PO SCH (09:00)
[2018-07-07] MEDS: GABAPENTIN 300 MG CAP PO SCH ×2 (09:01→16:36)
[2018-07-07] MEDS: PROPRANOLOL HCL 10 MG TAB PO SCH ×2 (09:01→16:36)
[2018-07-07] MEDS: PANTOPRAZOLE SOD 40 MG TABEC PO SCH (09:02)
--- NOTE | 2018-07-07 09:43 | Diagnostic Imaging Report ---
EXAM: US ABDOMEN COMPLETE DATE: 07/07/2018 12:00 AM INDICATION: Ascites COMPARISON: None TECHNIQUE: Transverse and longitudinal flood scale and color doppler sonographic images of the upper abdomen were obtained. FINDINGS: LIVER 12.8 cm in the right midclavicular line. Heterogeneous echotexture with nodular external contour. No discrete mass. SPLEEN 22 cm in maximum diameter. Normal echogenicity, no masses. GALLBLADDER Collapsed with internal shadowing calculi again noted. No wall thickening or pericholecystic fluid. Negative sonographic Saleem sign by report. BILE DUCTS No intra nor extra-hepatic biliary dilation. Common bile duct measures 0.4 cm PANCREAS: Poorly visualized due to overlying bowel gas RIGHT KIDNEY: 11.5 cm Echogenicity: Normal Collecting System: No hydronephrosis Stones: None Cyst/Mass: None LEFT KIDNEY: 13.5 cm Echogenicity: Normal Collecting System: No hydronephrosis Stones: None Cyst/Mass: None VESSELS: Aorta: Not visualized due to overlying bowel gas. Inferior Vena Cava: Patent Main Portal Vein: 1.0 cm, normal size with hepatopetal flow. FREE FLUID: Mild ascites IMPRESSION: Cirrhosis with portal hypertension evidenced by splenomegaly and small volume ascites. Cholelithiasis without sonographic evidence of acute cholecystitis. Signed by: Dr. Jose Angel Davis M.D. on 07/07/2018 9:39 AM
[2018-07-07] MEDS: CEFTRIAXONE SOD 2 GM/NS 100 ML 100 ML IV SCH (11:30)
[2018-07-07] MEDS ORDERED: SODIUM CHLORIDE 0.9% 250ML 250 ML ONE (11:35)
[2018-07-07] MEDS: AZITHROMYCIN 500MG/NS 250 ML 250 ML IV SCH (12:20)
--- NOTE | 2018-07-07 18:47 | NUR ---
Resting in bed, family at bedside, no s/s of acute distress noted. Report to be given to oncoming nurse.
--- NOTE | 2018-07-07 20:30 | NUR ---
patient received. patient is resting in bed, AAOx3. Resp even and unlabored. No acute distress noted. Patient denies of any pain or discomfort at this time. call light within reach. instruct to call for assistance. bed low/locked. continue to monitor closely
[2018-07-08 00:06] VITALS: BP 128/60
[2018-07-08 04:00] VITALS: BP 106/55
[2018-07-08 05:23] LABS: BASOPHILS % 1.2 % (0.0-1.0); EOSINOPHILS # (AUTO) 0.1 (0.0-0.4); EOSINOPHILS % 8.2 % (0.0-6.0); HEMATOCRIT 26.3 % (38.2-49.6); HEMOGLOBIN 8.2 g/dL (14.0-18.0); LYMPHOCYTES # (AUTO) 0.7 (1.0-3.2); LYMPHOCYTES % 40.4 % (18.0-39.1); MEAN CORPUSCULAR HEMOGLOBIN 27.8 pg (28-32); MEAN CORPUSCULAR HGB CONC 31.2 g/dL (31-35); MEAN CORPUSCULAR VOLUME 89.2 fL (81-99); MONOCYTES # (AUTO) 0.2 (0.2-0.8); MONOCYTES % 11.7 % (4.4-11.3); NEUTROPHILS # (AUTO) 0.7 (2.1-6.9); NEUTROPHILS % 38.5 % (38.7-80.0); RED BLOOD COUNT 2.95 x10e6/uL (4.3-5.7)
[2018-07-08 05:42] LABS: PLATELET COUNT 32 x10e3/uL (140-360)
[2018-07-08 05:49] LABS: BLOOD UREA NITROGEN 11 mg/dL (7-26); BUN/CREATININE RATIO 16 (6-25); CALCIUM 7.5 mg/dL (8.4-10.2); CARBON DIOXIDE 26 mmol/L (22-29); CHLORIDE 105 mmol/L (98-107); CREATININE, SERUM 0.67 mg/dL (0.72-1.25); EST GLOMERULAR FILTRATION RATE > 60 ML/MIN (60-); GLUCOSE 74 mg/dL (74-118); POTASSIUM 3.8 mmol/L (3.5-5.1); SODIUM 133 mmol/L (136-145)
[2018-07-08 05:52] LABS: ANION GAP 5.8 mmol/L (8-16)
[2018-07-08 07:39] VITALS: BP 128/77
[2018-07-08] MEDS: MULTIVITAMINS/MINERALS TAB PO SCH (08:00)
[2018-07-08] MEDS: PANTOPRAZOLE SOD 40 MG TABEC PO SCH (08:00)
[2018-07-08] MEDS: GABAPENTIN 300 MG CAP PO SCH (08:00)
[2018-07-08] MEDS: PROPRANOLOL HCL 10 MG TAB PO SCH (08:00)
[2018-07-08 08:10] VITALS: BP 128/77
[2018-07-08 08:40] LABS: EOSINOPHILS % (MANUAL) 6 % (0-7); LYMPHOCYTES % (MANUAL) 44 % (19-48); MONOCYTES % (MANUAL) 7 % (3.4-9.0); NEUTROPHILS % (MANUAL) 38 % (40-74)
[2018-07-08 08:41] LABS: ROULEAU FEW; SCHISTOCYTES FEW
[2018-07-08 08:42] LABS: PLATELET ESTIMATE MODERATELY DECREASED; PLATELET MORPHOLOGY COMMENT NORMAL; POIKILOCYTOSIS SLIGHT
--- NOTE | 2018-07-08 10:34 | NUR ---
Paged to notify of message. states "Ill be there to write prescriptions"
[2018-07-08] MEDS ORDERED: CEFUROXIME250 MG PO ×2 (11:03→11:05)
[2018-07-08] MEDS ORDERED: PNEUMOCOCCAL VACCINE POLYVALENT 23 MCG/0.5 ML VIAL IM ONE (11:15)
--- NOTE | 2018-07-08 11:47 | NUR ---
Right AC IV discontinued. No signs of infiltration noted. 2x2 gauze and tape. Taken via wheelchair to personal car. Accompanied by father. AAOX3 to time, person, place. Respirations even and unlabored. Discharge instructions, rx, and all personal belongings taken with patient.
== END 2018-07-08 11:47 | disposition home or self-care (01) | DRG 194 ==
LOC: FSED 12:37 → ERHOLD 14:32 → MED/SURG2 17:59
PROVIDERS: ADMIT Internal Medicine Cardiovascular Disease; ATTEND Internal Medicine Cardiovascular Disease
DX: J18.9 Pneumonia, unspecified organism (principal); D61.818 Other pancytopenia; Z68.42 Body mass index [BMI] 45.0-49.9, adult; R50.9 Fever, unspecified; K72.90 Hepatic failure, unspecified without coma; D70.3 Neutropenia due to infection; K70.31 Alcoholic cirrhosis of liver with ascites; H35.52 Pigmentary retinal dystrophy; M54.9 Dorsalgia, unspecified; F10.21 Alcohol dependence, in remission; Z79.899 Other long term (current) drug therapy; E66.01 Morbid (severe) obesity due to excess calories
CPT/HCPCS: 36415; 71046; 76700; 80048; 80053; 81003; 82140; 85025; 85610; 87040; 87390; 87400; 90732; 99284; G0433; G0435; J0456; J0696; J1200; J2543; J3370; J7040; J7050

== ENCOUNTER 2018-12-16 20:35 | Emergency (ER) | payer MEDICARE, OTHER ==
[~2018-12-16] VITALS: Ht 182.9 cm; Wt 151.5 kg
[~2018-12-16 20:35] MED LIST changes: +CEFUROXIME250 MG PO; +FERROUS SULFAT325 MG PO; +GABAPENTIN300 MG PO; +ICAPS MV TABLE1 EACH; +OYSTER SHELL C1 EACH; +PANTOPRAZOLE SO40 MG PO; +PROPRANOLOL HCL10 MG PO; +ULTRAM50 MG PO
--- OUTSIDE RECORDS SUMMARY | 2018-12-16 20:39 | XMS REPORT | Clinical Summary ---
Author Author [facility] Organization [facility] Address Unknown Phone Unavailable Care Team Providers Care Product Test Engineer Name Role Phone PCP Unavailable Allergies No [...] D deficiency Active mometasone (NASONEX) 50 1 Crawford by 17 g 3 mcg/actuation nasal each [...] has opioid contract with Sima Schmitt MD, [facility], PMR clinic, see Media section of EPIC Nov 2012 and or Jan 2014 Neurogenic bladder disorder 01/15/2013 Right sided sciatica 01/15/2013 Hip pain 01/15/2013 Foot drop, left 01/15/2013 Neuropathic pain 06/09/2010 Thrombocytopenia, unspecified 05/06/2009 Overview: Seen in hospital 03/23 and noted to have thrombocytopenia that was stable during hospitalization ranging from 60-100s. HIV negative. Hep negative. 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 Pt started on steroids. Currently on Prednisone 5 mg PO BID. Pt on review of labwork has had low plts documented in 2003 104. Abd U/S scheduled 08/04/09 Leg weakness 04/28/2009 SCI (spinal cord injury) 04/28/2009 Encounters Care Team Description Date Type Specialty Concepcion Garg MD Thrombocytopenia, unspecified (Primary Dx); Internal and external bleeding hemorrhoids; Alcohol use disorder, severe, in sustained remission, dependence 07/18/2018 Office Visit Colon and Rectal Surgery 07/18/2018 Travel Anne-Marie Tejeda RN 07/02/2018 Nurse Triage Concepcion Garg MD Internal and external bleeding hemorrhoids 06/06/2018 Hospital Lab Encounter Concepcion Garg MD Thrombocytopenia, unspecified (Primary Dx); Alcohol use disorder, severe, in sustained remission, dependence; Internal and external bleeding hemorrhoids 06/06/2018 Office Visit Colon and Rectal Surgery 06/06/2018 Travel after 12/15/2017 Social History Date Tobacco Use Types Packs/Day Years Used Never Smoker Smokeless Tobacco: Never Used Tobacco Cessation: Counseling Given: No Drinks/Week oz/Week Comments Alcohol Use occasional Yes Food Insecurity Answer Date Recorded Within the past 12 months, you worried that your Never true 07/18/2018 food would run out before you got money to buy more. Within the past 12 months, the food you bought Never true 07/18/2018 just didn't last and you didn't have money to get more. Sex Assigned at Date Recorded Not on file Industry Job Start Date Occupation Not on file Not on file Not on file Travel End Travel History Travel Start No recent travel history available. Last Filed Vital Signs Reading Time Taken Comments Vital Sign 111/65 07/18/2018 12:49 PM CDT Blood Pressure 76 07/18/2018 12:49 PM CDT Pulse 36.6 C (97.9 F) 07/18/2018 12:49 PM CDT Temperature 20 07/18/2018 12:49 PM CDT Respiratory Rate - - Oxygen Saturation - - Inhaled Oxygen Concentration 148.3 kg (327 lb) 07/18/2018 12:49 PM CDT Weight 182.9 cm (6') 07/18/2018 12:49 PM CDT Height 44.35 07/18/2018 12:49 PM CDT Body Mass Index Plan of Treatment Not on file Procedures Comments Procedure Name Priority Date/Time Associated Diagnosis LIVER PROFILE Routine 06/06/2018 Internal and external 10:00 AM BREAKER UP MACHINE OPERATOR bleeding hemorrhoids PT/INR/PTT Routine 06/06/2018 Internal and external 10:00 AM BREAKER UP MACHINE OPERATOR bleeding hemorrhoids BASIC METABOLIC PANEL Routine 06/06/2018 Internal and external 10:00 AM BREAKER UP MACHINE OPERATOR bleeding hemorrhoids CBC/DIFF Routine 06/06/2018 Internal and external 10:00 AM BREAKER UP MACHINE OPERATOR bleeding hemorrhoids after 12/15/2017 Results * PT/INR/PTT (06/06/2018 10:00 AM BREAKER UP MACHINE OPERATOR) PT 20.4 (H) 11.8 - 15.0 Seconds [facility] MAIN-STATION 4 INR 1.8 [facility] SUGGESTED THERAPEUTIC RANGES: MAIN-STATION 4 INR 2.0-3.0 for MODERATE INTENSITY ANTICOAGULATION INR 2.5-3.5 for HIGH INTENSITY ANTICOAGULATION PTT 47.3 (H) 23.6 - 36.4 Seconds [facility] MAIN-STATION 4 Specimen Blood Performing Organization Address City/State/Zipcode Phone Number [facility] MAIN-STATION 4 * LIVER PROFILE (06/06/2018 10:00 AM BREAKER UP MACHINE OPERATOR) Protein, Total, 5.7 (L) 6.0 - 8.3 g/dL [facility] Serum MAIN-STATION 1 Albumin 2.6 (L) 4.2 - 5.5 g/dL [facility] 1 Bilirubin, 3.1 (H) 0.2 - 1.2 mg/dL [facility] Total MAIN-STATION 1 Alkaline 110 (H) 34 - 104 U/L [facility] Phosphatase, S MAIN-STATION 1 AST (SGOT) 48 (H) 13 - 39 U/L [facility] 1 ALT 23 7 - 52 U/L [facility] MA[facility] 1 D Bilirubin 1.0 (H) 0.0 - 0.2 mg/dL [facility] MA[facility]-ST[facility] 1 Specimen Blood Performing Organization Address City/State/Zipcode Phone Number [facility] MAIN-STATION 1 * CBC/DIFF (06/06/2018 10:00 AM BREAKER UP MACHINE OPERATOR) WBC 2.6 (L) 4.5 - 12.0 K/uL [facility] 2 RBC 3.47 (L) 4.60 - 6.20 M/uL [facility] 2 Hemoglobin 9.4 (L) 14.0 - 18.0 g/dL [facility] 2 Hematocrit 31.3 (L) 40.0 - 54.0 % [facility] 2 MCV 90 82 - 92 fL [facility] 2 MCH 27.1 27.0 - 31.0 pg [facility] 2 MCHC 30.0 (L) 32.0 - 36.0 g/dL [facility] 2 RDW 65.0 (H) 35.1 - 43.9 fL [facility] 2 Platelets 41 (L) 150 - 400 K/uL [facility] 2 Mean Platelet Not measured 9.4 - 12.4 fL [facility] Volume [facility] 2 Percent NRBC 0.0 [facility] 2 Absolute NRBC 0.00 [facility] 2 Neutrophils 58.0 34.0 - 67.9 % [facility] 2 Lymphs 31.0 21.8 - 50.0 % [facility] 2 Monocytes 4.0 (L) 5.3 - 12.0 % [facility] 2 Eos 4.0 0.8 - 5.0 % [facility] 2 Basos 3.0 (H) 0.2 - 1.2 % [facility] 2 Neutrophils 1.51 (L) 1.78 - 5.36 K/uL [facility] (Absolute) MAIN[facility]ST[facility] 2 Lymphs 0.81 (L) 1.32 - 3.57 K/uL [facility] (Absolute) MAIN-ST[facility] 2 Monocytes(Absol 0.10 (L) 0.30 - 0.82 K/uL [facility] danyelle) MAIN-STATION 2 Eos (Absolute) 0.10 0.04 - 0.54 K/uL [facility] 2 Baso (Absolute) 0.08 0.01 - 0.08 K/uL [facility] 2 Ovalocyte 3+ [facility] 2 Schistocyte 1+ [facility] 2 Tear Drop Cell 2+ [facility] 2 Specimen Blood Performing Organization Address City/State/Zipcode Phone Number [facility] MAIN-STATION 2 * BASIC METABOLIC PANEL (06/06/2018 10:00 AM BREAKER UP MACHINE OPERATOR) [facility] CO2 29 21 - 31 mmol/L [facility] 1 Chloride 109 (H) 98 - 107 mmol/L [facility] 1 Potassium 4.4 3.5 - 5.1 mmol/L [facility] 1 Sodium 141 136 - 145 mmol/L LB MAIN-STATION 1 Glucose 79 70 - 110 mg/dL [facility] MAIN-STATION 1 BUN 11 7 - 25 mg/dL [facility] MAIN-STATION 1 Creatinine 0.80 0.7 - 1.3 mg/dL [facility] MAIN-STATION 1 Anion Gap 3 LB MAIN-STATION 1 Calcium 8.2 (L) 8.6 - 10.3 mg/dL [facility] MAIN-STATION 1 GFR, Estimated >60 mL/min/1.73 m2 LB MAIN-STATION 1 eGFR If Africn >60 mL/min/1.73 m2 [facility] MAIN-STATION 1 Specimen Blood Performing Organization Address City/State/Zipcode Phone Number [facility] MA[facility]-ST[facility] 1 after 12/15/2017 Insurance Type Payer Benefit Subscriber ID Effective Phone Address Plan / Dates Group [employer] OPTIONS CABRERA xxxxxxxxxxxx 2014-P [phone] [employer] HMO DUAL resent [id number] OPTION [employer] [address] [address] [place] [address]
--- OUTSIDE RECORDS SUMMARY | 2018-12-16 20:41 | XMS REPORT | Continuity of Care Document ---
Author Author [employer] Organization [employer] Address Unknown Phone Unavailable Care Team Providers Care Medical Staffing Coordinator Name Role Phone [employer] Unavailable Unavailable Problems Problem Status Onset Date Classification Date Reported Comments Source F/U Active 07/02/2018 [facility] Internal and external bleeding hemorrhoids Active 06/06/2018 11/10/2018 [facility] Other hemorrhoids 05/22/2018 12/02/2018 [facility] Abnormal results of liver function studies 04/23/2018 11/06/2018 [facility], L[place]ENE [place] DSU ESOPHAGEAL VARICES Active 04/04/2018 [facility] CIRRHOSIS Active 03/26/2018 [facility] LAB WORK ONLY Active 01/12/2018 [facility] Encounter for follow-up examination after completed treatment for conditions other than malignant neoplasm 05/29/2017 08/29/2017 [facility] Unspecified cirrhosis of liver 05/04/2017 08/06/2017 [facility] C22.0 - LIVER CELL CARCINOMA Active 05/02/2017 [place] ESLD Active 02/13/2017 [facility] GI BLEED Active 02/11/2017 [facility] RECTAL BLEEDING Active 02/11/2017 [facility] K76.6 - PORTAL HYPERTENSION C22.0 - LIVE Active 12/27/2016 [place] OUTPATIENT/IMAGE GUIDED ANGIOGRAM Active 12/26/2016 [facility] Alcohol use disorder, severe, in sustained remission, dependence Active 11/01/2016 11/10/2018 [facility] FOLLOW UP Active 10/23/2016 [facility] NEW PRE LIVER TRANSPLANT EVAL CLINIC VIS Active 04/30/2016 [facility] NEW PRE LIVER TRANSPLANT EVAL LABS AND E Active 03/23/2016 [facility] DSU-Z00.00 ENCOUNTER FOR GENERAL ADULT M Active 03/06/2016 [facility] CONSULT Active 02/06/2016 [facility] K74.60 - UNSPECIFIED CIRRHOSIS OF LIVER Active 01/16/2016 [facility] [place] Chronic pain syndrome Active 01/05/2014 11/10/2018 [facility] Neurogenic bladder disorder Active 01/15/2013 11/10/2018 [facility] Right sided sciatica Active 01/15/2013 11/10/2018 [facility] Hip pain Active 01/15/2013 11/10/2018 [facility] Foot drop, left Active 01/15/2013 11/10/2018 [facility] Neuropathic pain Active 06/09/2010 11/10/2018 [facility] Thrombocytopenia, unspecified Active 05/06/2009 11/10/2018 [facility] Leg weakness Active 04/28/2009 11/10/2018 [facility] SCI (spinal cord injury) Active 04/28/2009 11/10/2018 [facility] Acanthosis nigricans (disorder) Active Problem 12/02/2018 [facility] [place] Alcohol abuse (disorder) Resolved Problem 12/02/2018 [facility] [place] Alcoholic cirrhosis (disorder) Active Problem 12/02/2018 [facility] [place] Autosomal recessive retinitis pigmentosa (disorder) Active Problem 12/02/2018 [facility] [place] Body mass index 40+ - severely obese (finding) Active Problem 12/02/2018 BMI- 45.4 [facility] L[place] Esophageal varices (disorder) Active Problem 12/02/2018 [facility] [place] Hepatic encephalopathy (disorder) Active Problem 12/02/2018 [facility] [place] Liver cell carcinoma (disorder) Active Problem 02/16/2017 [facility] [place] Depressive disorder (disorder) Resolved Problem 12/02/2018 [facility] [place] Platelet count below reference range (finding) Active Problem 12/02/2018 [facility] [place] Portal hypertension (disorder) Active Problem 12/02/2018 [facility] [place] Secondary esophageal varices without bleeding 08/06/2017 [facility] Fluid overload, unspecified 08/06/2017 [facility] Anxiety (finding) Resolved Problem 12/02/2018 [facility] [place] Lesion of liver (finding) Active Problem 12/02/2018 [facility] [place] Abdominal bloating (finding) Active Problem 12/02/2018 [facility] [place] Body mass index (BMI) 40.0-44.9, adult 12/02/2018 [facility] Hemoglobin low (finding) Active Problem 12/02/2018 [facility], [place] Rectal hemorrhage (disorder) Active Problem 12/02/2018 [facility], [place] Cirrhosis of liver (disorder) Active Problem 03/30/2016 [facility], [place] Morbid obesity (disorder) Active Problem 03/30/2016 [facility] [place] Hemorrhage of anus and rectum 12/02/2018 [facility] Nonalcoholic steatohepatitis (ANDREW) 12/02/2018 [facility] Alcoholic cirrhosis of liver without ascites 12/02/2018 [facility] Portal hypertension 12/02/2018 [facility] Morbid (severe) obesity due to excess calories 12/02/2018 [facility] Alcohol dependence, uncomplicated 12/02/2018 [facility] Personal history of nicotine dependence 12/02/2018 [facility] Body mass index (BMI) 45.0-49.9, adult 10/15/2018 [facility] Other specified anxiety disorders 10/15/2018 [facility] Thrombocytopenia, unspecified 10/15/2018 [facility] Hepatic failure, unspecified without coma 10/15/2018 [facility] Personal history of malignant neoplasm of liver 10/15/2018 [facility] Acanthosis nigricans 10/15/2018 [facility] Acquired pancytopenia Active Problem 07/08/2018 [facility] Ascites due to alcoholic cirrhosis Active Problem 07/08/2018 [facility] Alcoholic cirrhosis Active Problem 07/08/2018 [facility] Pancytopenia Active Problem 07/08/2018 [facility] Sepsis Active Problem 07/08/2018 [facility] ENCNTR FOR GENERAL ADULT MEDICAL EXAM W/ Active [facility] GASTROINTESTINAL HEMORRHAGE, UNSPECIFIED Active [facility] Medications Medication Details Route Status Patient Instructions Ordering Provider Order Date Source ferrous sulfate 325 mg oral enteric coated tablet 325 mg=1 tab, PO, Daily, # 30 tab, 5 Refill(s), Pharmacy: [facility]/pharmacy #[id number] Active 11/20/2018 [facility] spironolactone 50 mg oral tablet 50 mg=1 tab, PO, Daily, # 60 tab, 3 Refill(s), Pharmacy: [facility]/pharmacy #[id number] Active 09/25/2018 [facility] Furosemide 20 MG Oral Tablet 20 mg=1 tab, PO, Daily, # 60 tab, 3 Refill(s), Pharmacy: [facility]/pharmacy #[id number] Active 09/25/2018 [facility] Lactulose 667 MG/ML Oral Solution 10 gm=15 mL, PO, Daily, 0 Refill(s) Active 09/25/2018 [facility] propranolol 10 mg oral tablet 10 mg=1 tab, PO, BID, # 180 tab, 0 Refill(s), Pharmacy: [facility]/pharmacy #[id number] No Longer Active 09/05/2018 [facility] Cefuroxime Axetil (Cefuroxime) 250 Mg Tablet Every 12 Hours Active Allie 07/08/2018 [facility] tramadol hydrochloride 50 MG Oral Tablet 50 mg=1 tab, PO, Q4H, PRN Pain, X 30 day, # 120 tab, 0 Refill(s), called to pharmacy No Longer Active 07/01/2018 [facility] Naloxone 0.4 mg, 1 mL, Route: IVP, Drug form: INJ, Q2MIN, Dosing Weight 145.455, kg, PRN Narcotic Reversal, Start date: 05/27/18 12:03:00 HOME CARE RN, Duration: 8 doses or times, Stop date: Limited # of timesNotes: Same as Narcan No Longer Active 05/27/2018 [facility] Promethazine 6.25 mg, 0.25 mL, Route: IVPB, Drug form: INJ, ONCE, Dosing Weight 145.455, kg, PRN Nausea & Vomiting, Start date: 05/27/18 12:03:00 CSTNotes: Do not give IV push. (Same as: Phenergan) No Longer Active 05/27/2018 [facility] Labetalol 10 mg, 2 mL, Route: IVP, Drug form: INJ, Q5Min, Dosing Weight 145.455, kg, PRN Elevated BP, Start date: 05/27/18 12:03:00 HOME CARE RN, Duration: 5 doses or times, Stop date: Limited # of times No Longer Active 05/27/2018 [facility] Hydralazine 10 mg, 0.5 mL, Route: IVP, Drug form: INJ, Q20Min, Dosing Weight 145.455, kg, PRN Elevated BP, Start date: 05/27/18 12:03:00 HOME CARE RN, Duration: 2 doses or times, Stop date: Limited # of timesNotes: (Same as: Apresoline) Push over 5 minutes No Longer Active 05/27/2018 [facility] Flumazenil 0.2 mg, 2 mL, Route: IVP, Drug form: INJ, PRN, Dosing Weight 145.455, kg, PRN Benzodiazepine Reversal, Initial dose, Start date: 05/27/18 12:03:00 HOME CARE RN, Duration: 30 day, Stop date: 06/26/18 13:02:00 CDTNotes: (Same as: Romazicon) No Longer Active 05/27/2018 [facility] Hydromorphone 0.2 mg, 0.1 mL, Route: IVP, Drug form: INJ, Q5Min, Dosing Weight 145.455, kg, PRN Pain Score 7-10, Start date: 05/27/18 12:03:00 HOME CARE RN, Duration: 4 doses or times, Stop date: Limited # of timesNotes: S horacio as Dilaudid No Longer Active 05/27/2018 [facility] Fentanyl 25 microgram, 0.5 mL, Route: IVP, Drug form: INJ, Q5Min, Dosing Weight 145.455, kg, PRN Pain Score 4-6, Priority: Routine, Start date: 05/27/18 12:03:00 HOME CARE RN, Duration: 4 doses or times, Stop date: Limited # of timesNotes: (Same as: Sublimaze) Preservative free. No Longer Active 05/27/2018 [facility] ferrous sulfate 325 mg oral enteric coated tablet 325 mg=1 tab, PO, Daily, # 30 tab, 5 Refill(s), Pharmacy: [facility]/pharmacy #[id number] Active 05/09/2018 [facility] Lactulose 667 MG/ML Oral Solution 10 gm=15 mL, PO, BID, PRN constipation, X 30 day, # 900 mL, 5 Refill(s), Pharmacy: [facility]/pharmacy #[id number] No Longer Active 03/27/2018 [facility] Lactulose 667 MG/ML Oral Solution 20 gm=30 mL, PO, BID, PRN constipation Inactive 03/27/2018 [facility] Vitamin K1 100 mcg oral tablet 100 microgram=1 tab, PO, Daily, 0 Refill(s) Inactive 03/27/2018 [facility] Lactulose 20 Gm/30 Ml Solution Twice A Day Active Emilianoang 03/07/2018 [facility] pantoprazole 40 mg oral enteric coated tablet 40 mg=1 tab, PO, Daily, # 30 tab, 11 Refill(s), Pharmacy: [facility]/pharmacy #[id number] Active 05/23/2017 [facility] propranolol 10 mg oral tablet 10 mg=1 tab, PO, BID, # 60 tab, 5 Refill(s), Pharmacy: [facility]/pharmacy #[id number] Active 05/23/2017 [facility] propranolol 10 mg oral tablet 10 mg=1 tab, PO, BID, 0 Refill(s) Active 04/01/2017 [facility] pantoprazole 40 mg, 1 tab, Route: PO, Drug form: ECTAB, Daily, Dosing Weight 147.727, kg, Start date: 02/14/17 9:00:00 CDT, Duration: 30 day, Stop date: 03/15/17 9:00:00 CSTNotes: Tablet should not be chewed or c rushed. (Same as: Protonix) No Longer Active 02/14/2017 [facility] Anusol-HC 25 mg rectal suppository 25 mg, 1 supp, Route: MO, BID, Drug form: SUPP, Start date: 02/13/17 17:00:00 CDT, Duration: 7 day, Stop date: 02/20/17 9:00:00 CSTNotes: (Same as: Anusol-HC, Hemorrhoidal HC) Inactive 02/13/2017 [facility] ciprofloxacin 500 mg oral tablet 500 mg, PO, [id number], X 5 day, # 10 tab, 0 Refill(s) Active 02/13/2017 [facility] ciprofloxacin 500 mg, 1 tab, Route: PO, Drug form: TAB, [id number], Dosing Weight 147.727, kg, Start date: 02/13/17 15:00:00 CDT, Duration: 7 day, Stop date: 02/20/17 3:00:00 HOME CARE RN, ABX Indication: Intra- abdominal InfectionNotes: May interfere w/enteral feedings - Take 1 hr before or 2 hrs after antacids, dairy pdt & minerals. On empty stomach. Inactive 02/13/2017 [facility] Anusol-HC 25 mg rectal suppository 25 mg=1 supp, MO, BID, X 7 day, # 14 supp, 0 Refill(s) Active 02/13/2017 [facility] tramadol 50 mg, 1 tab, Route: PO, Drug form: TAB, Q8H, Dosing Weight 147.727, kg, PRN Pain Score 1-3, Start date: 02/13/17 11:49:00 CDT, Duration: 30 day, Stop date: 03/15/17 11:48:00 CSTNotes: Not to exceed 400mg/day. (Same As: Ultram) Inactive 02/13/2017 [facility] lactulose 10 g/15 mL oral syrup 20 gm, 30 ml, Route: PO, Drug form: SYRP, TID, Dosing Weight 147.727, kg, Start date: 02/13/17 9:00:00 CDT, Duration: 30 day, Stop date: 03/14/17 17:00:00 CSTNotes: (Same as:Chronulac) Inactive 02/13/2017 [facility] riFAXimin 550 mg, Route: PO, Drug form: TAB, Q12H, Dosing Weight 147.727, kg, Start date: 02/13/17 9:00:00 CDT, Duration: 30 day, Stop date: 03/14/17 21:00:00 HOME CARE RN Inactive 02/13/2017 [facility] Rocephin 1 gm, Route: IVPB, Drug form: PDR/INJ, [id number], Dosing Weight 145.455, kg, Start date: 02/12/17 22:00:00 CDT, Duration: 7 day, Stop date: 02/18/17 22:00:00 HOME CARE RN, ABX Indication: Intra-abdominal Infection Notes: (Same As: Rocephin). MEDICATION WASTE Product Size: 1000 mg Product Wasted: ___ mg No Longer Active 02/13/2017 [facility] Omnipaque 350mg/ml 100 mL, Route: IVP, Drug Form: SOLN, Dosing Weight 147.727, kg, ONCALL, STAT, Start date: 02/12/17 14:56:00 CDT, Duration: 1 doses or times, Stop date: 02/13/17 0:00:00 CDT, Dose=2.2ml/kg, Max [id number] -- "To be infused by Radiology Staff ONLY"Notes: (same as:Omnipaque 350). WASTE: F/P - Black; E - Municipal Trash Bin Inactive 02/12/2017 [facility] GoLYTELY 4,000 ml, Route: PO, Drug Form: PDR/REC, Dosing Weight 147.727, kg, ONCE, Start date: 02/12/17 11:20:00 CDT, Duration: 1 doses or times, Stop date: 02/12/17 11:20:00 CDTNotes: (polyethylene glycol elect rolyte solution 4 Liter bottle) (Same as: Golytely, Colyte) Inactive 02/12/2017 [facility] propranolol 10 mg, 1 tab, Route: PO, Drug form: TAB, BID, Dosing Weight 147.727, kg, Start date: 02/12/17 9:00:00 CDT, Duration: 30 day, Stop date: 03/13/17 17:00:00 CSTNotes: Give with food. (Same as: Inderal) No Longer Active 02/12/2017 [facility] calcium-vitamin D 500 mg-400 intl units oral tablet, chewable 1 tab, Route: PO, Drug Form: CHEWTAB, Dosing Weight 147.727, kg, Daily, Start date: 02/12/17 9:00:00 CDT, Duration: 30 day, Stop date: 03/13/17 9:00:00 CSTNotes: (calcium carbonate-vit D 500mg-400unit chew TAB) Same as: Oscal 500+D Inactive 02/12/2017 [facility] gabapentin 300 mg oral capsule 300 mg, 1 cap, Route: PO, Drug form: CAP, BID, Dosing Weight 147.727, kg, Start date: 02/12/17 9:00:00 CDT, Duration: 30 day, Stop date: 03/13/17 17:00:00 CSTNotes: (Same as: Neurontin) No Longer Active 02/12/2017 [facility] calcium gluconate + sodium chloride 0.9% INJ 80 mL 2,000 mg, 20 mL, Route: IVPB, ONCE, Dosing Weight 147.727, kg, Priority: STAT, Start date: 02/12/17 1:37:00 CDT, Stop date: 02/12/17 1:37:00 CDTNotes: WASTE: F/P - Sink; E - Municipal Trash Bin Inactive 02/12/2017 [facility] albumin human 25% intravenous solution 25 gm, 100 mL, Route: IVPB, Drug form: INJ, Q6H, Dosing Weight 145.455, kg, Start date: 02/12/17 0:00:00 CDT, Duration: 6 doses or times, Stop date: 02/13/17 6:00:00 CDT Inactive 02/12/2017 [facility] octreotide 1,250 microgram + sodium chloride 0.9% INJ 250 mL 250 mL, Rate: 50 microgram/hr, Route: IV, Dosing Weight 145.455 kg, Total Volume: 252.5, Priority: STAT, Start date: 02/11/17 23:41:00 CDT, Duration: 30 day, Stop date: 03/13/17 23:40:00 HOME CARE RN No Longer Active 02/12/2017 [facility] Sodium Chloride 0.9% IV 100 mL + pantoprazole 80 mg 100 mL, Rate: 10 ml/hr, Infuse over: 10 hr, Route: IVPB, Dosing Weight 145.455 kg, Total Volume: 100, Infuse at 8 mg / hr for 72 hours for GI bleeding, Priority: STAT, Start date: 02/11/17 23:41:00 CDT, Duration: 72 hr, Stop date: 02/14/17 23:40:00 CDT Inactive 02/12/2017 [facility] pantoprazole 80 mg + sodium chloride 0.9% INJ 100 mL 100 mL, Rate: 10 ml/hr, Infuse over: 10 hr, Route: IVPB, Dosing Weight 145.455 kg, Total Volume: 100, Infuse at 8 mg / hr for 72 hours for GI bleeding, Start date: 02/11/17 22:14:00 CDT, Duration: 72 hr, Stop date: 02/14/17 22:13:00 CDT No Longer Active 02/12/2017 [facility] Rocephin 1 gm, Route: IVPB, Drug form: PDR/INJ, ONCE, Dosing Weight 145.455, kg, Priority: STAT, Start date: 02/11/17 22:13:00 CDT, Duration: 1 doses or times, Stop date: 02/11/17 22:13:00 CDT, ABX Indication: O ther (specify in Comments)Notes: (Same As: Rocephin). MEDICATION WASTE Product Size: 1000 mg Product Wasted: ___ mg Inactive 02/12/2017 [facility] Octreotide (bolus) 50 microgram, 1 mL, Route: IV, Drug form: INJ, ONCE, Dosing Weight 145.455, kg, Start date: 02/11/17 22:12:00 CDT, Stop date: 02/11/17 22:12:00 CDTNotes: (Same As: SandoSTATIN). Refrigerate MEDICATION WASTE Product Size: 50 microgram Product Wasted: ___ microgram No Longer Active 02/12/2017 [facility] Protonix 80 mg, Route: IVP, Drug form: INJ, ONCE, Dosing Weight 145.455, kg, Priority: STAT, Start date: 02/11/17 22:12:00 CDT, Stop date: 02/11/17 22:12:00 CDTNotes: For IV push reconstitute with 10 ml 0.9% sod ium chloride and push over 2 minutes. (Same as: Protonix) Inactive 02/12/2017 [facility] multivitamin with minerals 1 tab, Route: PO, Drug Form: TAB, Dosing Weight 145.455, kg, Daily, Start date: 01/17/17 9:00:00 CDT, Duration: 30 day, Stop date: 02/15/17 9:00:00 CDTNotes: (Same as:Thera-M, Theragran-M) WASTE: F/P - Black; E - Municipal Trash Bin Give with food. Inactive 01/17/2017 [facility] Docusate 100 mg, 1 cap, Route: PO, Drug form: CAP, BID, Dosing Weight 145.455, kg, Start date: 01/17/17 9:00:00 CDT, Duration: 30 day, Stop date: 02/15/17 17:00:00 CDTNotes: (Same as: Colace) (Do Not Crush) Inactive 01/17/2017 [facility] gabapentin 300 MG Oral Capsule 300 mg, 1 cap, Route: PO, Drug form: CAP, BID, Dosing Weight 145.455, kg, Start date: 01/17/17 9:00:00 CDT, Duration: 30 day, Stop date: 02/15/17 17:00:00 CDTNotes: (Same as: Neurontin) Inactive 01/17/2017 [facility] Calcium Carbonate 1500 MG / Cholecalciferol 400 UNT Oral Tablet 1 tab, Route: PO, Drug Form: CHEWTAB, Dosing Weight 145.455, kg, Daily, Start date: 01/17/17 9:00:00 CDT, Duration: 30 day, Stop date: 02/15/17 9:00:00 CDTNotes: (calcium carbonate-vit D 500mg-400unit chew TAB) Same as: Oscal 500+D Inactive 01/17/2017 [facility] Propranolol 10 mg, 1 tab, Route: PO, Drug form: TAB, BID, Dosing Weight 145.455, kg, Start date: 01/17/17 9:00:00 CDT, Duration: 30 day, Stop date: 02/15/17 17:00:00 CDTNotes: Give with food. (Same as: Inderal) Inactive 01/17/2017 [facility] pantoprazole 40 mg, 1 tab, Route: PO, Drug form: ECTAB, Before Breakfast, Dosing Weight 145.455, kg, Start date: 01/17/17 7:30:00 CDT, Duration: 30 day, Stop date: 02/15/17 7:30:00 CDTNotes: Tablet should not be chewed or crushed. (Same as: Protonix) Inactive 01/17/2017 [facility] Lactulose 667 MG/ML Oral Solution 10 gm, 15 mL, Route: PO, Drug form: SYRP, Daily, Dosing Weight 145.455, kg, PRN Constipation, Start date: 01/16/17 22:47:00 CDT, Duration: 30 day, Stop date: 02/15/17 22:46:00 CDTNotes: (Same as:Chronulac) No Longer Active 01/17/2017 [facility] Lactulose 667 MG/ML Oral Solution 10 gm=15 mL, PO, Daily, PRN as needed for constipation, # 480 mL, 0 Refill(s) Active 01/17/2017 [facility] pantoprazole 40 MG Enteric Coated Tablet [Protonix] 40 mg=1 tab, PO, Daily, # 30 tab, 0 Refill(s) Active 01/17/2017 [facility] tramadol hydrochloride 50 MG Oral Tablet 50 mg, 1 tab, Route: PO, Drug form: TAB, Q6H, Dosing Weight 145.455, kg, PRN Pain Score 4-6, Start date: 01/16/17 22:45:00 CDT, Duration: 30 day, Stop date: 02/15/17 22:44:00 CDTNotes: Not to exceed 400mg/day. (Same As: Ultram) No Longer Active 01/17/2017 [facility] Ondansetron 4 mg, 2 mL, Route: IVP, Drug form: INJ, Q6H, Dosing Weight 145.455, kg, PRN Nausea & Vomiting, Start date: 01/16/17 21:44:00 CDT, Duration: 30 day, Stop date: 02/15/17 21:43:00 CDTNotes: (Same as: Vinay) MEDICATION WASTE Product Size: 4 mg Product Wasted: ___ mg No Longer Active 01/17/2017 [facility] Hydromorphone 1 mg, 0.5 mL, Route: IVP, Drug form: INJ, Q4H, Dosing Weight 145.455, kg, PRN Pain Score 7-10, Start date: 01/16/17 12:59:00 CDT, Duration: 1 day, Stop date: 01/17/17 12:58:00 CDTNotes: Same as: Dilaudid No Longer Active 01/16/2017 [facility] Acetaminophen 325 MG / Hydrocodone Bitartrate 10 MG Oral Tablet 1 tab, Route: PO, Drug Form: TAB, Dosing Weight 145.455, kg, Q4H, PRN Pain Score 4-6, Start date: 01/16/17 12:59:00 CDT, Duration: 1 day, Stop date: 01/17/17 12:58:00 CDTNotes: Do not exceed 4gm/day of acetaminophen. (Same as: Jacob 325) No Longer Active 01/16/2017 [facility] Fentanyl 50 microgram, Route: IV, ONCE, Dosing Weight 145.455, kg, Start date: 01/16/17 12:13:00 CDT, Stop date: 01/16/17 12:13:00 CDT, Inactive 01/16/2017 [facility] Midazolam 1 mg, Route: IV, ONCE, Dosing Weight 145.455, kg, Start date: 01/16/17 12:13:00 CDT, Stop date: 01/16/17 12:13:00 CDT Inactive 01/16/2017 [facility] Midazolam 1 mg, Route: IV, ONCE, Dosing Weight 145.455, kg, Start date: 01/16/17 11:22:00 CDT, Stop date: 01/16/17 11:22:00 CDT Inactive 01/16/2017 [facility] Fentanyl 50 microgram, Route: IV, ONCE, Dosing Weight 145.455, kg, Start date: 01/16/17 11:22:00 CDT, Stop date: 01/16/17 11:22:00 CDT, Inactive 01/16/2017 [facility] Midazolam 1 mg, Route: IV, ONCE, Dosing Weight 145.455, kg, Start date: 01/16/17 10:15:00 CDT, Stop date: 01/16/17 10:15:00 CDT Inactive 01/16/2017 [facility] Fentanyl 50 microgram, Route: IV, ONCE, Dosing Weight 145.455, kg, Start date: 01/16/17 10:15:00 CDT, Stop date: 01/16/17 10:15:00 CDT, Inactive 01/16/2017 [facility] Ancef 1 gm, Route: IV, ONCE, Dosing Weight 145.455, kg, Start date: 01/16/17 9:57:00 CDT, Stop date: 01/16/17 9:57:00 CDT, ABX Indication: Surgical Prophylaxis Inactive 01/16/2017 [facility] Flagyl 500 mg, Route: IV, ONCE, Dosing Weight 145.455, kg, Start date: 01/16/17 8:44:00 CDT, Stop date: 01/16/17 8:44:00 CDT, ABX Indication: Surgical Prophylaxis Inactive 01/16/2017 [facility] ondansetron 16 mg, 50 mL, Route: IVPB, Drug form: SOLN, On Adm, Start date: 01/16/17 8:00:00 CDT, Duration: 1 doses or times, Stop date: 01/16/17 23:00:00 CDTNotes: Same as: Zofran Inactive 01/16/2017 [facility] Sodium Chloride 0.9% IV IV, 100 ml/hr, On Adm, Start date: 01/16/17 8:00:00 CDT, Duration: 1, 1,000 ml Inactive 01/16/2017 [facility] DOXOrubicin 100 mg + sterile water 4 mL + empty container 1 ea Route: INTRAARTERIAL, On Adm, Start date: 01/16/17 8:00:00 CDT, Duration: 1 doses or times, Stop date: 01/16/17 23:00:00 CDTNotes: (Same as: Adriamycin) CHEMOTHERAPY; Infuse entire contents for full dose WASTE: F/P - Black; E - Yellow MEDICATION WASTE Product Size: 50 mg Product Wasted: _0__ mg Inactive 01/16/2017 [facility] dexamethasone + sodium chloride 0.9% INJ 50 mL 10 mg, 1 mL, Route: IVPB, On Adm, Start date: 01/16/17 8:00:00 CDT, Duration: 1 doses or times, Stop date: 01/16/17 23:00:00 CDT Inactive 01/16/2017 [facility] clarithromycin 500 mg oral tablet 500 mg=1 tab, PO, Q12H, # 28 tab, 0 Refill(s) Active 04/30/2016 [facility] ICaps MV oral tablet 1 tab, PO, Daily, # 30 tab, 0 Refill(s) Active 04/30/2016 [facility] Calcium Carbonate 1500 MG / Cholecalciferol 400 UNT Oral Tablet 1 tab, PO, Daily, # 60 tab, 0 Refill(s) Active 04/30/2016 [facility] Vitamin K1 100 mcg oral tablet 100 microgram=1 tab, PO, Daily, 0 Refill(s) Inactive 04/30/2016 [facility] propranolol 10 mg oral tablet 10 mg=1 tab, PO, BID, # 60 tab, 6 Refill(s), Pharmacy: [facility]/pharmacy #[id number] Active 03/28/2016 [facility] Propranolol 10 mg=1 tab, PO, QID, # 100 tab, 0 Refill(s) Active 03/27/2016 [facility] tramadol hydrochloride 50 MG Oral Tablet 50 mg=1 tab, PO, Q6H, PRN Pain, # 40 tab, 0 Refill(s) Active 03/23/2016 [facility] lactulose 10 g oral powder 10 gm=1 ea, PO, BID, # 20 ea, 0 Refill(s) No Longer Active 03/23/2016 [facility] [facility] Lactulose 667 MG/ML Oral Solution 10 gm=15 mL, PO, BID, X 30 day, # 900 mL, 6 Refill(s), Pharmacy: [facility]/pharmacy #[id number] Active 03/01/2016 [facility] non-formulary Refill(s) 0 Active 03/01/2016 [facility] Acetaminophen 325 MG / tramadol hydrochloride 37.5 MG Oral Tablet [Ultracet] 1 tab, PO, Q4H, 0 Refill(s) Active 03/01/2016 [facility] pantoprazole 40 mg oral granule =1 Pack, PO, Daily, # 30 ea, 0 Refill(s) Active 03/01/2016 [facility] ICaps Plus oral tablet 1 tab, PO, Daily, 0 Refill(s) Active 03/01/2016 [facility] gabapentin 300 MG Oral Capsule 300 mg=1 cap, PO, TID, 0 Refill(s) Active 03/01/2016 [facility] mometasone (NASONEX) 50 mcg/actuation nasal spray 1 [place] by each nostril route daily. Active 12/17/2014 [facility] loratadine (CLARITIN) 10 mg tablet Take 1 tablet by mouth daily. Oral Active 12/17/2014 [facility] mometasone (NASONEX) 50 mcg/actuation nasal spray 1 [place] by each nostril route daily. Active 12/17/2014 [facility] loratadine (CLARITIN) 10 mg tablet Take 1 tablet by mouth daily. Oral Active 12/17/2014 [facility] ergocalciferol (VITAMIN D2) 50,000 unit capsule Take 1 capsule by mouth weekly. Oral Active 11/12/2014 [facility] triamcinolone (TRIDERM) 0.1 % topical cream Apply to affected area 2 times daily. Topical Active 01/26/2014 [facility] triamcinolone (TRIDERM) 0.1 % topical cream Apply to affected area 2 times daily. Topical Active 01/26/2014 [facility] traMADol (ULTRAM) 50 mg tablet Take 2 tablets by mouth every 6 hours as needed for Pain. Oral Active 12/31/2013 [facility] traMADol (ULTRAM) 50 mg tablet Take 2 tablets by mouth every 6 hours as needed for Pain. Oral Active 12/31/2013 [facility] PREDNISONE 5MG TAB 1 tablet twice daily Active 09/02/2009 [facility] DOCUSATE SODIUM 100 MG CAP take one cap by mouth 4 times a day Oral Active 04/13/2009 [facility] HYDROCORTISONE ACETATE 25 MG RECTAL SUPPOSITORY insert 1 suppository (25 mg) by rectal route 2 times per day for 2 weeks Rectal Active 04/13/2009 [facility] HYDROCODONE-ACETAMINOPHEN 10-500 mg per tablet Take 1 Tab by mouth every 6 hours as needed. Oral Active [facility] gabapentin (NEURONTIN) 300 mg capsule Take 300 mg by mouth 2 times daily. Oral Active [facility] pantoprazole (PROTONIX) 20 mg delayed release tablet Take 40 mg by mouth daily. Oral Active [facility] lactulose 10 gram/15 mL (15 mL) Soln Take 10 mL by mouth daily as needed. Oral Active [facility] pantoprazole (PROTONIX) 20 mg delayed release tablet Take 40 mg by mouth daily. Oral Active [facility] Calcium Carbonate/Vitamin D2 (Oyster Shell Calcium-Vit D Tab) 1 Each Tablet [facility] Cefuroxime Axetil (Cefuroxime) 250 Mg Tablet Every 12 Hours [facility] Ferrous Sulfate 325 Mg Tablet Daily [facility] Gabapentin 300 Mg Capsule Twice A Day [facility] Multivits-Min/Fa/Lut/Zeaxanth (Icaps Mv Tablet) 1 Each Tablet. [facility] Pantoprazole Sodium (Protonix) 40 Mg Tablet. Daily [facility] Propranolol Hcl 10 Mg Tablet Twice A Day [facility] Tramadol Hcl (Ultram) 50 Mg Tablet Every 12 Hours as needed for Pain [facility] Allergies, Adverse Reactions, Alerts Substance Category Reaction Severity Reaction type Status Date Reported Comments Source No Known Medication Allergies Assertion Drug allergy [facility] Immunizations No Data Provided for This Section Results Order Name Results Value Reference Range Date Interpretation Comments Source CHEM PANEL Alk Phos 131 39 - 136 09/25/2018 [facility] CHEM PANEL Total Protein 6.0 6.4 - 8.4 09/25/2018 [facility] CHEM PANEL ALT 30 0 - 65 09/25/2018 [facility] CHEM PANEL Albumin Lvl 2.1 3.5 - 5.0 09/25/2018 [facility] CHEM PANEL Bili Direct 1.2 0.0 - 0.3 09/25/2018 [facility] CHEM PANEL Bili Indirect 1.8 0.0 - 1.0 09/25/2018 [facility] CHEM PANEL AST 53 0 - 37 09/25/2018 [facility] CHEM PANEL Bili Total 3.0 0.2 - 1.3 09/25/2018 [facility] CHEM PANEL Globulin 3.9 2.7 - 4.2 09/25/2018 [facility] CHEM PANEL A/G Ratio 0.5 0.7 - 1.6 09/25/2018 [facility] ELECTROLYTES AGAP 8.7 10.0 - 20.0 09/25/2018 [facility] ELECTROLYTES eGFR 113 09/25/2018 Result Comment: The eGFR is calculated using [...] should be multiplied by the estimated BMI. [facility] ELECTROLYTES BUN 8 7 - 22 09/25/2018 [facility] ELECTROLYTES Potassium Lvl 3.7 3.5 - 5.1 09/25/2018 [facility] ELECTROLYTES Sodium Lvl 146 135 - 145 09/25/2018 [facility] ELECTROLYTES Chloride Lvl 113 95 - 109 09/25/2018 [facility] ELECTROLYTES Creatinine Lvl 0.79 0.50 - 1.40 09/25/2018 [facility] ELECTROLYTES Glucose Lvl 78 70 - 99 09/25/2018 [facility] ELECTROLYTES Calcium Lvl 7.7 8.5 - 10.5 09/25/2018 [facility] ELECTROLYTES CO2 28 24 - 32 09/25/2018 [facility] HEMATOLOGY Schistocyte 1-3 per HPF (09/25/18 3:48 PM) None Seen 09/25/2018 [facility] HEMATOLOGY Tear Cell Slight 09/25/2018 [facility] HEMATOLOGY Eosinophils # 0.1 0.0 - 0.5 09/25/2018 [facility] HEMATOLOGY Monocytes # 0.2 0.0 - 0.8 09/25/2018 [facility] HEMATOLOGY Hypochrom 1+ (09/25/18 3:48 PM) None Seen 09/25/2018 [facility] HEMATOLOGY Lymphocytes # 0.7 1.0 - 5.5 09/25/2018 [facility] HEMATOLOGY Neutrophils # 0.9 1.5 - 8.1 09/25/2018 [facility] HEMATOLOGY Basophils 1.2 0.0 - 1.0 09/25/2018 [facility] HEMATOLOGY Eosinophils 6.6 0.0 - 4.0 09/25/2018 [facility] HEMATOLOGY Lymphocytes 34.8 20.0 - 40.0 09/25/2018 [facility] HEMATOLOGY Monocytes 10.3 2.0 - 12.0 09/25/2018 [facility] HEMATOLOGY Segs 47.1 45.0 - 75.0 09/25/2018 [facility] HEMATOLOGY INR 2.09 0.85 - 1.17 09/25/2018 [facility] HEMATOLOGY PT 23.0 12.0 - 14.7 09/25/2018 [facility] HEMATOLOGY MCH 26.7 27.0 - 31.0 09/25/2018 [facility] HEMATOLOGY MCV 84.8 80.0 - 94.0 09/25/2018 [facility] HEMATOLOGY Hgb 8.2 14.0 - 18.0 09/25/2018 [facility] HEMATOLOGY RBC 3.08 4.70 - 6.10 09/25/2018 [facility] HEMATOLOGY WBC 1.9 3.7 - 10.4 09/25/2018 [facility] HEMATOLOGY Hct 26.1 42.0 - 54.0 09/25/2018 [facility] HEMATOLOGY MCHC 31.5 32.0 - 36.0 09/25/2018 [facility] HEMATOLOGY RDW 20.0 11.5 - 14.5 09/25/2018 [facility] HEMATOLOGY Platelet 45 133 - 450 09/25/2018 [facility] HEMATOLOGY MPV 10.6 7.4 - 10.4 09/25/2018 [facility] TUMOR MARKERS AFP 2.4 0.0 - 11.0 09/25/2018 [facility] Serum or plasma sodium measurement (moles/volume) 133 136 - 145 07/08/2018 [facility] Serum or plasma potassium measurement (moles/volume) 3.8 3.5 - 5.1 07/08/2018 [facility] Serum or plasma chloride measurement (moles/volume) 105 98 - 107 07/08/2018 [facility] Serum or plasma carbon dioxide, total measurement (moles/volume) 26 22 - 29 07/08/2018 [facility] Serum or plasma anion gap 5.8 8 - 16 07/08/2018 [facility] Serum or plasma urea nitrogen measurement (mass/volume) 11 7 - 26 07/08/2018 [facility] Serum or plasma creatinine measurement (mass/volume) 0.67 0.72 - 1.25 07/08/2018 [facility] Serum or plasma urea nitrogen/creatinine mass ratio 16 6 - 25 07/08/2018 [facility] Estimated glomerular filtration rate (GFR) determination > 60 60 07/08/2018 [facility] Glucose measurement 74 74 - 118 07/08/2018 [facility] Serum or plasma calcium measurement (mass/volume) 7.5 8.4 - 10.2 07/08/2018 [facility] Blood leukocytes automated count (number/volume) 1.71 4.8 - 10.8 07/08/2018 [facility] Blood erythrocytes automated count (number/volume) 2.95 4.3 - 5.7 07/08/2018 [facility] Blood hemoglobin measurement (moles/volume) 8.2 14.0 - 18.0 07/08/2018 [facility] Automated blood hematocrit (volume fraction) 26.3 38.2 - 49.6 07/08/2018 [facility] Automated erythrocyte mean corpuscular volume 89.2 81 - 99 07/08/2018 [facility] Automated erythrocyte mean corpuscular hemoglobin (mass per erythrocyte) 27.8 28 - 32 07/08/2018 [facility] Automated erythrocyte mean corpuscular hemoglobin concentration measurement (mass/volume) 31.2 31 - 35 07/08/2018 [facility] RDW BldCo-Rto 18.0 11.7 - 14.4 07/08/2018 [facility] Automated blood platelet count (count/volume) 32 140 - 360 07/08/2018 [facility] Automated blood segmented neutrophil count as percentage of total leukocytes 38.5 38.7 - 80.0 07/08/2018 [facility] Automated blood lymphocyte count as percentage ot total leukocytes 40.4 18.0 - 39.1 07/08/2018 [facility] Automated blood monocyte count as percentage of total leukocytes 11.7 4.4 - 11.3 07/08/2018 [facility] Automated blood eosinophil count as percentage of total leukocytes 8.2 0.0 - 6.0 07/08/2018 [facility] Automated blood basophil count as percentage of total leukocytes 1.2 0.0 - 1.0 07/08/2018 [facility] IM GRANULOCYTES % 0.0 0.0 - 1.0 07/08/2018 [facility] Automated blood neutrophil count 0.7 2.1 - 6.9 07/08/2018 [facility] Blood lymphocytes count (number/volume) 0.7 1.0 - 3.2 07/08/2018 [facility] Blood monocytes automated count (number/volume) 0.2 0.2 - 0.8 07/08/2018 [facility] Automated blood eosinophil count 0.1 0.0 - 0.4 07/08/2018 [facility] Automated blood basophil count (count/volume) 0.0 0.0 - 0.1 07/08/2018 [facility] Absolute Immature Granulocyte (auto 0 0 - 0.1 07/08/2018 [facility] Differential Total Cells Counted 100 07/08/2018 [facility] Manual blood neutrophils/100 leukocytes 38 40 - 74 07/08/2018 [facility] Manual blood lymphocytes/100 leukocytes 44 19 - 48 07/08/2018 [facility] Manual blood monocytes/100 leukocytes 7 3.4 - 9.0 07/08/2018 [facility] Manual blood eosinophil count as percentage of total leukocytes 6 0 - 7 07/08/2018 [facility] Manual basophil percentage 4 0 - 1.5 07/08/2018 [facility] Blood lymphocytes variant count (number/volume) 1 07/08/2018 [facility] Blood platelets count by estimate (number/volume) MODERATELY DECREASED 07/08/2018 [facility] Platelet morphology NORMAL 07/08/2018 [facility] Blood poikilocytosis detection by light microscopy SLIGHT 07/08/2018 [facility] Blood rouleaux detection by light microscopy FEW 07/08/2018 [facility] Blood schistocytes detection by light microscopy FEW 07/08/2018 [facility] Giant platelet detection FEW 07/06/2018 [facility] RBC morphology ABNORMAL 07/06/2018 [facility] Serum or plasma total bilirubin measurement (mass/volume) 2.4 0.2 - 1.2 07/06/2018 [facility] Aspartate Amino Transf (AST/SGOT) 52 5 - 34 07/06/2018 [facility] Serum or plasma alanine aminotransferase measurement (enzymatic activity/volume) 22 0 - 55 07/06/2018 [facility] Ammonia Ser-mCnc 142 31 - 123 07/06/2018 [facility] Serum or plasma protein measurement (mass/volume) 5.3 6.5 - 8.1 07/06/2018 [facility] Serum or plasma albumin measurement (mass/volume) 2.1 3.5 - 5.0 07/06/2018 [facility] Plasma globulin measurement (mass/volume) 3.2 2.3 - 3.5 07/06/2018 [facility] Serum or plasma albumin/globulin mass ratio 0.7 0.8 - 2.0 07/06/2018 [facility] Serum or plasma alkaline phosphatase measurement (enzymatic activity/volume) 84 40 - 150 07/06/2018 [facility] HIV 1 and 2 antibody detection qualitative by rapid immunoassay NON-REACTIVE NONREACTIVE 07/05/2018 [facility] HIV P24 Antigen NON-REACTIVE NONREACTIVE 07/05/2018 [facility] Manual blood band neutrophils form/100 leukocytes 1 07/05/2018 [facility] Blood anisocytosis detection by light microscopy SLIGHT 07/05/2018 [facility] Blood toxic granules detection by light microscopy SLIGHT 07/05/2018 [facility] Elliptocyte detection MODERATE 07/05/2018 [facility] Blood culture NO GROWTH AFTER 72 HOURS 07/04/2018 [facility] CBC/DIFF <td ID="[id number]">WBC</td><td><span style="flagData">2.6</span><span style="flagData"> (L)</span></td><td>4.5 - 12.0 K/uL</td><td>[facility]</td><td ID ="[id number]"/> 2.6 4.5 - 12 06/06/2018 [facility] CBC/DIFF <td ID="[id number]">RBC</td><td><span style="flagData">3.47</span><span style="flagData"> (L)</span></td><td>4.60 - 6.20 M/uL</td><td>[facility]</td><td ID="[id number]"/> 3.47 4.60 - 6.20 06/06/2018 [facility] CBC/DIFF <td ID="[id number]">Hemoglobin</td><td><span style="flagData">9.4</span><span style="flagData"> (L)</span></td><td>14.0 - 18.0 g/dL</td><td>[facility]</td><td ID="[id number]"/> 9.4 14 - 18 06/06/2018 [facility] CBC/DIFF <td ID="[id number]">Hematocrit</td><td><span style="flagData">31.3</span><span style="flagData"> (L)</span></td><td>40.0 - 54.0 %</td><td>[facility]</td><td ID="[id number]"/> 31.3 40 - 54 06/06/2018 [facility] CBC/DIFF <td ID="[id number]">MCV</td><td>90</td><td>82 - 92 fL</td><td>[facility]</td><td ID="[id number]"/> 90 82 - 92 06/06/2018 [facility] CBC/DIFF <td ID="[id number]">MCH</td><td>27.1</td><td>27.0 - 31.0 pg</td><td>[facility]</td><td ID="[id number]"/> 27.1 27 - 31 06/06/2018 [facility] CBC/DIFF <td ID="[id number]">MCHC</td><td><span style="flagData">30.0</span><span style="flagData"> (L)</span></td><td>32.0 - 36.0 g/dL</td><td>[facility]</td><td ID="[id number]"/> 30.0 32 - 36 06/06/2018 [facility] CBC/DIFF <td ID="[id number]">RDW</td><td><span style="flagData">65.0</span><span style="flagData"> (H)</span></td><td>35.1 - 43.9 fL</td><td>[facility]</td><td ID="[id number]"/> 65.0 35.1 - 43.9 06/06/2018 [facility] CBC/DIFF <td ID="[id number]">Platelets</td><td><span style="flagData">41</span><span style="flagData"> (L)</span></td><td>150 - 400 K/uL</td><td>[facility]</td><td ID="[id number]"/> 41 150 - 400 06/06/2018 [facility] CBC/DIFF <td ID="[id number]">Mean Platelet Volume</td><td>Not measured</td><td>9.4 - 12.4 fL</td><td>[facility]</td><td ID="[id number]"/> Not measured 9.4 - 12.4 06/06/2018 [facility] CBC/DIFF Percent NRBC 0.0 06/06/2018 [facility] CBC/DIFF Absolute NRBC 0.00 06/06/2018 [facility] CBC/DIFF <td ID="[id number]">Neutrophils</td><td>58.0</td><td>34.0 - 67.9 %</td><td>[facility]</td><td ID="[id number]"/> 58.0 34 - 67.9 06/06/2018 [facility] CBC/DIFF <td ID="[id number]">Lymphs</td><td>31.0</td><td>21.8 - 50.0 %</td><td>[facility]</td><td ID="[id number]"/> 31.0 21.8 - 50 06/06/2018 [facility] CBC/DIFF <td ID="[id number]">Monocytes</td><td><span style="flagData">4.0</span><span style="flagData"> (L)</span></td><td>5.3 - 12.0 %</td><td>[facility]</td><td ID="[id number]"/> 4.0 5.3 - 12 06/06/2018 [facility] CBC/DIFF <td ID="[id number]">Eos</td><td>4.0</td><td>0.8 - 5.0 %</td><td>[facility]</td><td ID="[id number]"/> 4.0 0.8 - 5 06/06/2018 [facility] CBC/DIFF <td ID="[id number]">Basos</td><td><span style="flagData">3.0</span><span style="flagData"> (H)</span></td><td>0.2 - 1.2 %</td><td>[facility]</td><td ID="[id number]"/> 3.0 0.2 - 1.2 06/06/2018 [facility] CBC/DIFF Neutrophils (Absolute) 1.51 1.78 - 5.36 06/06/2018 [facility] CBC/DIFF Lymphs (Absolute) 0.81 1.32 - 3.57 06/06/2018 [facility] CBC/DIFF Monocytes(Absolute) 0.10 0.3 - 0.82 06/06/2018 [facility] CBC/DIFF Eos (Absolute) 0.10 0.04 - 0.54 06/06/2018 [facility] CBC/DIFF Baso (Absolute) 0.08 0.01 - 0.08 06/06/2018 [facility] CBC/DIFF Ovalocyte 3+ 06/06/2018 [facility] CBC/DIFF Schistocyte 1+ 06/06/2018 [facility] CBC/DIFF Tear Drop Cell 2+ 06/06/2018 [facility] CBC/DIFF Lab Interpretation Abnormal 06/06/2018 [facility] BASIC METABOLIC PANEL <td ID="[id number]">CO2</td><td>29</td><td>21 - 31 mmol/L</td><td>[facility]</td><td ID="[id number]"/> 29 21 - 31 06/06/2018 [facility] BASIC METABOLIC PANEL <td ID="[id number]">Chloride</td><td><span style="flagData">109</span><span style="flagData"> (H)</span></td><td>98 - 107 mmol/L</td><td>[facility]</td><td ID="[id number]"/> 109 98 - 107 06/06/2018 [facility] BASIC METABOLIC PANEL <td ID="[id number]">Potassium</td><td>4.4</td><td>3.5 - 5.1 mmol/L</td><td>[facility]</td><td ID="[id number]"/> 4.4 3.5 - 5.1 06/06/2018 [facility] BASIC METABOLIC PANEL <td ID="[id number]">Sodium</td><td>141</td><td>136 - 145 mmol/L</td><td>[facility]</td><td ID="[id number]"/> 141 136 - 145 06/06/2018 [facility] BASIC METABOLIC PANEL <td ID="[id number]">Glucose</td><td>79</td><td>70 - 110 mg/dL</td><td>[facility]</td><td ID="[id number]"/> 79 70 - 110 06/06/2018 [facility] BASIC METABOLIC PANEL <td ID="[id number]">BUN</td><td>11</td><td>7 - 25 mg/dL</td><td>[facility]</td><td ID="[id number]"/> 11 7 - 25 06/06/2018 [facility] BASIC METABOLIC PANEL <td ID="[id number]">Creatinine</td><td>0.80</td><td>0.7 - 1.3 mg/dL</td><td>[facility]</td><td ID="[id number]"/> 0.80 0.7 - 1.3 06/06/2018 [facility] BASIC METABOLIC PANEL Anion Gap 3 06/06/2018 [facility] BASIC METABOLIC PANEL <td ID="[id number]">Calcium</td><td><span style="flagData">8.2</span><span style="flagData"> (L)</span></td><td>8.6 - 10.3 mg/dL</td><td>[facility]</td><td ID="[id number]"/> 8.2 8.6 - 10.3 06/06/2018 [facility] BASIC METABOLIC PANEL GFR, Estimated >60 mL/min/1.73 m2 06/06/2018 [facility] BASIC METABOLIC PANEL eGFR If Africn Am >60 mL/min/1.73 m2 06/06/2018 [facility] BASIC METABOLIC PANEL Lab Interpretation Abnormal 06/06/2018 [facility] LIVER PROFILE <td ID="[id number]">Protein, Total, Serum</td><td><span style="flagData">5.7</span><span style="flagData"> (L)</span></td><td>6.0 - 8.3 g/dL</td><td>[facility]</td><td ID="[id number]"/> 5.7 6 - 8.3 06/06/2018 [facility] LIVER PROFILE <td ID="[id number]">Albumin</td><td><span style="flagData">2.6</span><span style="flagData"> (L)</span></td><td>4.2 - 5.5 g/dL</td><td>[facility]</td><td ID="[id number]"/> 2.6 4.2 - 5.5 06/06/2018 [facility] LIVER PROFILE <td ID="[id number]">Bilirubin, Total</td><td><span style="flagData">3.1</span><span style="flagData"> (H)</span></td><td>0.2 - 1.2 mg/dL</td><td>[facility]</td><td ID="[id number]"/> 3.1 0.2 - 1.2 06/06/2018 [facility] LIVER PROFILE <td ID="[id number]">Alkaline Phosphatase, S</td><td><span style="flagData">110</span><span style="flagData"> (H)</span></td><td>34 - 104 U/L</td><td>[facility]</td><td ID="[id number]"/> 110 34 - 104 06/06/2018 [facility] LIVER PROFILE <td ID="[id number]">AST (SGOT)</td><td><span style="flagData">48</span><span style="flagData"> (H)</span></td><td>13 - 39 U/L</td><td>[facility]</td><td ID="[id number]"/> 48 13 - 39 06/06/2018 [facility] LIVER PROFILE <td ID="[id number]">ALT</td><td>23</td><td>7 - 52 U/L</td><td>[facility]</td><td ID="[id number]"/> 23 7 - 52 06/06/2018 [facility] LIVER PROFILE <td ID="[id number]">D Bilirubin</td><td><span style="flagData">1.0</span><span style="flagData"> (H)</span></td><td>0.0 - 0.2 mg/dL</td><td>[facility]</td><td ID="[id number]"/> 1.0 0 - 0.2 06/06/2018 [facility] LIVER PROFILE Lab Interpretation Abnormal 06/06/2018 [facility] PT/INR/PTT <td ID="[id number]">PT</td><td><span style="flagData">20.4</span><span style="flagData"> (H)</span></td><td>11.8 - 15.0 Seconds</td><td>[facility] MAIN-STATION 4</td><td ID="[id number]"/> 20.4 11.8 - 15.0 06/06/2018 [facility] PT/INR/PTT INR 1.8 SUGGESTED THERAPEUTIC RANGES: INR 2.0-3.0 for MODERATE INTENSITY ANTICOAGULATION INR 2.5-3.5 for HIGH INTENSITY ANTICOAGULATION 06/06/2018 [facility] PT/INR/PTT PTT 47.3 23.6 - 36.4 06/06/2018 [facility] PT/INR/PTT Lab Interpretation Abnormal 06/06/2018 [facility] HEMATOLOGY PTT 46.9 22.9 - 35.8 05/27/2018 [facility] HEMATOLOGY INR 1.95 0.85 - 1.17 05/27/2018 [facility] HEMATOLOGY PT 21.8 12.0 - 14.7 05/27/2018 [facility] BLOOD BANK RESULTS Antibody Scrn Negative (05/27/18 12:50 PM) 05/27/2018 [facility] BLOOD BANK RESULTS ABO/Rh O POS 05/27/2018 [facility] CHEM PANEL Globulin 3.7 2.7 - 4.2 05/27/2018 [facility] CHEM PANEL B/C Ratio 15 6 - 25 05/27/2018 [facility] CHEM PANEL A/G Ratio 0.6 0.7 - 1.6 05/27/2018 [facility] CHEM PANEL AGAP 8.0 10.0 - 20.0 05/27/2018 [facility] CHEM PANEL eGFR 114 05/27/2018 Result Comment: The eGFR is calculated [...] should be multiplied by the estimated BMI. [facility] CHEM PANEL Potassium Lvl 4.0 3.5 - 5.1 05/27/2018 [facility] CHEM PANEL CO2 27 24 - 32 05/27/2018 [facility] CHEM PANEL Chloride Lvl 114 95 - 109 05/27/2018 [facility] CHEM PANEL Calcium Lvl 7.7 8.5 - 10.5 05/27/2018 [facility] CHEM PANEL Total Protein 6.1 6.4 - 8.4 05/27/2018 [facility] CHEM PANEL Glucose Lvl 79 70 - 99 05/27/2018 [facility] CHEM PANEL Sodium Lvl 145 135 - 145 05/27/2018 [facility] CHEM PANEL BUN 12 7 - 22 05/27/2018 [facility] CHEM PANEL Creatinine Lvl 0.79 0.50 - 1.40 05/27/2018 [facility] CHEM PANEL Alk Phos 126 39 - 136 05/27/2018 [facility] CHEM PANEL AST 52 0 - 37 05/27/2018 [facility] CHEM PANEL Bili Total 2.8 0.2 - 1.3 05/27/2018 [facility] CHEM PANEL ALT 30 0 - 65 05/27/2018 [facility] CHEM PANEL Albumin Lvl 2.4 3.5 - 5.0 05/27/2018 [facility] HEMATOLOGY Lymphocytes # 0.7 1.0 - 5.5 05/27/2018 [facility] HEMATOLOGY Neutrophils # 1.3 1.5 - 8.1 05/27/2018 [facility] HEMATOLOGY Basophils 1.1 0.0 - 1.0 05/27/2018 [facility] HEMATOLOGY Eosinophils # 0.1 0.0 - 0.5 05/27/2018 [facility] HEMATOLOGY Monocytes # 0.3 0.0 - 0.8 05/27/2018 [facility] HEMATOLOGY Segs 54.7 45.0 - 75.0 05/27/2018 [facility] HEMATOLOGY Monocytes 11.1 2.0 - 12.0 05/27/2018 [facility] HEMATOLOGY Eosinophils 4.5 0.0 - 4.0 05/27/2018 [facility] HEMATOLOGY Lymphocytes 28.6 20.0 - 40.0 05/27/2018 [facility] HEMATOLOGY RDW 20.1 11.5 - 14.5 05/27/2018 [facility] HEMATOLOGY MCHC 32.1 32.0 - 36.0 05/27/2018 [facility] HEMATOLOGY MPV 10.5 7.4 - 10.4 05/27/2018 [facility] HEMATOLOGY Platelet 73 133 - 450 05/27/2018 [facility] HEMATOLOGY MCH 27.8 27.0 - 31.0 05/27/2018 [facility] HEMATOLOGY WBC 2.4 3.7 - 10.4 05/27/2018 [facility] HEMATOLOGY MCV 86.4 80.0 - 94.0 05/27/2018 [facility] HEMATOLOGY RBC 3.42 4.70 - 6.10 05/27/2018 [facility] HEMATOLOGY Hct 29.5 42.0 - 54.0 05/27/2018 [facility] HEMATOLOGY Hgb 9.5 14.0 - 18.0 05/27/2018 [facility] CHEM PANEL Bili Total 3.5 0.2 - 1.3 03/27/2018 [facility] CHEM PANEL Alk Phos 132 39 - 136 03/27/2018 [facility] CHEM PANEL AST 56 0 - 37 03/27/2018 [facility] CHEM PANEL ALT 32 0 - 65 03/27/2018 [facility] CHEM PANEL Albumin Lvl 2.6 3.5 - 5.0 03/27/2018 [facility] CHEM PANEL Bili Indirect 2.2 0.0 - 1.0 03/27/2018 [facility] CHEM PANEL Bili Direct 1.3 0.0 - 0.3 03/27/2018 [facility] CHEM PANEL Total Protein 6.2 6.4 - 8.4 03/27/2018 [facility] CHEM PANEL Globulin 3.6 2.7 - 4.2 03/27/2018 [facility] CHEM PANEL A/G Ratio 0.7 0.7 - 1.6 03/27/2018 [facility] CHEM PANEL eGFR 115 03/27/2018 Result Comment: The eGFR is calculated using [...] should be multiplied by the estimated BMI. [facility] CHEM PANEL Glucose Lvl 73 70 - 99 03/27/2018 [facility] CHEM PANEL Sodium Lvl 144 135 - 145 03/27/2018 [facility] CHEM PANEL Creatinine Lvl 0.78 0.50 - 1.40 03/27/2018 [facility] CHEM PANEL BUN 10 7 - 22 03/27/2018 [facility] CHEM PANEL Potassium Lvl 4.3 3.5 - 5.1 03/27/2018 [facility] CHEM PANEL Chloride Lvl 112 95 - 109 03/27/2018 [facility] CHEM PANEL CO2 28 24 - 32 03/27/2018 [facility] CHEM PANEL Calcium Lvl 7.8 8.5 - 10.5 03/27/2018 [facility] CHEM PANEL AGAP 8.3 10.0 - 20.0 03/27/2018 [facility] HEMATOLOGY PT 21.2 12.0 - 14.7 03/27/2018 [facility] HEMATOLOGY INR 1.88 0.85 - 1.17 03/27/2018 [facility] HEMATOLOGY MPV 10.1 7.4 - 10.4 03/27/2018 [facility] HEMATOLOGY Platelet 32 133 - 450 03/27/2018 [facility] HEMATOLOGY MCHC 32.4 32.0 - 36.0 03/27/2018 [facility] HEMATOLOGY Hgb 10.5 14.0 - 18.0 03/27/2018 [facility] HEMATOLOGY MCH 28.5 27.0 - 31.0 03/27/2018 [facility] HEMATOLOGY RDW 19.1 11.5 - 14.5 03/27/2018 [facility] HEMATOLOGY Hct 32.4 42.0 - 54.0 03/27/2018 [facility] HEMATOLOGY MCV 88.1 80.0 - 94.0 03/27/2018 [facility] HEMATOLOGY RBC 3.68 4.70 - 6.10 03/27/2018 [facility] HEMATOLOGY WBC 2.1 3.7 - 10.4 03/27/2018 [facility] HEMATOLOGY Eosinophils # 0.1 0.0 - 0.5 03/27/2018 [facility] HEMATOLOGY Monocytes # 0.2 0.0 - 0.8 03/27/2018 [facility] HEMATOLOGY Lymphocytes # 0.7 1.0 - 5.5 03/27/2018 [facility] HEMATOLOGY Segs 51.1 45.0 - 75.0 03/27/2018 [facility] HEMATOLOGY Eosinophils 4.4 0.0 - 4.0 03/27/2018 [facility] HEMATOLOGY Lymphocytes 32.6 20.0 - 40.0 03/27/2018 [facility] HEMATOLOGY Monocytes 10.9 2.0 - 12.0 03/27/2018 [facility] HEMATOLOGY Basophils 1.0 0.0 - 1.0 03/27/2018 [facility] HEMATOLOGY Neutrophils # 1.1 1.5 - 8.1 03/27/2018 [facility] Blood leukocytes automated count (number/volume) 4.81 4.8 - 10.8 03/08/2018 [facility] Blood erythrocytes automated count (number/volume) 3.24 4.3 - 5.7 03/08/2018 [facility] Blood hemoglobin measurement (moles/volume) 9.5 14.0 - 18.0 03/08/2018 [facility] Automated blood hematocrit (volume fraction) 29.0 38.2 - 49.6 03/08/2018 [facility] Automated erythrocyte mean corpuscular volume 89.5 81 - 99 03/08/2018 [facility] Automated erythrocyte mean corpuscular hemoglobin (mass per erythrocyte) 29.3 28 - 32 03/08/2018 [facility] Automated erythrocyte mean corpuscular hemoglobin concentration measurement (mass/volume) 32.8 31 - 35 03/08/2018 [facility] RDW BldCo-Rto 18.1 11.7 - 14.4 03/08/2018 [facility] Automated blood platelet count (count/volume) 27 140 - 360 03/08/2018 [facility] Automated blood segmented neutrophil count as percentage of total leukocytes 72.2 38.7 - 80.0 03/08/2018 [facility] Automated blood lymphocyte count as percentage ot total leukocytes 15.6 18.0 - 39.1 03/08/2018 [facility] Automated blood monocyte count as percentage of total leukocytes 7.9 4.4 - 11.3 03/08/2018 [facility] Automated blood eosinophil count as percentage of total leukocytes 3.3 0.0 - 6.0 03/08/2018 [facility] Automated blood basophil count as percentage of total leukocytes 0.2 0.0 - 1.0 03/08/2018 [facility] IM GRANULOCYTES % 0.8 0.0 - 1.0 03/08/2018 [facility] Automated blood neutrophil count 3.5 2.1 - 6.9 03/08/2018 [facility] Blood lymphocytes count (number/volume) 0.8 1.0 - 3.2 03/08/2018 [facility] Blood monocytes automated count (number/volume) 0.4 0.2 - 0.8 03/08/2018 [facility] Automated blood eosinophil count 0.2 0.0 - 0.4 03/08/2018 [facility] Automated blood basophil count (count/volume) 0.0 0.0 - 0.1 03/08/2018 [facility] Absolute Immature Granulocyte (auto 0.04 0 - 0.1 03/08/2018 [facility] Ammonia Ser-mCnc 113 31 - 123 03/08/2018 [facility] Differential Total Cells Counted 100 03/07/2018 [facility] Manual blood neutrophils/100 leukocytes 79 40 - 74 03/07/2018 [facility] Manual blood lymphocytes/100 leukocytes 15 19 - 48 03/07/2018 [facility] Manual blood monocytes/100 leukocytes 5 3.4 - 9.0 03/07/2018 [facility] Manual blood eosinophil count as percentage of total leukocytes 1 0 - 7 03/07/2018 [facility] Blood platelets count by estimate (number/volume) MODERATELY DECREASED 03/07/2018 [facility] Platelet morphology NORMAL 03/07/2018 [facility] RBC morphology NORMAL 03/07/2018 [facility] Serum or plasma sodium measurement (moles/volume) 138 136 - 145 03/06/2018 [facility] Serum or plasma potassium measurement (moles/volume) 4.5 3.5 - 5.1 03/06/2018 [facility] Serum or plasma chloride measurement (moles/volume) 110 98 - 107 03/06/2018 [facility] Serum or plasma carbon dioxide, total measurement (moles/volume) 24 22 - 29 03/06/2018 [facility] Serum or plasma anion gap 8.5 8 - 16 03/06/2018 [facility] Serum or plasma urea nitrogen measurement (mass/volume) 12 7 - 26 03/06/2018 [facility] Serum or plasma creatinine measurement (mass/volume) 0.82 0.72 - 1.25 03/06/2018 [facility] Serum or plasma urea nitrogen/creatinine mass ratio 15 6 - 25 03/06/2018 [facility] Estimated glomerular filtration rate (GFR) determination > 60 60 03/06/2018 [facility] Glucose measurement 83 74 - 118 03/06/2018 [facility] Serum or plasma calcium measurement (mass/volume) 7.7 8.4 - 10.2 03/06/2018 [facility] Serum or plasma total bilirubin measurement (mass/volume) 4.1 0.2 - 1.2 03/06/2018 [facility] Aspartate Amino Transf (AST/SGOT) 88 5 - 34 03/06/2018 [facility] Serum or plasma alanine aminotransferase measurement (enzymatic activity/volume) 29 0 - 55 03/06/2018 [facility] Serum or plasma protein measurement (mass/volume) 6.1 6.5 - 8.1 03/06/2018 [facility] Serum or plasma albumin measurement (mass/volume) 2.4 3.5 - 5.0 03/06/2018 [facility] Plasma globulin measurement (mass/volume) 3.7 2.3 - 3.5 03/06/2018 [facility] Serum or plasma albumin/globulin mass ratio 0.6 0.8 - 2.0 03/06/2018 [facility] Serum or plasma alkaline phosphatase measurement (enzymatic activity/volume) 83 40 - 150 03/06/2018 [facility] Blood lymphocytes variant count (number/volume) 6 03/06/2018 [facility] Blood hypochromia detection by light microscopy MODERATE 03/06/2018 [facility] Blood poikilocytosis detection by light microscopy SLIGHT 03/06/2018 [facility] Blood anisocytosis detection by light microscopy SLIGHT 03/06/2018 [facility] Blood ovalocytes detection by light microscopy FEW 03/06/2018 [facility] Blood hypochromia detection by light microscopy MODERATE 03/06/2018 [facility] Blood ovalocytes detection by light microscopy FEW 03/06/2018 [facility] Manual blood band neutrophils form/100 leukocytes 1 03/05/2018 [facility] Manual basophil percentage 1 0 - 1.5 03/05/2018 [facility] Elliptocyte detection SLIGHT 03/05/2018 [facility] Prothrombin time (PT) in platelet poor plasma by coagulation assay 22.5 11.9 - 14.5 03/05/2018 [facility] INR in Platelet poor plasma by Coagulation assay 1.82 03/05/2018 [facility] Activated partial thromboplastin time (aPTT) in platelet poor plasma bycoagulation assay 47.8 23.8 - 35.5 03/05/2018 [facility] Prothrombin time (PT) in platelet poor plasma by coagulation assay 22.5 11.9 - 14.5 03/05/2018 [facility] INR in Platelet poor plasma by Coagulation assay 1.82 03/05/2018 [facility] Activated partial thromboplastin time (aPTT) in platelet poor plasma bycoagulation assay 47.8 23.8 - 35.5 03/05/2018 [facility] Urine color determination ORANGE YELLOW 03/05/2018 [facility] Urine clarity CLOUDY CLEAR 03/05/2018 [facility] Specific gravity of Urine by Test strip 1.025 1.010 - 1.025 03/05/2018 [facility] Urine pH measurement by automated test strip 6 5 - 7 03/05/2018 [facility] Urine leukocyte esterase detection by dipstick NEGATIVE NEGATIVE 03/05/2018 [facility] Urine nitrite detection NEGATIVE NEGATIVE 03/05/2018 [facility] Urine protein measurement by test strip (mass/volume) NEGATIVE NEGATIVE 03/05/2018 [facility] Urine glucose detection NEGATIVE NEGATIVE 03/05/2018 [facility] Urine ketones detection by automated test strip NEGATIVE NEGATIVE 03/05/2018 [facility] Urine urobilinogen measurement by test strip (mass/volume) 4 0.2 - 1 03/05/2018 [facility] Urine total bilirubin measurement (mass/volume) 1+ NEGATIVE 03/05/2018 [facility] Urine erythrocytes detection NEGATIVE NEGATIVE 03/05/2018 [facility] Automated urine sediment leukocyte count by microscopy (number/high power field) 0-5 0 - 5 03/05/2018 [facility] Erythrocytes detection in urine sediment by light microscopy 0-5 0 - 5 03/05/2018 [facility] Bacteria detection in urine sediment by light microscopy FEW NONE 03/05/2018 [facility] Epithelial cells detection in urine sediment by light microscopy FEW NONE 03/05/2018 [facility] Calcium oxalate crystals detection in urine sediment by light microscopy MANY FEW 03/05/2018 [facility] Urine color determination ORANGE YELLOW 03/05/2018 [facility] Urine clarity CLOUDY CLEAR 03/05/2018 [facility] Specific gravity of Urine by Test strip 1.025 1.010 - 1.025 03/05/2018 [facility] Urine pH measurement by automated test strip 6 5 - 7 03/05/2018 [facility] Urine leukocyte esterase detection by dipstick NEGATIVE NEGATIVE 03/05/2018 [facility] Urine nitrite detection NEGATIVE NEGATIVE 03/05/2018 [facility] Urine protein measurement by test strip (mass/volume) NEGATIVE NEGATIVE 03/05/2018 [facility] Urine glucose detection NEGATIVE NEGATIVE 03/05/2018 [facility] Urine ketones detection by automated test strip NEGATIVE NEGATIVE 03/05/2018 [facility] Urine urobilinogen measurement by test strip (mass/volume) 4 0.2 - 1 03/05/2018 [facility] Urine total bilirubin measurement (mass/volume) 1+ NEGATIVE 03/05/2018 [facility] Urine erythrocytes detection NEGATIVE NEGATIVE 03/05/2018 [facility] Automated urine sediment leukocyte count by microscopy (number/high power field) 0-5 0 - 5 03/05/2018 [facility] Erythrocytes detection in urine sediment by light microscopy 0-5 0 - 5 03/05/2018 [facility] Bacteria detection in urine sediment by light microscopy FEW NONE 03/05/2018 [facility] Epithelial cells detection in urine sediment by light microscopy FEW NONE 03/05/2018 [facility] Calcium oxalate crystals detection in urine sediment by light microscopy MANY FEW 03/05/2018 [facility] Blood culture NO GROWTH AFTER 72 HOURS 03/04/2018 [facility] CHEM PANEL Total Protein 6.1 6.4 - 8.4 01/13/2018 [facility] CHEM PANEL AST 59 0 - 37 01/13/2018 [facility] CHEM PANEL Albumin Lvl 2.6 3.5 - 5.0 01/13/2018 [facility] CHEM PANEL ALT 35 0 - 65 01/13/2018 [facility] CHEM PANEL Bili Direct 1.3 0.0 - 0.3 01/13/2018 [facility] CHEM PANEL Bili Indirect 1.8 0.0 - 1.0 01/13/2018 [facility] CHEM PANEL Bili Total 3.1 0.2 - 1.3 01/13/2018 [facility] CHEM PANEL Alk Phos 133 39 - 136 01/13/2018 [facility] CHEM PANEL Globulin 3.5 2.7 - 4.2 01/13/2018 [facility] CHEM PANEL A/G Ratio 0.7 0.7 - 1.6 01/13/2018 [facility] CHEM PANEL eGFR 115 01/13/2018 Result Comment: The eGFR is calculated using [...] should be multiplied by the estimated BMI. [facility] CHEM PANEL Calcium Lvl 7.9 8.5 - 10.5 01/13/2018 [facility] CHEM PANEL Chloride Lvl 112 95 - 109 01/13/2018 [facility] CHEM PANEL CO2 29 24 - 32 01/13/2018 [facility] CHEM PANEL Glucose Lvl 81 70 - 99 01/13/2018 [facility] CHEM PANEL Sodium Lvl 144 135 - 145 01/13/2018 [facility] CHEM PANEL BUN 8 7 - 22 01/13/2018 [facility] CHEM PANEL Potassium Lvl 4.0 3.5 - 5.1 01/13/2018 [facility] CHEM PANEL Creatinine Lvl 0.77 0.50 - 1.40 01/13/2018 [facility] CHEM PANEL AGAP 7.0 10.0 - 20.0 01/13/2018 [facility] HEMATOLOGY PT 21.0 12.0 - 14.7 01/13/2018 [facility] HEMATOLOGY INR 1.80 0.85 - 1.17 01/13/2018 [facility] HEMATOLOGY Hgb 10.6 14.0 - 18.0 01/13/2018 [facility] HEMATOLOGY Hct 32.2 42.0 - 54.0 01/13/2018 [facility] HEMATOLOGY WBC 2.2 3.7 - 10.4 01/13/2018 [facility] HEMATOLOGY RBC 3.61 4.70 - 6.10 01/13/2018 [facility] HEMATOLOGY MCV 89.1 80.0 - 94.0 01/13/2018 [facility] HEMATOLOGY MCH 29.2 27.0 - 31.0 01/13/2018 [facility] HEMATOLOGY MCHC 32.8 32.0 - 36.0 01/13/2018 [facility] HEMATOLOGY RDW 17.2 11.5 - 14.5 01/13/2018 [facility] HEMATOLOGY Platelet 33 133 - 450 01/13/2018 [facility] HEMATOLOGY MPV 10.0 7.4 - 10.4 01/13/2018 [facility] HEMATOLOGY Lymphocytes # 0.7 1.0 - 5.5 01/13/2018 [facility] HEMATOLOGY Neutrophils # 1.2 1.5 - 8.1 01/13/2018 [facility] HEMATOLOGY Basophils 1.2 0.0 - 1.0 01/13/2018 [facility] HEMATOLOGY Eosinophils # 0.1 0.0 - 0.5 01/13/2018 [facility] HEMATOLOGY Monocytes 10.5 2.0 - 12.0 01/13/2018 [facility] HEMATOLOGY Lymphocytes 29.2 20.0 - 40.0 01/13/2018 [facility] HEMATOLOGY Monocytes # 0.2 0.0 - 0.8 01/13/2018 [facility] HEMATOLOGY Eosinophils 5.2 0.0 - 4.0 01/13/2018 [facility] HEMATOLOGY Segs 53.9 45.0 - 75.0 01/13/2018 [facility] TUMOR MARKERS AFP 3.4 0.0 - 11.0 01/13/2018 [facility] CHEM PANEL Magnesium Lvl 1.9 1.8 - 2.4 02/13/2017 [facility] CHEM PANEL Bili Indirect 2.6 0.0 - 1.0 02/13/2017 [facility] CHEM PANEL Globulin 3.1 2.7 - 4.2 02/13/2017 [facility] CHEM PANEL A/G Ratio 0.8 0.7 - 1.6 02/13/2017 [facility] CHEM PANEL Total Protein 5.6 6.4 - 8.4 02/13/2017 [facility] CHEM PANEL Bili Total 3.9 0.2 - 1.3 02/13/2017 [facility] CHEM PANEL Alk Phos 99 39 - 136 02/13/2017 [facility] CHEM PANEL Bili Direct 1.3 0.0 - 0.3 02/13/2017 [facility] CHEM PANEL Albumin Lvl 2.5 3.5 - 5.0 02/13/2017 [facility] CHEM PANEL AST 45 0 - 37 02/13/2017 [facility] CHEM PANEL ALT 28 0 - 65 02/13/2017 [facility] CHEM PANEL Phosphorus 4.0 2.5 - 4.5 02/13/2017 [facility] ELECTROLYTES AGAP 11.8 10.0 - 20.0 02/13/2017 [facility] ELECTROLYTES eGFR 113 02/13/2017 Result Comment: The eGFR is calculated [...] should be multiplied by the estimated BMI. [facility] ELECTROLYTES Calcium Lvl 7.8 8.5 - 10.5 02/13/2017 [facility] ELECTROLYTES BUN 11 7 - 22 02/13/2017 [facility] ELECTROLYTES Glucose Lvl 105 70 - 99 02/13/2017 [facility] ELECTROLYTES Creatinine Lvl 0.82 0.50 - 1.40 02/13/2017 [facility] ELECTROLYTES Sodium Lvl 140 135 - 145 02/13/2017 [facility] ELECTROLYTES Chloride Lvl 106 95 - 109 02/13/2017 [facility] ELECTROLYTES CO2 26 24 - 32 02/13/2017 [facility] ELECTROLYTES Potassium Lvl 3.8 3.5 - 5.1 02/13/2017 [facility] HEMATOLOGY Eosinophils # 0.1 0.0 - 0.5 02/13/2017 [facility] HEMATOLOGY Segs 50.1 45.0 - 75.0 02/13/2017 [facility] HEMATOLOGY Monocytes # 0.2 0.0 - 0.8 02/13/2017 [facility] HEMATOLOGY Segs-Bands # 0.9 1.5 - 8.1 02/13/2017 [facility] HEMATOLOGY Lymphocytes # 0.5 1.0 - 5.5 02/13/2017 [facility] HEMATOLOGY Eosinophils 6.1 0.0 - 4.0 02/13/2017 [facility] HEMATOLOGY Basophils 1.0 0.0 - 1.0 02/13/2017 [facility] HEMATOLOGY Lymphocytes 30.9 20.0 - 40.0 02/13/2017 [facility] HEMATOLOGY Monocytes 11.9 2.0 - 12.0 02/13/2017 [facility] HEMATOLOGY WBC 1.7 3.7 - 10.4 02/13/2017 [facility] HEMATOLOGY RBC 3.46 4.70 - 6.10 02/13/2017 [facility] HEMATOLOGY MPV 9.4 7.4 - 10.4 02/13/2017 [facility] HEMATOLOGY RDW 16.7 11.5 - 14.5 02/13/2017 [facility] HEMATOLOGY Platelet 32 133 - 450 02/13/2017 [facility] HEMATOLOGY MCHC 35.2 32.0 - 36.0 02/13/2017 [facility] HEMATOLOGY Hct 32.1 42.0 - 54.0 02/13/2017 [facility] HEMATOLOGY MCV 92.8 80.0 - 94.0 02/13/2017 [facility] HEMATOLOGY Hgb 11.3 14.0 - 18.0 02/13/2017 [facility] HEMATOLOGY MCH 32.7 27.0 - 31.0 02/13/2017 [facility] HEMATOLOGY PT 21.0 12.0 - 14.7 02/13/2017 [facility] HEMATOLOGY INR 1.80 0.85 - 1.17 02/13/2017 [facility] HEMATOLOGY PTT 46.5 22.9 - 35.8 02/13/2017 [facility] HEMATOLOGY Hct 36.1 42.0 - 54.0 02/13/2017 [facility] HEMATOLOGY Hgb 12.4 14.0 - 18.0 02/13/2017 [facility] HEMATOLOGY Hct 33.8 42.0 - 54.0 02/12/2017 [facility] HEMATOLOGY Hgb 11.8 14.0 - 18.0 02/12/2017 [facility] BACTERIAL - SEROLOGY MRSA by PCR Negative (02/12/17 12:08 AM) 02/12/2017 [facility] BLOOD BANK RESULTS Antibody Scrn Negative (02/12/17 12:08 AM) 02/12/2017 [facility] BLOOD BANK RESULTS ABO/Rh O POS 02/12/2017 [facility] CHEM PANEL Lactic Acid Lvl 1.1 0.5 - 2.2 02/12/2017 [facility] CHEM PANEL Phosphorus 3.5 2.5 - 4.5 02/12/2017 [facility] CHEM PANEL Ammonia 121.0 <=45.0 uMol/L 02/12/2017 [facility] CHEM PANEL Lipase Lvl 234 73 - 393 02/12/2017 [facility] CHEM PANEL A/G Ratio 0.7 0.7 - 1.6 02/12/2017 [facility] CHEM PANEL Bili Indirect 1.7 0.0 - 1.0 02/12/2017 [facility] CHEM PANEL Globulin 3.5 2.7 - 4.2 02/12/2017 [facility] CHEM PANEL Alk Phos 124 39 - 136 02/12/2017 [facility] CHEM PANEL Bili Direct 1.2 0.0 - 0.3 02/12/2017 [facility] CHEM PANEL Bili Total 2.9 0.2 - 1.3 02/12/2017 [facility] CHEM PANEL ALT 32 0 - 65 02/12/2017 [facility] CHEM PANEL AST 50 0 - 37 02/12/2017 [facility] CHEM PANEL Total Protein 6.0 6.4 - 8.4 02/12/2017 [facility] CHEM PANEL Albumin Lvl 2.5 3.5 - 5.0 02/12/2017 [facility] CHEM PANEL Amylase Lvl 41 25 - 115 02/12/2017 [facility] CHEM PANEL Magnesium Lvl 1.8 1.8 - 2.4 02/12/2017 [facility] ELECTROLYTES AGAP 10.3 10.0 - 20.0 02/12/2017 [facility] ELECTROLYTES eGFR 118 02/12/2017 Result Comment: The eGFR is calculated [...] should be multiplied by the estimated BMI. [facility] ELECTROLYTES Calcium Lvl 8.1 8.5 - 10.5 02/12/2017 [facility] ELECTROLYTES Glucose Lvl 83 70 - 99 02/12/2017 [facility] ELECTROLYTES BUN 10 7 - 22 02/12/2017 [facility] ELECTROLYTES Sodium Lvl 141 135 - 145 02/12/2017 [facility] ELECTROLYTES Creatinine Lvl 0.74 0.50 - 1.40 02/12/2017 [facility] ELECTROLYTES Potassium Lvl 4.3 3.5 - 5.1 02/12/2017 [facility] ELECTROLYTES Chloride Lvl 108 95 - 109 02/12/2017 [facility] ELECTROLYTES CO2 27 24 - 32 02/12/2017 [facility] HEMATOLOGY Monocytes 12.3 2.0 - 12.0 02/12/2017 [facility] HEMATOLOGY Eosinophils 5.5 0.0 - 4.0 02/12/2017 [facility] HEMATOLOGY Basophils 1.0 0.0 - 1.0 02/12/2017 [facility] HEMATOLOGY Segs 53.9 45.0 - 75.0 02/12/2017 [facility] HEMATOLOGY Lymphocytes 27.3 20.0 - 40.0 02/12/2017 [facility] HEMATOLOGY Eosinophils # 0.1 0.0 - 0.5 02/12/2017 [facility] HEMATOLOGY Anisocyte 1+ *ABN* (02/12/17 12:08 AM) None Seen 02/12/2017 [facility] HEMATOLOGY Segs-Bands # 1.4 1.5 - 8.1 02/12/2017 [facility] HEMATOLOGY Monocytes # 0.3 0.0 - 0.8 02/12/2017 [facility] HEMATOLOGY Lymphocytes # 0.7 1.0 - 5.5 02/12/2017 [facility] HEMATOLOGY RDW 16.7 11.5 - 14.5 02/12/2017 [facility] HEMATOLOGY Platelet 34 133 - 450 02/12/2017 [facility] HEMATOLOGY MPV 9.6 7.4 - 10.4 02/12/2017 [facility] HEMATOLOGY MCHC 33.7 32.0 - 36.0 02/12/2017 [facility] HEMATOLOGY WBC 2.6 3.7 - 10.4 02/12/2017 [facility] HEMATOLOGY MCH 31.7 27.0 - 31.0 02/12/2017 [facility] HEMATOLOGY RBC 3.72 4.70 - 6.10 02/12/2017 [facility] HEMATOLOGY MCV 94.2 80.0 - 94.0 02/12/2017 [facility] HEMATOLOGY INR 1.68 0.85 - 1.17 02/12/2017 [facility] HEMATOLOGY PT 19.9 12.0 - 14.7 02/12/2017 [facility] HEMATOLOGY PTT 43.0 22.9 - 35.8 02/12/2017 [facility] PARATHYROID PROFILE Ca Norm WB 1.06 1.05 - 1.25 02/12/2017 [facility] PARATHYROID PROFILE Ca Ion WB 1.04 1.05 - 1.25 02/12/2017 [facility] CHEM PANEL Lipase Lvl 238 73 - 393 02/12/2017 [facility] CHEM PANEL Globulin 3.7 2.7 - 4.2 02/12/2017 [facility] CHEM PANEL A/G Ratio 0.7 0.7 - 1.6 02/12/2017 [facility] CHEM PANEL Bili Indirect 2.0 0.0 - 1.0 02/12/2017 [facility] CHEM PANEL AST 41 0 - 37 02/12/2017 [facility] CHEM PANEL Alk Phos 123 39 - 136 02/12/2017 [facility] CHEM PANEL ALT 27 0 - 65 02/12/2017 [facility] CHEM PANEL Bili Total 3.2 0.2 - 1.3 02/12/2017 [facility] CHEM PANEL Bili Direct 1.2 0.0 - 0.3 02/12/2017 [facility] CHEM PANEL Total Protein 6.3 6.4 - 8.4 02/12/2017 [facility] CHEM PANEL Albumin Lvl 2.6 3.5 - 5.0 02/12/2017 [facility] HEMATOLOGY PT 18.3 12.0 - 14.7 02/12/2017 [facility] HEMATOLOGY INR 1.51 0.85 - 1.17 02/12/2017 [facility] HEMATOLOGY PTT 44.8 22.9 - 35.8 02/12/2017 [facility] CHEM PANEL eGFR 103 02/11/2017 Result Comment: The eGFR is calculated [...] should be multiplied by the estimated BMI. [facility] CHEM PANEL Chloride Lvl 111 95 - 109 02/11/2017 [facility] CHEM PANEL Calcium Lvl 8.2 8.5 - 10.5 02/11/2017 [facility] CHEM PANEL CO2 28 24 - 32 02/11/2017 [facility] CHEM PANEL BUN 9 7 - 22 02/11/2017 [facility] CHEM PANEL Creatinine Lvl 0.94 0.50 - 1.40 02/11/2017 [facility] CHEM PANEL Potassium Lvl 4.9 3.5 - 5.1 02/11/2017 [facility] CHEM PANEL Sodium Lvl 144 135 - 145 02/11/2017 [facility] CHEM PANEL Glucose Lvl 93 70 - 99 02/11/2017 [facility] CHEM PANEL AGAP 9.9 10.0 - 20.0 02/11/2017 [facility] HEMATOLOGY Platelet 40 133 - 450 02/11/2017 [facility] HEMATOLOGY MPV 9.0 7.4 - 10.4 02/11/2017 [facility] HEMATOLOGY MCHC 33.3 32.0 - 36.0 02/11/2017 [facility] HEMATOLOGY RDW 16.7 11.5 - 14.5 02/11/2017 [facility] HEMATOLOGY MCH 31.0 27.0 - 31.0 02/11/2017 [facility] HEMATOLOGY MCV 93.0 80.0 - 94.0 02/11/2017 [facility] HEMATOLOGY RBC 3.95 4.70 - 6.10 02/11/2017 [facility] HEMATOLOGY WBC 3.2 3.7 - 10.4 02/11/2017 [facility] CHEM PANEL Bili Indirect 3.0 0.0 - 1.0 01/17/2017 [facility] CHEM PANEL A/G Ratio 0.6 0.7 - 1.6 01/17/2017 [facility] CHEM PANEL Globulin 4.1 2.7 - 4.2 01/17/2017 [facility] CHEM PANEL Alk Phos 120 39 - 136 01/17/2017 [facility] CHEM PANEL Bili Total 4.3 0.2 - 1.3 01/17/2017 [facility] CHEM PANEL Bili Direct 1.3 0.0 - 0.3 01/17/2017 [facility] CHEM PANEL Albumin Lvl 2.4 3.5 - 5.0 01/17/2017 [facility] CHEM PANEL Total Protein 6.5 6.4 - 8.4 01/17/2017 [facility] CHEM PANEL ALT 35 0 - 65 01/17/2017 [facility] CHEM PANEL AST 45 0 - 37 01/17/2017 [facility] HEMATOLOGY MPV 10.6 7.4 - 10.4 01/17/2017 [facility] HEMATOLOGY MCHC 34.3 32.0 - 36.0 01/17/2017 [facility] HEMATOLOGY Platelet 52 133 - 450 01/17/2017 [facility] HEMATOLOGY RDW 15.5 11.5 - 14.5 01/17/2017 [facility] HEMATOLOGY Hct 36.7 42.0 - 54.0 01/17/2017 [facility] HEMATOLOGY MCH 31.9 27.0 - 31.0 01/17/2017 [facility] HEMATOLOGY MCV 93.0 80.0 - 94.0 01/17/2017 [facility] HEMATOLOGY RBC 3.95 4.70 - 6.10 01/17/2017 [facility] HEMATOLOGY Hgb 12.6 14.0 - 18.0 01/17/2017 [facility] HEMATOLOGY WBC 4.7 3.7 - 10.4 01/17/2017 [facility] HEMATOLOGY Monocytes # 0.4 0.0 - 0.8 01/17/2017 [facility] HEMATOLOGY Eosinophils 0.1 0.0 - 4.0 01/17/2017 [facility] HEMATOLOGY Monocytes 7.5 2.0 - 12.0 01/17/2017 [facility] HEMATOLOGY Lymphocytes 8.6 20.0 - 40.0 01/17/2017 [facility] HEMATOLOGY Segs 83.7 45.0 - 75.0 01/17/2017 [facility] HEMATOLOGY Lymphocytes # 0.4 1.0 - 5.5 01/17/2017 [facility] HEMATOLOGY Basophils 0.1 0.0 - 1.0 01/17/2017 [facility] HEMATOLOGY Segs-Bands # 3.9 1.5 - 8.1 01/17/2017 [facility] BLOOD BANK RESULTS Platelet product Product available (01/16/17 8:50 AM) 01/16/2017 [facility] CHEM PANEL Total Protein 6.6 6.4 - 8.4 01/16/2017 [facility] CHEM PANEL Alk Phos 112 39 - 136 01/16/2017 [facility] CHEM PANEL Bili Direct 1.7 0.0 - 0.3 01/16/2017 [facility] CHEM PANEL Bili Total 5.0 0.2 - 1.3 01/16/2017 [facility] CHEM PANEL ALT 35 0 - 65 01/16/2017 [facility] CHEM PANEL Albumin Lvl 2.8 3.5 - 5.0 01/16/2017 [facility] CHEM PANEL AST 64 0 - 37 01/16/2017 [facility] CHEM PANEL A/G Ratio 0.7 0.7 - 1.6 01/16/2017 [facility] CHEM PANEL Globulin 3.8 2.7 - 4.2 01/16/2017 [facility] CHEM PANEL Bili Indirect 3.3 0.0 - 1.0 01/16/2017 [facility] HEMATOLOGY MCV 92.8 80.0 - 94.0 01/16/2017 [facility] HEMATOLOGY Hct 38.3 42.0 - 54.0 01/16/2017 [facility] HEMATOLOGY Platelet 37 133 - 450 01/16/2017 [facility] HEMATOLOGY RDW 16.2 11.5 - 14.5 01/16/2017 [facility] HEMATOLOGY MPV 9.5 7.4 - 10.4 01/16/2017 [facility] HEMATOLOGY MCH 32.2 27.0 - 31.0 01/16/2017 [facility] HEMATOLOGY MCHC 34.7 32.0 - 36.0 01/16/2017 [facility] HEMATOLOGY Hgb 13.3 14.0 - 18.0 01/16/2017 [facility] HEMATOLOGY WBC 3.6 3.7 - 10.4 01/16/2017 [facility] HEMATOLOGY RBC 4.13 4.70 - 6.10 01/16/2017 [facility] HEMATOLOGY PT 19.5 12.0 - 14.7 01/16/2017 [facility] HEMATOLOGY INR 1.62 0.85 - 1.17 01/16/2017 [facility] HEMATOLOGY Anisocyte 1+ *ABN* (01/16/17 8:03 AM) None Seen 01/16/2017 [facility] HEMATOLOGY Eosinophils # 0.2 0.0 - 0.5 01/16/2017 [facility] HEMATOLOGY Lymphocytes 28.0 20.0 - 40.0 01/16/2017 [facility] HEMATOLOGY Eosinophils 5.0 0.0 - 4.0 01/16/2017 [facility] HEMATOLOGY Basophils 1.0 0.0 - 1.0 01/16/2017 [facility] HEMATOLOGY Lymphocytes # 1.0 1.0 - 5.5 01/16/2017 [facility] HEMATOLOGY Segs-Bands # 1.9 1.5 - 8.1 01/16/2017 [facility] HEMATOLOGY Monocytes # 0.4 0.0 - 0.8 01/16/2017 [facility] HEMATOLOGY Monocytes 12.3 2.0 - 12.0 01/16/2017 [facility] HEMATOLOGY Segs 53.7 45.0 - 75.0 01/16/2017 [facility] BLOOD BANK RESULTS Antibody Scrn Negative (01/16/17 7:55 AM) 01/16/2017 [facility] BLOOD BANK RESULTS ABO/Rh O POS 01/16/2017 [facility] ELECTROLYTES AGAP 11.3 10.0 - 20.0 03/23/2016 [facility] ELECTROLYTES Chloride Lvl 109 95 - 109 03/23/2016 [facility] ELECTROLYTES Calcium Lvl 8.3 8.5 - 10.5 03/23/2016 [facility] ELECTROLYTES CO2 28 24 - 32 03/23/2016 [facility] ELECTROLYTES Potassium Lvl 4.3 3.5 - 5.1 03/23/2016 [facility] ELECTROLYTES Sodium Lvl 144 135 - 145 03/23/2016 [facility] ELECTROLYTES Creatinine Lvl 0.78 0.50 - 1.40 03/23/2016 [facility] ELECTROLYTES BUN 11 7 - 22 03/23/2016 [facility] ELECTROLYTES Glucose Lvl 73 70 - 99 03/23/2016 [facility] ELECTROLYTES eGFR 116 03/23/2016 Result Comment: The eGFR is calculated [...] should be multiplied by the estimated BMI. [facility] HEMATOLOGY Segs-Bands # 1.3 1.5 - 8.1 03/23/2016 [facility] HEMATOLOGY Lymphocytes # 0.7 1.0 - 5.5 03/23/2016 [facility] HEMATOLOGY Basophils 0.8 0.0 - 1.0 03/23/2016 [facility] HEMATOLOGY Eosinophils 3.3 0.0 - 4.0 03/23/2016 [facility] HEMATOLOGY Eosinophils # 0.1 0.0 - 0.5 03/23/2016 [facility] HEMATOLOGY Monocytes # 0.2 0.0 - 0.8 03/23/2016 [facility] HEMATOLOGY Monocytes 9.4 2.0 - 12.0 03/23/2016 [facility] HEMATOLOGY Lymphocytes 29.4 20.0 - 40.0 03/23/2016 [facility] HEMATOLOGY Segs 57.1 45.0 - 75.0 03/23/2016 [facility] HEMATOLOGY MPV 9.6 7.4 - 10.4 03/23/2016 [facility] HEMATOLOGY Platelet 41 133 - 450 03/23/2016 [facility] HEMATOLOGY MCV 92.9 80.0 - 94.0 03/23/2016 [facility] HEMATOLOGY Hct 38.4 42.0 - 54.0 03/23/2016 [facility] HEMATOLOGY Hgb 12.9 14.0 - 18.0 03/23/2016 [facility] HEMATOLOGY RDW 15.5 11.5 - 14.5 03/23/2016 [facility] HEMATOLOGY MCHC 33.6 32.0 - 36.0 03/23/2016 [facility] HEMATOLOGY RBC 4.14 4.70 - 6.10 03/23/2016 [facility] HEMATOLOGY WBC 2.3 3.7 - 10.4 03/23/2016 [facility] HEMATOLOGY MCH 31.3 27.0 - 31.0 03/23/2016 [facility] Pathology Reports No Data Provided for This Section Diagnostic Reports Report Value Date Source Abdomen w/wo IV contrast CT EXAM: CT ABDOMEN WITHOUT AND WITH CONTRAST DATE: 11/14/2018 17:59 CDT INDICATION: Cirrhosis, HCC screening. ADDITIONAL INFORMATION: None. COMPARISON: CT abdomen 04/18/[address] 10/25/17. TECHNIQUE: Volumetric CT acquisition of the abdomen both prior to and following intravenous contrast, in precontrast, arterial, portal venous and delayed phases of enhancement, per the dynamic liver protocol. Axial, coronal reconstructions. IV contrast: 100 mL Omnipaque 350 Enteric contrast: None. DLP: 3716 mGy-cm FINDINGS: Lines, tubes and hardware: None. Lower thorax: Bilateral mild pleural effusion, left more than the right. Liver: Nodular cirrhotic liver. Hepatic masses: Enhancing mass detected. Non-enhancing/cystic hepatic lesions: None. Hepatic vessels: Hepatic arterial anatomy: Conventional. Arterial stenoses: None. Portal vein: Patent. Caliber: 1.6 cm Portosystemic collaterals: Large periesophageal and perigastric collaterals. Hepatic, splenic and superior mesenteric veins, and IVC: Patent. Regional lymph nodes: Normal. Biliary tree: No intra- or extrahepatic biliary ductal dilation. Gallbladder: Cholelithiasis without evidence of cholecystitis. Pancreas: Normal. Spleen: Normal. Adrenals: Normal. Kidneys and ureters: Normal. Gastrointestinal tract: Stomach: Normal. Small bowel: Normal. Colon: Normal. Peritoneum, mesentery and retroperitoneum: Mild ascites, diffuse mesenteric and retroperitoneal edema. Distant lymph nodes: Normal. Vasculature: Normal. Bones: No acute abnormality. Soft tissues: Normal. IMPRESSION: 1. Cirrhosis with sequelae of portal hypertension including splenomegaly, portosystemic collaterals, mild ascites and bilateral mild pleural effusions. 2. No enhancing hepatic mass to suggest HCC. Previously described 1.5 cm LR3 lesion in segment 8 could not be visualized as the study is limited by delayed timing of the arterial phase images. 3. Cholelithiasis without acute cholecystitis. 11/14/2018 SHAD Alford [facility] Liver Protocol w/wo IV contrast CT EXAM: CT ABDOMEN WITH AND WITHOUT CONTRAST DATE: 04/18/2018 11:11 HOME CARE RN INDICATION: - R94.5 Abnormal results of liver [...] small left pleural effusion seen again. 04/18/2018 LORENE Alford [facility] Liver Protocol w/wo IV contrast CT EXAM: [...] recommended with liver magnetic resonance imaging. 10/25/2017 SHAD Alford Chest wo contrast CT EXAM: CT CHEST WITHOUT CONTRAST DATE: 05/10/2017 5:18 PM HOME CARE RN INDICATION: - C22.0 Liver cell carcinoma TECHNIQUE: [...] 4. Mild right coronary artery calcification. 05/10/2017 LORENE Alford Abd/Pelvis Liver Protocol w IV/Abd wo CT EXAM: CT ABDOMEN AND PELVIS WITHOUT AND WITH CONTRAST DATE: 05/10/2017 5:18 PM HOME CARE RN INDICATION: - C22.0 Liver cell carcinoma ADDITIONAL [...] portal hypertension including massive paraesophageal varices. 05/10/2017 LORENE Prashanth Abd/Pelvis Liver Protocol w IV/Abd wo CT [...] spine, including canal stenosis at L3-L4. 02/12/2017 [facility] Liver w Liver vessels Doppler US EXAM: [...] portal hypertension. 5. Cholelithiasis without cholecystitis. 02/12/2017 [facility] Angiogram visceral artery initial VR EXAM: VIR TRANS- ARTERIAL CHEMO EMBOLIZATION (TACE) OF THE right HEPATIC MASS. DATE: 01/16/2017 7:48 AM CDT PROCEDURE(S) PERFORMED: INDICATION: 36 years old Male with liver cirrhosis and hepatocellular carcinoma. FACULTY: Jarred Cai RESIDENT/FELLOW/INTERVENTIONAL TECHNOLOGIST: Alberto Dahl; Alberto Zamora SUPERVISION: Level 1 [...] the right common femoral artery. A 5 Eritrean sheath was placed. A Omni flush catheter was advanced into the aorta, and an aortogram was performed, showing no extrahepatic circulation and type I celiac anatomy. The celiac axis was then selected with a Sos catheter and an angiogram was performed which showed no tumoral blush. The Sos catheter was exchanged for a 5-Eritrean C2 that was advanced into the proper [...] Cai was present for the procedure. 01/16/2017 [facility] Abdomen/Pelvis w/wo contrast MRI EXAM: MR ABDOMEN [...] portal hypertension including severe periesophageal varices. 01/02/2017 LORENE Alford Abd/Pelvis Liver Protocol w IV/Abd [...] splenomegaly. No abdominal ascites. RECOMMENDATIONS: None. 11/22/2016 SHAD Alford Abdomen w/wo contrast MRI EXAM: MR ABDOMEN [...] for this patient for follow up. 10/22/2016 LORENE Alford Chest wo contrast CT EXAM: CT CHEST [...] splenomegaly, collateral vessels, varices. 4. Cholelithiasis. 10/22/2016 LORENE Alford Abd Liver Protocol w/wo IV contrast CT [...] extensive portosystemic collateral vessels. 4. Cholelithiasis. 08/08/2016 LORENE Alford Chest wo contrast CT EXAM: CT CHEST [...] Cholelithiasis without CT evidence of cholecystitis. 07/18/2016 SHAD Alford Abdomen w/wo contrast MRI EXAM: MR ABDOMEN [...] multiple locations. 3. Cholelithiasis without cholecystitis. 07/18/2016 LORENE Alford Chest wo contrast CT EXAM: CT CHEST WITHOUT CONTRAST DATE: 04/24/2016 10:40 AM HOME CARE RN INDICATION: PRE-LIVER TRANSPLANT WORK-UP; ESLD; LIVER MASS; [...] 3. Please see concomitant CT abdomen. 04/24/2016 [facility] Abdomen w/wo IV contrast CT EXAM: CT [...] splenomegaly. 6. Unchanged cholelithiasis. RECOMMENDATIONS: None. 04/24/2016 [facility] Abd Liver Protocol w/wo IV contrast CT EXAM: CT ABDOMEN WITH AND WITHOUT CONTRAST DATE: 03/14/2016 11:14 AM HOME CARE RN INDICATION: K70.30 Alcoholic cirrhosis of liver without [...] is of uncertain significance. 6. Cholelithiasis 03/14/2016 LORENE Alford Abdomen complete US Exam: Abdominal Ultrasound Reason [...] without sonographic evidence to suggest cholecystitis. 01/18/2016 LORENE Martínez Consultation Notes No Data Provided for This Section Discharge Summaries No Data Provided for This Section History and Physicals No Data Provided for This Section Vital Signs Vital Sign Value Date Comments Source Weight 146.818 09/25/2018 [facility] BMI Calculated 45.14 09/25/2018 [facility] Height 180.34 cm 09/25/2018 [facility] Systolic (mm Hg) 114 09/25/2018 [facility] Diastolic (mm Hg) 60 09/25/2018 [facility] Heart Rate 69 09/25/2018 [facility] Systolic (mm Hg) 111 07/18/2018 [facility] Diastolic (mm Hg) 65 07/18/2018 [facility] Heart Rate 76 07/18/2018 [facility] Temperature Oral (F) 36.61 Kimberly 07/18/2018 [facility] Respitory Rate 20 07/18/2018 [facility] Height 182.9 cm 07/18/2018 [facility] Weight 148.326 07/18/2018 [facility] Systolic (mm Hg) 110 06/06/2018 [facility] Diastolic (mm Hg) 67 06/06/2018 [facility] Heart Rate 70 06/06/2018 [facility] Temperature Oral (F) 36.67 Kimberly 06/06/2018 [facility] Respitory Rate 18 06/06/2018 [facility] Height 182.9 cm 06/06/2018 [facility] Weight 139.254 06/06/2018 [facility] Systolic (mm Hg) 113 05/27/2018 [facility] Diastolic (mm Hg) 58 05/27/2018 [facility] Respitory Rate 20 05/27/2018 [facility] Systolic (mm Hg) 115 05/27/2018 [facility] Diastolic (mm Hg) 52 05/27/2018 [facility] Respitory Rate 22 05/27/2018 [facility] Respitory Rate 22 05/27/2018 [facility] Heart Rate 68 05/27/2018 [facility] BMI Calculated 43.49 05/26/2018 [facility] Weight 145.455 05/26/2018 [facility] Height 182.88 cm 05/26/2018 [facility] BMI Calculated 44.86 05/14/2018 [facility] Height 180.34 cm 05/14/2018 [facility] Weight 145.909 05/14/2018 [facility] Heart Rate 71 05/14/2018 [facility] Respitory Rate 16 05/14/2018 [facility] Systolic (mm Hg) 114 05/14/2018 [facility] Diastolic (mm Hg) 60 05/14/2018 [facility] Respitory Rate 18 03/27/2018 [facility] Heart Rate 70 03/27/2018 [facility] Height 181.61 cm 03/27/2018 [facility] Weight 148.636 03/27/2018 [facility] BMI Calculated 45.07 03/27/2018 [facility] Systolic (mm Hg) 124 03/27/2018 [facility] Diastolic (mm Hg) 59 03/27/2018 [facility] Height 180.34 cm 08/29/2017 [facility] BMI Calculated 47.66 08/29/2017 [facility] Weight 155 08/29/2017 [facility] Systolic (mm Hg) 114 08/29/2017 [facility] Diastolic (mm Hg) 62 08/29/2017 [facility] Respitory Rate 16 08/29/2017 [facility] Heart Rate 53 08/29/2017 [facility] Height 182.88 cm 05/23/2017 [facility] Weight 149.727 05/23/2017 [facility] BMI Calculated 44.77 05/23/2017 [facility] Heart Rate 68 05/23/2017 [facility] Respitory Rate 20 05/23/2017 [facility] Systolic (mm Hg) 116 05/23/2017 [facility] Diastolic (mm Hg) 63 05/23/2017 [facility] Systolic (mm Hg) 135 04/01/2017 [facility] Diastolic (mm Hg) 75 04/01/2017 [facility] Heart Rate 72 04/01/2017 [facility] Weight 153.955 04/01/2017 [facility] BMI Calculated 46.03 04/01/2017 [facility] Height 182.88 cm 04/01/2017 [facility] Systolic (mm Hg) 124 02/13/2017 [facility] Diastolic (mm Hg) 70 02/13/2017 [facility] Respitory Rate 18 02/13/2017 [facility] Respitory Rate 17 02/13/2017 [facility] Respitory Rate 22 02/13/2017 [facility] Systolic (mm Hg) 108 02/13/2017 [facility] Diastolic (mm Hg) 57 02/13/2017 [facility] Systolic (mm Hg) 109 02/13/2017 [facility] Diastolic (mm Hg) 56 02/13/2017 [facility] BMI Calculated 44.17 02/12/2017 [facility] Height 182.88 cm 02/12/2017 [facility] Weight 147.727 02/12/2017 [facility] Heart Rate 70 02/12/2017 [facility] Temperature Oral (F) 98.7 F 02/12/2017 [facility] Heart Rate 66 02/12/2017 [facility] Temperature Oral (F) 97.7 F 02/12/2017 [facility] Weight 145.455 02/11/2017 [facility] BMI Calculated 43.49 02/11/2017 [facility] Height 182.88 cm 02/11/2017 [facility] Temperature Oral (F) 98.9 F 02/11/2017 [facility] Heart Rate 62 02/11/2017 [facility] Systolic (mm Hg) 152 01/17/2017 [facility] Diastolic (mm Hg) 75 01/17/2017 [facility] Temperature Oral (F) 98 F 01/17/2017 [facility] Heart Rate 74 01/17/2017 [facility] Respitory Rate 18 01/17/2017 [facility] Respitory Rate 18 01/17/2017 [facility] Systolic (mm Hg) 132 01/17/2017 [facility] Diastolic (mm Hg) 70 01/17/2017 [facility] Temperature Oral (F) 97.8 F 01/17/2017 [facility] Heart Rate 71 01/17/2017 [facility] Heart Rate 81 01/17/2017 [facility] Temperature Oral (F) 98.7 F 01/17/2017 [facility] Respitory Rate 20 01/17/2017 [facility] Systolic (mm Hg) 148 01/17/2017 [facility] Diastolic (mm Hg) 70 01/17/2017 [facility] Weight 145.455 01/16/2017 [facility] BMI Calculated 43.49 01/16/2017 [facility] Height 182.88 cm 01/16/2017 [facility] Height 182.88 cm 10/29/2016 [facility] BMI Calculated 43.74 10/29/2016 [facility] Weight 146.273 10/29/2016 [facility] Systolic (mm Hg) 131 10/29/2016 [facility] Diastolic (mm Hg) 71 10/29/2016 [facility] Weight 147.682 08/06/2016 [facility] BMI Calculated 44.16 08/06/2016 [facility] Height 182.88 cm 08/06/2016 [facility] Systolic (mm Hg) 114 08/06/2016 [facility] Diastolic (mm Hg) 63 08/06/2016 [facility] Systolic (mm Hg) 121 06/06/2016 [facility] Diastolic (mm Hg) 69 06/06/2016 [facility] Weight 143.045 06/06/2016 [facility] BMI Calculated 42.76 06/06/2016 [facility] Height 182.9 cm 06/06/2016 [facility] BMI Calculated 44.4 04/30/2016 [facility] Height 182.88 cm 04/30/2016 [facility] Weight 148.5 04/30/2016 [facility] Systolic (mm Hg) 115 04/30/2016 [facility] Diastolic (mm Hg) 68 04/30/2016 [facility] Height 182.88 cm 04/24/2016 [facility] Weight 150.455 04/24/2016 [facility] BMI Calculated 44.99 04/24/2016 [facility] Respitory Rate 18 03/27/2016 [facility] Systolic (mm Hg) 116 03/27/2016 [facility] Diastolic (mm Hg) 56 03/27/2016 [facility] Heart Rate 75 03/27/2016 [facility] Respitory Rate 12 03/27/2016 [facility] Systolic (mm Hg) 105 03/27/2016 [facility] Diastolic (mm Hg) 53 03/27/2016 [facility] Respitory Rate 14 03/27/2016 [facility] Systolic (mm Hg) 107 03/27/2016 [facility] Diastolic (mm Hg) 54 03/27/2016 [facility] Heart Rate 81 03/27/2016 [facility] Weight 152.273 03/23/2016 [facility] Height 182.88 cm 03/23/2016 [facility] BMI Calculated 45.53 03/23/2016 [facility] Systolic (mm Hg) 155 03/01/2016 [facility] Diastolic (mm Hg) 70 03/01/2016 [facility] Temperature Oral (F) 99.3 F 03/01/2016 [facility] Heart Rate 82 03/01/2016 [facility] Height 182.88 cm 03/01/2016 [facility] BMI Calculated 47.31 03/01/2016 [facility] Weight 158.239 03/01/2016 [facility] Encounters Location Location Details Encounter Type Encounter Number Reason For Visit Attending Provider ADM Date DC Date Status Source [facility] Outpatient [facility] [place] Outpt Diag Services [id number] Gm Rivera 01/18/2016 01/19/2016 LORENE Martínez [facility] Outpatient [id number] [address] Reyes 03/01/2016 03/02/2016 [facility] Outpatient Imaging [place] Outpt Diag Services [id number] [address] Reyes 03/14/2016 03/15/2016 [facility] Day Surgery [id number] [address] Reyes 03/27/2016 03/28/2016 [facility] OP Transplant Clinic - Pre [id number] Susan Luevano 04/23/2016 05/23/2016 [facility] Transplant [facility]tr OP Transplant Clinic - Pre [id number] Hu Medina 04/30/2016 05/30/2016 [facility] Transplant Ctr OP Transplant Clinic - Pre [id number] Hu Medina 06/06/2016 07/06/2016 [facility] Outpatient Imaging [facility] Outpt Diag Services [id number] Ari Jonellefreddy Reyes 07/18/2016 07/19/2016 [facility] Transplant [facility] OP Transplant Clinic - Pre [id number] Hu Medina 08/06/2016 09/05/2016 [facility] Outpatient Imaging [place] Outpt Diag Services [id number] Ari Nevrfeddy Reyes 08/08/2016 08/09/2016 [facility] Outpatient Imaging [place] Outpt Diag Services [id number] Ari Nevfreddy Reyes 10/22/2016 10/23/2016 [facility] Transplant [facility] OP Transplant Clinic - Pre [id number] Hu Medina 10/29/2016 11/28/2016 [facility] Outpatient Imaging [place] Outpt Diag Services [id number] Ari Nevfreddy Reyes 11/22/2016 11/23/2016 [facility] Outpatient Imaging [facility] Patient [id number] [address] Reyes 01/02/2017 01/03/2017 [facility] Bedded Outpatient [id number] Ari Jonellefreddy Reyes 01/16/2017 01/17/2017 [facility] Inpatient [id number] Navneet Cardenas 02/11/2017 02/13/2017 [facility] Transplant Ctr OP Transplant Clinic - Pre [id number] Hu Medina 04/01/2017 05/01/2017 [facility] Outpatient Imaging [facility] Patient [id number] [address] Reyes 05/10/2017 05/11/2017 [facility] Outpatient [id number] [address] Reyes 05/23/2017 05/24/2017 [facility] Departed Emergency Room [id number] CRISPIN HERNANDEZ MD 08/21/2017 08/21/2017 [facility] Outpatient [id number] [address] Reyes 08/29/2017 08/30/2017 [facility] Outpatient Imaging [place] Outpt Diag Services [id number] Ari Jonellefreddy Reyes 10/25/2017 10/26/2017 [facility] Outpatient [id number] Ari [address] Reyes 01/13/2018 01/14/2018 [facility] Discharged Inpatient [id number] FATOU POMPA MD 03/04/2018 03/08/2018 [facility] Outpatient [id number] [address] Reyes 03/27/2018 03/28/2018 [facility] Outpatient Imaging [place] Outpt Diag Services [id number] Ari Mela Reyes 04/18/2018 04/19/2018 [facility] Outpatient [id number] Nickolas Milian 05/14/2018 05/15/2018 [facility] Day Surgery [id number] Ari Jonellefreddy Reyes 05/27/2018 05/28/2018 [facility] Travel [id number] 06/06/2018 [facility] Colon Rectal Surgery [place] Office Visit [id number] Concepcion Garg MD 06/06/2018 06/06/2018 [facility] LABORATORY [place] Hospital Encounter [id number] Concepcion Garg MD 06/06/2018 06/07/2018 [facility] ASK YOUR NURSE PROGRAM Nurse Triage [id number] Anne-Marie Tejeda RN 07/02/2018 [facility] Discharged Inpatient [id number] LUCILLE DUNLAP MD 07/04/2018 07/08/2018 [facility] Travel [id number] 07/18/2018 [facility] Colon [facility] [place] Office Visit [id number] Concepcion Garg MD 07/18/2018 07/18/2018 [facility] Outpatient [id number] Ari Reyes 09/25/2018 09/26/2018 [facility] Outpatient Imaging [facility] Outpt Diag Services [id number] Ari Sal Reyes 11/14/2018 11/15/2018 [facility] Procedures Procedure Code Date Perfomer Comments Source CBC/DIFF [id number] 06/06/2018 [facility] BASIC METABOLIC PANEL 12831 06/06/2018 [facility] PT/INR/PTT 76619 06/06/2018 [facility] LIVER PROFILE [id number] 06/06/2018 [facility] PT/INR/PTT [id number] 06/06/2018 [facility] US abdomen complete [id number] [facility] or occlusion, inclusive of all radiological supervision and interpretation, intraprocedural roadmapping, and imaging guidance necessary to complete the intervention; for tumors, organ ischemia, or infarction 11966 01/16/2017 [facility] Back care [id number] [facility] OPIRobert Prashanth Elbow joint operations [id number] [facility] OPID [facility] Hernia repair<sup>1</sup> [id number] X'3 [facility] OPID [facility] Chemoembolization of liver metastases [id number] [facility] OPID [place] Assessment and Plan Assessment and Plan Date Source Extracted from:Title: Clinical Document Author: Roselia Grier Date: 02/14/17 Admission Date: 02/11/2017 Discharge to Home: 02/14/2017 Admitting Diagnosis: - Hematochezia - RUQ Pain - R hepatic dome mass concerning for HCC, s/p TACE 01/16 - 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 Bill is a 36 yo male with pmhx of decompensated etoh/ANDREW cirrhosis with portal hypertension, questionable HCC (s/p TACE 01/16/17), depression, and anxiety who presents to [facility] 02/11 for hematochezia x 4 days. Patient [...] see med reconciliation list Activity: As tolerated 05/01/2017 [facility] Extracted from:Title: Progress Note * Author: Raul Mota MD Date: 02/13/17 Patient: MOHAN AGUILERA Age: 36 years Sex: Male : 1980 Associated Diagnoses: None Author: Raul Mota MD Subjective No acute events overnight, patient reporting bowel movements were no longer bloody early this morning. S/P colonoscopy and EGD. Patient still reporting RUQ abdominal pain. Health Status Problem list: All Problems Acanthosis nigricans / SNOMED CT 1319168041 / Confirmed Alcoholic cirrhosis of liver / SNOMED CT 0664854781 / Confirmed Autosomal Recessive Retinitis Pigmentosa / SNOMED CT 592170886 / Confirmed Morbid obesity with BMI of 45.0-49.9, adult / SNOMED CT 2237793625 / Confirmed BMI- 45.4 EV (esophageal varices) / SNOMED CT 95119966 / Confirmed Hepatic encephalopathy / SNOMED CT 82789370 / Confirmed HCC (hepatocellular carcinoma) / SNOMED CT 053392362 / Confirmed Portal hypertension / SNOMED CT 3408708578 / Confirmed Thrombocytopenia / SNOMED CT 9227771142 / Confirmed Objective VS/Measurements Vital Signs (last 24 hrs) Last Charted Temp Axillary 97.8 DegF (FEB 13 04:00) Heart Rate Apical 68 bpm (FEB 13:) Resp Rate 17 BRMIN (FEB 13:) SBP 108 mmHg (FEB 13:) DBP L 57mmHg (FEB 13:) SpO2 100 % (FEB 13:) General: Alert and oriented, No acute distress. [...] Labs (Last four charted values) WBC L 1.7 (FEB 13) L 2.6 (FEB 12) L 3.2 (FEB 11) Hgb L 11.3 (FEB 13) L 12.4 (FEB 12) L 11.8 (FEB 12) L 11.8 (FEB 12) Hct L 32.1 (FEB 13) L 36.1 (FEB 12) L 33.8 (FEB 12) L 35.1 (FEB 12) Plt L 32 (FEB 13) L 34 (FEB 12) L 40 (FEB 11) Na 140 (FEB 13) 141 (FEB 12) 144 (FEB 11) K 3.8 (FEB 13) 4.3 (FEB 12) 4.9 (FEB 11) CO2 26 (FEB 13) 27 (FEB 12) 28 (FEB 11) Cl 106 (FEB 13) 108 (FEB 12) H 111 (FEB 11) Cr 0.82 (FEB 13) 0.74 (FEB 12) 0.94 (FEB 11) BUN 11 (FEB 13) 10 (FEB 12) 9 (FEB 11) Glucose Random H 105 (FEB 13) 83 (FEB 12) 93 (FEB 11) Mg 1.9 (FEB 13) 1.8 (FEB 12) Phos 4.0 (FEB 13) 3.5 (FEB 12) Ca L 7.8 (FEB 13) L 8.1 (FEB 12) L 8.2 (FEB 11) PT H 21.0 (FEB 13) H 19.9 (FEB 12) H 18.3 (FEB 11) INR H 1.80 (FEB 13) H 1.68 (FEB 12) H 1.51 (FEB 11) PTT H 46.5 (FEB 13) H 43.0 (FEB 12) H 44.8 (FEB 11) . Impression and Plan Patient is a 36 year old man with a PMHx of alcoholic cirrhosis (decompensated by esophageal varices per Mar EGD) and a questionable dx of HCC (s/p TACE in 01/16/17) with a MELD score of 16 who presents to [facility] with a x4 day history of painless [...] per Hepatology standpoint. Raul Mota MD MPH [facility] Hepatology Service Addendum by Valeri Jurado MD on 02/13/2017 16:55 I have seen and examined the patient with the resident (Dr. Mota) and the GI fellow (Dr. Barreto). The case including lab findings and imaging were reviewed and discussed. I agree with the findings, assessment and plan documented. S/p colonoscopy this morning with external and internal hemorrhoids with internal hemorrhoids likely source of bleed. Overall, he remains hemodynamically stable with no significant anemia. Ok to discharge with follow up in Pre-transplant clinic. Imaging with cholelithiasis and cystic duct stone without evidence of choledochocholelithiasis- will need to follow up with Dr. Baker in Transplant Surgery clinic for elective cholecystectomy. Valeri Jurado MD Transplant Hepatology Attending Extracted from:Title: Initial Hepatology Consult Author: Raul Mota MD Date: 02/12/17 Impression and Plan Patient is a 36 year old man with a PMHx of alcoholic cirrhosis (decompensated by esophageal varices per Mar EGD) and a questionable dx of HCC (s/p TACE in 01/16/17) with a MELD score of 16 who presents to [facility] with a x4 day history of painless [...] attending on service. Raul Mota MD MPH [facility] Hepatology Service I have seen and examined [...] Valeri Jurado MD Transplant Hepatology Attending Extracted from:Title: [facility] H&P Author: Yadi White ASSISTANT [employer] PUBLIC [employer]ENDER Date: 02/11/17 History and Physical Patient Name: Mohan Aguilera : 1980 Date of Admission: 02/11/2017 Attending: MD Yulisa Chief Complaint: " Im having bleeding from my bottom" History of Present Illness: Pt is a 36-year-old man with a past medical history of cirrhosis due to steatohepatitis as well as prior alcohol use, HCC, and depression who had a recent TACE on the . He presented to the ER today with c/o 4 days of hematochezia. Upon arrival to ER pt was HDS with Hgb 12.2 Pt is being admitted to [facility] for closer monitoring and possible EGD in [...] Swelling Physical Exam: Gen: Obese AAOx3 Calm and Cooperative Neuro: Follows commands corporate events director grossly intact No focal deficits appreciated HEENT: PERRL EOMI No scleral icterus Conjunct clear MMM CV/Pulses: RRR No M/R/G No JVDs 2+ peripheral pulses Pulm: CTAB No W/R/R GI: BS (+) Soft Disntended and + RUQ pain : Due to void MS: FROM passively/actively Strength intact Tone intact Skin/Ext: No Cyanosis/Edema No rashes/lesions Labs: 24hr Labs 02/11 1642 Glucose Lvl 93 BUN 9 Creatinine Lvl 0.94 Sodium Lvl 144 Potassium Lvl 4.9 Chloride Lvl 111 H CO2 28 AGAP 9.9 L Calcium Lvl 8.2 L eGFR 103 WBC 3.2 L RBC 3.95 L Hgb 12.2 L Hct 36.7 L MCV 93.0 MCH 31.0 MCHC 33.3 RDW 16.7 H Platelet 40 L MPV 9.0 Imaging/Studies: - Liver US pending Assessment and Plan: Pt is a 36-year-old man with a past medical history of cirrhosis due to steatohepatitis as well as prior alcohol use, HCC, and depression who had a recent TACE on [...] Protonix Code status: Full Disposition: IMU Status Yadi White, AGACNP- MSO # [id number] 02/13/2017 [facility] Extracted from:Title: Clinical Document Author: Delfino Messina MD Date: 01/17/17 Mr. Aguilera is feeling well this morning. No pain, no overnight events. Arteriotomy site is soft and nontender, dressing is CDI. From IR standpoint, ok to discharge home. We will see Mr. Aguilera in clinic in 30 days. Extracted from:Title: History and Physical Author: Delilah Tyler DO Date: 01/16/17 Assessment/Plan 1.Carcinoma of liver, hepatocellular s/p TACE by IR today, will monitor overnight Ordered: Admit/Condition, 01/16/17 18:00:00 CDT, Status: Bedded Outpatient, Acute, Location: [address] [place] [address], Expected LOS: 1 Midnight, Earlene Farrar MD, Admit MD Review/Approve Yes, Isolation: No Isolation Admit/Condition, 01/16/17 21:44:00 CDT, Status: Bedded Outpatient, Acute, Expected LOS: 1 Midnight, Earlene Farrar MD, it Review/Approve Yes, Isolation: No Isolation 2.Cirrhosis due [...] setting of thrombocytopenia Disposition expect 1 [place]. 01/17/2017 [facility] Plan of Care Plan of Care Date Source Not on file 11/10/2018 [facility] Not on file 10/29/2018 [facility] Not on file 10/17/2018 [facility] Not on file 10/14/2018 [facility] Not on file 09/18/2018 [facility] Not on file 08/28/2018 [facility] Not on file 07/23/2018 [facility] Discharge Date 07/08/18 11:47am Disposition HOME, SELF-CARE Instructions/Education Provided Ascites Cirrhosis Heart Healthy Diet Infection Control Prescriptions See Medication Section Additional Instructions/Education Cardiac diet Activity as tolerated Follow up with in 1 week 07/08/2018 [facility] Upcoming EncountersDateTypeSpecialtyCare TeamDescription 07/18/2018 Office Visit Colon and Rectal Surgery Concepcion Garg MD[address] [place], [place] [id number], [place] [phone] (Fax) 07/02/2018 [facility] Upcoming EncountersDateTypeSpecialtyCare TeamDescription 07/18/2018 Office Visit Colon and Rectal Surgery Concepcion Garg MD[id number], [place] [phone] (Fax) 06/06/2018 [facility] Discharge Date 03/08/18 10:53am Disposition HOME, SELF-CARE Instructions/Education Provided Neutropenia Prescriptions See Medication Section Referrals VINCE WOOD MD (Internal Medicine) Order Date: 1-2 Weeks Entered Date: 03/07/2018 3:58pm Address: [address] [place] [address] 03/08/2018 [facility] Social History Social History Date Source Tobacco UseTypesPacks/DayYears UsedDate Never Smoker Smokeless Tobacco: Never Used Tobacco Cessation: Counseling Given: No Alcohol UseDrinks/Weekoz/WeekComments Yes occasional Food InsecurityAnswerDate Recorded Within the past 12 months, you worried that your food would run out before you got money to buy more. Never true 07/18/2018 Within the past 12 months, the food you bought just didn't last and you didn't have money to get more. Never true 07/18/2018 Sex Assigned at BirthDate Recorded Not on file Job Start DateOccupationIndustry Not on file Not on file Not on file Travel HistoryTravel StartTravel End No recent travel history available. 09/17/2018 [facility] Smoking Status Start Date Stop Date Never Smoker 07/08/2018 [facility] Social History TypeResponse Substance Abuse Use: Past. Type: Marijuana. Stopped [...] Frequency quit 5 years ago; entered on: 09/25/18 1patient states they are former alcoholic 04/01/2017 [facility] Social History TypeResponse Alcohol Past, Last use: Over 2-years ago. Started age 15 Years. Stopped age 34 Years.1 Employment/School Status: Unemployed. Exercise Self assessment: Fair condition. Sexual Sexually active: No. Partner with STD? No. Uses condoms: No. Change in Libido: No. Testicular Self Exam No. Menstrual Period Started: No. Substance Abuse Use: Past. Type: Marijuana. Stopped age 32 Years. Smoking Status Former smoker; Type: Cigarettes; Exposure to Tobacco Smoke None; Cigarette Smoking Last 365 Days No; Reg Smoking Cessation Counseling No; Other Tobacco Frequency quit 5 years ago; entered on: 09/25/18 1patient states they are former alcoholic 04/01/2017 [facility] No data available for this section 01/19/2016 [facility] Martínez Family History No Data Provided for This Section Advance Directives Order Name Results Value Date Source Advance Directives Advance Directives Directive Response Recorded Date/Time Does the patient have an advance directive? No 07/04/18 11:18pm If yes, is advance directive on file with [facility]? No 07/04/18 11:18pm If not on file with [facility] will patient provide a copy? No 07/04/18 11:18pm Do you have a Directive to Physician? No 07/04/18 2:08pm Do you have a Medical Power of Dental Laboratory Supervisor? No 07/04/18 2:08pm Do you have an out of hospital Do Not Resuscitate Order? No 07/04/18 2:08pm Do you have any special needs we should be aware of? No 07/04/18 2:08pm Do you have a support person here with you today? Yes 07/04/18 2:08pm Did patient receive Notice of Privacy Practices? Yes 07/04/18 2:08pm Did patient receive patient rights and responsibilities? Yes 07/04/18 2:08pm 07/08/2018 [facility] Advance Directives Advance Directives Directive Response Recorded Date/Time Does the patient have an advance directive? No 03/04/18 11:00am If yes, is advance directive on file with [facility]? No 03/04/18 11:00am If not on file with [facility] will patient provide a copy? No 03/04/18 11:00am Do you have a Directive to Physician? No 03/04/18 6:38am Do you have a Medical Power of Dental Laboratory Supervisor? Yes 03/04/18 6:38am Do you have an out of hospital Do Not Resuscitate Order? No 03/04/18 6:38am Do you have any special needs we should be aware of? No 03/04/18 6:38am Do you have a support person here with you today? Yes 03/04/18 6:38am Did patient receive Notice of Privacy Practices? Yes 03/04/18 6:38am Did patient receive patient rights and responsibilities? Yes 03/04/18 6:38am 03/08/2018 [facility] Functional Status No Data Provided for This Section
--- OUTSIDE RECORDS SUMMARY | 2018-12-16 20:42 | XMS REPORT | Summary of Care ---
Author Author [facility] Organization [facility] Address Unknown Phone Unavailable Encounter ATUL Gomez(JULITO) [id number] Date(s): 03/27/18 - 03/27/18 [facility] [address] [place] [address]- Encounter Diagnosis Abnormal results of liver function studies (Final) - 04/03/18 Morbid (severe) obesity due to excess calories (Final) - Body mass index (BMI) 45.0-49.9, adult (Final) - Portal hypertension (Final) - Other specified anxiety disorders (Final) - Thrombocytopenia, unspecified (Final) - Hepatic failure, unspecified without coma (Final) - Personal history of nicotine dependence (Final) - Personal history of malignant neoplasm of liver (Final) - Acanthosis nigricans (Final) - Discharge Disposition: Home or Self Care Attending Physician: Ari Petit MD Vital Signs Most recent to 1 oldest [Reference Range]: Height 181.61 cm (03/27/18 12:14 PM) Blood Pressure 124/59 mmHg [90-140/60-90 mmHg] (03/27/18 12:14 PM) Respiratory Rate 18 BRMIN [14-20 BRMIN] (03/27/18 12:14 PM) Peripheral Pulse 70 bpm Rate [60-100 bpm] (03/27/18 12:14 PM) Weight 148.636 kg (03/27/18 12:14 PM) Body Mass Index 45.07 m2 (03/27/18 12:14 PM) Problem List Condition Effective Dates Status [...] bleeding(Confirmed) 1BMI- 45.4 Allergies, Adverse Reactions, Alerts No Known Medication Allergies Medications ferrous sulfate 325 mg oral enteric coated tablet 325 mg=1 tab, PO, Daily, # 30 tab, 5 Refill(s), Pharmacy: [facility]/pharmacy #[id number] Start Date: 05/09/18 Status: Ordered lactulose 10 g/15 mL oral syrup 10 gm=15 mL, PO, BID, PRN constipation, X 30 day, # 900 mL, 5 Refill(s), Pharmac y: [facility]/pharmacy #[id number] Start Date: 03/27/18 Stop Date: 09/23/18 Status: Completed lactulose 10 g/15 mL oral syrup 20 gm=30 mL, PO, BID, PRN constipation Start Date: 03/27/18 Stop Date: 03/27/18 Status: Discontinued tramadol 50 mg oral tablet 50 mg=1 tab, PO, Q4H, PRN Pain, X 30 day, # 120 tab, 0 Refill(s), called to [facility] Start Date: 07/01/18 Stop Date: 07/31/18 Status: Completed Vitamin K1 100 mcg oral tablet 100 microgram=1 tab, PO, Daily, 0 Refill(s) Start Date: 03/27/18 Stop Date: 03/27/18 Status: Discontinued Results Most recent to 1 oldest [Reference Range]: Neutrophils # 1.1 K/CMM [1.5-8.1 K/CMM] *LOW* (03/27/18 3:26 PM) Lymphocytes # 0.7 K/CMM [1.0-5.5 K/CMM] *LOW* (03/27/18 3:26 PM) Monocytes # [0.0-0.8 0.2 K/CMM K/CMM] (03/27/18 3:26 PM) Eosinophils # 0.1 K/CMM [0.0-0.5 K/CMM] (03/27/18 3:26 PM) Bili Indirect 2.2 mg/dL [0.0-1.0 mg/dL] *HI* (03/27/18 3:26 PM) eGFR 115 mL/min/1.73m2 1 *NA* (03/27/18: PM) A/G Ratio [0.7-1.6] 0.7 (03/27/18 3: PM) Albumin Lvl [3.5-5.0 2.6 g/dL g/dL] *LOW* (03/27/18: PM) Alk Phos [39-136 132 unit/L unit/L] (03/27/18 3: PM) ALT [0-65 unit/L] 32 unit/L (03/27/18 3: PM) AGAP [10.0-20.0 8.3 mEq/L mEq/L] *LOW* (03/27/18: PM) AST [0-37 unit/L] 56 unit/L *HI* (03/27/18 3: PM) Basophils [0.0-1.0 1.0 % %] (03/27/18 3: PM) BUN [7-22 mg/dL] 10 mg/dL (03/27/18 3: PM) Calcium Lvl 7.8 mg/dL [8.5-10.5 mg/dL] *LOW* (03/27/18: PM) Chloride Lvl [95-109 112 mEq/L mEq/L] *HI* (03/27/18 3: PM) CO2 [24-32 mEq/L] 28 mEq/L (03/27/18 3: PM) Creatinine Lvl 0.78 mg/dL [0.50-1.40 mg/dL] (03/27/18 3:26 PM) Bili Direct [0.0-0.3 1.3 mg/dL mg/dL] *HI* (03/27/18 3: PM) Eosinophils [0.0-4.0 4.4 % %] *HI* (03/27/18 3: PM) Globulin [2.7-4.2 3.6 g/dL g/dL] (03/27/18 3: PM) Glucose Lvl [70-99 73 mg/dL mg/dL] (03/27/18 3:26 PM) Hct [42.0-54.0 %] 32.4 % *LOW* (03/27/18 3: PM) Hgb [14.0-18.0 g/dL] 10.5 g/dL *LOW* (03/27/18 3:26 PM) INR [0.85-1.17] 1.88 *HI* (03/27/18: PM) Potassium Lvl 4.3 mEq/L [3.5-5.1 mEq/L] (03/27/18 3:26 PM) Lymphocytes 32.6 % [20.0-40.0 %] (03/27/18 3: PM) MCH [27.0-31.0 pg] 28.5 pg (03/27/18: PM) MCHC [32.0-36.0 32.4 g/dL g/dL] (03/27/18 3: PM) MCV [80.0-94.0 fL] 88.1 fL (03/27/18: PM) Monocytes [2.0-12.0 10.9 % %] (03/27/18 3:26 PM) MPV [7.4-10.4 fL] 10.1 fL (03/27/18: PM) Sodium Lvl [135-145 144 mEq/L mEq/L] (03/27/18 3:26 PM) Platelet [133-450 32 K/CMM K/CMM] *LOW* (03/27/18: PM) Segs [45.0-75.0 %] 51.1 % (03/27/18: PM) Total Protein 6.2 g/dL [6.4-8.4 g/dL] *LOW* (03/27/18: PM) PT [12.0-14.7 21.2 seconds seconds] *HI* (03/27/18: PM) RBC [4.70-6.10 3.68 M/CMM M/CMM] *LOW* (03/27/18 3:26 PM) RDW [11.5-14.5 %] 19.1 % *HI* (03/27/18 3:26 PM) Bili Total [0.2-1.3 3.5 mg/dL mg/dL] *HI* (03/27/18 3:26 PM) WBC [3.7-10.4 K/CMM] 2.1 K/CMM *LOW* (03/27/18 3:26 PM) 1Result Comment: The eGFR is calculated [...] be mul tiplied by the estimated BMI. Immunizations No data available for this section [...] 09/25/18 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
--- OUTSIDE RECORDS SUMMARY | 2018-12-16 20:42 | XMS REPORT | Summary of Care ---
Author Author [facility] Organization [facility] Address Unknown Phone Unavailable Encounter ATUL Gomez(JULITO) [id number] Date(s): 09/25/18 - 09/25/18 [facility] [address] [place] [address]- Discharge Disposition: Home or Self Care Attending Physician: Ari Petit MD Referring Physician: Ari Petit MD Vital Signs Most recent to 1 oldest [Reference Range]: Height 180.34 cm (09/25/18 2:20 PM) Blood Pressure 114/60 mmHg [90-140/60-90 mmHg] (09/25/18 2:20 PM) Peripheral Pulse 69 bpm Rate [60-100 bpm] (09/25/18 2:20 PM) Weight 146.818 kg (09/25/18 2:20 PM) Body Mass Index 45.14 m2 (09/25/18 2:20 PM) Problem List Condition Effective Dates Status [...] Reactions, Alerts No Known Medication Allergies Medications furosemide 20 mg oral tablet 20 mg=1 tab, PO, Daily, # 60 tab, 3 Refill(s), Pharmacy: [facility]/pharmacy #[id number] Start Date: 09/25/18 Stop Date: 2/8/20 Status: Ordered lactulose 10 g/15 mL oral syrup 10 gm=15 mL, PO, Daily, 0 Refill(s) Start Date: 09/25/18 Status: Ordered spironolactone 50 mg oral tablet 50 mg=1 tab, PO, Daily, # 60 tab, 3 Refill(s), Pharmacy: [facility]/pharmacy #[id number] Start Date: 09/25/18 Stop Date: 05/23/19 Status: Ordered Results Most recent to 1 oldest [Reference Range]: Neutrophils # 0.9 K/CMM [1.5-8.1 K/CMM] *LOW* (09/25/18 3:48 PM) Lymphocytes # 0.7 K/CMM [1.0-5.5 K/CMM] *LOW* (09/25/18 3:48 PM) Monocytes # [0.0-0.8 0.2 K/CMM K/CMM] (09/25/18 3:48 PM) Eosinophils # 0.1 K/CMM [0.0-0.5 K/CMM] (09/25/18 3:48 PM) Schistocyte [None 1-3 per HPF Seen] (09/25/18 3:48 PM) Bili Indirect 1.8 mg/dL [0.0-1.0 mg/dL] *HI* (09/25/18 3:48 PM) eGFR 113 mL/min/1.73m2 1 *NA* (09/25/18 3:48 PM) A/G Ratio [0.7-1.6] 0.5 *LOW* (09/25/18 3:48 PM) AFP TM [0.0-11.0 2.4 ng/mL ng/mL] (09/25/18 3:48 PM) Albumin Lvl [3.5-5.0 2.1 g/dL g/dL] *LOW* (09/25/18 3:48 PM) Alk Phos [39-136 131 unit/L unit/L] (09/25/18 3:48 PM) ALT [0-65 unit/L] 30 unit/L (09/25/18 3:48 PM) AGAP [10.0-20.0 8.7 mEq/L mEq/L] *LOW* (09/25/18 3:48 PM) AST [0-37 unit/L] 53 unit/L *HI* (09/25/18 3:48 PM) Basophils [0.0-1.0 1.2 % %] *HI* (09/25/18 3:48 PM) BUN [7-22 mg/dL] 8 mg/dL (09/25/18 3:48 PM) Calcium Lvl 7.7 mg/dL [8.5-10.5 mg/dL] *LOW* (09/25/18 3:48 PM) Chloride Lvl [95-109 113 mEq/L mEq/L] *HI* (09/25/18 3:48 PM) CO2 [24-32 mEq/L] 28 mEq/L (09/25/18 3:48 PM) Creatinine Lvl 0.79 mg/dL [0.50-1.40 mg/dL] (09/25/18 3:48 PM) Bili Direct [0.0-0.3 1.2 mg/dL mg/dL] *HI* (09/25/18 3:48 PM) Eosinophils [0.0-4.0 6.6 % %] *HI* (09/25/18 3:48 PM) Globulin [2.7-4.2 3.9 g/dL g/dL] (09/25/18 3:48 PM) Glucose Lvl [70-99 78 mg/dL mg/dL] (09/25/18 3:48 PM) Hct [42.0-54.0 %] 26.1 % *LOW* (09/25/18 3:48 PM) Hgb [14.0-18.0 g/dL] 8.2 g/dL *LOW* (09/25/18 3:48 PM) Hypochrom [None 1+ Seen] (09/25/18 3:48 PM) INR [0.85-1.17] 2.09 *HI* (09/25/18 3:48 PM) Potassium Lvl 3.7 mEq/L [3.5-5.1 mEq/L] (09/25/18 3:48 PM) Lymphocytes 34.8 % [20.0-40.0 %] (09/25/18 3:48 PM) MCH [27.0-31.0 pg] 26.7 pg *LOW* (09/25/18 3:48 PM) MCHC [32.0-36.0 31.5 g/dL g/dL] *LOW* (09/25/18 3:48 PM) MCV [80.0-94.0 fL] 84.8 fL (09/25/18 3:48 PM) Monocytes [2.0-12.0 10.3 % %] (09/25/18 3:48 PM) MPV [7.4-10.4 fL] 10.6 fL *HI* (09/25/18 3:48 PM) Sodium Lvl [135-145 146 mEq/L mEq/L] *HI* (09/25/18 3:48 PM) Platelet [133-450 45 K/CMM K/CMM] *LOW* (09/25/18 3:48 PM) Segs [45.0-75.0 %] 47.1 % (09/25/18 3:48 PM) Total Protein 6.0 g/dL [6.4-8.4 g/dL] *LOW* (09/25/18 3:48 PM) PT [12.0-14.7 23.0 seconds seconds] *HI* (09/25/18 3:48 PM) RBC [4.70-6.10 3.08 M/CMM M/CMM] *LOW* (09/25/18 3:48 PM) RDW [11.5-14.5 %] 20.0 % *HI* (09/25/18 3:48 PM) Bili Total [0.2-1.3 3.0 mg/dL mg/dL] *HI* (09/25/18 3:48 PM) Tear Cell Slight *NA* (09/25/18 3:48 PM) WBC [3.7-10.4 K/CMM] 1.9 K/CMM *LOW* (09/25/18 3:48 PM) 1Result Comment: The eGFR is calculated [...]
--- OUTSIDE RECORDS SUMMARY | 2018-12-16 20:42 | XMS REPORT | Summary of Care ---
Author Author [facility] Organization [facility] Address Unknown Phone Unavailable Encounter HQ Patricia(FIN) [id number] Date(s): 01/13/18 - 01/13/18 [facility] [address] [place] [address]- Encounter Diagnosis Alcoholic cirrhosis of liver without ascites (Final) - 01/20/18 Discharge Disposition: Home or Self Care Attending [...] No data available for this section Results ELECTROLYTES Most recent to 1 oldest [Reference Range]: Sodium Lvl [135-145 144 mEq/L mEq/L] (01/13/18 12:10 PM) Potassium Lvl 4.0 mEq/L [3.5-5.1 mEq/L] (01/13/18 12:10 PM) Chloride Lvl [95-109 112 mEq/L mEq/L] *HI* (01/13/18 12:10 PM) CO2 [24-32 mEq/L] 29 mEq/L (01/13/18 12:10 PM) AGAP [10.0-20.0 7.0 mEq/L mEq/L] *LOW* (01/13/18 12:10 PM) CHEM PANEL Most recent to 1 oldest [Reference Range]: Creatinine Lvl 0.77 mg/dL [0.50-1.40 mg/dL] (01/13/18 12:10 PM) eGFR 115 mL/min/1.73m2 1 *NA* (01/13/18 12:10 PM) BUN [7-22 mg/dL] 8 mg/dL (01/13/18 12:10 PM) Glucose Lvl [70-99 81 mg/dL mg/dL] (01/13/18 12:10 PM) Total Protein 6.1 g/dL [6.4-8.4 g/dL] *LOW* (01/13/18 12:10 PM) Albumin Lvl [3.5-5.0 2.6 g/dL g/dL] *LOW* (01/13/18 12:10 PM) Globulin [2.7-4.2 3.5 g/dL g/dL] (01/13/18 12:10 PM) A/G Ratio [0.7-1.6] 0.7 (01/13/18 12:10 PM) Calcium Lvl 7.9 mg/dL [8.5-10.5 mg/dL] *LOW* (01/13/18 12:10 PM) ALT [0-65 unit/L] 35 unit/L (01/13/18 12:10 PM) AST [0-37 unit/L] 59 unit/L *HI* (01/13/18 12:10 PM) Alk Phos [39-136 133 unit/L unit/L] (01/13/18 12:10 PM) Bili Total [0.2-1.3 3.1 mg/dL mg/dL] *HI* (01/13/18 12:10 PM) Bili Direct [0.0-0.3 1.3 mg/dL mg/dL] *HI* (01/13/18 12:10 PM) Bili Indirect 1.8 mg/dL [0.0-1.0 mg/dL] *HI* (01/13/18 12:10 PM) 1Result Comment: The eGFR is calculated [...] 1 oldest [Reference Range]: WBC [3.7-10.4 K/CMM] 2.2 K/CMM *LOW* (01/13/18 12:10 PM) RBC [4.70-6.10 3.61 M/CMM M/CMM] *LOW* (01/13/18 12:10 PM) Hgb [14.0-18.0 g/dL] 10.6 g/dL *LOW* (01/13/18 12:10 PM) Hct [42.0-54.0 %] 32.2 % *LOW* (01/13/18 12:10 PM) MCV [80.0-94.0 fL] 89.1 fL (01/13/18 12:10 PM) MCH [27.0-31.0 pg] 29.2 pg (01/13/18 12:10 PM) MCHC [32.0-36.0 32.8 g/dL g/dL] (01/13/18 12:10 PM) RDW [11.5-14.5 %] 17.2 % *HI* (01/13/18 12:10 PM) MPV [7.4-10.4 fL] 10.0 fL (01/13/18 12:10 PM) Platelet [133-450 33 K/CMM K/CMM] *LOW* (01/13/18 12:10 PM) Segs [45.0-75.0 %] 53.9 % (01/13/18 12:10 PM) Lymphocytes 29.2 % [20.0-40.0 %] (01/13/18 12:10 PM) Monocytes [2.0-12.0 10.5 % %] (01/13/18 12:10 PM) Eosinophils [0.0-4.0 5.2 % %] *HI* (01/13/18 12:10 PM) Basophils [0.0-1.0 1.2 % %] *HI* (01/13/18 12:10 PM) Neutrophils # 1.2 K/CMM [1.5-8.1 K/CMM] *LOW* (01/13/18 12:10 PM) Lymphocytes # 0.7 K/CMM [1.0-5.5 K/CMM] *LOW* (01/13/18 12:10 PM) Monocytes # [0.0-0.8 0.2 K/CMM K/CMM] (01/13/18 12:10 PM) Eosinophils # 0.1 K/CMM [0.0-0.5 K/CMM] (01/13/18 12:10 PM) PT [12.0-14.7 21.0 seconds seconds] *HI* (01/13/18 12:10 PM) INR [0.85-1.17] 1.80 *HI* (01/13/18 12:10 PM) TUMOR MARKERS Most recent to 1 oldest [Reference Range]: AFP TM [0.0-11.0 3.4 ng/mL ng/mL] (01/13/18 12:10 PM) Immunizations No data available for this [...]
--- OUTSIDE RECORDS SUMMARY | 2018-12-16 20:42 | XMS REPORT | Summary of Care ---
Author Author [facility] [place] Organization [facility] Address Unknown Phone Unavailable Encounter HQ Patricia(FIN) [id number] Date(s): 04/18/18 - 04/18/18 [facility] [address] [phone] Encounter Diagnosis Abnormal results of liver function studies (Final) - 04/22/18 Discharge Disposition: Home or Self Care Attending Physician: Ari Petit MD Referring Physician: Ari Petit MD Vital Signs No [...] Reactions, Alerts No Known Medication Allergies Medications No data available for this section [...]
--- OUTSIDE RECORDS SUMMARY | 2018-12-16 20:42 | XMS REPORT | Summary of Care ---
Author Author [facility] Organization [facility] Address Unknown Phone Unavailable Encounter ATUL Gomez(FIN) [id number] Date(s): 05/14/18 - 05/14/18 [facility] [address] [place] [address]- Encounter Diagnosis Other hemorrhoids (Final) - 05/21/18 Hemorrhage of anus and rectum (Final) - Nonalcoholic steatohepatitis (ANDREW) (Final) - Alcoholic cirrhosis of liver without ascites (Final) - Portal hypertension (Final) - Morbid (severe) obesity due to excess calories (Final) - Alcohol dependence, uncomplicated (Final) - Personal history of nicotine dependence (Final) - Body mass index (BMI) 40.0-44.9, adult (Final) [...] Daily, # 30 tab, 5 Refill(s), Pharmacy: [id number] Start Date: 11/20/18 Stop Date: 05/19/19 Status: Ordered propranolol 10 mg oral tablet 10 mg=1 tab, PO, BID, # 180 tab, 0 Refill(s), Pharmacy: [id number] Start Date: 09/05/18 Stop Date: 09/25/18 Status: Discontinued Results No data available for this section Immunizations No data available for this section Procedures Procedure Date Related Diagnosis Body Site Status Back care Completed Chemoembolization of liver metastases Completed Elbow joint operations Completed Hernia repair1 Completed 1X'3 Social History Social History Type Response Alcohol Past, Last use: Over 2-years ago. [...]
--- OUTSIDE RECORDS SUMMARY | 2018-12-16 20:42 | XMS REPORT | Summary of Care ---
Author Author [facility] [place] Organization [facility] Address Unknown Phone Unavailable Encounter ATUL Gomez(JULITO) [id number] Date(s): 11/14/18 - 11/14/18 [facility] [address] [place] [address] [phone] Discharge Disposition: Home or Self Care Attending [...]
--- OUTSIDE RECORDS SUMMARY | 2018-12-16 20:43 | XMS REPORT | Clinical Summary ---
Author Author [facility] Organization [facility] Address Unknown Phone Unavailable Care Team Providers Care Dot Etcher Apprentice Name Role Phone PCP Unavailable Allergies No [...] D deficiency Active mometasone (NASONEX) 50 1 [place] by 17 g 3 mcg/actuation nasal each [...] has opioid contract with Sima Schmitt MD, [facility], PMR clinic, see Media section of EPIC Nov 2012 and or Jan 2014 Neurogenic bladder disorder 01/15/2013 Right sided sciatica 01/15/2013 Hip pain 01/15/2013 Foot drop, left 01/15/2013 Neuropathic pain 06/09/2010 Thrombocytopenia, unspecified 05/06/2009 Overview: Seen in hospital 03/23 and noted to have thrombocytopenia that was stable during hospitalization ranging from 60-100s. HIV negative. Hep negative. 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 Pt started on steroids. [...] Colon and Rectal Surgery 06/06/2018 Travel after 09/17/2017 Social History Date Tobacco Use Types Packs/Day [...] Routine 06/06/2018 Internal and external 10:00 AM RADIOLOGY RN bleeding hemorrhoids PT/INR/PTT Routine 06/06/2018 Internal and external 10:00 AM RADIOLOGY RN bleeding hemorrhoids BASIC METABOLIC PANEL Routine 06/06/2018 Internal and external 10:00 AM RADIOLOGY RN bleeding hemorrhoids CBC/DIFF Routine 06/06/2018 Internal and external 10:00 AM RADIOLOGY RN bleeding hemorrhoids after 09/17/2017 Results * PT/INR/PTT (06/06/2018 10:00 AM RADIOLOGY RN) PT 20.4 (H) 11.8 - 15.0 Seconds [facility] MAIN-STATION 4 INR 1.8 [facility] SUGGESTED THERAPEUTIC RANGES: MAIN-STATION 4 INR 2.0-3.0 for MODERATE INTENSITY ANTICOAGULATION INR 2.5-3.5 for HIGH INTENSITY ANTICOAGULATION PTT 47.3 (H) 23.6 - 36.4 Seconds [facility] MAIN-STATION 4 Specimen Blood Performing Organization Address City/State/Zipcode Phone Number [facility] MAIN-STATION 4 * LIVER PROFILE (06/06/2018 10:00 AM RADIOLOGY RN) Protein, Total, 5.7 (L) 6.0 - 8.3 [...] MAIN-STATION 1 * CBC/DIFF (06/06/2018 10:00 AM RADIOLOGY RN) WBC 2.6 (L) 4.5 - 12.0 K/uL [...] Performing Organization Address City/State/Zipcode Phone Number [facility] MAIN-STATION 2 * BASIC METABOLIC PANEL (06/06/2018 10:00 AM RADIOLOGY RN) [facility] CO2 29 21 - 31 mmol/L [...] Performing Organization Address City/State/Zipcode Phone Number [facility] MAIN-STATION 1 after 09/17/2017 Insurance Type Payer Benefit Subscriber ID Effective Phone Address Plan / Dates Group [employer] OPT[employer] xxxxxxxxxxxx 2014-P [phone] [employer] H[employer] DUAL resent [id number] [employer] [address] [address] [place] [address]
--- OUTSIDE RECORDS SUMMARY | 2018-12-16 20:43 | XMS REPORT | Clinical Summary ---
Author Author [facility] Organization [facility] Address Unknown Phone Unavailable Care Team Providers Care Fingerer Name Role Phone PCP Unavailable Allergies No [...] D deficiency Active mometasone (NASONEX) 50 1 [place] by 17 g 3 mcg/actuation nasal each [...] contract with Sima Schmitt MD, [facility], PMR clinic, see Media section of EPIC Nov 2012 and or Jan 2014 Neurogenic bladder disorder 01/15/2013 Right sided sciatica 01/15/2013 Hip pain 01/15/2013 Foot drop, left 01/15/2013 Neuropathic pain 06/09/2010 Thrombocytopenia, unspecified 05/06/2009 Overview: Seen in hospital 03/23 and noted to have thrombocytopenia that was stable during hospitalization ranging from 60-100s. HIV negative. Hep negative. 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 Pt started on steroids. [...] Colon and Rectal Surgery 06/06/2018 Travel after 10/13/2017 Social History Date Tobacco Use Types Packs/Day [...] Routine 06/06/2018 Internal and external 10:00 AM FREIGHT SHIPPING AGENT bleeding hemorrhoids PT/INR/PTT Routine 06/06/2018 Internal and external 10:00 AM FREIGHT SHIPPING AGENT bleeding hemorrhoids BASIC METABOLIC PANEL Routine 06/06/2018 Internal and external 10:00 AM FREIGHT SHIPPING AGENT bleeding hemorrhoids CBC/DIFF Routine 06/06/2018 Internal and external 10:00 AM FREIGHT SHIPPING AGENT bleeding hemorrhoids after 10/13/2017 Results * PT/INR/PTT (06/06/2018 10:00 AM FREIGHT SHIPPING AGENT) PT 20.4 (H) 11.8 - 15.0 Seconds [facility] MAIN-STATION 4 INR 1.8 [facility] SUGGESTED THERAPEUTIC RANGES: MAIN-STATION 4 INR 2.0-3.0 for MODERATE INTENSITY ANTICOAGULATION INR 2.5-3.5 for HIGH INTENSITY ANTICOAGULATION PTT 47.3 (H) 23.6 - 36.4 Seconds [facility] MAIN-STATION 4 Specimen Blood Performing Organization Address City/State/Zipcode Phone Number [facility] MAIN-STATION 4 * LIVER PROFILE (06/06/2018 10:00 AM FREIGHT SHIPPING AGENT) Protein, Total, 5.7 (L) 6.0 - 8.3 [...] MAIN-STATION 1 * CBC/DIFF (06/06/2018 10:00 AM FREIGHT SHIPPING AGENT) WBC 2.6 (L) 4.5 - 12.0 K/uL [...] Address City/State/Zipcode Phone Number [facility] MAIN-STATION 2 * BASIC METABOLIC PANEL (06/06/2018 10:00 AM FREIGHT SHIPPING AGENT) [facility] CO2 29 21 - 31 mmol/L [facility] [...] Address City/State/Zipcode Phone Number [facility] MAIN-STATION 1 after 10/13/2017 Insurance Type Payer Benefit Subscriber ID Effective Phone Address Plan / Dates Group [employer] xxxxxxxxxxxx 2014-P [phone] [employer] H[employer] DUAL resent [id number] [employer] [address] [address] [place] [address]
--- OUTSIDE RECORDS SUMMARY | 2018-12-16 20:43 | XMS REPORT | Clinical Summary ---
Author Author [facility] Organization [facility] Address Unknown Phone Unavailable Care Team Providers Care Vegetable Farmworker Name Role Phone PCP Unavailable Allergies No [...] D deficiency Active mometasone (NASONEX) 50 1 [place] by 17 g 3 mcg/actuation nasal each [...] has opioid contract with Sima Schmitt MD, [facility], PMR clinic, see Media section of EPIC Nov 2012 and or Jan 2014 Neurogenic bladder disorder 01/15/2013 Right sided sciatica 01/15/2013 Hip pain 01/15/2013 Foot drop, left 01/15/2013 Neuropathic pain 06/09/2010 Thrombocytopenia, unspecified 05/06/2009 Overview: Seen in hospital 03/23 and noted to have thrombocytopenia that was stable during hospitalization ranging from 60-100s. HIV negative. Hep negative. 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 Pt started on steroids. [...] Colon and Rectal Surgery 06/06/2018 Travel after 10/28/2017 Social History Date Tobacco Use Types Packs/Day [...] Routine 06/06/2018 Internal and external 10:00 AM DIRECTOR OF EVENT MANAGEMENT bleeding hemorrhoids PT/INR/PTT Routine 06/06/2018 Internal and external 10:00 AM DIRECTOR OF EVENT MANAGEMENT bleeding hemorrhoids BASIC METABOLIC PANEL Routine 06/06/2018 Internal and external 10:00 AM DIRECTOR OF EVENT MANAGEMENT bleeding hemorrhoids CBC/DIFF Routine 06/06/2018 Internal and external 10:00 AM DIRECTOR OF EVENT MANAGEMENT bleeding hemorrhoids after 10/28/2017 Results * PT/INR/PTT (06/06/2018 10:00 AM DIRECTOR OF EVENT MANAGEMENT) PT 20.4 (H) 11.8 - 15.0 Seconds [facility] MAIN-STATION 4 INR 1.8 [facility] SUGGESTED THERAPEUTIC RANGES: MAIN-STATION 4 INR 2.0-3.0 for MODERATE INTENSITY ANTICOAGULATION INR 2.5-3.5 for HIGH INTENSITY ANTICOAGULATION PTT 47.3 (H) 23.6 - 36.4 Seconds [facility] MAIN-STATION 4 Specimen Blood Performing Organization Address City/State/Zipcode Phone Number [facility] MAIN-STATION 4 * LIVER PROFILE (06/06/2018 10:00 AM DIRECTOR OF EVENT MANAGEMENT) Protein, Total, 5.7 (L) 6.0 - 8.3 [...] MAIN-STATION 1 * CBC/DIFF (06/06/2018 10:00 AM DIRECTOR OF EVENT MANAGEMENT) WBC 2.6 (L) 4.5 - 12.0 K/uL [...] Organization Address City/State/Zipcode Phone Number [facility] MAIN-STATION 2 * BASIC METABOLIC PANEL (06/06/2018 10:00 AM DIRECTOR OF EVENT MANAGEMENT) [facility] CO2 29 21 - 31 mmol/L [...] Organization Address City/State/Zipcode Phone Number [facility] MAIN-STATION 1 after 10/28/2017 Insurance Type Payer Benefit Subscriber ID Effective Phone Address Plan / Dates Group [employer] xxxxxxxxxxxx [id number] [phone] [employer] HMO DUAL resent [id number] OPTION MMP [address] [address] [place] [address]
--- OUTSIDE RECORDS SUMMARY | 2018-12-16 20:43 | XMS REPORT | Clinical Summary ---
Author Author [facility] Organization [facility] Address Unknown Phone Unavailable Care Team Providers Care Facing End Trimmer Name Role Phone PCP Unavailable Allergies No [...] D deficiency Active mometasone (NASONEX) 50 1 [place] by 17 g 3 mcg/actuation nasal each [...] has opioid contract with Sima Schmitt MD, [facility], PMR clinic, see Media section of EPIC Nov 2012 and or Jan 2014 Neurogenic bladder disorder 01/15/2013 Right sided sciatica 01/15/2013 Hip pain 01/15/2013 Foot drop, left 01/15/2013 Neuropathic pain 06/09/2010 Thrombocytopenia, unspecified 05/06/2009 Overview: Seen in hospital 03/23 and noted to have thrombocytopenia that was stable during hospitalization ranging from 60-100s. HIV negative. Hep negative. 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 Pt started on steroids. [...] Colon and Rectal Surgery 06/06/2018 Travel after 07/22/2017 Social History Date Tobacco Use Types Packs/Day [...] Vital Signs Time Taken Vital Sign Reading 07/18/2018 12:49 PM CDT Blood Pressure 111/65 07/18/2018 12:49 PM CDT Pulse 76 07/18/2018 12:49 PM CDT Temperature 36.6 C (97.9 F) 07/18/2018 12:49 PM CDT Respiratory Rate 20 - Oxygen Saturation - - Inhaled Oxygen - Concentration 07/18/2018 12:49 PM CDT Weight 148.3 kg (327 lb) 07/18/2018 12:49 PM CDT Height 182.9 cm (6') 07/18/2018 12:49 PM CDT Body Mass Index 44.35 Plan of Treatment Not on file Procedures Comments Procedure Name Priority Date/Time Associated Diagnosis LIVER PROFILE Routine 06/06/2018 Internal and external 10:00 AM SPECIAL EDUCATION SUPERINTENDENT bleeding hemorrhoids PT/INR/PTT Routine 06/06/2018 Internal and external 10:00 AM SPECIAL EDUCATION SUPERINTENDENT bleeding hemorrhoids BASIC METABOLIC PANEL Routine 06/06/2018 Internal and external 10:00 AM SPECIAL EDUCATION SUPERINTENDENT bleeding hemorrhoids CBC/DIFF Routine 06/06/2018 Internal and external 10:00 AM SPECIAL EDUCATION SUPERINTENDENT bleeding hemorrhoids after 07/22/2017 Results * PT/INR/PTT (06/06/2018 10:00 AM SPECIAL EDUCATION SUPERINTENDENT) PT 20.4 (H) 11.8 - 15.0 Seconds [facility] MAIN-STATION 4 INR 1.8 [facility] SUGGESTED THERAPEUTIC RANGES: MAIN-STATION 4 INR 2.0-3.0 for MODERATE INTENSITY ANTICOAGULATION INR 2.5-3.5 for HIGH INTENSITY ANTICOAGULATION PTT 47.3 (H) 23.6 - 36.4 Seconds [facility] MAIN-STATION 4 Specimen Blood Performing Organization Address City/State/Zipcode Phone Number MISYS [facility] MAIN-STATION 4 * LIVER PROFILE (06/06/2018 10:00 AM SPECIAL EDUCATION SUPERINTENDENT) T Protein 5.7 (L) 6.0 - 8.3 g/dL [facility] MAIN-STATION 1 Albumin 2.6 (L) 4.2 - 5.5 g/dL [facility] MAIN-STATION 1 T Bilirubin 3.1 (H) 0.2 - 1.2 mg/dL [facility] MAIN-STATION 1 Alk Phos 110 (H) 34 - 104 U/L [facility] MAIN-STATION 1 AST 48 (H) 13 - 39 U/L [facility] MAIN-STATION 1 ALT 23 7 - 52 U/L [facility] MAIN-STATION 1 D Bilirubin 1.0 (H) 0.0 - 0.2 mg/dL [facility] MAIN-STATION 1 Specimen Blood Performing Organization Address City/State/Zipcode Phone Number MISYS [facility] MAIN-STATION 1 * CBC/DIFF (06/06/2018 10:00 AM SPECIAL EDUCATION SUPERINTENDENT) WBC 2.6 (L) 4.5 - 12.0 K/uL [facility] MAIN-STATION 2 RBC 3.47 (L) 4.60 - 6.20 M/uL [facility] MAIN-STATION 2 Hemoglobin 9.4 (L) 14.0 - 18.0 g/dL [facility] MAIN-STATION 2 Hematocrit 31.3 (L) 40.0 - 54.0 % [facility] MAIN-STATION 2 MCV 90 82 - 92 fL [facility] MAIN-STATION 2 MCH 27.1 27.0 - 31.0 pg [facility] MAIN-STATION 2 MCHC 30.0 (L) 32.0 - 36.0 g/dL [facility] MAIN-STATION 2 RDW 65.0 (H) 35.1 - 43.9 fL [facility] MAIN-STATION 2 Platelet 41 (L) 150 - 400 K/uL [facility] MAIN-STATION 2 Mean Platelet Not measured 9.4 - 12.4 fL [facility] Volume MAIN-STATION 2 Percent NRBC 0.0 [facility] MAIN-STATION 2 Absolute NRBC 0.00 [facility] MAIN-STATION 2 Neutrophil 58.0 34.0 - 67.9 % [facility] MAIN-STATION 2 Lymphocyte 31.0 21.8 - 50.0 % [facility] MAIN-STATION 2 Monocyte 4.0 (L) 5.3 - 12.0 % [facility] MAIN-STATION 2 Eosinophil 4.0 0.8 - 5.0 % [facility] MAIN-STATION 2 Basophil 3.0 (H) 0.2 - [...] MAIN-STATION 2 Specimen Blood Performing Organization Address City/[facility] Phone Number [facility] MAIN-STATION 2 * BASIC METABOLIC PANEL (06/06/2018 10:00 AM SPECIAL EDUCATION SUPERINTENDENT) CO2 29 21 - 31 mmol/L [facility] MAIN-STATION 1 Chloride 109 (H) 98 - 107 mmol/L [facility] MAIN-STATION 1 Potassium 4.4 3.5 - 5.1 mmol/L [facility] MAIN-STATION 1 Sodium 141 136 - 145 mmol/L [facility] MAIN-STATION 1 Glucose 79 70 - 110 mg/dL [facility] MAIN-STATION 1 Urea Nitrogen 11 7 - 25 mg/dL [facility] MAIN-STATION 1 Creatinine 0.80 0.7 - 1.3 mg/dL [facility] MAIN-STATION 1 Anion Gap 3 [facility] MAIN-STATION 1 Calcium 8.2 (L) 8.6 - 10.3 mg/dL [facility] MAIN-STATION 1 GFR, Estimated >60 mL/min/1.73 m2 [facility] MAIN-STATION 1 GFR, Estim, >60 mL/min/1.73 m2 [facility] Afr-Am MAIN-STATION 1 Specimen Blood Performing Organization Address City/[facility]owi Phone Number MISYS [facility] MAIN-STATION 1 after 07/22/2017 Insurance Type Payer Benefit Subscriber ID Effective Phone Address Plan / Dates Group [employer] MEDICARE OPTIONS CAB[employer] xxxxxxxxxxxx 2014-P [phone] [facility] DUAL resent [id number] OPTION [facility] [address] [address] [place] [address]
--- OUTSIDE RECORDS SUMMARY | 2018-12-16 20:43 | XMS REPORT | Clinical Summary ---
Author Author [facility] Organization [facility] Address Unknown Phone Unavailable Care Team Providers Care Tube Test Technician Name Role Phone PCP Unavailable Allergies No [...] D deficiency Active mometasone (NASONEX) 50 1 [place] by 17 g 3 mcg/actuation nasal each [...] has opioid contract with Sima Schmitt MD, [facility], PMR clinic, see Media section of EPIC Nov 2012 and or Jan 2014 Neurogenic bladder disorder 01/15/2013 Right sided sciatica 01/15/2013 Hip pain 01/15/2013 Foot drop, left 01/15/2013 Neuropathic pain 06/09/2010 Thrombocytopenia, unspecified 05/06/2009 Overview: Seen in hospital 03/23 and noted to have thrombocytopenia that was stable during hospitalization ranging from 60-100s. HIV negative. Hep negative. 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 Pt started on steroids. [...] Colon and Rectal Surgery 06/06/2018 Travel after 08/27/2017 Social History Date Tobacco Use Types Packs/Day [...] Routine 06/06/2018 Internal and external 10:00 AM COSMETIC SALES ASSISTANT bleeding hemorrhoids PT/INR/PTT Routine 06/06/2018 Internal and external 10:00 AM COSMETIC SALES ASSISTANT bleeding hemorrhoids BASIC METABOLIC PANEL Routine 06/06/2018 Internal and external 10:00 AM COSMETIC SALES ASSISTANT bleeding hemorrhoids CBC/DIFF Routine 06/06/2018 Internal and external 10:00 AM COSMETIC SALES ASSISTANT bleeding hemorrhoids after 08/27/2017 Results * PT/INR/PTT (06/06/2018 10:00 AM COSMETIC SALES ASSISTANT) PT 20.4 (H) 11.8 - 15.0 Seconds [facility] MAIN-STATION 4 INR 1.8 [facility] SUGGESTED THERAPEUTIC RANGES: MAIN-STATION 4 INR 2.0-3.0 for MODERATE INTENSITY ANTICOAGULATION INR 2.5-3.5 for HIGH INTENSITY ANTICOAGULATION PTT 47.3 (H) 23.6 - 36.4 Seconds [facility] MAIN-STATION 4 Specimen Blood Performing Organization Address City/State/Zipcode Phone Number MISYS [facility] MAIN-STATION 4 * LIVER PROFILE (06/06/2018 10:00 AM COSMETIC SALES ASSISTANT) T Protein 5.7 (L) 6.0 - 8.3 g/dL [facility] MAIN-STATION 1 Albumin 2.6 (L) 4.2 - 5.5 g/dL [facility] MAIN-STATION 1 T Bilirubin 3.1 (H) 0.2 - 1.2 mg/dL [facility] MAIN-STATION 1 Alk Phos 110 (H) 34 - 104 U/L [facility] MAIN-STATION 1 AST 48 (H) 13 - 39 U/L [facility] MAIN-STATION 1 ALT 23 7 - 52 U/L [facility] MAIN-STATION 1 D Bilirubin 1.0 (H) 0.0 - 0.2 mg/dL [facility] MAIN-STATION 1 Specimen Blood Performing Organization Address City/State/Zipcode Phone Number MISYS [facility] MAIN-STATION 1 * CBC/DIFF (06/06/2018 10:00 AM COSMETIC SALES ASSISTANT) WBC 2.6 (L) 4.5 - 12.0 K/uL [facility] MAIN-STATION 2 RBC 3.47 (L) 4.60 - 6.20 M/uL [facility] MAIN-STATION 2 Hemoglobin 9.4 (L) 14.0 - 18.0 g/dL [facility] MAIN-STATION 2 Hematocrit 31.3 (L) 40.0 - 54.0 % [facility] MAIN-STATION 2 MCV 90 82 - 92 fL [facility] MAIN-STATION 2 MCH 27.1 27.0 - 31.0 pg [facility] MAIN-STATION 2 MCHC 30.0 (L) 32.0 - 36.0 g/dL [facility] MAIN-STATION 2 RDW 65.0 (H) 35.1 - 43.9 fL [facility] MAIN-STATION 2 Platelet 41 (L) 150 - 400 K/uL [facility] MAIN-STATION 2 Mean Platelet Not measured 9.4 [...] MAIN-STATION 2 Specimen Blood Performing Organization Address City/[facility] Phone Number [facility] MAIN-STATION 2 * BASIC METABOLIC PANEL (06/06/2018 10:00 AM COSMETIC SALES ASSISTANT) CO2 29 21 - 31 mmol/L [facility] MAIN-STATION 1 Chloride 109 (H) 98 - 107 mmol/L [facility] MAIN-STATION 1 Potassium 4.4 3.5 - 5.1 mmol/L [facility] MAIN-STATION 1 Sodium 141 136 - 145 mmol/L [facility] MAIN-STATION 1 Glucose 79 70 - 110 mg/dL [facility] MAIN-STATION 1 Urea Nitrogen 11 7 - 25 mg/dL [facility] MAIN-STATION 1 Creatinine 0.80 0.7 - 1.3 mg/dL [facility] MAIN-STATION 1 Anion Gap 3 [facility] MAIN-STATION 1 Calcium 8.2 (L) 8.6 - 10.3 mg/dL [facility] MAIN-STATION 1 GFR, Estimated >60 mL/min/1.73 m2 [facility] MAIN-STATION 1 GFR, Estim, >60 mL/min/1.73 m2 [facility] Afr-Am MAIN-STATION 1 Specimen Blood Performing Organization Address City/[facility] Hospitalc[facility]i Phone Number MISYS [facility] MAIN-STATION 1 after 08/27/2017 Insurance Type Payer Benefit Subscriber ID Effective Phone Address Plan / Dates Group [employer] MEDICARE OPTIONS [employer] xxxxxxxxxxxx 2014-P [phone] [facility] DUAL resent [id number] OPTION [facility] [address] [address] [place] [address]
--- OUTSIDE RECORDS SUMMARY | 2018-12-16 20:43 | XMS REPORT | Clinical Summary ---
Author Author [facility] Organization [facility] Address Unknown Phone Unavailable Care Team Providers Care Milk Bottler Name Role Phone PCP Unavailable Allergies No [...] D deficiency Active mometasone (NASONEX) 50 1 [place] by 17 g 3 mcg/actuation nasal each [...] contract with Sima Schmitt MD, [facility], PMR clinic, see Media section of EPIC Nov 2012 and or Jan 2014 Neurogenic bladder disorder 01/15/2013 Right sided sciatica 01/15/2013 Hip pain 01/15/2013 Foot drop, left 01/15/2013 Neuropathic pain 06/09/2010 Thrombocytopenia, unspecified 05/06/2009 Overview: Seen in hospital 03/23 and noted to have thrombocytopenia that was stable during hospitalization ranging from 60-100s. HIV negative. Hep negative. 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 Pt started on steroids. [...] Colon and Rectal Surgery 06/06/2018 Travel after 10/16/2017 Social History Date Tobacco Use Types Packs/Day [...] Routine 06/06/2018 Internal and external 10:00 AM CASTABLES WORKER bleeding hemorrhoids PT/INR/PTT Routine 06/06/2018 Internal and external 10:00 AM CASTABLES WORKER bleeding hemorrhoids BASIC METABOLIC PANEL Routine 06/06/2018 Internal and external 10:00 AM CASTABLES WORKER bleeding hemorrhoids CBC/DIFF Routine 06/06/2018 Internal and external 10:00 AM CASTABLES WORKER bleeding hemorrhoids after 10/16/2017 Results * PT/INR/PTT (06/06/2018 10:00 AM CASTABLES WORKER) PT 20.4 (H) 11.8 - 15.0 Seconds [facility] MAIN-STATION 4 INR 1.8 [facility] SUGGESTED THERAPEUTIC RANGES: MAIN-STATION 4 INR 2.0-3.0 for MODERATE INTENSITY ANTICOAGULATION INR 2.5-3.5 for HIGH INTENSITY ANTICOAGULATION PTT 47.3 (H) 23.6 - 36.4 Seconds [facility] MAIN-STATION 4 Specimen Blood Performing Organization Address City/State/Zipcode Phone Number MISYS [facility] MAIN-STATION 4 * LIVER PROFILE (06/06/2018 10:00 AM CASTABLES WORKER) Protein, Total, 5.7 (L) 6.0 - 8.3 [...] MAIN-STATION 1 * CBC/DIFF (06/06/2018 10:00 AM CASTABLES WORKER) WBC 2.6 (L) 4.5 - 12.0 K/uL [...] Performing Organization Address City/State/Zipcode Phone Number ELA [facility] MAIN-STATION 2 * BASIC METABOLIC PANEL (06/06/2018 10:00 AM CASTABLES WORKER) [facility] CO2 29 21 - 31 mmol/L [facility] [...] Performing Organization Address City/State/Zipcode Phone Number ELA [facility] MAIN-STATION 1 after 10/16/2017 Insurance Type Payer Benefit Subscriber ID Effective Phone Address Plan / Dates Group DEB[employer]AH MEDICARE OPTIONS [employer] xxxxxxxxxxxx 2014-P [phone] [employer] DUAL resent [id number] OPTION [facility] [address] [address] [place] [address]
--- OUTSIDE RECORDS SUMMARY | 2018-12-16 20:44 | XMS REPORT | Clinical Summary ---
Author Author [facility] Organization [facility] Address Unknown Phone Unavailable Care Team Providers Care Counter Sales Person Name Role Phone PCP Unavailable Allergies No [...] D deficiency Active mometasone (NASONEX) 50 1 [place] by 17 g 3 mcg/actuation nasal each [...] has opioid contract with Sima Schmitt MD, [facility], PMR clinic, see Media section of EPIC Nov 2012 and or Jan 2014 Neurogenic bladder disorder 01/15/2013 Right sided sciatica 01/15/2013 Hip pain 01/15/2013 Foot drop, left 01/15/2013 Neuropathic pain 06/09/2010 Thrombocytopenia, unspecified 05/06/2009 Overview: Seen in hospital 03/23 and noted to have thrombocytopenia that was stable during hospitalization ranging from 60-100s. HIV negative. Hep negative. 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 Pt started on steroids. [...] Colon and Rectal Surgery 06/06/2018 Travel after 11/09/2017 Social History Date Tobacco Use Types Packs/Day [...] Routine 06/06/2018 Internal and external 10:00 AM CABLE WEAVER bleeding hemorrhoids PT/INR/PTT Routine 06/06/2018 Internal and external 10:00 AM CABLE WEAVER bleeding hemorrhoids BASIC METABOLIC PANEL Routine 06/06/2018 Internal and external 10:00 AM CABLE WEAVER bleeding hemorrhoids CBC/DIFF Routine 06/06/2018 Internal and external 10:00 AM CABLE WEAVER bleeding hemorrhoids after 11/09/2017 Results * PT/INR/PTT (06/06/2018 10:00 AM CABLE WEAVER) PT 20.4 (H) 11.8 - 15.0 Seconds [facility] MAIN-STATION 4 INR 1.8 [facility] SUGGESTED THERAPEUTIC RANGES: MAIN-STATION 4 INR 2.0-3.0 for MODERATE INTENSITY ANTICOAGULATION INR 2.5-3.5 for HIGH INTENSITY ANTICOAGULATION PTT 47.3 (H) 23.6 - 36.4 Seconds [facility] MAIN-STATION 4 Specimen Blood Performing Organization Address City/State/Zipcode Phone Number MISYS [facility] MAIN-STATION 4 * LIVER PROFILE (06/06/2018 10:00 AM CABLE WEAVER) Protein, Total, 5.7 (L) 6.0 - 8.3 [...] MAIN-STATION 1 * CBC/DIFF (06/06/2018 10:00 AM CABLE WEAVER) WBC 2.6 (L) 4.5 - 12.0 K/uL [...] Performing Organization Address City/State/Zipcode Phone Number ELA [facility] MAIN-STATION 2 * BASIC METABOLIC PANEL (06/06/2018 10:00 AM CABLE WEAVER) [facility] CO2 29 21 - 31 mmol/L [facility] [...] Performing Organization Address City/State/Zipcode Phone Number ELA [facility] MAIN-STATION 1 after 11/09/2017 Insurance Type Payer Benefit Subscriber ID Effective Phone Address Plan / Dates Group DEBORAH MEDICARE OPTIONS [employer] xxxxxxxxxxxx 2014-P [phone] [employer] H[employer] DUAL resent [id number] OPTION [facility] [address] [address] [place] [address]
[2018-12-16 22:07] LABS: BASOPHILS % 0.9 % (0.0-1.0); EOSINOPHILS # (AUTO) 0.2 (0.0-0.4); EOSINOPHILS % 4.6 % (0.0-6.0); HEMATOCRIT 31.5 % (38.2-49.6); HEMOGLOBIN 10.3 g/dL (14.0-18.0); LYMPHOCYTES # (AUTO) 0.7 (1.0-3.2); LYMPHOCYTES % 22.3 % (18.0-39.1); MEAN CORPUSCULAR HEMOGLOBIN 28.9 pg (28-32); MEAN CORPUSCULAR HGB CONC 32.7 g/dL (31-35); MEAN CORPUSCULAR VOLUME 88.5 fL (81-99); MONOCYTES # (AUTO) 0.3 (0.2-0.8); MONOCYTES % 10.4 % (4.4-11.3); NEUTROPHILS % 61.5 % (38.7-80.0); RED BLOOD COUNT 3.56 x10e6/uL (4.3-5.7); RED CELL DISTRIBUTION WIDTH 20.4 % (11.7-14.4)
[2018-12-16 22:11] LABS: PLATELET COUNT 35 x10e3/uL (140-360)
[2018-12-16 22:19] LABS: ALANINE AMINOTRANSFERASE 20 IU/L (0-55); ALBUMIN 2.3 g/dL (3.5-5.0); ALBUMIN/GLOBULIN RATIO 0.6 (0.8-2.0); ALKALINE PHOSPHATASE 125 IU/L (40-150); ANION GAP 8.9 mmol/L (8-16); BLOOD UREA NITROGEN 11 mg/dL (7-26); BUN/CREATININE RATIO 13 (6-25); CALCIUM 8.2 mg/dL (8.4-10.2); CARBON DIOXIDE 26 mmol/L (22-29); CHLORIDE 104 mmol/L (98-107); CREATININE, SERUM 0.84 mg/dL (0.72-1.25); EST GLOMERULAR FILTRATION RATE > 60 ML/MIN (60-); GLUCOSE 121 mg/dL (74-118); POTASSIUM 3.9 mmol/L (3.5-5.1); SODIUM 135 mmol/L (136-145)
[2018-12-16 22:32] LABS: AMYLASE 61 U/L (25-125); LIPASE 33 U/L (8-78)
--- NOTE | 2018-12-17 00:08 | Diagnostic Imaging Report ---
Lumbar spine two views CPT code: 05870 Indication: Fall, low back pain Technique: A.P. and lateral views of the lumbar spine obtained without comparison. Findings: There are five non rib bearing vertebral bodies. Alignment is maintained on the AP and lateral views. The transverse processes are intact. The vertebral body heights are well maintained. There is disc space narrowing and endplate osteophytic lipping at all levels with vacuum disc phenomenon at L4-5 and L5-S1. No abnormalities of the sacroiliac joints. The sacrum is normal. The spinous processes are normally aligned. There is no evidence of subluxation. The bowel gas pattern is unremarkable. IMPRESSION: Degenerative changes of the lumbar spine without compression deformity or listhesis. Signed by: Dr. Omer Lee MD on 12/17/2018 12:05 AM
--- NOTE | 2018-12-17 00:14 | Diagnostic Imaging Report ---
Thoracic spine complete CPT code: 06495 Indication: Fall Technique: A.P., swimmer's and lateral views of thoracic spine obtained without comparison. Findings: Alignment maintained on AP and lateral views. There is height loss of the T8, T9, T10, and T11 vertebral bodies. There is wedging of the T9 vertebral body with approximately 45% height loss. There is endplate osteophytic lipping from T8-9 to T10-11. There is a lateral osteophyte complex at T9-10. Cervicothoracic junction is normally aligned with symmetric vertebral body heights. Visualized lung olvera demonstrate no infiltrates or pleural effusions. IMPRESSION: Height loss of several thoracic vertebral bodies, particularly at T9. These are likely chronic. Degenerative changes throughout the thoracic spine. If there is focal neurologic deficit, recommend evaluation of the spinal cord with MRI. Signed by: Dr. Omer Lee MD on 12/17/2018 12:10 AM
[2018-12-17] MEDS ORDERED: MORPHINE SULFATE INJ 4 MG/ML INJ 1ML IV STA (01:26)
[2018-12-17] MEDS ORDERED: ONDANSETRON HCL INJ 2MG/ML 2ML 2 MG/ML VIAL IV STA (01:26)
[2018-12-17] MEDS ORDERED: MORPHINE SULFATE INJ 4 MG/ML INJ 1ML ONE (01:37)
--- NOTE | 2018-12-17 02:51 | Diagnostic Imaging Report ---
History: Trauma, fall Comparison studies: Thoracic spine x-ray 12/16/2018 Technique: Axial were obtained without IV contrast through the thoracic region. Coronal and sagittal images reconstructed from the axial data. Intravenous contrast: None Findings: Alignment: Normal kyphosis. No scoliosis. Paraspinal soft tissues: No gross acute abnormalities. Paraspinal muscles: Unremarkable Spinal cord: Can not be evaluated. Vertebrae: No acute fracture, infection or neoplasm. Mild chronic wedge deformities with mild vertebral body height loss from T8 through T11. Multiple Schmorl's nodes present along the endplates from T6 through L1. Degenerative changes: Mild multilevel disc degeneration with loss of disc height. Multifocal ossification of the posterior longitudinal ligament from T5 through T8 indents the thecal sac. Mild canal stenosis at T8-T9 due to a disc osteophyte complex and ossified posterior longitudinal ligament. Severe foraminal stenosis on the left at T8-T9 due to facet arthrosis. Remaining foramen are patent. Incidental findings: * Moderate bilateral pleural effusions with overlying atelectasis. * Cholelithiasis and choledocholithiasis. * Cirrhotic appearance of the liver with splenomegaly, ascites and mild mesenteric edema. * Nonspecific fullness at the gastroesophageal junction and lower esophagus. IMPRESSION: 1. No acute thoracic spine abnormalities. 2. Bilateral pleural effusions. 3. Cholelithiasis and choledocholithiasis. 4. Hepatic cirrhosis with splenomegaly and small volume ascites. 5. Nonspecific fullness at the gastroesophageal junction and thoracic esophagus. Findings may reflect prominent gastroesophageal related to portal hypertension. Cannot exclude neoplasm on this noncontrast exam. Recommend abdomen CT with IV contrast to further evaluate. Signed by: Dr. Jose Angel Lim M.D. on 12/17/2018 2:47 AM
[2018-12-17 03:20] VITALS: BP 127/62
== END 2018-12-17 03:31 | disposition home or self-care (01) ==
LOC: ER 20:35
DX: M54.5 Low back pain (principal); M54.32 Sciatica, left side; S39.012A Strain of muscle, fascia and tendon of lower back, initial encounter; G89.29 Other chronic pain; M21.372 Foot drop, left foot; K76.9 Liver disease, unspecified; F41.9 Anxiety disorder, unspecified; K21.9 Gastro-esophageal reflux disease without esophagitis
CPT/HCPCS: 36415; 72070; 72100; 72128; 80053; 82150; 83690; 85025; 96374; 99284; J2270; J2405

== ENCOUNTER 2019-10-24 13:11 | Emergency (ER) | payer MEDICARE, OTHER ==
[~2019-10-24] VITALS: Ht 182.9 cm; Wt 136.1 kg
--- NOTE | 2019-10-24 14:07 | NUR ---
blood cleaned from head and pressure applied to lac site on top of pt head to stop bleeding; skin glue applied to site by
--- NOTE | 2019-10-24 15:58 | Diagnostic Imaging Report ---
Examination: CT BRAIN WO CONTRAST History:Fall with forehead and head injury Comparison studies:Head CT dated March 04, 2018 Technique: Axial images were obtained from the skull base to the vertex. Coronal and sagittal images reconstructed from the axial data. Dose modulation, iterative reconstruction, and/or weight based adjustment of the mA/kV was utilized to reduce the radiation dose to as low as reasonably achievable. Intravenous contrast: None Findings: Scalp: No abnormalities. Bones: No fractures, blastic or lytic lesions. Brain sulci: Appropriate for age. Ventricles: Normal in size and configuration. No hydrocephalus. Extra-axial space: No abnormalities. Parenchyma: No masses, hemorrhage, or acute or chronic cortical based vascular insults.. Sellar/suprasellar region: No abnormalities. Craniocervical junction: Patent foramen magnum. No Chiari one malformation. Incidental findings: None. Impression: No intracranial abnormalities. No change from prior head CT dated March 04, 2018. Signed by: Dr. Rochelle Roper M.D. on 10/24/2019 3:55 PM
--- NOTE | 2019-10-24 16:24 | Emergency Department Note ---
History of Present Illnes History of Present Illness Chief Complaint: Head/Face Trauma History of Present Illness This is a 39 year old male . Historian: Patient Arrival Mode: Car Glove Examiner Required: No Onset (how long ago): minute(s) Location: head Quality: laceration Radiation: Reports non-radiation Severity: mild Onset quality: sudden Progression: improving Chronicity: new Context: Denies recent illness Relieving factors: none Exacerbating factors: none Associated symptoms: Reports denies other symptoms Treatments prior to arrival: none Past Medical/Family History Physician Review I have reviewed the patient's past medical and family history. Any updates have been documented here. Past Medical History Recent Fever: No Clinical Suspicion of Infectio: No New/Unexplained Change in Ment: No Past Medical History: None Other Medical History: Neuropathy cirrhosis Past Surgical History: Back Surgery Other Surgery: herniated disks drop left foot Social History Smoking Cessation: Never Smoker Counseling Performed: No Alcohol Use: None Any Illegal Drug Use: No TB Exposure/Symptoms: No Physically hurt or threatened: No Family History Family history of heart diseas: No Other Last Tetanus: utd Any Pre-Existing Lines (PICC,: No Review of Systems Review of Systems Constitutional: Reports no symptoms EENTM: Reports no symptoms Cardiovascular: Reports no symptoms Respiratory: Reports no symptoms Gastrointestinal: Reports no symptoms Genitourinary: Reports no symptoms Musculoskeletal: Reports no symptoms Integumentary: Reports as per HPI Neurological: Reports no symptoms Psychological: Reports no symptoms Endocrine: Reports no symptoms Hematological/Lymphatic: Reports no symptoms Physical Exam Related Data Allergies: Coded Allergies: No Known Allergies (Unverified , 08/21/17) Triage Vital Signs Vital Signs Date Time Temp Pulse Resp B/P (MAP) Pulse Ox O2 Delivery O2 Flow Rate FiO2 10/24/19 13:35 99.5 77 18 118/63 98 Room Air Vital signs reviewed: Yes Physical Exam CONSTITUTIONAL Constitutional: Present well-developed, Present well-nourished HENT HENT: Present normocephalic, Present oropharynx clear/moist, Present nose normal, Present other (very superficial scratch/laceration top of scalp ~2 cm) HENT L/R: Present left ext ear normal, Present right ext ear normal EYES Eyes: Reports PERRL, Reports conjunctivae normal NECK Neck: Present ROM normal PULMONARY Pulmonary: Present effort normal, Present breath sounds normal CARDIOVASCULAR Cardiovascular: Present regular rhythm, Present heart sounds normal, Present capillary refill normal, Present normal rate GASTROINTESTINAL Abdominal: Present soft, Present nontender, Present bowel sounds normal GENITOURINARY Genitourinary: Present exam deferred SKIN Skin: Present warm, Present dry MUSCULOSKELETAL Musculoskeletal: Present ROM normal NEUROLOGICAL Neurological: Present alert, Present oriented x 3, Present no gross motor or sensory deficits PSYCHOLOGICAL Psychological: Present mood/affect normal, Present judgement normal Procedures Laceration Laceration: Laceration 1 Site: scalp Size (cm): 2 Description: linear Amount of anesthesia (mL): 0 Skin layer closed with: other (Dermabond) Assessment & Plan Medical Decision Making MDM fall, head trauma - check ct brain, dermabond laceration Reassessment Reassessment Dermabond instructions, F/U PCP Saturday Assessment & Plan Final Impression: (1) Fall (2) Laceration of scalp Depart Disposition: HOME, SELF-CARE Last Vital Signs Date Time Temp Pulse Resp B/P (MAP) Pulse Ox O2 Delivery O2 Flow Rate FiO2 10/24/19 13:35 99.5 77 18 118/63 98 Room Air Home Meds Active Scripts Cefuroxime Axetil (CEFUROXIME) 250 Mg Tablet, 500 MG PO Q12H for 3 Days, TAB Prov:ANGELA WHITMAN MD 07/08/18 Lactulose (LACTULOSE) 20 Gm/30 Ml Solution, 30 ML PO BID for 90 Days, EACH Prov:FATOU POMPA MD 03/07/18 Reported Medications Cefuroxime Axetil (CEFUROXIME) 250 Mg Tablet, 500 MG PO Q12H for 3 Days, TAB 07/08/18 Ferrous Sulfate (FERROUS SULFATE) 325 Mg Tablet, 325 MG PO DAILY 07/05/18 Tramadol Hcl (ULTRAM) 50 Mg Tablet, 50 MG PO Q12H PRN for PAIN, TAB 07/04/18 Calcium Carbonate/Vitamin D2 (OYSTER SHELL CALCIUM-VIT D TAB) 1 Each Tablet 07/04/18 Multivits-Min/Fa/Lut/Zeaxanth (ICAPS MV TABLET) 1 Each Tablet. 07/04/18 Gabapentin (GABAPENTIN) 300 Mg Capsule, 300 MG PO BID, #60 CAP 07/04/18 Propranolol Hcl (PROPRANOLOL HCL) 10 Mg Tablet, 10 MG PO BID, TAB 07/04/18 Pantoprazole Sodium* (PROTONIX) 40 Mg Tablet.dr, 40 MG PO DAILY, TAB 07/04/18 KEREN YEPEZ MD Oct 24, 2019 16:24
== END 2019-10-24 16:23 | disposition home or self-care (01) ==
LOC: ER 13:55
DX: S01.01XA Laceration without foreign body of scalp, initial encounter (principal); W01.198A Fall on same level from slipping, tripping and stumbling with subsequent striking against other object, initial encounter; Y92.512 Supermarket, store or market as the place of occurrence of the external cause; M21.372 Foot drop, left foot
CPT/HCPCS: 70450; 99283

== ENCOUNTER 2020-09-01 23:24 | Emergency (ER) | payer MEDICARE ==
[~2020-09-01] VITALS: Ht 210.8 cm; Wt 136.1 kg
[2020-09-01] MEDS ORDERED: IBUPROFEN 600 MG TAB PO STA (23:27)
[2020-09-01] MEDS ORDERED: PIPER-TAZ 3.375 GM 50 ML IV ONE (23:30)
[2020-09-01 23:36] LABS: BASOPHILS % 0.5 % (0.0-1.0); EOSINOPHILS # (AUTO) 0.1 (0.0-0.4); HEMATOCRIT 30.1 % (38.2-49.6); HEMOGLOBIN 9.5 g/dL (14.0-18.0); LYMPHOCYTES # (AUTO) 0.4 (1.0-3.2); LYMPHOCYTES % 6.5 % (18.0-39.1); MEAN CORPUSCULAR HEMOGLOBIN 27.9 pg (28-32); MEAN CORPUSCULAR HGB CONC 31.6 g/dL (31-35); MEAN CORPUSCULAR VOLUME 88.3 fL (81-99); MONOCYTES # (AUTO) 0.7 (0.2-0.8); MONOCYTES % 10.8 % (4.4-11.3); NEUTROPHILS # (AUTO) 5.1 (2.1-6.9); NEUTROPHILS % 80.9 % (38.7-80.0); RED BLOOD COUNT 3.41 x10e6/uL (4.3-5.7); RED CELL DISTRIBUTION WIDTH 20.3 % (11.7-14.4)
[2020-09-01 23:40] LABS: PLATELET COUNT 36 x10e3/uL (140-360)
[2020-09-01] MEDS ORDERED: IBUPROFEN 600 MG TAB ONE (23:42)
[2020-09-01 23:44] LABS: INR 2.12; PROTHROMBIN TIME 24.5 seconds (11.9-14.5)
[2020-09-01 23:45] LABS: PARTIAL THROMBOPLASTIN TIME 45.7 seconds (23.8-35.5)
[2020-09-01] MEDS ORDERED: PIPERACILLIN/TAZOBAC 3.375 GM in SODIUM CHLORIDE 0.9% 50ML 50 ML IV ONE (23:45)
[2020-09-01 23:52] LABS: AMYLASE 59 U/L (25-125); LIPASE 33 U/L (8-78)
[2020-09-01 23:54] LABS: ALANINE AMINOTRANSFERASE 31 IU/L (0-55); ALBUMIN 2.2 g/dL (3.5-5.0); ALBUMIN/GLOBULIN RATIO 0.6 (0.8-2.0); ALKALINE PHOSPHATASE 133 IU/L (40-150); BLOOD UREA NITROGEN 11 mg/dL (7-26); BUN/CREATININE RATIO 13 (6-25); CALCIUM 7.7 mg/dL (8.4-10.2); CARBON DIOXIDE 20 mmol/L (22-29); CHLORIDE 110 mmol/L (98-107); CREATININE, SERUM 0.85 mg/dL (0.72-1.25); EST GLOMERULAR FILTRATION RATE > 60 ML/MIN (60-); GLUCOSE 116 mg/dL (74-118); SODIUM 138 mmol/L (136-145)
[2020-09-02 01:53] LABS: CLARITY,URINE SL CLOUDY (CLEAR); COLOR,URINE AMBER (YELLOW); KETONES,URINE 1+ (NEGATIVE); LEUKOCYTE ESTERASE ,URINE NEGATIVE (NEGATIVE); NITRITE,URINE NEGATIVE (NEGATIVE); PROTEIN,URINE DIPSTICK TRACE (NEGATIVE); URINE UROBILINOGEN 1 mg/dL (0.2 - 1)
[2020-09-02] MEDS ORDERED: LACTULOSE SYRUP 20 GM/30 ML UDC PO ONE (02:00)
[2020-09-02 02:02] LABS: AMORPHOUS SEDIMENT,URINE FEW (FEW); BACTERIA,URINE RARE /HPF; EPITHELIAL CELLS,URINE FEW /LPF; MUCUS,URINE MODERATE (RARE); RBC,URINE 0-5 /HPF (0-5); WBC,URINE (MAN) 0-5 /HPF (0-5)
[2020-09-02] MEDS ORDERED: ACETAMINOPHEN 325 MG TAB PO ONE (03:15)
[2020-09-02] MEDS ORDERED: ACETAMINOPHEN 325 MG TAB ONE (03:19)
== END 2020-09-02 03:45 | disposition other institution (70) ==
LOC: ER 23:50
DX: R50.9 Fever, unspecified (principal); K70.30 Alcoholic cirrhosis of liver without ascites; K65.2 Spontaneous bacterial peritonitis; K72.90 Hepatic failure, unspecified without coma; D69.6 Thrombocytopenia, unspecified; Z20.822 Contact with and (suspected) exposure to COVID-19
CPT/HCPCS: 36415; 71045; 80053; 81001; 82140; 82150; 83605; 83690; 85025; 85610; 85730; 87040; 87071; 87086; 87205; 99284; J2543; U0002